=== PATIENT | female | born 1965 | race African-American/Black ===

== ENCOUNTER 2020-04-21 08:10 | Emergency (ER) | payer BC, SELFPAY ==
[2020-04-21 08:15] VITALS: BP 165/71; PULSE 71; RESP 18; TEMP 35.7; O2SAT 100
--- NOTE | 2020-04-21 08:18 | ED.HA ---
HPI - Headache General Chief Complaint: Headache Stated Complaint: russo/boil Time Seen by Provider: 04/21/20 08:18 Source: patient Mode of arrival: ambulatory Limitations: no limitations History of Present Illness HPI Narrative: Patient is a 54-year-old female with a history of hypertension and type 2 diabetes who presents for evaluation of boil on her face. Patient has a history of boils, takes prophylactic doxycycline daily, noticed a sore lesion again on the side of her right face near to her ear, reports some white drainage and pain. Patient has tried warm compresses without any improvement in the lesion. Patient states it is causing her to have a mild headache. Patient reports headache pain is mild, gradual onset in nature, no thunderclap sensation no red flag symptoms such as nausea, vomiting, numbness or weakness. No vision changes. Patient has taken Tylenol and ibuprofen with some minor improvement in the headache pain. Patient states she is hoping to have this boil drained. Otherwise, no fever or chills. Related Data Home Medications Medication Instructions Recorded Confirmed insulin glargine [Lantus Solostar SUBCUT 04/21/20 U-100 Insulin] lisinopril 04/21/20 Allergies Allergy/AdvReac Type Severity Reaction Status Date / Time acetaminophen Allergy Unknown Dizziness Verified 04/21/20 08:17 hydrocodone Allergy Unknown Dizziness Verified 04/21/20 08:17 Penicillins Allergy Unknown Dizziness Verified 04/21/20 08:17 Review of Systems Review of Systems: Narrative: CONSTITUTIONAL: Denies fever, chills, or sweats. EYES: Denies visual changes, redness, or discharge. ENT: Denies rhinorrhea, congestion, sore throat, or otalgia. CARDIOVASCULAR: Denies chest pain, palpitations, or edema. RESPIRATORY: Denies cough or dyspnea. GASTROINTESTINAL: Denies abdominal pain, nausea, vomiting, or diarrhea. GENITOURINARY: Denies dysuria or hematuria. SKIN: Denies rash or itching. Reports boil to right side of face. MUSCULOSKELETAL: Denies back pain, joint pain, or myalgia. NEUROLOGIC: Denies headache, numbness, or weakness. [facility] Past Medical History Medical History Hyperlipidemia Hypertension Migraines Type 2 diabetes mellitus Surgical History Surgical History H/O gastric bypass H/O inguinal hernia repair Family History Family History (Updated 10/03/17 @ 15:45 by DOCTOR UNKNOWN) Grandparent Hypertension Family history of heart disease in male family member before age 55 Diabetes mellitus Father Diabetes mellitus Patient's father is in good health Family history of arthritis Mother Asthma Patient's mother is in good health Family history of Alzheimer's disease Sibling Patient's sister is in good health Patient's brother is in good health Other Cerebrovascular accident Social History Social History Smoking status: Never smoker Alcohol intake: current Gender identity (if verbalized by the patient): Female Exam Narrative: Exam Narrative: GENERAL: Awake, alert, conversant HEAD: Normocephalic, atraumatic. 1 cm x 1 cm fluctuant lesion to right maxillary area, mild erythema, mild warmth, no extensive cellulitis, no facial edema EYES: 2+ PERRLA and EOMI. ENT: Nares clear, no rhinorrhea or epistaxis. Mucous membranes moist. NECK: Supple. CHEST: No respiratory distress, breathing even and non labored HEART: Regular rate, sinus rhythm ABDOMEN:Non distended, non tender EXTREMITIES: Normal range of motion. No edema. SKIN: Warm, dry, no rash. NEURO:No focal deficits. Alert and oriented x3. EOMs intact without nystagmus. No facial droop/asymmetry noted bilaterally. Grimace intact. Intact sensation in face. Hearing intact bilaterally. Shoulder shrug intact. Strength 5/5 bilateral upper extremities. Strength 5/5 bilateral lower extrem
[2020-04-21] MEDS: KETOROLAC (*BKC) 60 MG/2 ML VIAL 30 MG IM (09:05)
[2020-04-21 09:18] VITALS: BP 148/88; PULSE 78; RESP 18; O2SAT 98
== END 2020-04-21 09:19 | disposition home or self-care (01) ==
PROVIDERS: Emergency Provider Emergency Medicine; PCP Physician Assistant
DX: L02.01 Cutaneous abscess of face (principal); G44.209 Tension-type headache, unspecified, not intractable; E78.5 Hyperlipidemia, unspecified; I10 Essential (primary) hypertension; E11.9 Type 2 diabetes mellitus without complications; Z79.4 Long term (current) use of insulin; Z98.84 Bariatric surgery status
CPT/HCPCS: 10060; 96372; 99283; J1885

== ENCOUNTER 2020-10-05 18:01 | Emergency (ER) | payer BC, SELFPAY ==
--- NOTE | ~2020-10-05 | CT_ITS ---
EXAMINATION: CT abdomen pelvis w con DATE: 10/05/2020 19:09 INDICATION: Abdominal pain TECHNIQUE: Computed tomography (CT) of the abdomen and pelvis was performed with 100 cc Omnipaque 350 intravenous contrast. Automated exposure control and iterative reconstruction technique were employe d. Exam dose: 931.28 mGy-cm total exam DLP. COMPARISON: 12/17/2014 CT abdomen pelvis FINDINGS: The lung bases are clear of infiltrate or consolidation. Normal heart size. No pericardial or pleural effusion. Approximately 2.6 cm mixed hypoattenuating and enhancing lesion at the posterior aspect of the right hepatic lobe is likely a hepatic cavernous hemangioma, relatively stable in size compared to the nonc ontrast CT abdomen pelvis examination of 12/27/2014. No other hepatic space-occupying mass lesion is detected. Normal splenic size. No pancreatic mass les ion, calcification or ductal dilatation. The gallbladder is present. No bile duct dilatation. Normal morphology of the renal glands. Two probable small right renal cysts measuring up to approximately 5.5 mm maximal dimension. No urinary tract calculus or hydroureteronephrosis. Normal caliber of the abdominal aorta. No intraperitoneal or retroperitoneal or pelvic mass lesion or adenopathy or ascites. Status post hysterectomy. The urinary bladder is unremarkable. Small sliding hiatal hernia. Status post gastric bypass surgery. Normal appendix. There are some nonspecific fluid levels and fluid containing segments of the small b owel. No bowel obstruction, bowel wall thickening, pneumatosis or intraperitoneal free air. There is some skin thickening along the right inguinal crease Fat-containing parasagittal periumbilical ventral abdominal wall hernias. Included skeletal structures are unremarkable other than moderately prominent degenerative disease at L1-2. No suspicious osteolytic or osteoblastic lesions are noted. IMPRESSION: Nonspecific nondilated gas containing small bowel segments and small bowel air-fluid lev els, without apparent obstruction; consider enteritis, mild adynamic ileus Right hepatic probable cavernous hemangioma Probable 5.5 mm and smaller right renal cysts Status post gastric bypass graft surgery Status post hysterectomy Small sliding hiatal hernia Reviewed, dictated and finalized at [facility] Reviewed, dictated and finalized at [facility] [employer] IMPRESSION: Nonspecific nondilated gas containing small bowel segments and sma ll bowel air-fluid levels, without apparent obstruction; consider enteritis, mi ld adynamic ileus Right hepatic probable cavernous hemangioma Probable 5.5 mm and smaller right renal cysts Status post gastric bypass graft surgery Status post hysterectomy Small sliding hiatal hernia
[2020-10-05 18:02] VITALS: BP 165/88; PULSE 70; RESP 18; TEMP 36.6; O2SAT 100
[2020-10-05 18:23] LABS: Basophils Percent Auto 0.6 % (0.2-1.2); Eosinophils Absolute Auto 0.2 K/mm3 (0-0.3); Eosinophils Percent Auto 3.2 % (0-4.4); Hematocrit 41.9 % (37.0-47.0); Hemoglobin 13.6 g/dL (12.0-15.0); Immature Granulocyte Absolute 0.01 K/mm3 (0.00-0.031); Immature Granulocyte Percent A 0.2 % (0-0.5); Immature Platelet Fraction Pct 6.5 % (0.9-11.2); Lymphocytes Absolute Auto 2.22 K/mm3 (0.9-3.2); Lymphocytes Percent Auto 42.4 % (18.3-44.2); Mean Corpuscular HGB Conc 32.5 g/dl (32-36); Mean Corpuscular Hemoglobin 28.4 pg (26-34); Mean Corpuscular Volume 87.5 fl (80-100); Mean Platelet Volume 11.6 fl (7.4-10.4); Monocytes Absolute Auto 0.3 K/mm3 (0.1-0.6); Monocytes Percent Auto 6.3 % (2.6-8.5); Neutrophils Absolute Auto 2.5 K/mm3 (1.3-6.7); Neutrophils Percent Auto 47.3 % (45.5-73.1); Platelet Count Result 140 k/mm3 (150-375); Red Blood Count 4.79 M/mm3 (4.2-5.4); Red Cell Distribution Width 12.8 % (11.5-14.5); White Blood Count 5.2 K/mm3 (4.5-10.0)
[2020-10-05 18:25] LABS: Add Urine Microscopic? YES; Appearance Urine Clear (Clear); Bacteria Urine Trace /hpf; Bilirubin Urine Negative (Negative); Blood Urine Negative (Negative); Color Urine Yellow (Yellow); Glucose Urine UA 3+ mg/dL (Negative); Ketones Urine Negative (Negative); Leukocyte Esterase Ur Negative LEU/UL (Negative); Mucus Urine Rare /lpf; Nitrate Urine Negative (Negative); Protein Urine Negative (Negative); RBC Urine 0-2 /hpf (0-2); Specific Grav Ur 1.031 (1.001-1.035); Squamous Epithelial Cell Urine Rare /hpf (Few); WBC Urine 0-3 /hpf
[2020-10-05] MEDS: SODIUM CHLORIDE 0.9% IV 1,000 ML 999 ML IV CONT (18:26)
[2020-10-05] MEDS: ONDANSETRON INJ 4 MG/2 ML VIAL IV PUSH (18:26)
--- NOTE | 2020-10-05 18:26 | ED.ABDPAIN ---
HPI - Abdominal Pain General Chief Complaint: Abdominal Pain Stated Complaint: abd pain Time Seen by Provider: 10/05/20 18:03 Source: RN notes reviewed History of Present Illness HPI narrative: Patient presents to emergency department from home for abdominal pain. Patient states pain began at 10 PM last night after she ate a banana pain is located across the bilateral mid abdomen states is associated with nausea she denies any fevers or chills chest pain shortness of breath vomiting diarrhea or any other symptoms. States she did not take any pain medication today for the symptoms Related Data Home Medications Medication Instructions Recorded Confirmed insulin glargine [Lantus Solostar SUBCUT 04/21/20 U-100 Insulin] lisinopril 04/21/20 Allergies Allergy/AdvReac Type Severity Reaction Status Date / Time acetaminophen Allergy Unknown Dizziness Verified 04/21/20 08:17 hydrocodone Allergy Unknown Dizziness Verified 04/21/20 08:17 Penicillins Allergy Unknown Dizziness Verified 04/21/20 08:17 Review of Systems Review of Systems: Narrative: Gen.: Denies fevers or chills ENT: Denies congestion Respiratory: Denies shortness of breath or cough CV: Denies chest pain or palpitations GI: See HPI denies burning, urgency, frequency or hematuria Musculoskeletal: Denies back pain or muscle pain Neuro: Denies numbness, tingling, weakness or focal weakness Skin: Denies rash Except as documented, all other systems reviewed and negative PMFSH Past Medical History Medical History (Updated 10/05/20 @ 20:10 by Kong Dunn DO) Hyperlipidemia Hypertension Migraines Type 2 diabetes mellitus Surgical History Surgical History H/O gastric bypass H/O inguinal hernia repair Family History Family History (Updated 10/03/17 @ 15:45 by DOCTOR UNKNOWN) Grandparent Hypertension Family history of heart disease in male family member before age 55 Diabetes mellitus Father Diabetes mellitus Patient's father is in good health Family history of arthritis Mother Asthma Patient's mother is in good health Family history of Alzheimer's disease Sibling Patient's sister is in good health Patient's brother is in good health Other Cerebrovascular accident Social History Social History Smoking status: Never smoker Alcohol intake: current Gender identity (if verbalized by the patient): Female Exam Narrative: Exam Narrative: APPEARANCE: No acute distress, nontoxic, resting in bed HEENT: Normocephalic, atraumatic, OMM RESPIRATORY: No respiratory distress, clear to auscultation bilaterally with no rhonchi wheezing or rales CARDIOVASCULAR: RRR s murmur ABDOMINAL: Soft nondistended tender palpation right lower quadrant left lower quadrant no tenderness right upper quadrant left upper quadrant no rebound or guarding MUSCULOSKELETAl: Moves all extremities. No clubbing, cyanosis or edema. NEURO: Awake and alert. Following commands, speech normal, no focal deficits SKIN:: Warm, dry. Normal Color PSYCHIATRIC: Normal affect/mood Course Course Emergency Course: Patient states that they are feeling much better at this time. States abdominal pain has resolved. Repeat abdominal exam shows the patient's abdomen to be soft and nontender. Discussed with patient results of workup and diagnosis. Discussed need for follow-up with primary care physician, reasons to return to the emergency department in proper use of medication. Patient understands and agrees to current treatment plan I did discuss with patient her blood sugar she states she does plan to take her insulin when she goes home tonight Vital Signs Vital signs: Vital Signs Temperature 97.8 F 10/05/20 18:02 Pulse Rate 70 10/05/20 18:02 Respiratory Rate 18 10/05/20 18:02 Blood Pressure 165/88 H 10/05/20 18:02 Pulse Oximetry 100 10/05/20 18:02
[2020-10-05 18:34] LABS: Alanine Aminotransferase 74 U/L (4-35); Albumin Level 3.9 g/dL (3.5-5.1); Alkaline Phosphatase 188 U/L (38-126); Anion Gap 6 mmol/L (8-16); Aspartate Amino Transferase 54 U/L (14-36); Bilirubin,Total 0.4 mg/dL (0.2-1.3); Blood Urea Nitrogen 14 mg/dL (7-17); Calcium 8.8 mg/dL (8.4-10.2); Carbon Dioxide 30 mmol/L (22-30); Chloride 100 mmol/L (98-107); Estimated CRCL calculation 117 ml/min; Estimated Glomerular Filt Rate > 60; Glucose 334 mg/dL (65-105); Lipase 120 U/L (23-300); Potassium 4.2 mmol/L (3.4-5.0); Sodium 136 mmol/L (137-145)
[2020-10-05] MEDS: DICYCLOMINE HCL INJ 20 MG/2 ML VIAL IM (19:43)
[2020-10-05 20:29] VITALS: BP 159/81; PULSE 78; RESP 20; O2SAT 95
--- NOTE | 2020-10-15 07:57 | PC.NURSE ---
LATE ENTRY This note is being entered to document information to the patient's record. The following information was omitted on [10/05/20], by [Tonya Ribeiro RN. Normal saline stop time at 1920 on this date. ].
== END 2020-10-05 20:31 | disposition home or self-care (01) ==
PROVIDERS: Emergency Provider Emergency Medicine; Family Provider Family Medicine; PCP Physician Assistant
DX: K56.0 Paralytic ileus (principal); E11.9 Type 2 diabetes mellitus without complications; E78.5 Hyperlipidemia, unspecified; I10 Essential (primary) hypertension; Z79.4 Long term (current) use of insulin; Z98.84 Bariatric surgery status; K44.9 Diaphragmatic hernia without obstruction or gangrene; R93.2 Abnormal findings on diagnostic imaging of liver and biliary tract; R93.421 Abnormal radiologic findings on diagnostic imaging of right kidney
CPT/HCPCS: 36415; 74177; 80053; 81001; 81025; 83690; 85025; 85055; 96361; 96372; 96374; 99284; J0500; J2405; J7030; Q9967

== ENCOUNTER 2020-10-08 15:03 | Emergency (ER) | payer BC, SELFPAY ==
[2020-10-08 15:22] VITALS: BP 156/97; PULSE 69; RESP 16; TEMP 36.2; O2SAT 98
--- NOTE | 2020-10-08 15:29 | ED.SKABFB ---
HPI - Skin/Abscess/Foreign Bdy General Chief complaint: Skin/Abscess/Foreign Body Stated complaint: Boil Time Seen by Provider: 10/08/20 15:30 Source: patient and RN notes reviewed Mode of arrival: ambulatory Limitations: no limitations History of Present Illness HPI narrative: 55-year-old female presents with concern for boil in her right groin. Reports a history of abscesses and boils, it has been a while since she has had one. Reports she takes doxycycline daily to prevent them. Reports she has been taking doxycycline twice daily as instructed by her doctor since this boil started. Reports she has been using warm soaks, prid, with no relief. Reports small amount of purulent drainage. Denies abdominal pain, vaginal discharge, fever, body aches, general malaise. MD complaint: abscess/boil Related Data Home Medications Medication Instructions Recorded Confirmed insulin glargine [Lantus Solostar SUBCUT 04/21/20 U-100 Insulin] lisinopril 04/21/20 amlodipine 10/08/20 atorvastatin 10/08/20 doxycycline hyclate 10/08/20 ergocalciferol (vitamin D2) 10/08/20 [Vitamin D2] estradiol mg 10/08/20 hydrochlorothiazide 10/08/20 lamotrigine 10/08/20 Allergies Allergy/AdvReac Type Severity Reaction Status Date / Time acetaminophen Allergy Unknown Dizziness Verified 04/21/20 08:17 hydrocodone Allergy Unknown Dizziness Verified 04/21/20 08:17 Penicillins Allergy Unknown Dizziness Verified 04/21/20 08:17 Review of Systems Review of Systems: Narrative: CONSTITUTIONAL: Denies malaise, chills, sweats, or fever. CARDIOVASCULAR: Denies chest pain, palpitations, or edema. RESPIRATORY: Denies cough or dyspnea. GASTROINTESTINAL: Denies abdominal pain GENITOURINARY: Denies dysuria or hematuria. SKIN: Reports a boil in her right groin MUSCULOSKELETAL: Denies myalgia. All systems reviewed & are unremarkable except as noted in HPI and below PMFSH Past Medical History Medical History (Updated 10/08/20 @ 16:05 by Nancy Osorio NP) Hyperlipidemia Hypertension Migraines Type 2 diabetes mellitus Surgical History Surgical History H/O gastric bypass H/O inguinal hernia repair Family History Family History (Updated 10/03/17 @ 15:45 by DOCTOR UNKNOWN) Grandparent Hypertension Family history of heart disease in male family member before age 55 Diabetes mellitus Father Diabetes mellitus Patient's father is in good health Family history of arthritis Mother Asthma Patient's mother is in good health Family history of Alzheimer's disease Sibling Patient's sister is in good health Patient's brother is in good health Other Cerebrovascular accident Social History Social History Smoking status: Never smoker Alcohol intake: current Gender identity (if verbalized by the patient): Female Comments At time of signature, agree with nursing past medical, surgical, social and family history. There is no relevant family history pertinent to the presenting complaint Exam Narrative: Exam Narrative: GENERAL: Well-appearing, well-nourished, and in no acute distress. HEAD: Normocephalic EYES: PERRLA, conjunctivae clear ENT: Mucous membranes moist. NECK: Supple. CHEST: No respiratory distress. Speaks in full sentences. HEART: Regular rate and rhythm. SKIN: Warm, dry, no rash. Palpable, fluctuant, tender abscess noted to the right groin with white center. No surrounding erythema, induration NEURO: Alert and oriented x3. PSYCH: Normal mood and affect Course Course Emergency Course: Patient is aware of diagnosis, understands and agrees to treatment plan. Anticipatory guidance given. Patient agrees to follow-up as directed and is aware of reasons to seek care at the emergency department. Portions of this record may have been created with voice recognition software Vital Signs Vital
--- NOTE | 2020-10-08 15:53 | PC.NURSE ---
brewmaster in to do i and d. was moved from room 6 to 1 at [id number]
== END 2020-10-08 16:08 | disposition home or self-care (01) ==
PROVIDERS: Emergency Provider Nurse Practitioner
DX: L02.214 Cutaneous abscess of groin (principal); E78.5 Hyperlipidemia, unspecified; I10 Essential (primary) hypertension; E11.9 Type 2 diabetes mellitus without complications; Z98.84 Bariatric surgery status
CPT/HCPCS: 10060; 99213; G0463

== ENCOUNTER 2020-10-28 18:44 | Emergency (ER) | payer BC, SELFPAY ==
[2020-10-28 18:45] VITALS: BP 167/89; PULSE 77; RESP 18; TEMP 36.6; O2SAT 100
--- NOTE | 2020-10-28 19:29 | ED.GENADULT ---
HPI - General Adult General Chief complaint: Neck Pain/Injury Stated complaint: Muscle Spasms in Neck Time Seen by Provider: 10/28/20 18:50 Source: patient Mode of arrival: ambulatory Limitations: no limitations History of Present Illness HPI narrative: Patient is a 55-year-old female who presents to emergency department for evaluation of left-sided neck pain that she woke with 3 days ago patient denies injury trauma illness patient notes aching pain localized to the left trapezius and paraspinal cervical musculature with spasming has tried [id number] medications with minimal improvement denies other complaints or concerns and otherwise does not appear uncomfortable or distressed upon arrival denies radicular symptoms or paresthesias Related Data Home Medications Medication Instructions Recorded Confirmed insulin glargine [Lantus Solostar SUBCUT 04/21/20 U-100 Insulin] lisinopril 04/21/20 amlodipine 10/08/20 atorvastatin 10/08/20 doxycycline hyclate 10/08/20 ergocalciferol (vitamin D2) 10/08/20 [Vitamin D2] estradiol mg 10/08/20 hydrochlorothiazide 10/08/20 lamotrigine 10/08/20 Allergies Allergy/AdvReac Type Severity Reaction Status Date / Time acetaminophen Allergy Unknown Dizziness Verified 10/28/20 18:48 hydrocodone Allergy Unknown Dizziness Verified 10/28/20 18:48 Penicillins Allergy Unknown Dizziness Verified 10/28/20 18:48 Review of Systems Review of Systems: All systems reviewed & are unremarkable except as noted in HPI and below PMFSH Past Medical History Medical History (Updated 10/28/20 @ 19:32 by Rodrick Lewis PA-C) Hyperlipidemia Hypertension Migraines Type 2 diabetes mellitus Surgical History Surgical History H/O gastric bypass H/O inguinal hernia repair Family History Family History (Updated 10/03/17 @ 15:45 by DOCTOR UNKNOWN) Grandparent Hypertension Family history of heart disease in male family member before age 55 Diabetes mellitus Father Diabetes mellitus Patient's father is in good health Family history of arthritis Mother Asthma Patient's mother is in good health Family history of Alzheimer's disease Sibling Patient's sister is in good health Patient's brother is in good health Other Cerebrovascular accident Social History Social History Smoking status: Never smoker Alcohol intake: current Gender identity (if verbalized by the patient): Female Exam Narrative: Exam Narrative: GENERAL: Well-appearing, well-nourished, and in no acute distress. HEAD: Normocephalic, atraumatic. EYES: PERRLA and EOMI. ENT: Nares clear, no rhinorrhea or epistaxis. Mucous membranes moist. NECK: Supple. No adenopathy or masses. CHEST: Clear to auscultation. No respiratory distress. No wheezes rales or rhonchi HEART: Regular rate and rhythm. No murmur heard. EXTREMITIES: Normal range of motion. No edema. Tenderness of the left trapezius musculature and paraspinal musculature left-sided only reproducible no rash or other abnormalities noted SKIN: Warm, dry, no rash. NEURO: No focal deficits. Alert and oriented x3. Cranial nerves II through XII grossly intact. Neurovascularly intact. Normal speech and gait PSYCH: Normal mood and affect. Course Course Emergency Course: Patient in the room no distress aware of case findings treatment plan diagnosis agreeing to follow-up as directed or to return if symptoms worsen or concerns Vital Signs Vital signs: Vital Signs Temperature 97.8 F 10/28/20 18:45 Pulse Rate 77 10/28/20 18:45 Respiratory Rate 18 10/28/20 18:45 Blood Pressure 167/89 H 10/28/20 18:45 Pulse Oximetry 100 10/28/20 18:45 Temperature 97.8 F 10/28/20 18:45 Pulse Rate 77 10/28/20 18:45 Respiratory Rate 18 10/28/20 18:45 Blood Pressure 167/89 H 10/28/20 18:45 Pulse Oximetry 100
[2020-10-28] MEDS: KETOROLAC 30 MG/ML VIAL (*BKC) 15 MG IM (19:37)
[2020-10-28 19:43] VITALS: PULSE 78; RESP 20; TEMP 36.9; O2SAT 100
== END 2020-10-28 19:44 | disposition home or self-care (01) ==
PROVIDERS: Emergency Provider Family Medicine
DX: M43.6 Torticollis (principal); E78.5 Hyperlipidemia, unspecified; I10 Essential (primary) hypertension; E11.9 Type 2 diabetes mellitus without complications; Z79.4 Long term (current) use of insulin; Z98.84 Bariatric surgery status
CPT/HCPCS: 96372; 99283; J1885

== ENCOUNTER → 2020-11-09 06:59 | Outpatient (CLI) | payer BC, SELFPAY ==
[2020-11-09 22:11] LABS: SARS-CoV-2 RNA PCR Negative
== END ==
PROVIDERS: PCP Physician Assistant; Visit Provider Physician Assistant
DX: R68.89 Other general symptoms and signs (principal); Z20.822 Contact with and (suspected) exposure to COVID-19
CPT/HCPCS: C9803; U0003; U0005

== ENCOUNTER 2021-01-12 10:53 | Emergency (ER) | payer BC, SELFPAY ==
--- NOTE | ~2021-01-12 | CT_ITS ---
EXAMINATION: CT brain wo con INDICATION: Headache COMPARISON: 05/22/2014 TECHNIQUE: Standard unenhanced head CT. The dose-length product (DLP) was 605.33 mGy-cm. The mA was a djusted according to patient size. Iterative reconstruction technique was employed. FINDINGS: There is no intracranial hemorrhage, acute infarction, or abnormal mass lesion. The ventric les are normal. There is no abnormal mass effect or midline shift. The cleary-white matter differentiat ion is normal. The basal cisterns are patent. The orbits are normal. The paranasal sinuses, mastoids and calvarium are normal. IMPRESSION: 1. No acute intracranial abnormality. Reviewed, dictated and finalized at [facility].
--- NOTE | ~2021-01-12 | CT_ITS ---
EXAMINATION: CT abdomen pelvis w con DATE: 01/12/2021 13:18 INDICATION: Mid abdominal pain TECHNIQUE: Computed tomography (CT) of the abdomen and pelvis was performed with 100 mL Omnipaque-350 intravenous contrast. Automated exposure control and iterative reconstruction technique were employe d. The dose-length product was 894.87 mGy-cm. COMPARISON: None FINDINGS: Minimal dependent atelectasis in the bilateral lower lobes. Heart size is normal. No pericardial or p leural effusion. Small sliding-type hiatal hernia. Postoperative change of prior Doris-en-Y gastric by pass procedure. No significant change in a 2.4 cm mixed enhancing and hypodense hemangioma in the rig ht hepatic lobe with characteristic enhancement pattern identified on an earlier MRI dated 01/12/2015. Gallbladder, spleen, pancreas and bilateral adrenal glands are normal. Bilateral subcentimeter low-at tenuation likely renal cysts which are too small to definitively characterize. Large amount of stool scattered throughout the colon. Diverticulum at the proximal sigmoid colon without adjacent inflammat ory change to suggest diverticulitis. No bowel obstruction. Normal appendix. Diffuse mild bladder wal l thickening. The uterus is not identified and has likely been surgically resected. No free intraperi toneal gas or fluid. No pathologically enlarged abdominal or pelvic lymphadenopathy. Midline surgical scar with a couple small fat-containing paraumbilical ventral hernias. Mild disc height loss with sm all amount of sclerotic degenerative endplate changes at L1-L2. IMPRESSION: 1. Large amount of colonic stool. Correlate clinically for constipation. 2. Diffuse mild bladder wall thickening which could be due to incomplete distention or cystitis eithe r acute or chronic. Correlate with urinalysis. 3. Small sliding-type hiatal hernia and changes of prior Doris-en-Y gastric bypass procedure. 4. A couple small fat-containing paraumbilical ventral hernias. Reviewed, dictated and finalized at location A. IMPRESSION: 1. Large amount of colonic stool. Correlate clinically for constipation. 2. Diffuse mild bladder wall thickening which could be due to incomplete disten tion or cystitis either acute or chronic. Correlate with urinalysis. 3. Small sliding-type hiatal hernia and changes of prior Doris-en-Y gastric bypa ss procedure. 4. A couple small fat-containing paraumbilical ventral hernias.
--- NOTE | ~2021-01-12 | CT_ITS ---
EXAMINATION: CT cervical spine [facility] EXAM DATE: 01/12/2021 13:16 INDICATION: Neck pain. TECHNIQUE: Spiral CT of the cervical spine was performed without contrast. Axial images were reviewe d. Coronal and sagittal reformatted images cervical spine were also reviewed. The dose-length produc t (DLP) for this examination was 397.99 mGy-cm. The exposure was tailored according to patient size (auto mA exposure control), and iterative reconstruction (ASIR) was used as additional dose reduction technique. There is no prior study for comparison. FINDINGS: Mild disc disease C4-C7. There is mild reversal of the normal cervical lordosis which may be positional or spasm. There are no acute fractures identified. The odontoid process is intact. Th e lateral masses of C1 line up with C2. Prevertebral soft tissue and pre-dens space are within normal limits. Level by level evaluation: C2-C3: Disc does not extend beyond the endplate margin. Uncovertebral joint arthropathy: Mild bilateral. Facet joint arthropathy: Mild bilateral. Neural foraminal stenosis: No stenosis. Central canal stenosis: No stenosis. C3-C4: There is a minimal diffuse disc bulge. Uncovertebral joint arthropathy: None. Facet joint arthropathy: Mild bilateral. Neural foraminal stenosis: No stenosis. Central canal stenosis: No stenosis. C4-C5: There is a mild diffuse disc bulge. Uncovertebral joint arthropathy: Mild bilateral. Facet joint arthropathy: Mild bilateral. Neural foraminal stenosis: Minimal left. Central canal stenosis: Mild. C5-C6: There is a mild diffuse disc bulge. Uncovertebral joint arthropathy: Mild bilateral. Facet joint arthropathy: Mild bilateral. Neural foraminal stenosis: No stenosis. Central canal stenosis: No stenosis. C6-C7: There is a mild diffuse disc bulge. Uncovertebral joint arthropathy: Mild bilateral. Facet joint arthropathy: Mild bilateral. Neural foraminal stenosis: No stenosis. Central canal stenosis: No stenosis. C7-T1: There is a mild diffuse disc bulge. Uncovertebral joint arthropathy: None. Facet joint arthropathy: Mild bilateral. Neural foraminal stenosis: No stenosis. Central canal stenosis: No stenosis. IMPRESSION: 1. Overall mild cervical spondylosis. 2. Mild reversal normal cervical lordosis, could be positional, degenerative or spasm. 3. No fracture. Reviewed, dictated and finalized at location B. IMPRESSION: 1. Overall mild cervical spondylosis. 2. Mild reversal normal cervical lordosis, could be positional, degenerative o r spasm. 3. No fracture.
[2021-01-12 11:04] VITALS: BP 175/101; PULSE 77; RESP 20; TEMP 36.7; O2SAT 100
[2021-01-12 11:34] LABS: Basophils Percent Auto 0.5 % (0.2-1.2); Eosinophils Absolute Auto 0.1 K/mm3 (0-0.3); Eosinophils Percent Auto 1.5 % (0-4.4); Hematocrit 42.7 % (37.0-47.0); Hemoglobin 13.7 g/dL (12.0-15.0); Immature Granulocyte Absolute 0.01 K/mm3 (0.00-0.031); Immature Granulocyte Percent A 0.2 % (0-0.5); Immature Platelet Fraction Pct 6.6 % (0.9-11.2); Lymphocytes Absolute Auto 1.54 K/mm3 (0.9-3.2); Lymphocytes Percent Auto 38.1 % (18.3-44.2); Mean Corpuscular HGB Conc 32.1 g/dl (32-36); Mean Corpuscular Volume 87.1 fl (80-100); Mean Platelet Volume 11.7 fl (7.4-10.4); Monocytes Absolute Auto 0.3 K/mm3 (0.1-0.6); Monocytes Percent Auto 6.4 % (2.6-8.5); Neutrophils Absolute Auto 2.2 K/mm3 (1.3-6.7); Neutrophils Percent Auto 53.3 % (45.5-73.1); Platelet Count Result 136 k/mm3 (150-375); Red Cell Distribution Width 12.9 % (11.5-14.5)
--- NOTE | 2021-01-12 11:35 | ED.GENADULT ---
HPI - General Adult General Chief complaint: Abdominal Pain Stated complaint: right neck and shoulder pain/abd pain Time Seen by Provider: 01/12/21 11:01 Source: patient and RN notes reviewed Mode of arrival: ambulatory Limitations: no limitations History of Present Illness HPI narrative: This is a 55 year old female with history of gastric bypass who presents for evaluation right neck pain. She woke with muscle spasm to right neck on Monday. she states she has taken Flexeril , Tylenol and used a lidocaine patch with out relief. She states she gets this from time to time. She denies extremity, weakness, numbness or tingling. She denies chest pain, sob, fever, nausea, vomiting or diarrhea. She also states since she is here to get neck pain treated, she also mentions she has mid abdominal pain intermittently. She states for over a month she has sharp pain that occurs when every she eats of drinks. This pain last seconds. Related Data Home Medications Medication Instructions Recorded Confirmed insulin glargine [Lantus Solostar SUBCUT 04/21/20 U-100 Insulin] lisinopril 04/21/20 amlodipine 10/08/20 atorvastatin 10/08/20 doxycycline hyclate 10/08/20 ergocalciferol (vitamin D2) 10/08/20 [Vitamin D2] estradiol mg 10/08/20 hydrochlorothiazide 10/08/20 lamotrigine 10/08/20 Allergies Allergy/AdvReac Type Severity Reaction Status Date / Time acetaminophen Allergy Unknown Dizziness Verified 01/12/21 11:08 hydrocodone Allergy Unknown Dizziness Verified 01/12/21 11:08 Penicillins Allergy Unknown Dizziness Verified 01/12/21 11:08 Review of Systems Review of Systems: All systems reviewed & are unremarkable except as noted in HPI and below [facility] Past Medical History Medical History (Updated 01/12/21 @ 13:56 by Esperanza Lanier MD) Hyperlipidemia Hypertension Migraines Type 2 diabetes mellitus Surgical History Surgical History H/O gastric bypass H/O inguinal hernia repair Family History Family History (Updated 10/03/17 @ 15:45 by DOCTOR UNKNOWN) Grandparent Hypertension Family history of heart disease in male family member before age 55 Diabetes mellitus Father Diabetes mellitus Patient's father is in good health Family history of arthritis Mother Asthma Patient's mother is in good health Family history of Alzheimer's disease Sibling Patient's sister is in good health Patient's brother is in good health Other Cerebrovascular accident Social History Social History Smoking status: Never smoker Alcohol intake: current Gender identity (if verbalized by the patient): Female Exam Const: General: alert Orientation/consciousness: patient oriented x3 Eyes: Pupils: Equal, round and reactive pupils present EOM: EOMs intact bilaterally Chest: Chest palpation & inspection: normal inspection of the chest Resp: Effort & Inspection: normal respiratory effort and no retractions Auscultation: clear to auscultation bilaterally Cardio: Rate: regular rate Rhythm: regular rhythm Heart sounds: no murmurs GI: GI Palp: Yes Soft to palpation, No Tenderness to palpation present (GI) and No Guarding due to palpation present (GI) Auscultation: normal bowel sounds Skin: General skin exam: normal color Rashes: no rashes Neuro: General: patient oriented x3, moves all extremities and CN's II-XI intact bilaterally Course Reevaluation(s) Reevaluation #1: Patient has no abdominal pain or tendnerness currently. She is aware she needs follow up with her primary care physician and her surgeon. Date: 01/12/21 Time: 13:55 Vital Signs Vital signs: Vital Signs Temperature 98.1 F 01/12/21 11:04 Pulse Rate 77 01/12/21 11:04 Respiratory Rate 20 01/12/21 11:04 Blood Pressure 175/101 H 01/12/21 11:04 Pulse Oximetry 100
[2021-01-12] MEDS: diazePAM (*CRX) 5 MG TABLET PO (11:39)
[2021-01-12 11:42] LABS: Alanine Aminotransferase 35 U/L (4-35); Albumin Level 4.1 g/dL (3.5-5.1); Alkaline Phosphatase 127 U/L (38-126); Anion Gap 4 mmol/L (8-16); Aspartate Amino Transferase 26 U/L (14-36); Bilirubin,Total 0.3 mg/dL (0.2-1.3); Blood Urea Nitrogen 6 mg/dL (7-17); Calcium 8.7 mg/dL (8.4-10.2); Carbon Dioxide 30 mmol/L (22-30); Chloride 106 mmol/L (98-107); Estimated CRCL calculation 141 ml/min; Estimated Glomerular Filt Rate > 60; Glucose 128 mg/dL (65-105); Lipase 47 U/L (23-300); Potassium 3.9 mmol/L (3.4-5.0); Sodium 140 mmol/L (137-145)
[2021-01-12 11:44] LABS: Add Urine Microscopic? YES; Appearance Urine Cloudy (Clear); Bacteria Urine Trace /hpf; Bilirubin Urine Negative (Negative); Blood Urine Negative (Negative); Color Urine Yellow (Yellow); Glucose Urine UA 2+ mg/dL (Negative); Ketones Urine Negative (Negative); Leukocyte Esterase Ur Negative LEU/UL (Negative); Mucus Urine Few /lpf; Nitrate Urine Negative (Negative); Protein Urine Negative (Negative); RBC Urine 0-2 /hpf (0-2); Specific Grav Ur 1.025 (1.001-1.035); Squamous Epithelial Cell Urine Many /hpf (Few); Urobilinogen Urine Negative mg/dL (<2.0); WBC Urine 0-3 /hpf
--- NOTE | 2021-01-12 11:46 | PC.NURSE ---
ultrasound called and let them know she drank all of her water and is ready for pelvic US
[2021-01-12 13:44] VITALS: BP 159/83; PULSE 59; RESP 18; O2SAT 100
== END 2021-01-12 14:30 | disposition home or self-care (01) ==
PROVIDERS: Emergency Provider General Practice; PCP Physician Assistant
DX: M62.830 Muscle spasm of back (principal); R10.9 Unspecified abdominal pain; M47.812 Spondylosis without myelopathy or radiculopathy, cervical region; I10 Essential (primary) hypertension; E78.5 Hyperlipidemia, unspecified; E11.9 Type 2 diabetes mellitus without complications; Z79.4 Long term (current) use of insulin
CPT/HCPCS: 36415; 70450; 72125; 74177; 80053; 81001; 83690; 85025; 85055; 96365; 99284; A9270; J0131; Q9967

== ENCOUNTER 2021-04-04 12:58 | Emergency (ER) | payer BC, SELFPAY ==
[2021-04-04 13:20] VITALS: BP 135/88; PULSE 63; RESP 18; TEMP 35.9; O2SAT 100
--- NOTE | 2021-04-04 14:01 | ED.URI ---
HPI - URI/Sore Throat General Chief Complaint: Upper Respiratory Infection Stated Complaint: Cough Time Seen by Provider: 04/04/21 14:01 Source: patient Mode of arrival: ambulatory Limitations: no limitations History of Present Illness HPI Narrative: Radha Miller is a 55 yo female with a PMH of high blood pressure and type 2 diabetes, who comes to [facility] with complaints of a cough from postnasal drip and also muscle pain after eating multiple places and raking her yard. She states she has postnasal drip and usually it is not this bad but she is coughing enough to keep her up last night; she has used Zyrtec on occasion Related Data Home Medications Medication Instructions Recorded Confirmed insulin glargine [Lantus Solostar SUBCUT 04/21/20 U-100 Insulin] lisinopril 04/21/20 amlodipine 10 mg PO DAILY 10/08/20 atorvastatin 10/08/20 doxycycline hyclate 10/08/20 ergocalciferol (vitamin D2) 10/08/20 [Vitamin D2] estradiol mg 10/08/20 hydrochlorothiazide 10/08/20 lamotrigine 10/08/20 Allergies Allergy/AdvReac Type Severity Reaction Status Date / Time acetaminophen Allergy Unknown Dizziness Verified 01/12/21 11:08 hydrocodone Allergy Unknown Dizziness Verified 01/12/21 11:08 Penicillins Allergy Unknown Dizziness Verified 01/12/21 11:08 Review of Systems Review of Systems: Narrative: CONSTITUTIONAL: Denies fever, chills, sweats. EYES: Denies visual changes, redness, discharge. ENT: Denies rhinorrhea, has congestion, sore throat, otalgia. CARDIOVASCULAR: Denies chest pain, palpitations, edema. RESPIRATORY: Denies dyspnea, wheezing, has cough GASTROINTESTINAL: Denies abdominal pain, nausea, vomiting, diarrhea. GENITOURINARY: Denies dysuria, hematuria, abnormal discharge SKIN: Denies rash or itching. NEUROLOGIC: Denies numbness, or focal weakness. PSYCHIATRIC: Denies anxiety or depression. Muscle aches PMFSH Past Medical History Medical History (Updated 04/04/21 @ 14:11 by Susan Robles CNP) Hyperlipidemia Hypertension Migraines Type 2 diabetes mellitus Surgical History Surgical History H/O gastric bypass H/O inguinal hernia repair Family History Family History Grandparent Hypertension Family history of heart disease in male family member before age 55 Diabetes mellitus Father Diabetes mellitus Patient's father is in good health Family history of arthritis Mother Asthma Patient's mother is in good health Family history of Alzheimer's disease Sibling Patient's sister is in good health Patient's brother is in good health Other Cerebrovascular accident Social History Social History Smoking status: Never smoker Alcohol intake: current Gender identity (if verbalized by the patient): Female Comments At time of signature, I agree with nursing past medical, surgical, social and family history. There is no relevant family history pertinent to the presenting complaint. Exam Narrative: Exam Narrative: GENERAL: This is a well-nourished, well-developed patient, in mild distress. HEAD: normocephalic, atraumatic. EYES: Sclera clear/white. Vision is grossly intact. EARS: External ears normal, auditory canals erythema and without drainage, TMs mild bulging without perforation. Hearing grossly intact. NOSE: External nose normal without nasal discharge, nares without redness, no rhinorrhea. THROAT: Mucous membranes moist, posterior pharynx erythema NECK: Neck supple, non-tender CARDIOVASCULAR: Regular rate and rhythm without murmurs, gallops, or rubs. RESPIRATORY: Clear to auscultation. Breath sounds equal bilaterally. No wheezes, rales, or rhonchi. GASTROINTESTINAL: Abdomen soft, non-tender, SKIN: warm, intact with no suspicious lesions or rash, good texture and turgor. NEURO: awake, alert, and oriented to
== END 2021-04-04 14:19 | disposition home or self-care (01) ==
PROVIDERS: Emergency Provider Nurse Practitioner; PCP Physician Assistant
DX: M79.10 Myalgia, unspecified site (principal); R05 Cough; E78.5 Hyperlipidemia, unspecified; I10 Essential (primary) hypertension; E11.9 Type 2 diabetes mellitus without complications; Z98.84 Bariatric surgery status
CPT/HCPCS: 99213; G0463

== ENCOUNTER → 2021-10-02 07:55 | Outpatient (CLI) | payer OTHER, MEDICAID, SELFPAY ==
[2021-10-02 20:23] LABS: SARS-CoV-2 RNA PCR Negative
== END ==
PROVIDERS: PCP Physician Assistant; Visit Provider Physician Assistant
DX: R68.89 Other general symptoms and signs (principal); Z20.822 Contact with and (suspected) exposure to COVID-19
CPT/HCPCS: C9803; U0003; U0005

== ENCOUNTER 2022-12-19 09:29 | Emergency (ER) | payer OTHER, MEDICAID, SELFPAY ==
--- NOTE | ~2022-12-19 | XR_ITS ---
EXAMINATION: XR chest 2V DATE: 12/19/2022 12:12 INDICATION: Hypertension. TECHNIQUE: Frontal and lateral views of the chest were obtained. COMPARISON: Chest 2 views 09/22/2017 FINDINGS: The chest demonstrates clear lungs without pneumonia, pleural effusion, or pneumothorax. Th e heart size is normal. IMPRESSION: 1. No acute cardiopulmonary disease. Reviewed, dictated and finalized at location A.
[2022-12-19 09:32] VITALS: BP 196/88; PULSE 55; RESP 16; TEMP 36.8; O2SAT 100
[2022-12-19 09:39] LABS: Glucose Point of Care 331 mg/dl (65-105)
[2022-12-19 10:26] VITALS: BP 198/107; PULSE 61; RESP 12; O2SAT 99
--- NOTE | 2022-12-19 10:27 | ED.RECABL ---
HPI - Recheck/Abnormal Lab/Rx General Chief Complaint: Recheck/Abnormal Lab/Rx Stated Complaint: Elevated BP/BS Time Seen by Provider: 12/19/22 10:21 History of Present Illness HPI narrative: Patient is a 57-year-old female with a history of hypertension and diabetes sent here by her primary care office due to elevated blood pressure reads and elevated blood sugar reads. Patient has been out of her insulin and antihypertensives for about 2 weeks. She is asymptomatic, denies any chest pain, shortness of breath, fevers or chills, abdominal pain, nausea vomiting or diarrhea. States that her primary care doctor refilled her medicines today but wanted her to come to the ED due to BPs around 190 systolic. Her fingerstick glucose was 380 this morning. States that she had a peach cobbler for breakfast and had lots of dietary indiscretions yesterday for Easter. Related Data Home Medications Medication Instructions Recorded Confirmed insulin glargine 100 unit/mL (3 subcut 04/21/20 mL) subcutaneous pen (Lantus Solostar U-100 Insulin) lisinopril 30 mg tablet 04/21/20 amlodipine 10 mg tablet 10 mg PO DAILY 10/08/20 atorvastatin 40 mg tablet 10/08/20 doxycycline hyclate 100 mg tablet 10/08/20 ergocalciferol (vitamin D2) 1,250 10/08/20 mcg (50,000 unit) capsule (Vitamin D2) estradiol 1 mg tablet mg 10/08/20 hydrochlorothiazide 12.5 mg capsule 10/08/20 lamotrigine 100 mg tablet 10/08/20 Allergies Allergy/AdvReac Type Severity Reaction Status Date / Time acetaminophen AdvReac Unknown Dizziness Verified 12/19/22 11:15 hydrocodone AdvReac Unknown Dizziness Verified 12/19/22 11:15 Penicillins AdvReac Unknown Dizziness Verified 12/19/22 11:15 Review of Systems Review of Systems: Gen.: Denies fevers or chills Eyes: Denies eye pain or visual change ENT: Denies congestion Respiratory: Denies shortness of breath or cough CV: Denies chest pain or palpitations GI: Denies abdominal pain nausea, emesis or diarrhea denies burning, urgency, frequency or hematuria Musculoskeletal: Denies back pain or muscle pain Neuro: Denies numbness, tingling, weakness or focal weakness Skin: Denies rash Except as documented, all other systems reviewed and negative [facility] Past Medical History Medical History (Updated 12/19/22 @ 12:46 by Chika Carreno PA-C) Hyperlipidemia Hypertension Migraines Type 2 diabetes mellitus Surgical History Surgical History H/O gastric bypass H/O inguinal hernia repair Family History Family History Grandparent Hypertension Family history of heart disease in male family member before age 55 Diabetes mellitus Father Diabetes mellitus Patient's father is in good health Family history of arthritis Mother Asthma Patient's mother is in good health Family history of Alzheimer's disease Sibling Patient's sister is in good health Patient's brother is in good health Other Cerebrovascular accident Social History Social History Smoking status: Never smoker Alcohol intake: current Gender identity (if verbalized by the patient): Female Exam Narrative: APPEARANCE: Well appearing, no pain in distress, well-nourished. Head: Normocephalic and atraumatic. EYES: PERRLA/EOMI, conjunctivae clear NOSE: No nasal drainage EARS: External ear normal in appearance THROAT: Oropharynx is clear. Mucous membranes are moist. NECK: Supple. No adenopathy, no masses. RESPIRATORY: Airway patent, respirations nonlabored. Clear to auscultation bilaterally, no rales, rhonchi, wheezing. CARDIOVASCULAR: Regular rate and rhythm without murmurs, rubs, or gallops. ABDOMINAL: Normoactive bowel sounds. Soft, nontender, nondistended. No rebound tenderness or guarding. MUSCULOSKELETAL: Extremities are warm and well-perfused. Mov
[2022-12-19 10:59] LABS: Appearance Urine Clear (Clear); Basophils Percent Auto 0.5 % (0.2-1.2); Bilirubin Urine Negative (Negative); Blood Urine Negative (Negative); Color Urine Yellow (Yellow); Eosinophils Absolute Auto 0.1 K/mm3 (0-0.3); Eosinophils Percent Auto 2.9 % (0-4.4); Glucose Urine UA 3+ mg/dL (Negative); Hematocrit 37.2 % (37.0-47.0); Hemoglobin 11.8 g/dL (12.0-15.0); Ketones Urine Negative (Negative); Leukocyte Esterase Ur Negative LEU/UL (Negative); Lymphocytes Absolute Auto 1.96 K/mm3 (0.9-3.2); Lymphocytes Percent Auto 51.2 % (18.3-44.2); Mean Corpuscular HGB Conc 31.7 g/dl (32-36); Mean Corpuscular Hemoglobin 28.4 pg (26-34); Mean Corpuscular Volume 89.4 fl (80-100); Mean Platelet Volume 11.5 fl (7.4-10.4); Monocytes Absolute Auto 0.3 K/mm3 (0.1-0.6); Monocytes Percent Auto 8.6 % (2.6-8.5); Neutrophils Absolute Auto 1.4 K/mm3 (1.3-6.7); Neutrophils Percent Auto 36.8 % (45.5-73.1); Nitrate Urine Negative (Negative); Platelet Count Result 121 k/mm3 (150-375); Protein Urine Negative (Negative); Red Blood Count 4.16 M/mm3 (4.2-5.4); Red Cell Distribution Width 14.4 % (11.5-14.5); White Blood Count 3.8 K/mm3 (4.5-10.0)
[2022-12-19 11:01] LABS: Specific Grav Ur 1.041 (1.001-1.035)
[2022-12-19 11:03] LABS: Add Urine Microscopic? NO
[2022-12-19 11:08] LABS: Alanine Aminotransferase 29 U/L (6-35); Albumin Level 3.8 g/dL (3.5-5.1); Alkaline Phosphatase 148 U/L (38-126); Anion Gap 4 mmol/L (8-16); Aspartate Amino Transferase 20 U/L (14-36); Bilirubin,Total 0.6 mg/dL (0.2-1.3); Blood Urea Nitrogen 6 mg/dL (7-17); Calcium 8.3 mg/dL (8.4-10.2); Carbon Dioxide 27 mmol/L (22-30); Chloride 106 mmol/L (98-107); Estimated CRCL calculation 139 ml/min; Estimated Glomerular Filt Rate > 60; Glucose 286 mg/dL (65-110); Potassium 3.7 mmol/L (3.4-5.0); Sodium 137 mmol/L (137-145)
[2022-12-19 11:12] LABS: Beta-Hydroxybutyrate/Acetoacetate 0.13 mmol/L (0.02-0.27)
[2022-12-19 11:40] VITALS: BP 193/107; PULSE 54; RESP 16; O2SAT 99
[2022-12-19] MEDS: lisinopriL 20 MG TABLET PO (11:40)
--- NOTE | 2022-12-19 12:01 | ECG_ITS ---
Measurements Intervals [place] Rate: 45 P: 53 NC: 124 QRS: -7 QRSD: 91 T: 29 QT: 474 QTc: 410 Interpretive Statements SINUS BRADYCARDIA BORDERLINE ECG NO PREVIOUS ECG AVAILABLE FOR COMPARISON Electronically Signed On 12-19-2022 17:03:35 CDT by Camron Davila M.D.
[2022-12-19 12:26] VITALS: BP 186/79; PULSE 46; RESP 17; O2SAT 98
[2022-12-19 12:56] VITALS: BP 154/86; PULSE 50; RESP 16; O2SAT 98
== END 2022-12-19 12:57 | disposition home or self-care (01) ==
PROVIDERS: Emergency Provider Physician Assistant; PCP Physician Assistant
DX: I10 Essential (primary) hypertension (principal); E11.9 Type 2 diabetes mellitus without complications; E78.5 Hyperlipidemia, unspecified; Z98.84 Bariatric surgery status; Z79.4 Long term (current) use of insulin
CPT/HCPCS: 36415; 71046; 80053; 81003; 82010; 82948; 85025; 85055; 93005; 99283; A9270

== ENCOUNTER 2023-03-25 07:54 | Emergency (ER) | payer OTHER, MEDICAID, SELFPAY ==
[2023-03-25 07:57] VITALS: BP 156/94; PULSE 93; RESP 19; TEMP 36.3; O2SAT 100
--- NOTE | 2023-03-25 08:06 | ED.GENADULT ---
HPI - General Adult General Chief complaint: Neck Pain/Injury Stated complaint: left neck pain Time Seen by Provider: 03/25/23 07:58 Source: patient Mode of arrival: ambulatory Limitations: no limitations History of Present Illness HPI narrative: Patient is a 57-year-old female who presents ER with left shoulder pain. She reports last week she did a lot of gardening. She then woke up and her left shoulder was sore and achy. Is been like that over the last week. Worse with motions of the left arm. She has no chest pain or chest pressure. She has discomfort with palpation over the trapezius musculature. She denies numbness or tingling. She has been using some topical lidocaine as well as some Anai for pain with only mild relief. No additional concerns. Related Data Home Medications Medication Instructions Recorded Confirmed insulin glargine 100 unit/mL (3 subcut 04/21/20 mL) subcutaneous pen (Lantus Solostar U-100 Insulin) lisinopril 30 mg tablet 04/21/20 amlodipine 10 mg tablet 10 mg PO DAILY 10/08/20 atorvastatin 40 mg tablet 10/08/20 doxycycline hyclate 100 mg tablet 10/08/20 ergocalciferol (vitamin D2) 1,250 10/08/20 mcg (50,000 unit) capsule (Vitamin D2) estradiol 1 mg tablet mg 10/08/20 hydrochlorothiazide 12.5 mg capsule 10/08/20 lamotrigine 100 mg tablet 10/08/20 Allergies Allergy/AdvReac Type Severity Reaction Status Date / Time acetaminophen AdvReac Unknown Dizziness Verified 12/19/22 11:15 hydrocodone AdvReac Unknown Dizziness Verified 12/19/22 11:15 Penicillins AdvReac Unknown Dizziness Verified 12/19/22 11:15 Review of Systems Musculoskeletal: Musculoskeletal: Denies arthralgias, Denies joint swelling and Reports muscle cramps Integumentary/Breasts: Skin/Breast: Denies erythema and Denies rash Neurologic: Denies focal weakness and Denies numbness PMF Past Medical History Medical History (Updated 03/25/23 @ 08:14 by Xavier Cuello MD) Hyperlipidemia Hypertension Migraines Type 2 diabetes mellitus Surgical History Surgical History (Updated 03/25/23 @ 08:13 by Xavier Cuello MD) H/O gastric bypass H/O inguinal hernia repair History of section Family History Family History Grandparent Hypertension Family history of heart disease in male family member before age 55 Diabetes mellitus Father Diabetes mellitus Patient's father is in good health Family history of arthritis Mother Asthma Patient's mother is in good health Family history of Alzheimer's disease Sibling Patient's sister is in good health Patient's brother is in good health Other Cerebrovascular accident Social History Social History Smoking status: Never smoker Alcohol intake: current Gender identity (if verbalized by the patient): Female Exam Narrative: GENERAL: Well-appearing, well-nourished, and in no acute distress. HEAD: Normocephalic, atraumatic. CHEST: Clear to auscultation. No respiratory distress. HEART: Regular rate and rhythm. Normal peripheral pulses. EXTREMITIES: Normal range of motion. No edema. Palpable spasm in the trapezius musculature on the left side. SKIN: Warm, dry, no rash. NEURO: Alert and oriented x3. PSYCH: Normal mood and affect. Course Course Emergency Course: Patient requesting a Toradol shot as well as lidocaine patches for home. She will be given 60 mg of Toradol IM here. We will put her on low-dose anti-inflammatories for short duration as she has history of gastric bypass surgery. She also be provided lidocaine patches and muscle relaxers. Patient educated on diagnosis and treatment plan and verbalized understanding. Vital Signs Vital signs: Vital Signs Temperature 97.4 F L 03/25/23 07:57 Pulse Rate 93 03/25/23 07:57 Respiratory Rate 19 03/25/23 07:57 Blood Pressure 156/94 H
[2023-03-25] MEDS: KETOROLAC (*BKC) 60 MG/2 ML VIAL IM (08:21)
[2023-03-25 08:30] VITALS: BP 140/90; PULSE 70; RESP 16; O2SAT 100
== END 2023-03-25 08:30 | disposition home or self-care (01) ==
LOC: ANHED 08:19
PROVIDERS: Emergency Provider Emergency Medicine; PCP Physician Assistant
DX: R25.2 Cramp and spasm (principal); E78.5 Hyperlipidemia, unspecified; I10 Essential (primary) hypertension; E11.9 Type 2 diabetes mellitus without complications
CPT/HCPCS: 96372; 99283; J1885

== ENCOUNTER 2023-04-19 15:59 | Emergency (ER) | payer OTHER, MEDICAID, SELFPAY ==
[2023-04-19 16:05] VITALS: BP 175/95; PULSE 81; RESP 16; TEMP 36.6; O2SAT 98
[2023-04-19 18:40] VITALS: BP 168/98; BP 200/110; PULSE 60; PULSE 62; RESP 13; RESP 15; TEMP 36.9; O2SAT 99
--- NOTE | 2023-04-19 19:27 | ED.RECABL ---
HPI - Recheck/Abnormal Lab/Rx General Chief Complaint: Recheck/Abnormal Lab/Rx Stated Complaint: sent by PCP for htn Time Seen by Provider: 04/19/23 18:58 History of Present Illness HPI narrative: Patient is a 57-year-old female with a history of hypertension presenting with hypertension. Patient states that she has been having stomach problems lately so she saw a GI doctor earlier today. At the clinic they measured her blood pressure and it was 200 systolic so she was advised to come to the ER. She denies any symptoms related to the blood pressure. States that she felt in her normal state of health and she continues to. Complains of some chronic neck pain but no new headaches, vision changes, numbness or weakness, nausea or vomiting, chest pain, shortness of breath, lightheadedness, palpitations. Related Data Home Medications Medication Instructions Recorded Confirmed insulin glargine 100 unit/mL (3 subcut 04/21/20 04/19/23 mL) subcutaneous pen (Lantus Solostar U-100 Insulin) lisinopril 30 mg tablet 04/21/20 04/19/23 amlodipine 10 mg tablet 10 mg PO DAILY 10/08/20 04/19/23 atorvastatin 40 mg tablet 10/08/20 04/19/23 doxycycline hyclate 100 mg tablet 10/08/20 04/19/23 ergocalciferol (vitamin D2) 1,250 10/08/20 04/19/23 mcg (50,000 unit) capsule (Vitamin D2) estradiol 1 mg tablet mg 10/08/20 04/19/23 hydrochlorothiazide 12.5 mg capsule 10/08/20 04/19/23 lamotrigine 100 mg tablet 10/08/20 04/19/23 Allergies Allergy/AdvReac Type Severity Reaction Status Date / Time hydrocodone AdvReac Unknown Dizziness Verified 04/19/23 18:35 Penicillins AdvReac Unknown Dizziness Verified 04/19/23 18:35 Review of Systems Review of Systems: All systems reviewed & are unremarkable except as noted in HPI and below PMFSH Past Medical History Medical History Abdominal pain Diarrhea Encounter for screening colonoscopy Hyperlipidemia Hypertension Migraines Nausea & vomiting Type 2 diabetes mellitus Surgical History Surgical History H/O gastric bypass H/O inguinal hernia repair History of section Family History Family History Grandparent Hypertension Family history of heart disease in male family member before age 55 Diabetes mellitus Father Diabetes mellitus Patient's father is in good health Family history of arthritis Mother Asthma Patient's mother is in good health Family history of Alzheimer's disease Sibling Patient's sister is in good health Patient's brother is in good health Other Cerebrovascular accident Social History Social History Smoking status: Never smoker Alcohol intake: current Gender identity (if verbalized by the patient): Female Exam Narrative: GENERAL: Well-appearing, well-nourished, and in no acute distress. Pleasant and cooperative HEAD: Normocephalic, atraumatic. EYES: PERRLA and EOMI. ENT: Nares clear, no rhinorrhea or epistaxis. Mucous membranes moist. NECK: Supple. CHEST: No respiratory distress. HEART: Regular rate and rhythm ABDOMEN: Soft, nondistended EXTREMITIES: Normal range of motion. No edema. SKIN: Warm, dry, no rash. NEURO: No focal deficits. Alert and oriented x3. PSYCH: Normal mood and affect. Course Vital Signs Vital signs: Vital Signs Temperature 97.8 F 04/19/23 16:05 Pulse Rate 81 04/19/23 16:05 Respiratory Rate 16 04/19/23 16:05 Blood Pressure 175/95 H 04/19/23 16:05 Pulse Oximetry 98 04/19/23 16:05 Temperature 98.4 F 04/19/23 18:40 Pulse Rate 56 L 04/19/23 19:30 Respiratory Rate 14 04/19/23 19:30 Blood Pressure 171/93 H 04/19/23 19:30 Pulse Oximetry 99 04/19/23 19:30 Oxygen Delivery Room Air 04/19/23 18:40 MDM - Recheck/Abnormal Lab/Rx MDM
[2023-04-19 19:30] VITALS: BP 171/93; PULSE 56; RESP 14; O2SAT 99
[2023-04-19] MEDS: KETOROLAC 30 MG/ML VIAL (*BKC) IM (19:39)
== END 2023-04-19 19:50 | disposition home or self-care (01) ==
PROVIDERS: Emergency Provider Emergency Medicine; PCP Physician Assistant
DX: I10 Essential (primary) hypertension (principal); M54.2 Cervicalgia; E78.5 Hyperlipidemia, unspecified; E11.9 Type 2 diabetes mellitus without complications; Z98.84 Bariatric surgery status; Z79.4 Long term (current) use of insulin
CPT/HCPCS: 96372; 99283; J1100; J1885; J2405; J2704

== ENCOUNTER 2023-05-17 10:58 | Outpatient (CLI) | payer OTHER, MEDICAID, SELFPAY ==
--- NOTE | ~2023-05-17 | XR_ITS ---
EXAM: [id number]_[id number]_CR DATE: 05/17/2023 11:33 HISTORY: CEVICALGIA, RIGHT SIDED NECK PAIN, NO INJURY . COMPARISON: 02/09/2009. FINDINGS: Craniocervical association and atlantoaxial joint are aligned. No prevertebral soft tissue swelling. Vertebral bodies are aligned. Mild reversal of the normal cervical lordosis in the upper c ervical spine. Vertebral body heights are maintained. Normal disc spaces. Mild multilevel disc space narrowing and marginal osteophytosis. Moderate degenerative changes present at C5-6. Mild multilevel facet hypertrophy and sclerosis. IMPRESSION: Multilevel cervical degenerative disc disease, moderate at C5-6. Multilevel mild cervical facet arthropathy. Reviewed, dictated and finalized at location K. IMPRESSION: Multilevel cervical degenerative disc disease, moderate at C5-6. Mu ltilevel mild cervical facet arthropathy.
--- NOTE | ~2023-05-17 | XR_ITS ---
EXAM: XR abdomen/kub 1V DATE: 05/17/2023 11:33 HISTORY: R11.2 - Nausea with vomiting, LOW ABD PAIN . COMPARISON: 02/02/2011; CT abdomen pelvis 01/12/2021. FINDINGS: Clear lung bases. Surgical suture lines at the GE junction. Surgical anastomosis in the le ft mid abdomen. Normal bowel gas pattern. Enlarged liver. Pelvic phleboliths. Mild degenerative bennett e in the lumbar spine bilateral hips and pubic symphysis. IMPRESSION: No radiographic evidence of obstruction or ileus. Hepatomegaly. Reviewed, dictated and finalized at location K.
== END 2023-05-17 10:59 | disposition home or self-care (01) ==
PROVIDERS: PCP Physician Assistant; Visit Provider Nurse Practitioner Family
DX: R10.9 Unspecified abdominal pain (principal); R11.2 Nausea with vomiting, unspecified; R19.7 Diarrhea, unspecified; M50.322 Other cervical disc degeneration at C5-C6 level
CPT/HCPCS: 72040; 74018

== ENCOUNTER 2023-07-14 18:13 | Emergency (ER) | payer OTHER, MEDICAID, SELFPAY ==
[2023-07-14 19:30] VITALS: BP 152/79; PULSE 83; RESP 20; TEMP 37.1; O2SAT 100
[2023-07-14 19:39] LABS: Glucose Point of Care 303 mg/dl (65-105)
[2023-07-14 21:46] VITALS: BP 131/88; PULSE 85; RESP 15; O2SAT 100
--- NOTE | 2023-07-14 22:40 | ED.NECK ---
HPI - Neck Pain/Injury General Chief Complaint: Neck Pain/Injury Stated Complaint: neck pain, diabetic Time Seen by Provider: 07/14/23 22:04 Source: patient Mode of arrival: ambulatory Limitations: no limitations History of Present Illness HPI Narrative: This is a 57 year old female that presents to the ER for right sided neck pain ongoing since this morning. Reports no known injury or trauma. The pain radiates from her neck into her shoulder. Reports it feels like a muscle spasm. She has not taken anything for pain. Denies numbness or weakness. Related Data Home Medications Medication Instructions Recorded Confirmed insulin glargine 100 unit/mL (3 subcut 04/21/20 04/19/23 mL) subcutaneous pen (Lantus Solostar U-100 Insulin) lisinopril 30 mg tablet 04/21/20 04/19/23 amlodipine 10 mg tablet 10 mg PO DAILY 10/08/20 04/19/23 atorvastatin 40 mg tablet 10/08/20 04/19/23 doxycycline hyclate 100 mg tablet 10/08/20 04/19/23 ergocalciferol (vitamin D2) 1,250 10/08/20 04/19/23 mcg (50,000 unit) capsule (Vitamin D2) estradiol 1 mg tablet mg 10/08/20 04/19/23 hydrochlorothiazide 12.5 mg capsule 10/08/20 04/19/23 lamotrigine 100 mg tablet 10/08/20 04/19/23 Allergies Allergy/AdvReac Type Severity Reaction Status Date / Time hydrocodone AdvReac Unknown Dizziness Verified 04/19/23 18:35 Penicillins AdvReac Unknown Dizziness Verified 04/19/23 18:35 Review of Systems Review of Systems: CONSTITUTIONAL: Denies fever SKIN: Denies rash MUSCULOSKELETAL: Reports joint pain, and myalgia. NEUROLOGIC: Denies numbness, or weakness. All systems reviewed & are unremarkable except as noted in HPI and below PMFSH Past Medical History Medical History Abdominal pain Diarrhea Encounter for screening colonoscopy Hyperlipidemia Hypertension Migraines Nausea & vomiting Type 2 diabetes mellitus Surgical History Surgical History H/O gastric bypass H/O inguinal hernia repair History of section Family History Family History Grandparent Hypertension Family history of heart disease in male family member before age 55 Diabetes mellitus Father Diabetes mellitus Patient's father is in good health Family history of arthritis Mother Asthma Patient's mother is in good health Family history of Alzheimer's disease Sibling Patient's sister is in good health Patient's brother is in good health Other Cerebrovascular accident Social History Social History Smoking status: Never smoker Alcohol intake: current Gender identity (if verbalized by the patient): Female Exam Narrative: GENERAL: Well-appearing, well-nourished, and in no acute distress. HEAD: Normocephalic, atraumatic. EYES: EOMI. NECK: Supple. No adenopathy or masses. Tender to palpation of right trapezius musculature CHEST: Clear to auscultation. No respiratory distress. No wheezes rales or rhonchi HEART: Regular rate and rhythm. No murmur heard. Normal peripheral pulses. EXTREMITIES: Normal range of motion. No edema. Strength equal in bilateral upper extremities (5/5) SKIN: Warm, dry, no rash. NEURO: No focal deficits. Alert and oriented x3. PSYCH: Normal mood and affect Course Course Emergency Course: Patient agrees with plan of care Vital Signs Vital signs: Vital Signs Temperature 98.8 F 07/14/23 19:30 Pulse Rate 83 07/14/23 19:30 Respiratory Rate 20 07/14/23 19:30 Blood Pressure 152/79 H 07/14/23 19:30 Pulse Oximetry 100 07/14/23 19:30 Oxygen Delivery Room Air 07/14/23 19:30 Temperature 98.8 F 07/14/23 19:30 Pulse Rate 85 07/14/23 21:46 Respiratory Rate 15 07/14/23 21:46 Blood Pressure 131/88 07/14/23 21:46 Pulse Oximetry 100 07/14/23 21:46 Oxyg
[2023-07-14] MEDS: KETOROLAC 30 MG/ML VIAL (*BKC) IM (22:49)
== END 2023-07-14 23:23 | disposition home or self-care (01) ==
PROVIDERS: Emergency Provider Physician Assistant; PCP Physician Assistant
DX: M54.2 Cervicalgia (principal); E11.65 Type 2 diabetes mellitus with hyperglycemia; E78.5 Hyperlipidemia, unspecified; I10 Essential (primary) hypertension; Z79.4 Long term (current) use of insulin
CPT/HCPCS: 82948; 96372; 99283; J1885

== ENCOUNTER 2023-08-29 02:03 | Day surgery (SDC) | payer OTHER, MEDICAID, SELFPAY ==
[2023-08-14 10:16] VITALS: BMI 35.2
--- NOTE | 2023-08-25 10:11 | SUR.PREOP ---
Patient called regarding upcoming procedure. Message left with pt's voicemail regarding appointment times.
[2023-08-29 06:29] VITALS: BP 193/94; PULSE 60; RESP 18; TEMP 36.8; O2SAT 100
[2023-08-29 06:47] LABS: Glucose Point of Care 221 mg/dl (65-105)
[2023-08-29] MEDS: LACTATED RINGERS 1,000 ML 150 ML IV CONT (06:56)
--- NOTE | 2023-08-29 07:05 | WPDANESEPPF ---
Anes - Initial Pre Proc Eval Procedure: Operation Date: 08/29/23 07:30 Proposed Procedures p Esophagogastroduodenoscopy & Colonoscopy - Ford Osei MD Date/Time: 08/29/23 07:05 Surgeon: Ford Osei MD Pre Op Diagnosis: N/V,Abd pain,diarrhea,neoplasm screening Patient Data Age: 58 Gender: F Height: 1.63 m Weight: 84.2 kg Last Vital Signs Temp 36.8 C 08/29/23 06:29 Pulse 60 08/29/23 06:29 Resp 18 08/29/23 06:29 BP 193/94 H 08/29/23 06:29 Pulse Ox 100 08/29/23 06:29 O2 Del Method Room Air 08/29/23 06:29 Allergies Allergy/AdvReac Type Severity Reaction Status Date / Time hydrocodone AdvReac Unknown Dizziness Verified 08/29/23 06:27 Penicillins AdvReac Unknown Dizziness Verified 08/29/23 06:27 Home Medications Medication Instructions Recorded Confirmed Type lisinopril 30 mg tablet 30 mg PO DAILY 04/21/20 08/14/23 History amlodipine 10 mg tablet 10 mg PO DAILY 10/08/20 08/14/23 History atorvastatin 40 mg tablet 40 mg PO DAILY 10/08/20 08/14/23 History clindamycin phosphate 1 % topical 1 applic topical BID 7 days #60 10/08/20 08/14/23 Rx gel grams doxycycline hyclate 100 mg tablet 100 mg PO DAILY 10/08/20 08/14/23 History hydrochlorothiazide 12.5 mg capsule 12.5 mg PO DAILY 10/08/20 08/14/23 History benzonatate 100 mg capsule 100 mg PO TID PRN cough #30 caps 04/04/21 08/14/23 Rx (Bob Castañeda) ibuprofen 400 mg tablet 400 mg PO TID #20 tabs 03/25/23 08/14/23 Rx omeprazole 20 mg capsule,delayed 20 mg PO DAILY 1 month #30 caps 06/14/23 08/14/23 Rx release cyclobenzaprine 10 mg tablet 10 mg PO TID PRN muscle spasm #20 07/14/23 08/14/23 Rx tabs baclofen 10 mg tablet 10 mg PO BID PRN muscle spasms 12/04/23 12/04/23 History Laboratory Tests 08/29/23 06:44 POC Capillary Glucose 221 H mg/dl (65-105) Patient hx anesthesia problems: none Family hx anesthesia problems: none Results Review: All pre-operative results and documents have been reviewed as part of the pre-operative evaluation. [facility] Past Medical History Medical History Abdominal pain Diarrhea Encounter for screening colonoscopy Hyperlipidemia Hypertension Migraines Nausea & vomiting Type 2 diabetes mellitus Surgical History Surgical History H/O gastric bypass H/O inguinal hernia repair History of section Family History Family History Grandparent Hypertension Family history of heart disease in male family member before age 55 Diabetes mellitus Father Diabetes mellitus Patient's father is in good health Family history of arthritis Mother Asthma Patient's mother is in good health Family history of Alzheimer's disease Sibling Patient's sister is in good health Patient's brother is in good health Other Cerebrovascular accident Social History Social History Smoking status: Never smoker Alcohol intake: current Substance use type: does not use Living arrangements: alone Gender identity (if verbalized by the patient): Female Anes - Eval Final PreProcedure Day of Procedure 08/29/23 07:05 Patient weight: obese Heart: regular rate and rhythm Lungs: clear to auscultation Airway: Mallampati scale class II Neurological: alert and oriented Last oral intake: >/= 8 hours ASA classification: II Emergent: no Anesthetic plan: proceed Anesthesia type and monitoring: general GIVS and standard monitoring Results Review: All pre-operative results and documents have been reviewed as part of the pre-operative evaluation. Informed Consent: The patient's anesthetic plan and its attendant risks and benefits were discussed with the patient/family/POA. Questions were solicited and answers provided to the satisfaction of the patient/family/POA.
--- NOTE | 2023-08-29 07:24 | PM.HPGS ---
History of Present Illness History of Present Illness Consent: Risks, benefits, and alternatives have been discussed and questions answered. Patient agrees to proceed with procedure. Chief complaint: N/V,Abd pain,diarrhea,neoplasm screening Narrative: Radha Miller is a 58 year old female Seen by nurse practitioner in the GI office. Patient referred for both colonoscopy an EGD. Patient complains of intermittent nausea vomiting as well as diarrhea. She uses Kaopectate rather frequently in this helps her diarrhea. After being seen in the office was started on omeprazole with good results. Her upper abdominal pain has been minimal since being seen in the office. Her past medical history is significant for gastric bypass in 2015. Review of Systems Review of Systems: Review of systems noncontributory. [facility] Past Medical History Medical History Abdominal pain Diarrhea Encounter for screening colonoscopy Hyperlipidemia Hypertension Migraines Nausea & vomiting Type 2 diabetes mellitus Surgical History Surgical History H/O gastric bypass H/O inguinal hernia repair History of section Family History Family History Grandparent Hypertension Family history of heart disease in male family member before age 55 Diabetes mellitus Father Diabetes mellitus Patient's father is in good health Family history of arthritis Mother Asthma Patient's mother is in good health Family history of Alzheimer's disease Sibling Patient's sister is in good health Patient's brother is in good health Other Cerebrovascular accident Social History Social History Smoking status: Never smoker Alcohol intake: current Substance use type: does not use Living arrangements: alone Gender identity (if verbalized by the patient): Female Meds Home Medications and Allergies Home Medications Medication Instructions Recorded Confirmed Type lisinopril 30 mg tablet 30 mg PO DAILY 04/21/20 08/14/23 History amlodipine 10 mg tablet 10 mg PO DAILY 10/08/20 08/14/23 History atorvastatin 40 mg tablet 40 mg PO DAILY 10/08/20 08/14/23 History clindamycin phosphate 1 % topical 1 applic topical BID 7 days #60 10/08/20 08/14/23 Rx gel grams doxycycline hyclate 100 mg tablet 100 mg PO DAILY 10/08/20 08/14/23 History hydrochlorothiazide 12.5 mg capsule 12.5 mg PO DAILY 10/08/20 08/14/23 History benzonatate 100 mg capsule 100 mg PO TID PRN cough #30 caps 04/04/21 08/14/23 Rx (Socorrokipshana Castañeda) ibuprofen 400 mg tablet 400 mg PO TID #20 tabs 03/25/23 08/14/23 Rx omeprazole 20 mg capsule,delayed 20 mg PO DAILY 1 month #30 caps 06/14/23 08/14/23 Rx release cyclobenzaprine 10 mg tablet 10 mg PO TID PRN muscle spasm #20 07/14/23 08/14/23 Rx tabs baclofen 10 mg tablet 10 mg PO BID PRN muscle spasms 08/14/23 08/14/23 History Allergies Allergy/AdvReac Type Severity Reaction Status Date / Time hydrocodone AdvReac Unknown Dizziness Verified 08/29/23 06:27 Penicillins AdvReac Unknown Dizziness Verified 08/29/23 06:27 Vital Signs Vital Signs - 24 hr 08/29/23 06:29 Temperature 98.2 F Pulse Rate 60 Respiratory Rate 18 Blood Pressure 193/94 H Pulse Oximetry 100 Oxygen Delivery Room Air Exam Narrative: Physical exam reveals patient to be alert. Vital signs stable. HEENT exam is unremarkable. Patient is anicteric. Lungs are clear to auscultation and percussion. Heart is without murmur or extra sounds. Abdomen bowel sounds are present soft nontender with no organomegaly. Digital external rectal exam is normal. Assessment and Plan Assessment and plan (1) Encounter for screening colonoscopy: Code(s): Z12.11 - Encounter for screening for malignant neoplasm of colon Status: Acut
[2023-08-29] MEDS: BENZOCAINE (*SP) 60 ML SPRAY CAN (HURRICAINE) 1 SPRAY MUCOUS MEM (07:35)
[2023-08-29 07:57] VITALS: BP 157/68; PULSE 65; RESP 21; O2SAT 100
--- NOTE | 2023-08-29 07:57 | SUR.OPER ---
EGD started at 0737 and ended at 0739. Colonoscopy started at 0744 and ended at 0754.
[2023-08-29 08:07] VITALS: BP 153/77; PULSE 67; RESP 16; O2SAT 100
[2023-08-29 08:17] VITALS: BP 171/81; PULSE 65; RESP 18; O2SAT 100
[2023-08-29 08:21] LABS: Glucose Point of Care 226 mg/dl (65-105)
== END 2023-08-29 08:32 | disposition home or self-care (01) ==
PROVIDERS: PCP Physician Assistant; Visit Provider Internal Medicine Gastroenterology
PROC: 0DJ08ZZ Inspection of Upper Intestinal Tract, Via Natural or Artificial Opening Endoscopic (ICD-10-PCS; CPT 43235; principal; 2023-08-29 07:30)
DX: Z12.11 Encounter for screening for malignant neoplasm of colon (principal); R11.2 Nausea with vomiting, unspecified; R19.7 Diarrhea, unspecified; Z98.84 Bariatric surgery status; I10 Essential (primary) hypertension; E78.5 Hyperlipidemia, unspecified; E11.9 Type 2 diabetes mellitus without complications; E66.9 Obesity, unspecified; Z68.31 Body mass index [BMI] 31.0-31.9, adult
CPT/HCPCS: 45380; 43239; 82948; 87081; 88305; J2704; J7120

== ENCOUNTER 2023-08-30 15:13 | Outpatient (CLI) | payer OTHER, MEDICAID, SELFPAY ==
--- NOTE | ~2023-08-30 | MM_ITS ---
EXAMINATION: MM screening darryl BI w dyllan HISTORY: Screening mammogram TECHNIQUE: Craniocaudal and mediolateral oblique 3-D tomosynthesis images were obtained and synthetic 2-D images were generated. CAD analysis was submitted and interpreted. COMPARISON: December 14, 2015 bilateral screening mammogram BREAST PARENCHYMAL COMPOSITION: There are scattered areas of fibroglandular density. FINDINGS: There is architectural distortion/spiculation in the upper outer quadrant of the left breas t at mid depth. Differential diagnosis includes postoperative or post biopsy scarring versus malignan cy. Diagnostic left mammogram and left breast ultrasound examination are recommended. There is biopsy marker anteriorly in the upper outer quadrant of the left breast. Otherwise there is no evidence of suspicious mass, calcification, or architectural distortion to sugg est malignancy in either breast. There has been no other suspicious interval change. IMPRESSION: 1. Architectural distortion/spiculation, upper outer quadrant of left breast 2. Diagnostic left mammogram and ultrasound examination are recommended, BI-RADS Category 0: Incomplete: Needs additional imaging evaluation. Reviewed, dictated and finalized at location A. O CARTOGRAPHER
== END 2023-08-30 15:14 | disposition home or self-care (01) ==
LOC: ANHIMG 15:16
PROVIDERS: PCP Physician Assistant; Visit Provider Physician Assistant
DX: Z12.31 Encounter for screening mammogram for malignant neoplasm of breast (principal); R92.8 Other abnormal and inconclusive findings on diagnostic imaging of breast
CPT/HCPCS: 77063; 77067

== ENCOUNTER 2023-09-25 16:12 | Emergency (ER) | payer OTHER, MEDICAID, SELFPAY ==
[2023-09-25 16:50] VITALS: BP 148/83; PULSE 88; RESP 18; TEMP 36.4; O2SAT 100
--- NOTE | 2023-09-25 19:50 | ED.GENADULT ---
HPI - General Adult General Chief complaint: Extremity Problem,Nontraumatic Stated complaint: BILATERAL LOWER EXT PAIN X2D HX NEUROPATHY Time Seen by Provider: 09/25/23 19:42 History of Present Illness HPI narrative: This is a pleasant 58-year-old female with a history of diabetes and peripheral neuropathy presenting with lower extremity pain. Over last several days she notes that she has been having he is in the needles in her legs. It is worse at night. She has had neuropathy like this in the past but it had improved as her blood sugars improved. Patient has been on gabapentin in the past which has brought her significant relief. Patient denies any lower extremity edema, trauma, skin changes. Related Data Home Medications Medication Instructions Recorded Confirmed lisinopril 30 mg tablet 30 mg PO DAILY 04/21/20 08/14/23 amlodipine 10 mg tablet 10 mg PO DAILY 10/08/20 08/14/23 atorvastatin 40 mg tablet 40 mg PO DAILY 10/08/20 08/14/23 doxycycline hyclate 100 mg tablet 100 mg PO DAILY 10/08/20 08/14/23 hydrochlorothiazide 12.5 mg capsule 12.5 mg PO DAILY 10/08/20 08/14/23 baclofen 10 mg tablet 10 mg PO BID PRN muscle spasms 08/14/23 08/14/23 Allergies Allergy/AdvReac Type Severity Reaction Status Date / Time hydrocodone AdvReac Unknown Dizziness Verified 08/29/23 06:27 Penicillins AdvReac Unknown Dizziness Verified 08/29/23 06:27 PMFSH Past Medical History Medical History Abdominal pain Diarrhea Encounter for screening colonoscopy Hyperlipidemia Hypertension Migraines Nausea & vomiting Type 2 diabetes mellitus Surgical History Surgical History H/O gastric bypass H/O inguinal hernia repair History of section Family History Family History Grandparent Hypertension Family history of heart disease in male family member before age 55 Diabetes mellitus Father Diabetes mellitus Patient's father is in good health Family history of arthritis Mother Asthma Patient's mother is in good health Family history of Alzheimer's disease Sibling Patient's sister is in good health Patient's brother is in good health Other Cerebrovascular accident Social History Social History Smoking status: Never smoker Alcohol intake: current Substance use type: does not use Living arrangements: alone Gender identity (if verbalized by the patient): Female Exam Narrative: APPEARANCE: No apparent distress. Head: atraumatic. EYES: EOMI, NOSE: Atraumatic NECK: Trachea midline RESPIRATORY: No increased rate of breathing CARDIOVASCULAR: RRR, ABDOMINAL: Non-distended MUSCULOSKELETAl: focal exam of the lower extremities revealed no deformities or skin changes. Feet are warm with normal cap refill. Pulses intact. No edema swelling or calf tenderness. NEURO: Alert. Moving 4/4 extremities SKIN:: Warm, dry. Normal color PSYCHIATRIC: Normal affect Course Vital Signs Vital signs: Vital Signs Temperature 97.6 F 09/25/23 16:50 Pulse Rate 88 09/25/23 16:50 Respiratory Rate 18 09/25/23 16:50 Blood Pressure 148/83 H 09/25/23 16:50 Pulse Oximetry 100 09/25/23 16:50 Oxygen Delivery Room Air 09/25/23 16:50 Temperature 97.6 F 09/25/23 16:50 Pulse Rate 88 09/25/23 16:50 Respiratory Rate 18 09/25/23 16:50 Blood Pressure 148/83 H 09/25/23 16:50 Pulse Oximetry 100 09/25/23 16:50 Oxygen Delivery Room Air 09/25/23 16:50 Medical Decision Making MDM Narrative Medical decision making narrative: -Course: 50-year-old female presenting with pins needles in her lower extremities. She relates this to a neuropathy that she has had past. Patient is treated Tylenol gabapentin discharged primary care follow-up -DDX includes but is not limited to: n
[2023-09-25] MEDS: ACETAMINOPHEN 500 MG TABLET 1000 MG PO (19:59)
[2023-09-25] MEDS: GABAPENTIN 300 MG CAPSULE 600 MG PO (19:59)
== END 2023-09-25 20:23 | disposition home or self-care (01) ==
PROVIDERS: Emergency Provider Emergency Medicine; PCP Physician Assistant
DX: E11.42 Type 2 diabetes mellitus with diabetic polyneuropathy (principal); E78.5 Hyperlipidemia, unspecified; I10 Essential (primary) hypertension; Z98.84 Bariatric surgery status
CPT/HCPCS: 99283; A9270

== ENCOUNTER 2023-10-18 11:45 | Outpatient (CLI) | payer OTHER, MEDICAID, SELFPAY ==
--- NOTE | ~2023-10-18 | MMUS_ITS ---
EXAMINATION: MM diagnostic darryl LT w dyllan, US breast LT limited HISTORY: Architectural distortion/spiculation in the upper outer quadrant of the left breast reported on 08/30/2023 screening mammogram examination TECHNIQUE: Additional 3-D tomosynthesis images of the left breast were performed and synthetic 2-D im ages were generated. CAD analysis was submitted and interpreted. High resolution upper outer quadrant left breast ultrasound was performed. COMPARISON: 08/30/2023, 12/14/2015 bilateral screening mammogram examinations FINDINGS: MAMMOGRAPHIC FINDINGS: There is architectural distortion/spiculation at mid depth in the upper outer quadrant of the left br east with suggestion of very subtle overlying anterior superior left breast retraction. There is a biopsy marker in the anterior outer mid left breast; history of prior benign left breast b iopsy. ULTRASOUND: 2:00 5 cm from nipple: There is at least 1.5 x 0.7 x 1.7 cm hypoechoic circumscribed area with inter nal vascularity on color flow imaging and some posterior shadowing. There is a biopsy marker within a portion of this lesion, but not within the portion of the lesion demonstrating internal vascularity and some shadowing. Ultrasound-guided biopsy is recommended. This does not correspond to the architectural distortion/spiculation noted more superiorly and tractor distributor iorly in the upper outer quadrant. There is no corresponding sonographic finding in this area on init ial and subsequent repeat imaging upon requested return the patient for same day additional imaging i n this area. There is is likely postbiopsy scarring. 6 month follow-up diagnostic mammogram is recomm ended. IMPRESSION: 1. Focal hypoechogenicity and internal vascularity at a circumscribed mass at 2:00 5 cm from nipple, near area of prior biopsy marker; ultrasound-guided biopsy of this area is recommended 2. Probable postbiopsy scarring in the upper outer quadrant of the left breast at mid depth; six-zack h follow-up diagnostic mammogram is recommended, with ultrasound if required BI-RADS Category 4: Suspicious abnormality; biopsy should be considered for left breast 2:00 lesion 5 cm from nipple BI-RADS Category 3: Probably benign; 6 month follow-up diagnostic mammogram is recommended with atten tion to probable postbiopsy scarring in the upper outer quadrant Dr. Cornell telephoned the report and ultrasound-guided biopsy and six-month diagnostic mammogram follow -up recommendations on October 19, 2023 at 0845 hours to Nurse Gil. Reviewed, dictated and finalized at location A. LATING MACHINE MECHANIC IMPRESSION: 1. Focal hypoechogenicity and internal vascularity at a circumscribed mass at 2 :00 5 cm from nipple, near area of prior biopsy marker; ultrasound-guided biops y of this area is recommended 2. Probable postbiopsy scarring in the upper outer quadrant of the left breast at mid depth; six-month follow-up diagnostic mammogram is recommended, with ult rasound if required BI-RADS Category 4: Suspicious abnormality; biopsy should be considered for lef t breast 2:00 lesion 5 cm from nipple BI-RADS Category 3: Probably benign; 6 month follow-up diagnostic mammogram is recommended with attention to probable postbiopsy scarring in the upper outer q uadrant Dr. Cornell telephoned the report and ultrasound-guided biopsy and six-month diagn ostic mammogram follow-up recommendations on October 19, 2023 at 0845 hours to Nurse Gil.
== END 2023-10-18 11:46 | disposition home or self-care (01) ==
LOC: ANHIMG 11:47
PROVIDERS: PCP Physician Assistant; Visit Provider Physician Assistant
DX: R92.8 Other abnormal and inconclusive findings on diagnostic imaging of breast (principal)
CPT/HCPCS: 76642; 77061; 77065; G0279

== ENCOUNTER 2023-11-14 15:45 | Outpatient (RCR) | payer OTHER, MEDICAID, SELFPAY ==
--- NOTE | 2023-09-01 11:39 | OPREHPOC ---
Outpatient Therapy Plan of Care This is a Multidisciplinary Plan of Care that may contain components documented by all disciplines (PT, OT, and ST.) PT Problem 1 PT Problem #1 Knowledge Deficit PT Goal 1 Goal 1* indep with HEP 2* correct neck/shoulder posture with exercises PT Problem 2 PT Problem #2 Pain PT Goal 1 Goal decrease cervical pain and headaches, to increase activity level: 1* pain rating at worst of 4/10 2* pt report headache once/week 3* self assessment Neck Disability Index score of 52% limitation in activity level PT Problem 3 PT Problem #3 Impaired Flexibility PT Goal 1 Goal increase cervical flexibility/ROM to improve functional movement of neck and visual field, with driving and home tasks 1* cervical active rotation R 50' 2* cervical side bend to R 20' no pain with active motion 3x 3* cervical rotation R 4* cervical side bend R
--- NOTE | 2023-09-01 11:39 | PTOPEVAL1 ---
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 Neck Disability index self rating of 74% limitation in activity level. have head aches about 2x/wk, lasting 2-3 hours, take OTC meds to ease decrease pain: tylenol arthritis, hot bath increase pain: lifting, pushing, pulling; awaken from sleep 3 times per night have not used heat/ice- instruct on PRN use sleep on her sides Assessment PT Clinical Summary Radha has the diagnosis of cervical pain. She reports chronic issues with neck pain, that have increased and now on both sides of neck, into shoulders and jaws at time, with headaches. 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 With the evaluation, she has tightness throughout cervical-thoracic areas, with decreased cervical ROM and painful motions of rotation and side bend to R. Skilled PT services are indicated for modalities to decrease pain and spasms, therapeutic exercises to increase ROM and flexibility with strengthening to improve function and posture; and education for posture and HEP. Plan of Care Interventions Hot Pack/Cold Pack,Manual Therapy,Mechanical Traction,Patient Education,Therapeutic Activities,T
--- NOTE | 2023-09-14 15:02 | PCPTNOTE ---
Pt cancelled today due to work conflict.
--- NOTE | 2023-09-19 10:37 | PCPTNOTE ---
cancelled due to family, daughter having surgery.
--- NOTE | 2023-09-25 16:00 | OPREHPOC ---
Outpatient Therapy Plan of Care This is a Multidisciplinary Plan of Care that may contain components documented by all disciplines (PT, OT, and ST.) PT Problem 1 PT Problem #1 Knowledge Deficit PT Goal 1 Goal 1* indep with HEP 2* correct neck/shoulder posture with exercises Progress Partially Met Comment 09-25-23 progress met goal 1 continue towards goals to progress education PT Problem 2 PT Problem #2 Pain PT Goal 1 Goal decrease cervical pain and headaches, to increase activity level: 1* pain rating at worst of 4/10 2* pt report headache once/week 3* self assessment Neck Disability Index score of 52% limitation in activity level Progress Partially Met Comment 09-25-23 progress met goals 2,3 ------ NEW Goals: 1* pain rating 3/10 at worst 2* self assessment Neck Disability Index score of 30% limitation PT Problem 3 PT Problem #3 Impaired Flexibility PT Goal 1 Goal increase cervical flexibility/ROM to improve functional movement of neck and visual field, with driving and home tasks 1* cervical active rotation R 50' 2* cervical side bend to R 20' no pain with active motion 3x 3* cervical rotation R 4* cervical side bend R Progress Met Comment 09-25-23 progress met goals --------- New Goals: 1* cervical active rotation to R 70' 2* cervical active rotation to L 70' 3* no pain increase with rotation to L
--- NOTE | 2023-09-25 16:00 | PTOPPROG ---
Assessment and note entered by Lisette Martinez, PT Evaluation Information Assessment Status Progress Diagnosis cervical pain Onset February 2023 Subjective Information am feeling much better, less tightness; only had a few episodes of problems; doing home exercises; only taken the pain meds once; have moved her computer monitor to right in front of her; having more neuropathy pain and problems with sleeping; feel like need more therapy--the exercises and needling helped. Assessment PT Clinical Summary Radha has received 3 PT sessions. She called/ cancel 2 and did not show for one appointment. Compared to the initial evaluation: improved with : pain rating from 6-8/10 to 4-6/10; no longer has any headaches from her neck pain; no awakening from sleep due to pain; increased cervical ROM with rotation to R and L, side bend to R; no longer has painful motion of rotation to R and side bend to R; self assessment Neck Disability Index score from74% to 40% limitation in activity. The goals were partially met. Continue PT treatment. Plan of Care Interventions Electrical Stimulation,Hot Pack/Cold Pack,Manual Therapy,Neuro Re-education,Therapeutic Activities, Therapeutic Exercise,Ultrasound,Other Other Interventions taping PT Services Indicated Yes Treatment Frequency and 1-2x/wk for 3 weeks Duration These treatments will address the objective and functional deficits as defined above. The patient will be advanced safely and appropriately in order for the patient to progress towards his/her prior level of function. Additional exercises will be introduced and as well as a comprehensive home exercise program upon discharge, if needed, ?to ensure carryover of functional gains achieved in the clinic. This treatment plan has been reviewed and agreement upon by the patient.
--- NOTE | 2023-09-25 16:27 | PCPTNOTE ---
today's reeval appt was shorter due to pt request to leave--have something else to do.
--- NOTE | 2023-10-09 16:16 | PCPTNOTE ---
Pt cancelled her appt today stating she could not make it in .
--- NOTE | 2023-10-13 15:33 | PCPTNOTE ---
pt called and canceled today treatment appt; not able to get away from work.
--- NOTE | 2023-10-18 15:44 | PCPTNOTE ---
pt called and canceled today's appt;
--- NOTE | 2023-10-20 15:50 | PCPTNOTE ---
pt did not show for today's reeval appt;
--- NOTE | 2023-11-14 16:13 | PTOPDC ---
Assessment and note entered by Lisette Martinez, PT Discharge Information Assessment Status Discharge Diagnosis cervical pain Onset February 2023 Subjective Information had a flare up about 2 weeks ago, found some tylenol arthritis and since taking that, have not had any pain; only had about 3 flare ups since last here for therapy; have not been doing the exercises, since feeling OK did not think I needed to do them; have been able to carry all my groceries and case of bottled water without any pain; wanted to check in and see if anything more I need to do. Reported Pain Level Pain Score 0: Self Report Additional Pain Score Comments is careful with what she does, to avoid pain in her neck--reading with head down, sleep in wrong position and wake up with neck pain; take warm bath with green alcohol or epsom salts to ease pain, take tylenol arthritis; Assessment PT Clinical Summary Radha has received a total of 5 PT sessions, from Sep 01 to today. She called/canceled 5 and did not show for 1 appointment. Compared to the last progress report: pain has decreased from 4-6/10 to 0/10; self assessment Neck Disability Index score from 40% to 18% limitation in activity level; she does report some issues with waking up with neck pain due to sleeping wrong , but has learned what to do to avoid neck pain; cervical rotation R/L range has increased slightly and no longer causes her any pain. Education completed for HEP and posture. The goals were partially achieved. Discharge PT services, she is to continue with her home exercises and monitor her posture. Plan of Care PT Services Indicated No
== END 2023-11-15 07:42 | disposition home or self-care (01) ==
LOC: ANHPT 15:45
PROVIDERS: PCP Physician Assistant; Visit Provider Physician Assistant
DX: M54.12 Radiculopathy, cervical region (principal)
CPT/HCPCS: 97110; 97140; 97161; 97530; 99199

== ENCOUNTER 2024-02-28 07:16 | Outpatient (CLI) | payer OTHER, MEDICAID, SELFPAY ==
--- NOTE | ~2024-02-28 | MMUS_ITS ---
US breast biopsy LT w image, MM post biopsy diagnostic LT EXAMINATION: US GUIDED NEEDLE BIOPSY WITH VACUUM ASSISTANCE DATE: 02/28/2024 09:00 CDT INDICATION: Left breast mass seen on recent examination. Ultrasound-guided core biopsy is requested to evaluate for malignancy. TECHNIQUE AND FINDINGS: The risks and potential benefits of the procedure were discussed with the patient, and written inform ed consent was obtained. After sterile preparation of the left breast, 1% lidocaine was utilized for local anesthesia. 1% lidocaine with epinephrine was used for deep anesthesia. A 10G vacuum-assisted biopsy gun needle was advanced through to the outer edge of the region of inter est from a lateral approach utilizing sonographic guidance. A total of 4 tissue core samples were ob tained through the lesion. An Inrad tissue marker clip was then placed at the biopsy site. Hemostasi s was achieved. The patient tolerated procedure well and there was no evidence of immediate complication. The patien t was given verbal instructions partly is from the department. Left breast mammograms to document ti ssue marker clip placement. The tissue samples were submitted to surgical pathology for histologic an alysis. IMPRESSION: 1. Successful ultrasound-guided vacuum-assisted biopsy of left breast mass with tissue marker placem ent. Please refer to pathology report for histologic analysis. Reviewed, dictated and finalized at location B. IMPRESSION: 1. Successful ultrasound-guided vacuum-assisted biopsy of left breast mass wit h tissue marker placement. Please refer to pathology report for histologic anal ysis.
== END 2024-02-28 07:17 | disposition home or self-care (01) ==
LOC: ANHIMG 07:18
PROVIDERS: PCP Physician Assistant; Visit Provider Physician Assistant
DX: N63.20 Unspecified lump in the left breast, unspecified quadrant (principal)
CPT/HCPCS: 19083; 77065; 88305

== ENCOUNTER 2024-04-09 09:13 | Outpatient (CLI) | payer OTHER, MEDICAID, SELFPAY ==
--- NOTE | ~2024-04-09 | MMUS_ITS ---
EXAMINATION: MM diagnostic darryl LT w dyllan, US breast LT limited HISTORY: Recent benign left breast biopsy. Palpable left breast lump. TECHNIQUE: Additional 3-D tomosynthesis images of the left breast were performed and synthetic 2-D im ages were generated. CAD analysis was submitted and interpreted. High resolution Limited left breast ultrasound was performed. COMPARISON: Comparison to multiple prior studies sequentially, with oldest reviewed study dated 10/2014. BREAST PARENCHYMAL COMPOSITION: Not dense: There are scattered areas of fibroglandular density. FINDINGS: MAMMOGRAPHIC FINDINGS: There is a mass in the upper outer quadrant of the left breast anterior third with associated tissue marker, consistent with recent benign biopsy. There is architectural distortion in the upper outer qu adrant which may be due to prior benign biopsy. ULTRASOUND: Limited left breast ultrasound: At 1:00, 12 cm from the nipple there is a cyst measuring 7 x 4 x 2 mm . At 3:00, 5 cm from the nipple there is a complex partially cystic mass measuring up to 2.4 cm, pradeep esponding to the area of previous biopsy, likely postoperative hematoma/seroma. IMPRESSION: 1. Probable benign post biopsy hematoma/seroma 3:00, 5 cm from the nipple. 2. Recommend 3 month follow-up Limited left breast ultrasound BI-RADS category 3, probably benign findings. Reviewed, dictated and finalized at location B. IMPRESSION: 1. Probable benign post biopsy hematoma/seroma 3:00, 5 cm from the nipple. 2. Recommend 3 month follow-up Limited left breast ultrasound BI-RADS category 3, probably benign findings.
== END 2024-04-09 09:14 | disposition home or self-care (01) ==
PROVIDERS: PCP Physician Assistant; Visit Provider Physician Assistant
DX: N63.20 Unspecified lump in the left breast, unspecified quadrant (principal); R92.8 Other abnormal and inconclusive findings on diagnostic imaging of breast
CPT/HCPCS: 76642; 77061; 77065; G0279

== ENCOUNTER 2024-05-07 15:18 | Emergency (ER) | payer OTHER, MEDICAID, SELFPAY ==
--- NOTE | ~2024-05-07 | CT_ITS ---
EXAMINATION: CT abdomen pelvis w con DATE: 05/07/2024 20:57 INDICATION: Abdominal pain. TECHNIQUE: Computed tomography (CT) of the abdomen and pelvis was performed with 100 mL Omnipaque 350 intravenous contrast. Automated exposure control and iterative reconstruction technique were employe d. The dose-length product was 561.24 mGy-cm. COMPARISON: CT abdomen and pelvis 01/12/2021 FINDINGS: The visualized portions of the lung bases demonstrate mild atelectasis. No pleural effusion . The heart size is normal. No pericardial effusion. There are surgical changes of gastric bypass pro cedure. There is a chronic 2.2 cm mass in right hepatic lobe, likely benign. The gallbladder, spleen, pancreas, adrenal glands, and kidneys are normal. There are no dilated loops of bowel. The appendix is normal. There are no pathologically enlarged lymph nodes. There is a ventral hernia containing fat . There is no free intraperitoneal fluid. There is severe spondylosis at L1-L2. IMPRESSION: 1. Ventral hernia containing fat. Reviewed, dictated and finalized at location A.
[2024-05-07 15:56] VITALS: BP 153/84; PULSE 65; RESP 16; TEMP 36.7; O2SAT 100
--- NOTE | 2024-05-07 18:05 | ED.ABDPAIN ---
HPI - Abdominal Pain General Chief Complaint: Abdominal Pain <Chika Gutiérrez PA-C - Last Filed: 05/09/24 11:12> Stated Complaint: abd pain <Chika Gutiérrez PA-C - Last Filed: 05/09/24 11:12> Time Seen by Provider: 05/07/24 18:06 <Chika Gutiérrez PA-C - Last Filed: 05/09/24 11:12> Focused HPI: This is a 58 year old female that presents to the ER for mid abdominal pain and diarrhea. Reports she has multiple episodes a day. Ongoing over the last couple of weeks. Denies fever, vomiting. GENERAL: Well-appearing, well-nourished, and in no acute distress. HEAD: Normocephalic, atraumatic. CHEST: Clear to auscultation. ?No respiratory distress. HEART: Regular rate and rhythm.? NEURO: ?Alert and oriented x3. Patient screened in triage and initial orders placed.? ?Additional care and disposition to be based upon?diagnostic testing and treatment. <Chika Gutiérrez PA-C - Last Filed: 05/09/24 11:12> Focused HPI: This is a 58 year old female that presents to the ER for mid abdominal pain and diarrhea. Reports she has multiple episodes a day. Ongoing over the last couple of weeks. Denies fever, vomiting. GENERAL: Well-appearing, well-nourished, and in no acute distress. HEAD: Normocephalic, atraumatic. CHEST: Clear to auscultation. ?No respiratory distress. HEART: Regular rate and rhythm.? NEURO: ?Alert and oriented x3. Patient screened in triage and initial orders placed.? ?Additional care and disposition to be based upon?diagnostic testing and treatment. Agree with triage assessment. Patient states that she was prescribed Protonix to help with her abdominal pain and has been taking Imodium for the diarrhea. She states that she has been having these issues on and off for over a year and has had colonoscopy and upper endoscopy which revealed no acute process. She has an upcoming appointment with a director graphics in 3 weeks. <Julianne Quick MD - Last Filed: 05/07/24 22:19> Related Data Home Medications: Home Medications Medication Instructions Recorded Confirmed lisinopril 30 mg tablet 30 mg PO DAILY 04/21/20 08/14/23 amlodipine 10 mg tablet 10 mg PO DAILY 10/08/20 08/14/23 atorvastatin 40 mg tablet 40 mg PO DAILY 10/08/20 08/14/23 doxycycline hyclate 100 mg tablet 100 mg PO DAILY 10/08/20 08/14/23 hydrochlorothiazide 12.5 mg capsule 12.5 mg PO DAILY 10/08/20 08/14/23 baclofen 10 mg tablet 10 mg PO BID PRN muscle spasms 08/14/23 08/14/23 <Chika Gutiérrez PA-C - Last Filed: 05/09/24 11:12> Allergies/Adverse Reactions: Allergies Allergy/AdvReac Type Severity Reaction Status Date / Time hydrocodone AdvReac Unknown Dizziness Verified 08/29/23 06:27 Penicillins AdvReac Unknown Dizziness Verified 08/29/23 06:27 <Chika Gutiérrez PA-C - Last Filed: 05/09/24 11:12> Review of Systems Review of Systems: All systems are reviewed and are negative unless stated otherwise in the HPI. <Julianne Quick MD - Last Filed: 05/07/24 22:19> PMFSH Past Medical History Medical History: Medical History Abdominal pain Diarrhea Encounter for screening colonoscopy Hyperlipidemia Hypertension Migraines Nausea & vomiting Type 2 diabetes mellitus <Chika Gutiérrez PA-C - Last Filed: 05/09/24 11:12> Surgical History Surgical History: Surgical History H/O gastric bypass H/O inguinal hernia repair History of section <Chika Gutiérrez PA-C - Last Filed: 05/09/24 11:12> Family History Family History: Family History Grandparent Hypertension Family history of heart disease in male family member before age 55 Diabetes mellitus Father Diabetes mellitus Patient's father is in good health Family history of arthritis Mother Asthma Patient's mother is in good health Family history of Alzheimer's d
[2024-05-07 18:38] LABS: Basophils Percent Auto 0.3 % (0.2-1.2); Eosinophils Absolute Auto 0.1 K/mm3 (0-0.3); Eosinophils Percent Auto 1.7 % (0-4.4); Hematocrit 38.3 % (37.0-47.0); Hemoglobin 12.1 g/dL (12.0-15.0); Lymphocytes Absolute Auto 3.41 K/mm3 (0.9-3.2); Lymphocytes Percent Auto 58.3 % (18.3-44.2); Mean Corpuscular HGB Conc 31.6 g/dl (32-36); Mean Corpuscular Hemoglobin 28.4 pg (26-34); Mean Corpuscular Volume 89.9 fl (80-100); Monocytes Absolute Auto 0.4 K/mm3 (0.1-0.6); Monocytes Percent Auto 6.8 % (2.6-8.5); Neutrophils Absolute Auto 1.9 K/mm3 (1.3-6.7); Neutrophils Percent Auto 32.9 % (45.5-73.1); Platelet Count Result 132 k/mm3 (150-375); Red Blood Count 4.26 M/mm3 (4.2-5.4); Red Cell Distribution Width 13.3 % (11.5-14.5); White Blood Count 5.9 K/mm3 (4.5-10.0)
[2024-05-07 18:52] LABS: Alanine Aminotransferase 24 U/L (6-35); Alkaline Phosphatase 109 U/L (38-126); Anion Gap 10 mmol/L (4-12); Aspartate Amino Transferase 25 U/L (14-36); Bilirubin,Total 0.3 mg/dL (0.2-1.3); Blood Urea Nitrogen 12 mg/dL (7-17); Calcium 8.6 mg/dL (8.4-10.2); Carbon Dioxide 25 mmol/L (22-30); Chloride 107 mmol/L (98-107); Estimated CRCL calculation 115 ml/min; Estimated Glomerular Filt Rate > 60; Glucose 115 mg/dL (65-110); Lipase 78 U/L (23-300); Potassium 2.8 mmol/L (3.4-5.0); Sodium 142 mmol/L (137-145)
--- NOTE | 2024-05-07 18:53 | ECG_ITS ---
Test Date: 2024-05-07 19:31:22 Measurements Intervals Hines Rate: 58 P: 57 MT: 124 QRS: -14 QRSD: 98 T: 3 QT: 434 QTc: 427 Interpretive Statements SINUS BRADYCARDIA OTHERWISE NORMAL ELECTROCARDIOGRAM No previous ECG available for comparison Electronically Signed On 05-09-2024 12:52:41 CDT by Dennis Medina M.D.
[2024-05-07 19:24] LABS: Magnesium 1.8 mg/dL (1.6-2.3)
[2024-05-07 19:34] LABS: Add Urine Microscopic? YES; Appearance Urine Clear (Clear); Bacteria Urine 2+ /hpf; Bilirubin Urine Negative (Negative); Blood Urine Negative (Negative); Color Urine Yellow (Yellow); Glucose Urine UA Negative (Negative); Ketones Urine Trace mg/dL (Negative); Leukocyte Esterase Ur Negative LEU/UL (Negative); Nitrate Urine Negative (Negative); Non Pathogenic Casts 0-2; Protein Urine Trace mg/dL (Negative); RBC Urine 0-2 /hpf (0-2); Specific Grav Ur 1.035 (1.001-1.035); Squamous Epithelial Cell Urine Few /hpf (Few); WBC Urine 0-5 /hpf (0-3)
[2024-05-07] MEDS: SODIUM CHLORIDE 0.9% IV 1,000 ML 999 ML IV CONT (19:41)
[2024-05-07] MEDS: ONDANSETRON INJ 4 MG/2 ML VIAL IV PUSH (19:42)
[2024-05-07 20:14] LABS: Potassium 2.9 mmol/L (3.4-5.0)
[2024-05-07] MEDS: POTASSIUM CHLORIDE 20 MEQ PACKET (FOR LIQUID) 40 MEQ PO (20:35)
[2024-05-07 20:49] LABS: Glucose Point of Care 38 mg/dl (65-105)
[2024-05-07 20:54] VITALS: BP 158/66; PULSE 76; RESP 15; O2SAT 100
[2024-05-07] MEDS: DEXTROSE 50% 25 GM/50 ML SYRINGE IV PUSH (20:56)
--- NOTE | 2024-05-07 20:56 | PC.NURSE ---
Patient states she feels like her blood sugar was low because she was shaking. Bedside glucose revealed a blood sugar of 38 mg/dL. EDP made aware and gave VORB for Dextrose 50% 25 G IVP and a snack. Patient given crackers and peanut butter.
[2024-05-07 21:10] LABS: Influenza A QL RT-PCR Negative (Negative); Influenza B QL RT-PCR Negative (Negative); SARS-CoV-2 RNA PCR Negative (Negative)
[2024-05-07 21:31] LABS: Glucose Point of Care 321 mg/dl (65-105)
[2024-05-07] MEDS: POTASSIUM CHLORIDE 20 MEQ PACKET (FOR LIQUID) PO (22:00)
[2024-05-08 11:35] LABS: BEDSIDEPREGUCG Negative
== END 2024-05-07 22:16 | disposition home or self-care (01) ==
PROVIDERS: Physician Assistant; Emergency Provider Emergency Medicine; PCP Physician Assistant
DX: R19.7 Diarrhea, unspecified (principal); R10.9 Unspecified abdominal pain; Z20.822 Contact with and (suspected) exposure to COVID-19; I10 Essential (primary) hypertension; E11.9 Type 2 diabetes mellitus without complications; E78.5 Hyperlipidemia, unspecified; Z98.84 Bariatric surgery status; Z79.899 Other long term (current) drug therapy; K43.9 Ventral hernia without obstruction or gangrene
CPT/HCPCS: 36415; 74177; 80053; 81001; 81025; 82948; 83690; 83735; 84132; 85025; 87045; 87427; 87449; 87636; 93005; 96361; 96374; 96375; 99284; A9270; J2405; J7030; Q9967

== ENCOUNTER 2024-07-19 22:28 | Emergency (ER) | payer OTHER, MEDICAID, SELFPAY ==
[2024-07-19 22:30] VITALS: BP 156/86; PULSE 96; RESP 15; TEMP 36.4; O2SAT 100
[2024-07-19 23:53] VITALS: PULSE 82; RESP 12; O2SAT 100
--- NOTE | 2024-07-20 01:30 | ED_ITS ---
HPI - Neck Pain/Injury General Chief Complaint: Neck Pain/Injury Stated Complaint: right sided neck pain for three days Time Seen by Provider: 07/20/24 00:52 Source: patient Mode of arrival: ambulatory Limitations: no limitations History of Present Illness HPI Narrative: Patient is a 58-year-old female who presents to the ED with report of right- sided neck pain. 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 Reports having worsening pain over the last 3 days. Denies any injury. Has been taking Tylenol and ibuprofen at home without improvement. Would like a refill of lidocaine patches which have helped with her pain in the past. States hers are . Patient denies any numbness or tingling, weakness, chest pain, shortness of breath. Patient also reports having a mild cough for the last couple of days. She would like a refill of Tessalon Perles. She states this has helped her in the past with cough. Denies any shortness of breath. Denies fevers. Related Data Home Medications Medication Instructions Recorded Confirmed lisinopril 30 mg tablet 30 mg PO DAILY 04/21/20 06/26/24 amlodipine 10 mg tablet 10 mg PO DAILY 10/08/20 06/26/24 atorvastatin 40 mg tablet 40 mg PO DAILY 10/08/20 06/26/24 doxycycline hyclate 100 mg tablet 100 mg PO DAILY 10/08/20 06/26/24 hydrochlorothiazide 12.5 mg capsule 12.5 mg PO DAILY 10/08/20 06/26/24 baclofen 10 mg tablet 10 mg PO BID PRN muscle spasms 08/14/23 06/26/24 Allergies Allergy/AdvReac Type Severity Reaction Status Date / Time hydrocodone AdvReac Unknown Dizziness Verified 07/19/24 22:34 Penicillins AdvReac Unknown Dizziness Verified 07/19/24 22:34 Review of Systems Review of Systems: All systems reviewed & are unremarkable except as noted in HPI. All systems reviewed & are unremarkable except as noted in HPI and below PMFSH Past Medical History Medical History Abdominal pain Diarrhea Encounter for screening colonoscopy Exocrine pancreatic insufficiency Hyperlipidemia Hypertension Irritable bowel syndrome with diarrhea Liver mass Migraines Nausea & vomiting Type 2 diabetes mellitus Surgical History Surgical History H/O gastric bypass H/O inguinal hernia repair History of section Family History Family History Grandparent Hypertension Family history of heart disease in male family member before age 55 Diabetes mellitus Father Diabetes mellitus Patient's father is in good health Family history of arthritis Mother Asthma Patient's mother is in good health Family history of Alzheimer's disease Sibling Patient's sister is in good health Patient's brother is in good health Other Cerebrovascular accident Social History Social History Smoking status: Never smoker Alcohol intake: current Substance use type: does not use Living arrangements: alone Gender identity (if verbalized by the patient): Female Exam Narrative: GENERAL: Well appearing, obese with BMI of 34.1, non-toxic, in no acute distress. HEAD: Normocephalic, atraumatic. RESPIRATORY: Airway patent, respirations nonlabored. Clear to auscultation bilaterally, no rales, rhonchi, wheezing. CARDIOVASCULAR: Regular rate and rhythm without murmurs, rubs, or gallops. Radial pulses intact and easily palpable. MUSCULOSKELETAL: Moves all extremities. No gross deformities. Reproducible tenderness to palpation over right cervical paraspinal musculature into right upper trapezius region. No significant midline cervical spinal tenderness. Sensation intact. SKIN: Warm, dry, normal color. NEURO: A&O X3. Speech clear. Cranial nerves II-XII grossly intact. No ataxic movements. PSYCHIATRIC: Appropriate mood and affect. Normal interaction. Course Vital Signs Vital signs: Vital Signs Temperature 97.6 F 07/19/24 22:30 Pulse Rate 96 07/19/24 22:30 Respiratory Rate 15 07/19/24 22:30 Blood Pressure 156/86 H 07/19/24 22:30 Pulse Oximetry 100 07/19/24 22:30 Oxygen Delivery Room Air 07/19/24 22:30 Temperature 97.6 F 07/19/24 22:30 Pulse Rate 82 07/19/24 23:53 Respiratory Rate 12 07/19/24 23:53 Blood Pressure 156/86 H 07/19/24 22:30 Pulse Oximetry 100 07/19/24 23:53 Oxygen Delivery Room Air 07/19/24 22:30 MDM - Neck Pain/Injury MDM Narrative Medical decision making narrative: Patient?s injury is consistent with musculoskeletal etiology, cervical strain. No signs of neurologic or vascular compromise on physical examination. No injury. Patient states this feels similar to her previous arthritis pain. She denies any injury. Declined imaging. Given lidocaine patch, Toradol, Tylenol in the ED. She is feeling significantly better with supportive therapy. Patient is felt to be stable for discharge home and further outpatient management and treatment. Will discharge with short course of muscle relaxers and lidocaine patches for home. Patient also wanted prescription for Tessalon Perles. Will prescribe this. Offered to obtain chest x-ray, however patient declined. Denies any shortness of breath, fevers, low suspicion for pulmonary pathology. Lungs are clear on auscultation. Vitals are stable. Patient given return precautions. Discharged in stable condition Medical Records Attestation: I reviewed the patient's medical records. Discharge Plan Discharge Clinical Impression: Cervical strain Qualifiers: Encounter type: initial encounter Qualified Code(s): S16.1XXA - Strain of muscle, fascia and tendon at neck level, initial encounter Cough Qualifiers: Cough type: acute Qualified Code(s): R05.1 - Acute cough Patient Disposition: Home, Self-Care Condition: Stable Instructions: Antibiotic Form, Cervical Sprain (ED), Acute Cough (ED) Additional Instructions: Continue Tylenol and Ibuprofen as needed for pain. You may use ice/heat, lidocaine patches to area of pain. Take muscle relaxers as needed and prescribed. Recommend taking these at night as they may cause sedation. Do not drive, operate heavy machinery, drink alcohol while on muscle relaxers as this may cause further sedation. Follow-up with your primary care doctor for further evaluation if needed. Return to the ED if you experience worsening or severe pain, injury, new numbness, unable to keep down food or drink, chest pain, shortness of breath, or any other symptoms of concern. Utilize Tessalon Perles as needed for cough. Recommend [id number] cough and cold medicines for symptom relief, Delsym, Mucinex, DayQuil, NyQuil, Sudafed, Robitussin, TheraFlu. Prescriptions: New benzonatate 200 mg capsule 200 mg PO TID PRN (Reason: cough) Qty: 15 0RF lidocaine 5 % adhesive patch,medicated 1 patch topical DAILY Qty: 15 0RF Rx Instructions: leave on most painful area for up to 12 hrs cyclobenzaprine 5 mg tablet 5 mg PO TID PRN (Reason: muscle spasm) Qty: 15 0RF No Action atorvastatin 40 mg tablet 40 mg PO DAILY amlodipine 10 mg tablet 10 mg PO DAILY hydrochlorothiazide 12.5 mg capsule 12.5 mg PO DAILY doxycycline hyclate 100 mg tablet 100 mg PO DAILY clindamycin phosphate 1 % gel 1 applic topical BID 7 Days Qty: 60 0RF benzonatate [Tessalon Perles] 100 mg capsule 100 mg PO TID PRN (Reason: cough) Qty: 30 0RF cholestyramine (with sugar) [Questran] 4 gram powder in packet 4 g PO BID 30 Days Qty: 60 5RF Rx Instructions: administer w/meal; avoid other meds within 1hr before or 4-6hr after dose dicyclomine 10 mg capsule 10 mg PO QID PRN (Reason: abdominal pain) Qty: 120 5RF baclofen 10 mg tablet 10 mg PO BID PRN (Reason: muscle spasms) cyclobenzaprine 10 mg tablet 10 mg PO TID PRN (Reason: muscle spasm) Qty: 20 0RF lisinopril 30 mg tablet 30 mg PO DAILY ibuprofen 400 mg tablet 400 mg PO TID Qty: 20 0RF gabapentin 300 mg capsule 300 mg PO TID Qty: 21 0RF pantoprazole 20 mg tablet,delayed release (DR/EC) 20 mg PO QAM Qty: 90 3RF Creon 36,000-114,000- 180,000 unit capsule,delayed release(DR/EC) 2 cap PO .COMPLEX 30 Days Qty: 300 5RF Rx Instructions: 2 caps orally; Take 2 pills with meals and one pill with snacks. Follow-up/Referrals: Venecia,YEMI Castro [Primary Care Provider] - Time of Disposition: 02:18
[2024-07-20] MEDS: ACETAMINOPHEN 500 MG TABLET 1000 MG PO (01:43)
[2024-07-20] MEDS: LIDOCAINE 5% PATCH 1 PATCH TRANSDERM (01:43)
[2024-07-20] MEDS: KETOROLAC (*BKC) 60 MG/2 ML VIAL IM (01:43)
--- NOTE | 2024-07-20 02:43 | PC.NURSE ---
Rn went to go discharge pt but her discharge papers wouldn't print. I tried 5 different computers and four different printers and no luck with either. tie binder tried. Jesus Schwartz and Dr. Rivera tried. This RN called IT on issue and they said they would give us a call back.
[2024-07-20 03:13] VITALS: BP 119/87; PULSE 66; RESP 18; O2SAT 97
== END 2024-07-20 03:14 | disposition home or self-care (01) ==
PROVIDERS: Emergency Provider Physician Assistant; PCP Physician Assistant
DX: S16.1XXA Strain of muscle, fascia and tendon at neck level, initial encounter (principal); R05.1 Acute cough; M19.09 Primary osteoarthritis, other specified site; E78.5 Hyperlipidemia, unspecified; I10 Essential (primary) hypertension; E11.9 Type 2 diabetes mellitus without complications
CPT/HCPCS: 96372; 99283; A9270; J1885

== ENCOUNTER 2024-12-21 10:05 | Emergency (ER) | payer OTHER, MEDICAID, SELFPAY ==
--- OUTSIDE RECORDS SUMMARY | 2024-12-21 10:07 | XMS_ITS | Continuity of Care Document ---
Author Organization [facility] Address [id number] [place] [address] [place] [address] Phone Care Team Providers Care Final Block Press Operator Name Role Phone Gil Buckley DO Unavailable Unavailable Advance Directives Directive Yes / No Effective Date File Name No Information Encounters Encounter Description Practice Location Reason(s) For Visit Diagnoses Date Provider Providers Copied on Encounter [facility], [address], [place], [place], [id number], [place] tel:[phone] [facility] No Information Ina Oneal. [address] [facility], [place], [address], [place]. tel:[phone] Family History Family Member Type Diagnosis Age At Onset No Information Payers Payer name Insurance type Covered libertarian ID Authoriza tion(s) No Information Social History Type Description Quantity Date Captured Comments Sex Female Smoking Status No Information Chief Complaint And Reason For Visit No Information Reason For Referral Reason For Referral No Information History Of Present Illness Encounter Date Complaint History Of Prese nt Illness No Information Functional Status Date Functional Assessmen t No Information Instructions Date Instruction Additional Infor mation No Information Assessments Type Assessment Date No Information Patient Care Teams Name Effective Dates (start - stop) Status Members No Information
--- OUTSIDE RECORDS SUMMARY | 2024-12-21 10:07 | XMS_ITS | Clinical Summary ---
Author Organization [facility] Address [address] [facility] [place] [address] Care Team Providers Care Visual Merchandise Manager Name Role Phone Rianna Rodrigez PA-C Primary Care Provider [phone] Source Comments [facility],non-owned Affiliates and Associated Physician Practices is amultiple site organization consisting of ambulatory clinics and hospital sitesin [place], [place], [place] and [place]. This disclosure is being madepursuant to the Care Everywhere program and may not contain all information available regarding this patient. Last updated 18.[facility] Allergies Active Allergy Reactions Criticality Noted Date Comments Acetaminophen Urticaria Medium Hydrocodone-Guaifenesin Nausea and/or Vomiting Low 01/16/2015 Penicillins Nausea and/or Vomiting Low 01/16/2015 Medications * Be aware that medications may not be up to date on this document. Alwaysverify current medications with the patient. loratadine (CLARITIN) 10 MG tablet Take 1 (one) tablet by mouth as needed 01/06/20 15 Active lisinopril (PRINIVIL; ZESTRIL) 30 MG tablet Take 30 mg by mouth once daily 08/15/20 16 Active lamoTRIgine (LAMICTAL) 100 MG tablet Take 100 mg by mouth once daily 11/30/19 17 Active hydroCHLOROthia zide (MICROZIDE) 12.5 MG capsule Take 12.5 mg by mouth once daily 01/06/20 15 Active blood glucose test strip Use 1 strip 2 times daily 11/16/19 17 Active gabapentin (NEURONTIN) 300 MG capsule Take 300 mg by mouth at bedtime 05/10/20 17 Active fluticasone propionate (FLONASE) 50 MCG/ACT nasal spray [place] 2 sprays into the nose as needed 01/06/20 15 Active famotidine (PEPCID) 20 MG tablet Take 20 mg by mouth as needed Active estradiol (ESTRACE) 1 MG tablet Take 1 mg by mouth once daily 07/29/20 17 Active empaglifozin-me tFORMIN ER 24hr (SYNJARDY XR) 12.5-1000 MG tablet Take 2 tablets by mouth once daily 10/18/19 18 Active cyclobenzaprine (FLEXERIL) 5 MG tablet Take 5 mg by mouth as needed 01/22/20 17 Active Blood Glucose Monitoring Suppl (Hosted Systems) W/DEVICE KIT Use 1 strip 2 times daily 11/16/19 17 Active atorvastatin (LIPITOR) 40 MG tablet Take 1 (one) tablet by mouth once daily 12/03/19 15 Active dulaglutide (TRULICITY) 1.5 MG/0.5ML injection Inject 0.5 mL subcutaneously every 7 days 12 Pen 2 02/23/20 18 Active Additional Information Patient not taking.Reported on 07/18/2022 citalopram (CELEXA) 20 MG tablet Take 1 (one) tablet by mouth once daily 06/09/20 15 Active ibuprofen (MOTRIN) 800 MG tablet ibuprofen 800 mg tablet Active ferrous sulfate 325 (65 FE) MG tablet TAKE 1 TABLET BY MOUTH TWICE DAILY Active potassium chloride ER (Klor-Con M) 10 MEQ tablet Take 1 (one) tablet by mouth once daily Active omeprazole (PRILOSEC) 20 MG capsule Take 1 (one) capsule by mouth once daily Active Ergocalciferol (VITAMIN D2 PO) Take 50,000 mcg by mouth every 7 days Active RELION PEN NEEDLE 31G/8MM 31G X 8 MM needle USE ONE ONCE DAILY 100 Each 3 06/12/20 18 Active Additional Information Patient not taking.Reported on 07/18/2022 TRESIBA FLEXTOUCH 100 UNIT/ML pen INJECT 70 UNITS SUB-Q ONCE DAILY 10 Pen 4 09/13/19 19 Active Additional Information Patient not taking.Reported on 07/18/2022 erythromycin (Eryderm) 2 % solutionIndicat ions:Hidradenit is suppurativa APPLY SOLUTION TOPICALLY TO AFFECTED AREA ONCE DAILY 60 mL 07/18/20 22 Active cholestyramine (Questran) 4 g packet DISSOLVE 4 GRAMS OF POWDER IN LIQUID AND DRINK TWICE DAILY WITH MEALS (AVOID OTHER MEDS WITHIN 1 HOUR BEFORE OR 4-6 HOURS AFTER DOSE) 06/13/20 Active clobetasol (Temovate) 0.05 % ointmentIndicat ions:Hand dermatitis Apply to rash on hands twice daily. 30 days supply. 30 g 2 07/01/20 24 Active doxycycline hyclate 100 MG tabletIndicatio ns:Hidradenitis suppurativa Take 1 (one) tablet by mouth 2 times daily 60 tablet 07/03/20 24 Active Active Problems Problem Noted Date Diagnosed Date Allergic rhinitis 05/23/2018 Anemia 05/23/2018 Calcaneal spur 05/23/2018 Diabetes mellitus 05/23/2018 Foot pain 05/23/2018 Gastroesophageal reflux disease 05/23/2018 Hip pain 05/23/2018 Hyperuricemia 05/23/2018 Iron deficiency anemia 05/23/2018 Lesion of liver 05/23/2018 Low back pain 05/23/2018 Menorrhagia 05/23/2018 Migraine 05/23/2018 Morbid obesity 05/23/2018 Osteoarthrosis 05/23/2018 Serous otitis media 05/23/2018 Spasm of back muscles 05/23/2018 Urinary urgency 05/23/2018 Plantar fasciitis 06/07/2017 Diabetic neuropathy 05/10/2017 Hypokalemia 08/18/2016 Degenerative joint disease (DJD) of hip 10/11/19 16 [place] (dyspnea on exertion) 10/11/2015 Overview (05/23/2018): Overview: From notes Midline low back pain without sciatica 6 Uterine polyp 10/11/2015 Female hypogonadism 10/01/2015 Hyperglycemia due to type 2 diabetes mellitus Hyperlipidemia 10/01/2015 Hypertension 10/01/2015 IBS (irritable bowel syndrome) 10/01/2015 Overview (05/23/2018): Overview: From notes Surgical menopause 10/01/2015 Hidradenitis suppurativa 01/16/2015 Resolved Problems Problem Noted Date Diagnosed Date Resolved Date Cough 05/23/2018 06/20/2018 Upper respiratory infection 05/23/2018 06/06/2018 Immunizations Immunization Administration Dates Next Due INFLUENZA VACCINE, TRIV. (AF LURIA, FLUZONE TRIVALENT; 6MO+) (IIV3) 07/25/2016 Family History Medical History Relation Name Comments Asthma Neg Hx CVA Neg Hx Cancer - Breast Neg Hx Cancer - Other Neg Hx Cancer - Skin, Melanoma Neg Hx Cancer - Skin, Non Melanoma Neg Hx Eczema Neg Hx Hemophilia Neg Hx Psoriasis Neg Hx Social History Tobacco Use Types Packs/Day Years Used Date Smoking Tobacco: Never Smokeless Tobacco: Never Tobacco Cessation:Counseling Given: Not Answered Alcohol Use Standard Drinks/Week Comments Yes 0 (1 standard drink = 0.6 oz pur e alcohol) ocass. Comments No Sex and Gender Information Value Date Recorded Sex Assigned at Not on file Legal Sex Female 6:14 AM EXCHANGE CLERK Gender Identity Not on file Sexual Orientation Not on file Last Filed Vital Signs Vital Sign Reading Time Taken Comments Blood Pressure 124/80 03/22/2018 9:17 AM CDT Pulse 77 03/22/2018 9:17 AM CDT Temperature 36.4 C (97.6 F) 03/22/2018 9:17 AM CDT Respiratory Rate 18 03/22/2018 9:17 AM CDT Oxygen Saturation 99% 03/22/2018 9:17 AM CDT Inhaled Oxygen Concentration - - Weight 112.5 kg (248 lb) 03/22/2018 9:17 AM CDT Height 162.6 cm (5' 4 ) 03/22/2018 9:17 AM CDT Body Mass Index 42.57 03/22/2018 9:17 AM CDT Plan of Treatment Health Maintenance Due Date Last Done Comments COLOGUARD (AGES 45-75) - COLON CA SCREENING 1965 COLON MONITORING 1965 COLONOSCOPY - COLON CA SCREENING 1965 CT COLONOGRAPHY - COLON CA SCREENING 1965 Colorectal Cancer Screening 1965 FIT - COLON CA SCREENING 1965 FLEX SIG - COLON CA SCREENING 1965 PAP SMEAR 1965 HIV SCREENING 1980 HEPATITIS C SCREENING 07/31/1983 DTAP/TDAP/TD VACCINES (1 - Tdap) 1984 HEPATITIS B VACCINE (1 of 3 - 19+ 3-dose series) 1984 PNEUMOCOCCAL VACCINE 50+ (1 of 2 - PCV) 1984 PNEUMOCOCCAL VACCINE (1 of 2 - PCV) 1984 ZOSTER VACCINE (1 of 2) 2015 DIABETES RETINOPATHY SCREENING 12/11/2017 DIABETES-HGB A1C 08/10/2018 05/11/2018, 08/2018, 11/11/2017, Additional history exists DIABETES-SERUM CREATININE 11/11/20182017, 08/19/2017, 07/07/2016 DIABETES-FOOT EXAM WITH MONOFILAMENT 03/22/2019 03/22/2018, 03/22/2018 MAMMOGRAM 05/25/2020 05/25/2018, 05/12, 03/21/2017, Additional history exists COVID-19 VACCINE ( season) 2024 07/19/2022, 08/13/2021, 12/23/2020, Additional history exists DEPRESSION SCREENING 09/11/2024 DIABETES - URINE PROTEIN SCREENING 09/11/2024 11/11/2017, 08/19/2017, 07/07/2016 INFLUENZA VACCINE (Season Ended) 2025 07/19/2022, 08/13/2021, 06/17/2020, Additional history exists HIB VACCINE Aged Out No longer eligi ble based on patient's age to complete this topic HPV VACCINE Aged Out No longer eligi ble based on patient's age to complete this topic MENINGOCOCCAL (Group B) VACCINE SHARED DECISION-MAKING Aged Out No longer eligible based on patient's age to complete this topic MENINGOCOCCAL GROUPS A/C/Y/W VACCINE Aged Out No longer eligible based on patient's age to complete this topic Procedures Procedure Name Priority Date/Time Associated Diagnosis Comments HEMOGLOBIN A1C - POINT OF CARE (AMB) [facility] Routine 03/22/2018 Type 2 diabetes mellitus without complication, with long-term current use of insulin MICROALB/CREAT RATIO URINE RANDOM PANEL Routine 11/11/2017 10:34 AM EXCHANGE CLERK COMPREHENSIVE METABOLIC PANEL Routine 11/11/2017 10:34 AM EXCHANGE CLERK from Last 3 Months or Most Recently Relevant to Health Maintenance Results * HEMOGLOBIN A1C - POINT OF CARE (AMB) [facility] (03/22/2018) [facility] Hemoglobin A1c POCT 10.7 BLOOD SPECIMEN / Unknown 03/22/2018 Ana Lilia Goldman [facility] - POINT OF CARE O RDERABLES Final Result * MICROALB/CREAT RATIO URINE RANDOM PANEL (11/11/2017 10:34 AM EXCHANGE CLERK) Creatinine Urine 177 20 - 320 mg/dL [facility] ([facility]) Microalbumin Urine 3.4 mg/dL [facility] ([facility]) Comment: Reference Range Not established Urine Albumin/Creatinine Ratio 19 <30 mcg/mg creat [facility] ([facility]) Comment: The ADA defines abnormalities in albumin excretion as follows: Category Result (mcg/mg creatinine) Normal <30 Microalbuminuria 30-299 Clinical albuminuria > OR = 300 The ADA recommends that at least two of three specimens collected within a 3-6 month period be abnormal before considering a patient to be within a diagnostic category. Test Performed at: [facility] [id number] [place] [address] SARA CHANEL DO,MPH Urine specimen (specimen) URINE / Unknown 11/11/2017 10:34 AM EXCHANGE CLERK 11/11/2017 10:35 AM EXCHANGE CLERK Ana Lilia Goldman [facility] - URINE CHEMISTRY ORDERABLES Final Result Performing Organization Address City/State/[facility] Co de Phone Number [facility] ([facility]) [phone] * (ABNORMAL) COMPREHENSIVE METABOLIC PANEL (11/11/2017 10:34 AM EXCHANGE CLERK) Pathologist [facility] Glucose 61(L) 65 - 99 mg/dL [facility] ([facility]) Comment: Fasting reference interval BUN 9 7 - 25 mg/dL [facility] ([facility]) Creatinine 0.58 0.50 - 1.05 mg/dL [facility] ([facility]) Comment: For patients >49 years of age, the reference limit for Creatinine is approximately 13% higher for people identified as -Kittitian. eGFR non- 106 > OR = 60 mL/min/1 .73m2 [facility] ([facility]) eGFR 123 > OR = 60 mL/min/1 .73m2 [facility]) BUN/Creatinine Ratio NOT APPLICABLE 6 - 22 (calc) [facility]) Sodium 144 135 - 146 mmol/L [facility]) Potassium 3.4(L) 3.5 - 5.3 mmol/L [facility]) Chloride 109 98 - 110 mmol/L [facility]) CO2 29 20 - 31 mmol/L [facility]) Calcium 9.0 8.6 - 10.4 mg/dL [facility]) Protein Total 6.8 6.1 - 8.1 g/dL [facility]) Albumin 3.9 3.6 - 5.1 g/dL [facility]) Globulin 2.9 1.9 - 3.7 g/dL (calc) [facility]) Albumin/Globulin Ratio 1.3 1.0 - 2.5 (calc) [facility] ([facility]) Bilirubin Total 0.4 0.2 - 1.2 mg/dL [facility]) Alkaline Phosphatase 110 33 - 130 U/L [facility]) AST 11 10 - 35 U/L [facility]) ALT 11 6 - 29 U/L [facility] ([facility]) Comment: Test Performed at: [facility] [id number] [place] [address] SARA CHANEL DO,MPH Blood specimen (specimen) BLOOD SPECIMEN / Unknown 11/11/2017 10:34 AM EXCHANGE CLERK 11/11/2017 10:35 AM EXCHANGE CLERK Ana Lilia Goldman [facility] - CHEMISTRY ORDER TITUS Final Result [facility] ([facility]) [id number] from Last 3 Months or Most Recently Relevant to Health Maintenance Insurance [facility] MEDICAID - [facility] [place]ICAID - [place] [facility] [place]ICAID - [place] Member Subscriber Plan / Payer (Ef fective for All Dates) Name:Radha Mcguire Heather Member ID:Not on file Relation to Subscriber:Self Name:Radha Mcguire Payer ID:Not on file Group ID:Not on file Type:Medicaid [place] Address: [place] [id number] [place]ID [place] Member Subscriber Plan / Payer (Ef fective for All Dates) Name:Radha Mcguire Member ID:Not on file Relation to Subscriber:Self Name:Radha Mcguire Payer ID:Not on file Group ID:Not on file Type:Medicaid [place] Address: [place] [id number] * Guarantor: RADHA MCGUIRE Account Type Relation to Patient Date of Phone Billing Address Personal/Family [address] [place] [address] [facility] MEDICAID - [place] Member Subscriber Plan / Payer (Ef fective for All Dates) Name:Radha Mcguire Member ID:Not on file Relation to Subscriber:Self Name:Radha Mcguire Payer ID:Not on file Group ID:Not on file Type:Medicaid [place] Address: [place] [phone] * Guarantor: SHAYLARADHA Account Type Relation to Patient Date of Phone Billing Address Personal/Family [address] [facility] [address] [place] [id number] [facility] MEDICAID - [place] Member Subscriber Plan / Payer (Ef fective for All Dates) Name:ShaylaRadha Heather Member ID:Not on file Relation to Subscriber:Self Name:Radha Mcguire Payer ID:Not on file Group ID:Not on file Type:Medicaid [place] Address: [address] * Guarantor: SHAYLARADHA Account Type Relation to Patient Date of Phone Billing Address Personal/Family [address] [place], [place] [phone] [facility] MEDICAID - [place] Care Teams Visual Merchandise Manager Relationship Specialty Start Date End Date Rianna Rodrigez PA-C PCP - General 03/12/18
--- OUTSIDE RECORDS SUMMARY | 2024-12-21 10:08 | XMS_ITS | Data Portability ---
Author Organization [facility] Blanka MILLER Address [address] [facility] [place] [address] Care Team Providers Care Dipping Machine Operator Name Role Phone DM LOJA Wood Grainer AARON ISAAC Psychiatrist GONSALO DUPONT Presser All Around ELSY WILKINS Primary Care Provider Assessment Encounter Date Assessment Date Assessment LastModified by Organization Details LastModified Time 09/06/2023 09/06/2023 discuss SGLT2 at next visit Not available 09/06/2023 12:20:03 05/07/2024 05/07/2024 had eye exam in January. will bring rsults Not available 05/08/2024 10:03:17 Plan of Treatment Reminders Order Date Submit Date Provider Last Modified By Organization Details Last Modified Time Details Appointments ANY 15 2024 01:15P YEMI GOLDEN Not available Not available Not available Lab CMP, serum or plasma 2024 025 [facility], [address] [facility], [address], [place], [address], 11/15/2024 10:19:03 lipid panel, serum 2024 025 [facility], [address] [facility], [address], [place], [address], 11/15/2024 10:19:01 albumin/c reatinine , mass ratio, urine 2024 025 YAEL LOVE, Rizwana Godinez, [address], [place], [address], 11/15/2024 10:19:00 HbA1c (hemoglob in A1c), blood 2024 025 [facility] PAIZRP, Rizwana Godinez, [address], [place], [address], 11/15/2024 10:19:04 HbA1c (hemoglob in A1c), blood 2024 025 In-Office Order, Internal Use Only DO Not Attach Compendium DO Not Attach Compendium, Do Not Delete/merge, [id number] 10/07/2024 16:12:14 glucose, fingersti ck, blood 2023 024 In-Office Order, Internal Use Only DO Not Attach Compendium DO Not Attach Compendium, Do Not Delete/merge, [id number] 06/13/2024 10:23:47 CMP, serum or plasma 2023 024 YAEL PAIZLISA, Rizwana [address]inez, [address], [place], [address], 05/07/2024 23:51:47 lipid panel, serum 2023 024 YAEL PAINTERIMTIAZ, Rizwana Aly Herbert, [address], [place], [address], 05/08/2024 09:15:32 albumin/c reatinine , mass ratio, urine 2023 024 YAEL PAIZLISA, Rizwana Aly [address], [address], [place], [address], 05/08/2024 09:15:32 HbA1c (hemoglob in A1c), blood 2023 024 In-Office Order, Internal Use Only DO Not Attach Compendium DO Not Attach Compendium, Do Not Delete/merge, [id number] 05/07/2024 15:19:02 HbA1c (hemoglob in A1c), blood 2022 023 [place] [id number] In-Office Order, Internal Use Only DO Not Attach Compendium DO Not Attach Compendium, Do Not Delete/merge, [id number] 09/06/2023 12:14:17 CMP, serum or plasma 2022 023 [facility], [address] [facility], [address], [place], [address], 09/07/2023 07:11:56 lipid panel, serum 2022 023 [facility], [address] [facility], [address], [place], [address], 09/07/2023 07:11:55 Referral gastroent erologist referral 2023 024 lashay Osei MD, [address] [facility] [address], [place], [address], 05/17/2024 14:41:43 Procedures None recorded. Surgeries None recorded. Imaging None recorded. Medication Orders OneTouch Verio test strips [address] [facility], [address] [place], [address], 11/14/2024 09:07:05 gabapenti n 300 mg capsule [address] [facility], [address] [place], [address], 11/14/2024 09:07:05 Vitamin D3 125 mcg (5,000 unit) tablet [address] [facility], [address] [place], [address], 10/07/2024 16:20:55 amlodipin e 10 mg tablet [address] [facility], [address] [place] [address], [address], 10/07/2024 16:21:45 lisinopri l 20 mg-hydroc hlorothia zide 12.5 mg tablet 2024 025 [facility], [address] [place] [address], [address], 10/07/2024 16:20:47 atorvasta tin 40 mg tablet 2024 [facility], [address] [place] [address], [address], 10/07/2024 16:20:46 Semglee (insulin glargine- yfgn) Pen 100 unit/mL (3 mL) subcutane ous [address] [facility], [address] [place] [address], [address], 10/07/2024 16:21:45 amlodipin e 10 mg tablet [address] [facility], [address] [place] [address], [address], 05/07/2024 15:18:59 lisinopri l 20 mg-hydroc hlorothia zide 25 mg tablet [address] [facility], [address] [place] [address], [address], 12/16/2024 15:37:31 Ozempic 2 mg/dose (8 mg/3 mL) subcutane ous pen injector 2023 025 [facility], [address] [place] [address], [address], 10/07/2024 16:03:25 Jardiance 25 mg tablet [address] [facility], [address] [place], [address], 05/10/2024 09:12:16 atorvasta tin 40 mg tablet 2023 024 [facility], [facility] [place], [address], 05/07/2024 15:26:32 Ozempic 2 mg/dose (8 mg/3 mL) subcutane ous pen injector [address] [facility], [address] [place], [address], 10/07/2024 16:03:16 glucose 4 gram chewable tablet [address] [facility], [address] [place], [address], 09/06/2023 12:14:16 Patient TargetsNo targets recorded. Patient Instructions Encounter Date Encounter Id Patient Instructions Last Modified By Organization Details Last Modified Time 09/06/2023 [id number] A healthy lifestyle: care instructions [place] [id number] Not available 09/06/2023 12:20:53 05/07/2024 [id number] A healthy lifestyle: [facility] Not available 05/07/2024 15:18:59 Reason for Referral Ladle Builder Referral for Chronic diarrhea Referring Physician: Elsy Wilkins, [facility] Psychiat[facility], Encounter Date: 05/07/2024 Results Created Date Observation Date Name Description Value Unit Range Abnormal Flag Note LastModifiedBy Organization Detail LastModifiedTime 09/06/2009/07/2023 LIPID PANEL cholesterol, total 147 mg/dL 100-19 9 Not Available [facility] ([facility]) [address] [facility], [place], [address], 09/07/2023 07:11:55 09/06/20 23 09/07/2023 LIPID PANEL triglyceride s 84 mg/dL 0-149 Not Available [facility] ([facility]) [address] [facility] [place], [address], 09/07/2023 07:11:55 09/06/20 23 09/07/2023 LIPID PANEL HDL cholesterol 69 mg/dL >39 Not Available [facility] ([facility]) [address] [place] [place], [address], 09/07/2023 07:11:55 09/06/20 23 09/07/2023 LIPID PANEL VLDL cholesterol ingrid 16 mg/dL 5-40 Not Available [facility] ([facility]) [address] [facility] [place], [address], 09/07/2023 07:11:55 09/06/20 23 09/07/2023 LIPID PANEL LDL chol calc ([facility]) 62 mg/dL 0-99 Not Available [facility] ([facility]) [address] [place], [address], 09/07/2023 07:11:55 09/06/20 23 09/07/2023 COMP. METAB OLIC PANEL (14) glucose 462 mg/dL 70-99 above high normal Not Available [facility] ([facility]) [address] [facility], [place], [address], 09/07/2023 07:11:56 09/06/20 23 09/07/2023 COMP. METAB OLIC PANEL (14) BUN 14 mg/dL 6-24 Not Available [facility] ([facility]) [address] [facility] [place], [address], 09/07/2023 07:11:56 09/06/20 23 09/07/2023 COMP. METAB OLIC PANEL (14) creatinine 0.76 mg/dL 0.57-1 .00 Not Available [facility] ([facility]) [address] [place], [address], 09/07/2023 07:11:56 09/06/20 23 09/07/2023 COMP. METAB OLIC PANEL (14) eGFR 91 mL/mi n/1.7 3 >59 Not Available [facility] ([facility]) [address] [facility], [place], [address], 09/07/2023 07:11:56 09/06/20 23 09/07/2023 COMP. METAB OLIC PANEL (14) BUN/creatini ne ratio 18 9-23 Not Available [facility] ([facility]) [address] [facility], [place], [address], 09/07/2023 07:11:56 09/06/20 23 09/07/2023 COMP. METAB OLIC PANEL (14) sodium 136 mmol/ L 134-14 4 Not Available [facility] ([facility]) [address] [facility], [place], [address], 09/07/2023 07:11:56 09/06/20 23 09/07/2023 COMP. METAB OLIC PANEL (14) potassium 4.9 mmol/ L 3.5-5. 2 Not Available [facility] ([facility]) [address] [facility], [place], [address], 09/07/2023 07:11:56 09/06/20 23 09/07/2023 COMP. METAB OLIC PANEL (14) chloride 99 mmol/ L 96-106 Not Available [facility] ([facility]) [address] [facility], [place], [address], 09/07/2023 07:11:56 09/06/20 23 09/07/2023 COMP. METAB OLIC PANEL (14) carbon dioxide, total 22 mmol/ L 20-29 Not Available [facility] ([facility]) [address] [facility], [place], [address], 09/07/2023 07:11:56 09/06/20 23 09/07/2023 COMP. METAB OLIC PANEL (14) calcium 9.0 mg/dL 8.7-10 .2 Not Available [facility] ([facility]) [address] [place], [address], 09/07/2023 07:11:56 09/06/20 23 09/07/2023 COMP. METAB OLIC PANEL (14) protein, total 6.9 g/dL 6.0-8. 5 Not Available [facility] ([facility]) [address] [place], [address], 09/07/2023 07:11:56 09/06/20 23 09/07/2023 COMP. METAB OLIC PANEL (14) albumin 4.2 g/dL 3.8-4. 9 Not Available [facility] ([facility]) [address] [place], [address], 09/07/2023 07:11:56 09/06/20 23 09/07/2023 COMP. METAB OLIC PANEL (14) globulin, total 2.7 g/dL 1.5-4. 5 Not Available [facility] ([facility]) [address] [place], [address], 09/07/2023 07:11:56 09/06/20 23 09/07/2023 COMP. METAB OLIC PANEL (14) A/G ratio 1.6 1.2-2. 2 Not Available [facility] ([facility]) [address] [place], [address], 09/07/2023 07:11:56 09/06/20 23 09/07/2023 COMP. METAB OLIC PANEL (14) bilirubin, total 0.3 mg/dL 0.0-1. 2 Not Available [facility] ([facility]) [address] [place], [address], 09/07/2023 07:11:56 09/06/20 23 09/07/2023 COMP. METAB OLIC PANEL (14) alkaline phosphatase 150 IU/L 44-121 above high normal Not Available [facility] ([facility]) [address] [facility], [place], [address], 09/07/2023 07:11:56 09/06/20 23 09/07/2023 COMP. METAB OLIC PANEL (14) AST (SGOT) 18 IU/L 0-40 Not Available [facility] ([facility]) [address] [facility], [place], [address], 09/07/2023 07:11:56 09/06/20 23 09/07/2023 COMP. METAB OLIC PANEL (14) ALT (SGPT) 25 IU/L 0-32 Not Available [facility] ([facility]) [address] [facility], [place], [address], 09/07/2023 07:11:56 09/06/20 23 09/06/2023 HbA1c (hemo globi n A1c), blood HbA1c 9.3% Not Available In-Office Order Internal Use Only DO Not Attach Compendium DO Not Attach Compendium, Do Not Delete/merge, [id number] 09/06/2023 11:47:33 05/07/20 24 05/08/2024 ALBUM IN/CR EATIN INE RATIO ,URIN E creatinine, urine 179.1 mg/dL notest ab. Not Available [facility] ([facility]) [address] [facility], [place], [address], 05/08/2024 09:15:32 05/07/20 24 05/08/2024 ALBUM IN/CR EATIN INE RATIO ,URIN E albumin, urine 8.9 ug/mL notest ab. Not Available [facility] ([facility]) [address] [place], [address], 05/08/2024 09:15:32 05/07/20 24 05/08/2024 ALBUM IN/CR EATIN INE RATIO ,URIN E alb/creat ratio 5 mg/g_ creat 0-29 Linda l: 0 - 29 Moder ately incre ased: 30 - 300 Sever akash incre ased: >300 Not Available [facility] ([facility]) [address] [place], [address], 05/08/2024 09:15:32 05/07/20 24 05/08/2024 LIPID PANEL cholesterol, total 120 mg/dL 100-19 9 Not Available [facility] ([facility]) [address] [place], [address], 05/08/2024 09:15:32 05/07/20 24 05/08/2024 LIPID PANEL triglyceride s 57 mg/dL 0-149 Not Available [facility] ([facility]) [address] [place], [address], 05/08/2024 09:15:32 05/07/20 24 05/08/2024 LIPID PANEL HDL cholesterol 62 mg/dL >39 Not Available [facility] ([facility]) [address] [place], [address], 05/08/2024 09:15:32 05/07/20 24 05/08/2024 LIPID PANEL VLDL cholesterol ingrid 13 mg/dL 5-40 Not Available [facility] ([facility]) [address] [place], [address], 05/08/2024 09:15:32 05/07/20 24 05/08/2024 LIPID PANEL LDL chol calc ([facility]) 45 mg/dL 0-99 Not Available [facility] ([facility]) [address] [place], [address], 05/08/2024 09:15:32 05/07/20 24 05/08/2024 COMP. METAB OLIC PANEL (14) glucose 166 mg/dL 70-99 above high normal Not Available [facility] ([facility]) [address] [place], [address], 05/08/2024 09:15:33 05/07/20 24 05/08/2024 COMP. METAB OLIC PANEL (14) BUN 12 mg/dL 6-24 Not Available [facility] ([facility]) [address] [facility] [place], [address], 05/08/2024 09:15:33 05/07/20 24 05/08/2024 COMP. METAB OLIC PANEL (14) creatinine 0.61 mg/dL 0.57-1 .00 Not Available [facility] ([facility]) [address] [place], [address], 05/08/2024 09:15:33 05/07/20 24 05/08/2024 COMP. METAB OLIC PANEL (14) eGFR 104 mL/mi n/1.7 3 >59 Not Available [facility] ([facility]) [address] [place], [address], 05/08/2024 09:15:33 05/07/20 24 05/08/2024 COMP. METAB OLIC PANEL (14) BUN/creatini ne ratio 20 9-23 Not Available [facility] ([facility]) [address] [facility] [place], [address], 05/08/2024 09:15:33 05/07/20 24 05/08/2024 COMP. METAB OLIC PANEL (14) sodium 143 mmol/ L 134-14 4 Not Available [facility] ([facility]) [address] [place], [address], 05/08/2024 09:15:33 05/07/20 24 05/08/2024 COMP. METAB OLIC PANEL (14) potassium 3.5 mmol/ L 3.5-5. 2 Not Available [facility] ([facility]) [address] [place], [address], 05/08/2024 09:15:33 05/07/20 24 05/08/2024 COMP. METAB OLIC PANEL (14) chloride 109 mmol/ L 96-106 above high normal Not Available [facility] ([facility]) [address] [facility], [place], [address], 05/08/2024 09:15:33 05/07/20 24 05/08/2024 COMP. METAB OLIC PANEL (14) carbon dioxide, total 21 mmol/ L 20-29 Not Available [facility] ([facility]) [address] [place], [address], 05/08/2024 09:15:33 05/07/20 24 05/08/2024 COMP. METAB OLIC PANEL (14) calcium 8.3 mg/dL 8.7-10 .2 below low normal Not Available [facility] ([facility]) [address] [place], [address], 05/08/2024 09:15:33 05/07/20 24 05/08/2024 COMP. METAB OLIC PANEL (14) protein, total 6.5 g/dL 6.0-8. 5 Not Available [facility] ([facility]) [address] [place], [address], 05/08/2024 09:15:33 05/07/20 24 05/08/2024 COMP. METAB OLIC PANEL (14) albumin 3.7 g/dL 3.8-4. 9 below low normal Not Available [facility] ([facility]) [address] [place], [address], 05/08/2024 09:15:33 05/07/20 24 05/08/2024 COMP. METAB OLIC PANEL (14) globulin, total 2.8 g/dL 1.5-4. 5 Not Available [facility] ([facility]) [address] [place], [address], 05/08/2024 09:15:33 05/07/20 24 05/08/2024 COMP. METAB OLIC PANEL (14) bilirubin, total 0.2 mg/dL 0.0-1. 2 Not Available [facility] ([facility]) [address] [place], [address], 05/08/2024 09:15:33 05/07/20 24 05/08/2024 COMP. METAB OLIC PANEL (14) alkaline phosphatase 127 IU/L 44-121 above high normal Not Available [facility] ([facility]) [address] [facility], [place], [address], 05/08/2024 09:15:33 05/07/20 24 05/08/2024 COMP. METAB OLIC PANEL (14) AST (SGOT) 18 IU/L 0-40 Not Available [facility] ([facility]) [address] [facility], [place], [address], 05/08/2024 09:15:33 05/07/20 24 05/08/2024 COMP. METAB OLIC PANEL (14) ALT (SGPT) 19 IU/L 0-32 Not Available [facility] ([facility]) [address] [facility], [place], [address], 05/08/2024 09:15:33 05/07/20 24 05/07/2024 HbA1c (hemo globi n A1c), blood HbA1c 8.4% Not Available In-Office Order Internal Use Only DO Not Attach Compendium DO Not Attach Compendium, Do Not Delete/merge, [id number] 05/07/2024 15:11:57 05/15/20 24 05/16/2024 PTH INTAC T+INGRID CIUM, IONIZ ED PTH, intact 65 pg/mL 15-65 Not Available [facility] ([facility]) [address] [place], [address], 05/17/2024 07:17:48 05/15/20 24 05/17/2024 PTH INTAC T+INGRID CIUM, IONIZ ED calcium, ionized, serum 4.9 mg/dL 4.5-5. 6 Not Available [facility] ([facility]) [address] [place], [address], 05/17/2024 07:17:48 05/15/20 24 05/16/2024 COMP. METAB OLIC PANEL (14) glucose 154 mg/dL 70-99 above high normal Not Available [facility] ([facility]) [address] [place], [address], 05/17/2024 07:17:48 05/15/20 24 05/16/2024 COMP. METAB OLIC PANEL (14) BUN 12 mg/dL 6-24 Not Available [facility] ([facility]) [address] [place], [address], 05/17/2024 07:17:48 05/15/20 24 05/16/2024 COMP. METAB OLIC PANEL (14) creatinine 0.65 mg/dL 0.57-1 .00 Not Available [facility] ([facility]) [address] [place], [address], 05/17/2024 07:17:48 05/15/20 24 05/16/2024 COMP. METAB OLIC PANEL (14) eGFR 102 mL/mi n/1.7 3 >59 Not Available [facility] ([facility]) [address] [place], [address], 05/17/2024 07:17:48 05/15/20 24 05/16/2024 COMP. METAB OLIC PANEL (14) BUN/creatini ne ratio 18 9-23 Not Available [facility] ([facility]) [address] [place], [address], 05/17/2024 07:17:48 05/15/20 24 05/16/2024 COMP. METAB OLIC PANEL (14) sodium 144 mmol/ L 134-14 4 Not Available [facility] ([facility]) [address] [place], [address], 05/17/2024 07:17:48 05/15/20 24 05/16/2024 COMP. METAB OLIC PANEL (14) potassium 4.0 mmol/ L 3.5-5. 2 Not Available [facility] ([facility]) [address] [place], [address], 05/17/2024 07:17:48 05/15/20 24 05/16/2024 COMP. METAB OLIC PANEL (14) chloride 107 mmol/ L 96-106 above high normal Not Available [facility] ([facility]) [address] [place], [address], 05/17/2024 07:17:48 05/15/20 24 05/16/2024 COMP. METAB OLIC PANEL (14) carbon dioxide, total 22 mmol/ L 20-29 Not Available [facility] ([facility]) [address] [place], [address], 05/17/2024 07:17:48 05/15/20 24 05/16/2024 COMP. METAB OLIC PANEL (14) calcium 8.6 mg/dL 8.7-10 .2 below low normal Not Available [facility] ([facility]) [address] [place], [address], 05/17/2024 07:17:48 05/15/20 24 05/16/2024 COMP. METAB OLIC PANEL (14) protein, total 6.3 g/dL 6.0-8. 5 Not Available [facility] ([facility]) [address] [place], [address], 05/17/2024 07:17:48 05/15/20 24 05/16/2024 COMP. METAB OLIC PANEL (14) albumin 3.9 g/dL 3.8-4. 9 Not Available [facility] ([facility]) [address] [place], [address], 05/17/2024 07:17:48 05/15/20 24 05/16/2024 COMP. METAB OLIC PANEL (14) globulin, total 2.4 g/dL 1.5-4. 5 Not Available [facility] ([facility]) [address] [facility], [place], [address], 05/17/2024 07:17:48 05/15/20 24 05/16/2024 COMP. METAB OLIC PANEL (14) bilirubin, total 0.3 mg/dL 0.0-1. 2 Not Available [facility] ([facility]) [address] [place], [address], 05/17/2024 07:17:48 05/15/20 24 05/16/2024 COMP. METAB OLIC PANEL (14) alkaline phosphatase 137 IU/L 44-121 above high normal Not Available [facility] ([facility]) [address] [place], [address], 05/17/2024 07:17:48 05/15/20 24 05/16/2024 COMP. METAB OLIC PANEL (14) AST (SGOT) 30 IU/L 0-40 Not Available [facility] ([facility]) [address] [place], [address], 05/17/2024 07:17:48 05/15/20 24 05/16/2024 COMP. METAB OLIC PANEL (14) ALT (SGPT) 41 IU/L 0-32 above high normal Not Available [facility] ([facility]) [address] [place], [address], 05/17/2024 07:17:48 05/15/20 24 05/16/2024 MAGNE SIUM magnesium 1.9 mg/dL 1.6-2. 3 Not Available [facility] ([facility]) [address] [place], [address], 05/17/2024 07:17:49 05/15/20 24 05/16/2024 VITAM IN D, 25-HY DROXY vitamin D, 25-hydroxy 9.8 NG/mL 30.0-1 00.0 below low normal Vitam in D defic iency has been defin ed by the Insti tute of Medic ine and an Endoc rine Socie ty pract ice guide line as a level of serum 25-OH vitam in D less than 20 ng/mL (1,2) . The Endoc rine Socie ty went on to furth er defin e vitam in D insuf ficie ncy as a level betwe en 21 and 29 ng/mL (2). 1. IOM (Inst itute of Medic ine). 2010. Dieta ry refer ence maksim es for calci um and D. Rj shultz [place]: The [facility] . 2. Holkarla k MF, Binkl ey [place], Bisch off-F errar i NIELSEN, et al. Evalu ation , treat ment, and preve ntion of vitam in D defic iency : an Endoc rine Socie ty clini ingrid pract ice guide line. JCEM. 2010; 96(7) :1911 -30. Not Available [facility] ([facility]) [address] [facility], [place], [address], 05/17/2024 07:17:49 06/13/20 24 06/13/2024 gluco se, finge rstic k, blood Blood Glucose: mg/dl 306 Not Available In-Off ice Order Internal Use Only DO Not Attach Compendium DO Not Attach Compendium, Do Not Delete/merge, [id number] 06/13/2024 10:23:33 10/07/19 25 10/07/2024 HbA1c (hemo globi n A1c), blood HbA1c 7.2 Not Available In-Office Order Internal Use Only DO Not Attach Compendium DO Not Attach Compendium, Do Not Delete/merge, [id number] 10/07/2024 15:48:02 11/15/19 25 11/15/2024 ALBUM IN/CR EATIN INE RATIO ,URIN E creatinine, urine 149.3 mg/dL notest ab. Not Available [facility] ([facility]) [address] [facility], [place], [address], 11/15/2024 10:19:00 11/15/19 25 11/15/2024 ALBUM IN/CR EATIN INE RATIO ,URIN E albumin, urine 13.4 ug/mL notest ab. Not Available [facility] ([facility]) [address] [place], [address], 11/15/2024 10:19:00 11/15/19 25 11/15/2024 ALBUM IN/CR EATIN INE RATIO ,URIN E alb/creat ratio 9 mg/g_ creat 0-29 Linda l: 0 - 29 Moder ately incre ased: 30 - 300 Sever akash incre ased: >300 Not Available [facility] ([facility]) [address] [place], [address], 11/15/2024 10:19:00 11/15/19 25 11/15/2024 LIPID PANEL cholesterol, total 132 mg/dL 100-19 9 Not Available [facility] ([facility]) [address] [place], [address], 11/15/2024 10:19:01 11/15/19 25 11/15/2024 LIPID PANEL triglyceride s 42 mg/dL 0-149 Not Available [facility] ([facility]) [address] [place], [address], 11/15/2024 10:19:01 11/15/19 25 11/15/2024 LIPID PANEL HDL cholesterol 63 mg/dL >39 Not Available [facility] ([facility]) [address] [place], [address], 11/15/2024 10:19:01 11/15/19 25 11/15/2024 LIPID PANEL VLDL cholesterol ingrid 10 mg/dL 5-40 Not Available [facility] ([facility]) [address] [place], [address], 11/15/2024 10:19:01 11/15/19 25 11/15/2024 LIPID PANEL LDL chol calc ([facility]) 59 mg/dL 0-99 Not Available [facility] ([facility]) [address] [place], [address], 11/15/2024 10:19:01 11/15/19 25 11/15/2024 COMP. METAB OLIC PANEL (14) glucose 186 mg/dL 70-99 above high normal Not Available [facility] ([facility]) [address] [place], [address], 11/15/2024 10:19:02 11/15/19 25 11/15/2024 COMP. METAB OLIC PANEL (14) BUN 9 mg/dL 6-24 Not Available [facility] ([facility]) [address] [place], [address], 11/15/2024 10:19:02 11/15/19 25 11/15/2024 COMP. METAB OLIC PANEL (14) creatinine 0.60 mg/dL 0.57-1 .00 Not Available [facility] ([facility]) [address] [place], [address], 11/15/2024 10:19:02 11/15/19 25 11/15/2024 COMP. METAB OLIC PANEL (14) eGFR 103 mL/mi n/1.7 3 >59 Not Available [facility] ([facility]) [address] [place], [address], 11/15/2024 10:19:02 11/15/19 25 11/15/2024 COMP. METAB OLIC PANEL (14) BUN/creatini ne ratio 15 9-23 Not Available [facility] ([facility]) [address] [place], [address], 11/15/2024 10:19:02 11/15/19 25 11/15/2024 COMP. METAB OLIC PANEL (14) sodium 146 mmol/ L 134-14 4 above high normal Not Available [facility] ([facility]) [address] [place], [address], 11/15/2024 10:19:02 11/15/19 25 11/15/2024 COMP. METAB OLIC PANEL (14) potassium 3.6 mmol/ L 3.5-5. 2 Not Available [facility] ([facility]) [address] [place], [address], 11/15/2024 10:19:02 11/15/19 25 11/15/2024 COMP. METAB OLIC PANEL (14) chloride 107 mmol/ L 96-106 above high normal Not Available [facility] ([facility]) [address] [place], [address], 11/15/2024 10:19:02 11/15/19 25 11/15/2024 COMP. METAB OLIC PANEL (14) carbon dioxide, total 26 mmol/ L 20-29 Not Available [facility] ([facility]) [address] [place], [address], 11/15/2024 10:19:02 11/15/19 25 11/15/2024 COMP. METAB OLIC PANEL (14) calcium 8.5 mg/dL 8.7-10 .2 below low normal Not Available [facility] ([facility]) [address] [place], [address], 11/15/2024 10:19:02 11/15/19 25 11/15/2024 COMP. METAB OLIC PANEL (14) protein, total 6.6 g/dL 6.0-8. 5 Not Available [facility] ([facility]) [address] [place], [address], 11/15/2024 10:19:02 11/15/19 25 11/15/2024 COMP. METAB OLIC PANEL (14) albumin 3.8 g/dL 3.8-4. 9 Not Available [facility] ([facility]) [address] [place], [address], 11/15/2024 10:19:02 11/15/19 25 11/15/2024 COMP. METAB OLIC PANEL (14) globulin, total 2.8 g/dL 1.5-4. 5 Not Available [facility] ([facility]) [address] [place], [address], 11/15/2024 10:19:02 11/15/19 25 11/15/2024 COMP. METAB OLIC PANEL (14) bilirubin, total 0.2 mg/dL 0.0-1. 2 Not Available [facility] ([facility]) [address] [place], [address], 11/15/2024 10:19:02 11/15/19 25 11/15/2024 COMP. METAB OLIC PANEL (14) alkaline phosphatase 169 IU/L 44-121 above high normal Not Available [facility] ([facility]) [address] [place], [address], 11/15/2024 10:19:02 11/15/19 25 11/15/2024 COMP. METAB OLIC PANEL (14) AST (SGOT) 20 IU/L 0-40 Not Available [facility] ([facility]) [address] [place], [address], 11/15/2024 10:19:02 11/15/19 25 11/15/2024 COMP. METAB OLIC PANEL (14) ALT (SGPT) 25 IU/L 0-32 Not Available [facility] ([facility]) [address] [place], [address], 11/15/2024 10:19:02 11/15/19 25 11/15/2024 HEMOG LOBIN A1C hemoglobin A1C 7.7 % 4.8-5. 6 above high normal Predi abete s: 5.7 - 6.4 Diabe margoth: >6.4 Glyce trever contr ol for adult s with diabe margoth: <7.0 Not Available [facility] ([facility]) [address] [place], [address], 11/15/2024 10:19:04 08/30/20 23 08/30/2023 MAMMO , scree mely, bilat eral No observ ation record ed. [address], [place], [address], 08/31/2023 09:44:55 08/30/20 23 08/30/2023 MAMMO , scree mely, bilat eral No observ ation record ed. [address], [place], [address], 08/31/2023 09:44:56 08/30/20 23 08/30/2023 MAMMO , scree mely, bilat eral No observ ation record ed. [address], [place], [address], 08/31/2023 09:44:57 10/19/19 24 10/18/2023 zena BABB unila teral No observ ation record ed. [address] ([employer]) [address] [place], [address], 10/24/2023 11:39:09 10/19/19 24 10/18/2023 lab* No observ ation record ed. [address] [facility], [place], [address], 10/24/2023 12:03:59 10/23/19 24 10/18/2023 MAMMO , scree mely, bilat eral No observ ation record ed. [address], [place], [address], 10/25/2023 15:15:44 02/28/20 24 02/28/2024 zena parra, w/ ultra sound jovon nce (PROC ) No observ ation record ed. [address] [facility] [address], [place], [address], 02/28/2024 10:58:46 02/28/20 24 02/28/2024 biops y, breas t, w/ ultra sound jovon nce (PROC ) No observ ation record ed. [address], [place], [address], 03/05/2024 16:21:02 03/01/20 24 02/28/2024 biops y, breas t, w/ ultra sound jovon nce (PROC ) No observ ation record ed. [address], [place], [address], 03/05/2024 16:21:15 04/09/20 24 04/09/2024 MAMMO , diagn ostic , unila teral No observ ation record ed. [facility] [address], [place], [address], 04/10/2024 15:29:22 04/09/20 24 04/09/2024 lab* No observ ation record ed. [email or web address] [facility], [place], [address], 04/10/2024 15:23:25 04/10/20 24 04/09/2024 lab* No observ ation record ed. [email or web address], [place], [address], 04/10/2024 15:23:31 05/07/20 24 05/07/2024 CT, abdom en + pelvi s, w/ contr ast No observ ation record ed. [email or web address], [place], [address], 05/08/2024 16:18:17 Result Notes None recorded. Problems Name Problem SNOMED Code Status Onset Date Resolution Date Notes Provider Name and Address Organization Details Recorded Time Multiple boils Active Not Available [facility] 17:50:00 Nausea 134981259 Active Not Available [facility] 3 17:50:01 Serous otitis media 34077698 Completed 11/09/2020 YEMI LUJAN Attn: Accounting ,[address] [facility], [place], [address] , [place] [facility] 1 17:05:51 Hyperten sive urgency 625839635 Active 2022 Not Available [facility] 3 17:50:01 Uncontro lled type 2 diabetes mellitus 482600829 Active 2022 Not Available [facility] 3 17:50:01 Intermit tent claudica tion 69162596 Active 2022 Not Available [facility] 17:50:01 Diarrhea 32577582 Active 2022 Not Available [facility] 3 17:50:01 Cervical radiculo bebo 70250616 Active 2022 YEMI LUJAN Attn: Accounting ,[address] [facility], [place], [address] , [place] [facility] 3 09:30:28 Diabetes mellitus 88082009 Active Not Available [facility] 17:50:01 Migraine 38541719 Completed 11/09/2020 YEMI LUJAN Attn: Accounting ,[address] [facility], [place], [address] , [place] [facility] 1 17:06:52 Hyperten sive disorder 44383681 Active Not Available [facility] 3 17:50:00 Osteoart hritis 253363279 Active Not Available [facility] 3 17:50:01 Irritabl e bowel syndrome 48099332 Completed 05/30/2019 YEMI LUJAN Attn: Accounting ,[address] [facility], [place], [address] , [place] [facility] 9 14:41:28 Morbid obesity 753833600 Completed 11/09/2020 YEMI LUJAN Attn: Accounting ,[address] [facility], [place], [address] , [place] [facility] 1 17:07:04 Uterine fibroid polyp 338207123 Completed 11/09/2020 s/p hysterec rose YEMI LUJAN Attn: Accounting ,[address] [facility], [place], [address] , [place] [facility] 1 17:06:09 Anemia 110548949 Active Not Available [facility] 17:50:00 Urgent desire to urinate 85474009 Completed 05/30/2019 YEMI LUJAN Attn: Accounting ,[address] [facility], [place], [address] , [place] [facility] 9 14:41:37 Chronic diarrhea 899493333 Active 2023 YEMI LUJAN Attn: Accounting ,[address] [facility], [place], [address] , [place] [facility] 4 15:10:43 Iron deficien cy anemia 52312773 Active Not Available [facility] 3 17:50:01 Essentia l hyperten katharina 48399771 Active 2024 YEMI LUJAN Attn: Accounting ,[address] [facility], [place], [address] , [place] [facility] 5 09:05:08 Anxiety 24340376 Active 2024 YEMI LUJAN Attn: Accounting ,[address] [facility], [place], [address] , [place] [facility] 5 09:05:11 Hip pain 55190459 Completed 05/30/2019 YEMI LUJAN Attn: Accounting ,[address] [facility], [place], [address] , [place] [facility] 9 14:42:14 Low back pain 962791098 Active Not Available [facility] 3 17:50:00 Lesion of liver 898982357 Active Not Available [facility] 3 17:50:00 Menorrha paige 831153550 Completed 05/30/2019 YEMI LUJAN Attn: Accounting ,[address] [facility], [place], [address] , [place] [facility] 9 14:41:03 Dyspnea on exertion 77615457 Completed 11/09/2020 YEMI LUJAN Attn: Accounting ,[address] [facility], [place], [address] , [place] [facility] 1 17:07:27 Hyperlip idemia 65735593 Active Not Available [facility] 3 17:50:01 Allergic rhinitis 54761468 Active Not Available [facility] 17:50:01 Candidia sis of skin 58354409 Completed 11/09/2020 YEMI LUJAN Attn: Accounting ,[address] [facility], [place], [address] , [place] [facility] 1 17:06:36 Foot pain 31739719 Completed 11/09/2020 YEMI LUJAN Attn: Accounting ,[address] [place], [address] , [place] [facility] 1 17:06:41 Calcanea l spur 00642424 Active Not Available [facility] 17:50:01 Upper respirat ory infectio n 66906950 Completed 05/30/2019 YEMI LUJAN Attn: Accounting ,[address] [place], [address] , [place] [facility] 9 14:49:52 Hyperuri cemia 01601221 Active Not Available [facility] 3 17:50:00 Gastroes ophageal reflux disease 261438761 Active Not Available [facility] 3 17:50:00 Spasm of back muscles 617469033 Active Not Available [facility] 3 17:50:00 Cough 28495319 Completed 05/30/2019 YEMI LUJAN Attn: Accounting ,[address] [place], [address] , [place] [facility] 9 14:42:20 Obesity 546694115 Active 2016 Not Available [facility] 3 17:50:01 Active or passive immuniza tion Completed 201605/30/2019 YEMI LUJAN Attn: Accounting ,[address] [facility], [place], [address] , [facility] - [facility] 9 14:41:18 Pre-surg juanita testing Completed 201605/30/2019 YEMI LUJAN Attn: Accounting ,[address] [facility], [place], [address] , [facility] - [facility] 9 14:41:21 Neuropat hy due to diabetes mellitus 754666115 Active 2016 Not Available [facility] 3 17:50:00 Plantar fasciiti s 650692367 Completed 201605/30/2019 YEMI LUJAN Attn: Accounting ,[address] [facility], [place], [address] , [facility] - [facility] 9 14:41:14 Problem Notes None recorded. Procedures Surgical History Date Name Laterality Status Provider Name and Address Organization Details Recorded Time 09/11/19 21 Date of Last Mammogram completed Carmen Boo [place] [facility] 01/14/2021 16:26:04 05/30/20 19 Gastric Bypass completed Carmen Boo [place] - [facility] 01/14/2021 16:26:39 09/11/19 19 Date of Last Pap Smear completed Carmen Boo MA [place] - [facility] 01/14/2021 16:26:21 03/11/20 15 Total hysterectomy completed YEMI EATON Attn: Accounting, [facility], [place], [address], [facility] - [facility] 06/20/2019 09:55:32 09/11/19 06 Hernia Repair completed Abena Wagner [place] - [facility] 08/12/2014 10:24:52 03/30/19 81 Caesarean Section completed Abena Wagner [place] - [facility] 08/12/2014 10:24:52 Imaging Results Imaging Date Name Status LastModified by [facility] Details LastModified Time 08/30/2023 MAMMO, screening, bilateral completed [address] [address], [place], [address], 08/31/2023 09:44:55 08/30/2023 MAMMO, screening, bilateral completed [address], [address], 08/31/2023 09:44:56 08/30/2023 MAMMO, screening, bilateral completed [address] [address], [place], [address], 08/31/2023 09:44:57 10/18/2023 US, breast, unilateral completed [address] ([employer]) [address] [place], [address], 10/24/2023 11:39:09 10/18/2023 lab* completed [address] [address], [place], [address], 10/24/2023 12:03:59 10/18/2023 MAMMO, screening, bilateral completed [address] [address], [place], [address], 10/25/2023 15:15:44 02/28/2024 biopsy, breast, w/ ultrasound guidance (PROC) completed [address] [facility] [address], [place], [address], 02/28/2024 10:58:46 02/28/2024 biopsy, breast, w/ ultrasound guidance (PROC) completed [address] [facility] [address], [place], [address], 03/05/2024 16:21:02 02/28/2024 biopsy, breast, w/ ultrasound guidance (PROC) completed [address] [facility] [address], [place], [address], 03/05/2024 16:21:15 04/09/2024 MAMMO, diagnostic, unilateral completed [facility] [address], [place], [address], 04/10/2024 15:29:22 04/09/2024 lab* completed [address], [address], 04/10/2024 15:23:25 04/09/2024 lab* completed [address], [address], 04/10/2024 15:23:31 05/07/2024 CT, abdomen + pelvis, w/ contrast completed [address], [address], 05/08/2024 16:18:17 Procedure Notes None recorded. Medical Equipment None Reported. Allergies Allergen ID Allergen Name Allergen Category Reaction Reaction Severity Criticality Documentation Date Start Date Code Code System Note Provider Name and Address Organization Details Recorded Time 4081 hydrocodo ne Not available Not available Not available Not available 08/11/2014 5489 RxNorm Not Available Not Available Not Available 4082 acetamino phen medicatio n Not available Not available Not available 08/11/2014 161 RxNorm Not Available Not Available Not Available [address]178 acetamino phen / hydrocodo ne medicatio n Not available Not available Not available 05/19/2016 88463 2 RxNorm Not Available Not Available Not Available Medications Name Sig Start Date Stop Date Status Note LastModified by Organization Details LastModified Time Prescript ion - Prior Authoriza tion Request active Not Available Not Available Not Available tetracycl ine 500 mg capsule 08/01 completed Not Available Not Available Not Available cyclobenz aprine 10 mg tablet TAKE 1 TABLET BY MOUTH THREE TIMES DAILY NEEDED FOR MUSCLE SPASM 10/07 completed Not Available Not Available Not Available amoxicill in 500 mg capsule 01/10 completed Not Available Not Available Not Available atorvasta tin 40 mg tablet TAKE 1 TABLET BY MOUTH ONCE DAILY IN THE EVENING active Not Available Not Available No t Available BD Alcohol Swabs Apply 2 pads every day by topical route. active Not Available Not Available No t Available venlafaxi ne ER 37.5 mg capsule,e xtended release 24 hr TAKE 1 CAPSULE BY MOUTH ONCE DAILY FOR 30 DAYS 12/19 completed Not Available Not Available Not Available naproxen 375 mg tablet TAKE 1 TABLET BY MOUTH TWICE DAILY NEEDED FOR PAIN/INF LAMMATIO N 10/07 completed Not Available Not Available Not Available Iron (ferrous sulfate) 325 mg (65 mg iron) tablet TAKE 1 TABLET BY MOUTH TWICE DAILY 08/23 completed Not Available Not Available Not Available lisinopri l 20 mg-hydroc hlorothia zide 12.5 mg tablet TAKE 1 TABLET BY MOUTH ONCE DAILY active Not Available Not Available No t Available ibuprofen 800 mg tablet 06/03 completed Rx from podiatry Not Available Not Available Not Available fluconazo le 150 mg tablet Take 1 tablet by oral route. 06/20 completed Not Available Not Available Not Available benzonata te 200 mg capsule TAKE 1 CAPSULE BY MOUTH THREE TIMES DAILY NEEDED FOR COUGH 10/07 completed Not Available Not Available Not Available hydrocodo ne 5 mg-acetam inophen 325 mg tablet 06/09 completed Not Available Not Available Not Available fluconazo le 200 mg tablet Take 1 tablet every day by oral route. 05/19 completed Not Available Not Available Not Available promethaz ine 12.5 mg tablet TAKE ONE TABLET BY MOUTH 4 TIMES DAILY NEEDED 05/19 completed Not Available Not Available Not Available prednison e 20 mg tablet 06/09 completed Not Available Not Available Not Available Lantus U-100 Insulin 100 unit/mL subcutane ous solution INJECT 85 UNITS SUBCUTAN EOUSLY TWICE DAILY 03/01 completed Not Available Not Available Not Available metronida zole 500 mg tablet Take 1 tablet every 12 hours by oral route for 7 days. 08/23 completed Not Available Not Available Not Available sulfameth oxazole 800 mg-trimet hoprim 160 mg tablet TAKE ONE TABLET BY MOUTH EVERY 12 HOURS FOR 3 DAYS 06/09 completed Not Available Not Available Not Available omeprazol e 40 mg capsule,d elayed release TAKE 1 CAPSULE BY MOUTH TWICE DAILY 10/07 completed Not Available Not Available Not Available tramadol 50 mg tablet 06/09 completed Not Available Not Available Not Available triamcino lone acetonide 0.1 % topical cream APPLY A THIN LAYER TO THE AFFECTED AREA(S) BY TOPICAL ROUTE 2 TIMES PER DAY 11/09 completed Not Available Not Available Not Available pantopraz ole 20 mg tablet,de layed release TAKE 1 TABLET BY MOUTH IN THE MORNING 10/07 completed prn Not Available Not Available Not Available oxycodone -acetamin ophen 5 mg-325 mg tablet 08/01 completed Not Available Not Available Not Available citalopra m 20 mg tablet 2014 active Not Available Not Available Not Avai lable famotidin e 20 mg tablet Take 1 tablet(s ) every day by oral route. 03/01 completed Not Available Not Available Not Available estradiol 1 mg tablet 11/09 completed Not Available Not Available Not Available clindamyc in 1 % topical gel APPLY A THIN LAYER TOPICALL Y TWICE DAILY FOR 7 DAYS 10/07 completed Not Available Not Available Not Available dicyclomi ne 20 mg tablet 12/19 completed Not Available Not Available Not Available Humalog U-100 Insulin 100 unit/mL subcutane ous solution Sliding scale: BS 150-200: 4 units, 200-250: 8 units; 250-300: 12 units; 350-400: 16 units 08/01 completed Not Available Not Available Not Available baclofen 10 mg tablet TAKE 1 TABLET BY MOUTH TWICE DAILY NEEDED FOR 10 DAYS 10/07 completed Not Available Not Available Not Available amlodipin e 10 mg tablet TAKE 1 TABLET BY MOUTH ONCE DAILY active Not Available Not Available No t Available benzonata te 100 mg capsule TAKE ONE CAPSULE BY MOUTH THREE TIMES DAILY NEEDED FOR 5 DAYS 04/04 completed Not Available Not Available Not Available doxycycli ne monohydra te 100 mg capsule TAKE 1 CAPSULE BY MOUTH TWICE DAILY 01/14 completed Not Available Not Available Not Available cephalexi n 500 mg capsule 06/09 completed Not Available Not Available Not Available metformin 1,000 mg tablet Take 1 tablet twice a day by oral route. 08/01 completed Not Available Not Available Not Available triamcino lone acetonide 0.1 % topical ointment APPLY A THIN LAYER OF OINTMENT TOPICALL Y TWICE DAILY TO THE AFECECTE D AREA(S) active Not Available Not Available No t Available nystatin 100,000 unit/gram topical cream 08/15 completed Not Available Not Available Not Available ranitidin e 150 mg tablet Take 1 tablet(s ) twice a day by oral route for 90 days. 12/19 completed Not Available Not Available Not Available lisinopri l 10 mg tablet TAKE ONE TABLET BY MOUTH ONCE DAILY IN THE MORNING 11/12 completed Not Available Not Available Not Available glimepiri de 4 mg tablet Take 1 tablet twice a day by oral route. 11/12 completed Not Available Not Available Not Available lidocaine 5 % topical patch APPLY ONE PATCH TOPICALL Y TO CLEAN, DRY SKIN. LEAVE ON FOR 12 HOURS THEN REMOVE. MUST WAIT AT LEAST 12 HOURS BEFORE APPLYING PATCH(ES ) AGAIN. 10/07 completed Not Available Not Available Not Available promethaz ine 25 mg tablet 05/19 completed Not Available Not Available Not Available ursodiol 300 mg capsule active Not Available Not Available Not Available glucose 4 gram chewable tablet Take 1 tablet by oral route as needed. 2022 active Not Available Not Available Not Avai lable ibuprofen 400 mg tablet TAKE 1 TABLET BY MOUTH THREE TIMES DAILY 10/07 completed Not Available Not Available Not Available hydrochlo rothiazid e 12.5 mg capsule Take 1 capsule by mouth once daily active Not Available Not Available No t Available lisinopri l 30 mg tablet TAKE 1 TABLET BY MOUTH ONCE DAILY 12/16 completed Not Available Not Available Not Available gabapenti n 300 mg capsule TAKE 1 CAPSULE BY MOUTH EVERY 8 HOURS active Not Available Not Available No t Available omeprazol e 20 mg capsule,d elayed release TAKE 1 CAPSULE BY MOUTH ONCE DAILY active Not Available Not Available No t Available lisinopri l 20 mg-hydroc hlorothia zide 25 mg tablet TAKE 1 TABLET BY MOUTH ONCE DAILY 12/16 completed Not Available Not Available Not Available ergocalci ferol (vitamin D2) 1,250 mcg (50,000 unit) capsule Take 1 capsule by mouth once a week 10/07 completed Not Available Not Available Not Available clobetaso l 0.05 % topical ointment APPLY 0.5 GRAMS OF OINTMENT TOPICALL Y TO RASH ON HANDS TWICE DAILY active Not Available Not Available No t Available ibuprofen 600 mg tablet Take 1 tablet 3 times a day by oral route as needed. 08/24 completed Not Available Not Available Not Available polyethyl deja glycol 3350 17 gram/dose oral powder active Not Available Not Available Not Available levofloxa dale 500 mg tablet 01/10 completed Not Available Not Available Not Available ondansetr on 4 mg disintegr ating tablet 12/19 completed Not Available Not Available Not Available fluticaso ne propionat e 50 mcg/actua tion nasal spray,damian pension Inhale 1 spray every day by intranas al route. 08/15 completed Not Available Not Available Not Available doxycycli ne hyclate 100 mg tablet TAKE 1 TABLET BY MOUTH TWICE DAILY 10/07 completed Not Available Not Available Not Available dicyclomi ne 10 mg capsule TAKE 1 CAPSULE BY MOUTH 4 TIMES DAILY NEEDED FOR ABDOMINA L PAIN active Not Available Not Available No t Available lamotrigi ne 100 mg tablet 05/30 completed Not Available Not Available Not Available loratadin e 10 mg tablet Take 1 tablet by mouth once daily active Not Available Not Available No t Available cyclobenz aprine 5 mg tablet TAKE 1 TABLET BY MOUTH THREE TIMES DAILY NEEDED FOR MUSCLE SPASM active prn Not Available Not Available No t Available cholestyr amine (with sugar) 4 gram oral powder active Not Available Not Available Not Available cholestyr amine (with sugar) 4 gram powder for susp in a packet DISSOLVE 4 GRAMS OF POWDER IN LIQUID AND DRINK TWICE DAILY WITH MEALS (AVOID OTHER MEDS WITHIN 1 HOUR BEFORE OR 4-6 HOURS AFTER DOSE) active Not Available Not Available No t Available Klor-Con M10 mEq tablet,ex tended release 05/30 completed Rx by endo Not Available Not Available Not Available erythromy dale with ethanol 2 % topical solution 11/09 completed Not Available Not Available Not Available nitrofura ntoin monohydra te/macroc rystals 100 mg capsule 05/19 completed Not Available Not Available Not Available Lyrica 50 mg capsule Take 1 capsule 3 times a day by oral route. 08/01 completed Not Available Not Available Not Available Levemir U-100 Insulin 100 unit/mL subcutane ous solution 60 units BID 08/01 completed Not Available Not Available Not Available BD Insulin Syringe Ultra-Fin e 1 mL 30 gauge x 1/2 active Not Available Not Available Not Available Apidra U-100 Insulin 100 unit/mL subcutane ous solution Inject 1 unit as needed by subcutan eous route as directed . 08/01 completed Not Available Not Available Not Available Lantus Solostar U-100 Insulin 100 unit/mL (3 mL) subcutane ous pen INJECT 30 UNITS SUBCUTAN EOUSLY TWICE DAILY 05/07 completed Not Available Not Available Not Available Vitamin D3 125 mcg (5,000 unit) tablet Take 1 tablet every day by oral route for 90 days. 2024 active Not Available Not Available Not Avai lable Xifaxan 550 mg tablet TAKE 1 TABLET BY MOUTH THREE TIMES DAILY FOR 2 WEEKS active Not Available Not Available No t Available sodium,po tassium,m ag sulfates 17.5 gram-3.13 gram-1.6 gram oral soln 10/07 completed Not Available Not Available Not Available OneTouch Verio test strips Use to check blood sugar twice daily 2024 active Not Available Not Available Not Avai lable Creon 36,000 unit-114, 000 unit-180, 000 unit capsule,d elayed release TAKE 2 CAPSULES WITH MEALS AND ONE CAPSULE WITH SNACKS active Not Available Not Available No t Available dapaglifl ozin propanedi ol 10 mg tablet TAKE 1 TABLET BY MOUTH ONCE DAILY active Not Available Not Available No t Available Delsym Cough-Maritza st Congestio n DM 5 mg-100 mg/5 mL oral liquid Take 20 mL every 4-6 hours by oral route as needed. 08/23 completed Not Available Not Available Not Available Levemir FlexTouch U-100 Insulin 100 unit/mL (3 mL) subcutane ous pen INJECT 60 UNITS SUBCUTAN EOUSLY ONCE DAILY IN THE EVENING FOR 30 DAYS 06/20 completed Not Available Not Available Not Available Jardiance 25 mg tablet TAKE 1 TABLET BY MOUTH ONCE DAILY active Not Available Not Available No t Available Invokamet 150 mg-1,000 mg tablet 05/30 completed Not Available Not Available Not Available Trulicity 1.5 mg/0.5 mL subcutane ous pen injector 05/30 completed Not Available Not Available Not Available Trulicity 0.75 mg/0.5 mL subcutane ous pen injector 08/01 completed Not Available Not Available Not Available IBgard twice a day as needed 10/07 completed Not Available Not Available Not Available Jose Rafael SoloStar U-300 Insulin 300 unit/mL (1.5 mL) subcutane ous pen 05/30 completed Not Available Not Available Not Available Tresiba FlexTouch U-100 insulin 100 unit/mL (3 mL) subcutane ous pen INJECT 60 UNITS SUBCUTAN EOUSLY ONCE DAILY FOR 30 DAYS 08/23 completed Not Available Not Available Not Available OneTouch Verio Flex Meter USE DIRECTED active Not Available Not Available No t Available Invokamet XR 50 mg-1,000 mg tablet, extended release 08/01 completed Not Available Not Available Not Available TRUEplus Pen Needle 31 gauge x 5/16 USE 1 THREE TIMES DAILY active Not Available Not Available No t Available Synjardy XR 12.5 mg-1,000 mg tablet, extended release 05/30 completed Not Available Not Available Not Available Ozempic 0.25 mg or 0.5 mg (2 mg/1.5 mL) subcutane ous pen injector Inject 0.25 mg every week by subcutan eous route for 56 days. 09/06 completed Not Available Not Available Not Available FreeStyle Laura 14 Day Sensor kit active Not Available Not Available Not Available OneTouch Delica Plus Lancet 33 gauge active Not Available Not Available Not Available OneTouch Delica Plus Lancet 30 gauge USE 1 EACH TO CHECK GLUCOSE TWICE DAILY active Not Available Not Available No t Available FreeStyle Laura 2 [place] active Not Available Not Available Not Available Ozempic 1 mg/dose (4 mg/3 mL) subcutane ous pen injector Inject 1 mg every week by subcutan eous route. 09/06 completed Not Available Not Available Not Available Semglee (insulin glargine- yfgn) Pen 100 unit/mL (3 mL) subcutane ous INJECT 20 UNITS SUBCUTAN EOUSLY nightly 2024 active Not Available Not Available Not Avai lable Ozempic 2 mg/dose (8 mg/3 mL) subcutane ous pen injector Inject 2 mg every week by subcutan eous route. 10/07 completed Not Available Not Available Not Available Mounjaro 5 mg/0.5 mL subcutane ous pen injector INJECT 1 SYRINGE SUBCUTAN EOUSLY ONCE A WEEK 06/06 completed Not Available Not Available Not Available Mounjaro 2.5 mg/0.5 mL subcutane ous pen injector INJECT 1 SYRINGE SUBCUTAN EOUSLY ONCE A WEEK active Not Available Not Available No t Available Ozempic 0.25 mg or 0.5 mg (2 mg/3 mL) subcutane ous pen injector INJECT 1/4 (ONE-FOU RTH) MG SUBCUTAN EOUSLY ONCE A WEEK 09/06 completed Not Available Not Available Not Available Vitals Date Recorded Body height Body mass index (BMI) Body weight Heart rate Oxygen saturation Oxygen saturation in Arterial blood by Pulse oximetry Systolic blood pressure Diastolic blood pressure Provider Name and Address Organization Details Last Updated DateTime 3 162.56 cm 30.2 kg/m2 14105.2 6 g 86 /min 99 % 99 % 131 mm[Hg] 76 mm[Hg] Carmen Boo MA [place] - [facility] 3 11:46:07 Date Recorded Body height Body mass index (BMI) Body weight Heart rate Oxygen saturation Oxygen saturation in Arterial blood by Pulse oximetry Systolic blood pressure Diastolic blood pressure Provider Name and Address Organization Details Last Updated DateTime 4 162.56 cm 33.2 kg/m2 35974.7 3 g 75 /min 98 % 98 % 165 mm[Hg] 85 mm[Hg] Carmen Boo [place] - [facility] 4 14:50:02 Date Recorded Body height Body mass index (BMI) Body weight Heart rate Oxygen saturation Oxygen saturation in Arterial blood by Pulse oximetry Provider Name and Address Organization Details Last Updated DateTime 4 162.56 cm 31.3 kg/m2 80757.2 1 g 94 /min 98 % 98 % Carmen Boo [place] [facility] 4 16:55:43 Date Recorded Systolic blood pressure Diastolic blood pressure Provider Name and Address Organization Details Last Updated DateTime 06/12/2024 136 mm[Hg] 82 mm[Hg] YEMI LUJAN Attn: Accounting[address] [place], [address], [facility] 06/13/2024 10:23:12 Date Recorded Body height Body mass index (BMI) Body weight Heart rate Oxygen saturation Oxygen saturation in Arterial blood by Pulse oximetry Systolic blood pressure Diastolic blood pressure Provider Name and Address Organization Details Last Updated DateTime 5 162.56 cm 31.6 kg/m2 74682.1 g 80 /min 98 % 98 % 165 mm[Hg] 84 mm[Hg] Carmen Boo MA [facility] 15:42:57 Date Recorded Body height Body mass index (BMI) Body weight Heart rate Oxygen saturation Oxygen saturation in Arterial blood by Pulse oximetry Provider Name and Address Organization Details Last Updated DateTime 162.56 cm 31.1 kg/m2 38036.2 2 g 88 /min 98 % 98 % Carmen Boo MA [facility] 08:46:09 Date Recorded Systolic blood pressure Diastolic blood pressure Provider Name and Address Organization Details Last Updated DateTime 11/14/2024 130 mm[Hg] 85 mm[Hg] YEMI LUJAN Attn: [employer] [place], [address], [facility] 11/14/2024 09:04:52 Social History Question Answer Notes LastModified by Organizat ion Details LastModified Time Tobacco Smoking Status Never Smoker Zayrajeanette Bernard [facility], [facility] 08/12/2014 10:25:54 Do You Have An Advance Directive? No Information not available 06/20/2019 What Is Your Level Of Alcohol Consumption? Occasional Information not available 08/12/2014 Is Blood Transfusion Acceptable In An Emergency? Yes [facility] Information not available 06/20/2019 What Is Your Level Of Caffeine Consumption? Occasional Information not available 08/12/2014 How Much Tobacco Do You Chew? None [facility] Information not available 06/20/2019 Are You Currently Employed? No Information not available 03/09/2015 What Type Of Diet Are You Following? DIABETIC Information not available 03/09/2015 Which Illicit Or Recreational Drugs Have You Used? No Information not available 03/09/2015 Do You Or Have You Ever Used E-cigarettes Or Vape? Never Used Electronic Cigarettes Information not available 06/20/2019 Education Post Graduate Information not available 03/09/2015 What Is Your Occupation? None Information not available 06/20/2019 Swimming/diving No Informati on not available 06/20/2019 Are There Any Guns Present In Your Home? No Information not available 03/09/2015 Hard Of Hearing Or Deaf In One Or Both Ears? No Information not available 03/09/2015 Legally Blind In One Or Both Eyes? No Information no t available 03/09/2015 Live Alone Or With Others? With Others Information not available 08/12/2014 What Was The Date Of Your Most Recent Tobacco Screening? 11/14/2024 Information not available 11/14/2024 How Many Children Do You Have? 1 Information not available 08/12/2014 Performs Monthly Self-breast Exam? Yes Information no t available 06/20/2019 Do You Use Protection During Sex? Always Information not available 03/09/2015 What Is Your Relationship Status? Single Information not available 06/20/2019 Seat Belts Used Routinely Yes Information not available 03/09/2015 Are You Sexually Active? Yes Information not available 03/09/2015 Smoke Alarm In Home Yes Information not available 03/09/2015 Are You Passively Exposed To Smoke? No Information no t available 03/09/2015 Do You Or Have You Ever Used Smokeless Tobacco? Never Used Smokeless Tobacco Information not available 06/20/2019 How Much Tobacco Do You Smoke? No Information not available 06/20/2019 General Stress Level Low Information not available 03/09/2015 Do You Use Sunscreen Routinely? No Information not available 06/20/2019 Has Tobacco Cessation Counseling Been Provided? Yes Information not available 09/06/2023 On What Date Was Tobacco Cessation Counseling Provided? 11/14/2024 Information not available 11/14/2024 How Many Years Have You Smoked Tobacco? 0 Information not available 06/20/2019 Sex: Unknown Functional Status Question Answer Note LastModified by Organization D etails LastModified Time Are you able to care for yourself? Yes Information n ot available 08/12/2014 What is your exercise level? None Information not available 03/09/2015 Mental Status None recorded. Family History Relationship Description Onset Age of this Age Resolved Age Notes LastModified by Organization Details LastModified Time Maternal Grandmother Diabetes mellitus eewig Not available 2015 18:13:17 Maternal Grandmother Hypertensive disorder eewig Not available 2015 18:13:17 Maternal Grandmother Glaucoma eewig Not available 05/19 18:13:17 Father Diabetes mellitus eewig Not available 2015 18:13:17 Father Glaucoma eewig Not available 0 05/19/2016 18:13:17 Paternal Grandmother Heart disease eewig Not available 2015 18:13:17 Medical History Condition Response Coronary Artery Disease N Atrial Fibrillation N High Blood Pressure Y Thyroid Problems N Kidney or Bladder Problems N Depression Y COPD N Blood Clots N GI Problems N Skin Problems Y Anemia Y Heart Attack (HI) N Diabetes Y Anxiety Disorder Y Muscle, Joint, or Bone Problems N Seizures/Epilepsy N Acid Reflux (GERD) N Cancer N Stroke N Allergies Y Asthma N High Cholesterol N Hepatitis N Liver Disease N Headaches Y Osteoporosis N Heart Failure N Gynecological History Statement/Question Response Date of Last Mammogram 09/11/2020 Date of LMP 03/16/2016 Frequency of Cycle (Q days) 21 Menses Monthly N Date of Last Pap Smear 09/11/2018 Age at Menarche 13 Current Control Method Hysterectom y Age at First Child 14 LMP Unknown Obstetrics History GPAL:G 3 P 1 0 2 1 Type Value Multiple Births 0 Full Term 1 Induced 2 Spontaneous 0 Premature 0 Living 1 Ectopics 0 Total 3 Immunizations Vaccine Type Date Status Note Provider Nam e and Address Organization Details Recorded Time COVID-19, mRNA, LNP-S, PF, 30 mcg/0.3 mL dose 1 completed Not Available [facility] 04/10/2023 17:50:01 COVID-19, mRNA, LNP-S, PF, 30 mcg/0.3 mL dose 1 completed Not Available [facility] 04/10/2023 17:50:01 COVID-19, mRNA, LNP-S, PF, 30 mcg/0.3 mL dose 1 completed Carmen Boo [place] null, [place] [facility] 05/06/2024 17:29:32 Influenza, split virus, quadrivalent, preservative 6 completed Not Available [facility] 09/28/2019 02:32:36 Influenza, split virus, quadrivalent, preservative 5 completed Carmne Boo [place], [place] [facility] 05/06/2024 17:29:31 Influenza, recombinant, quadrivalent, PF 1 completed Carmen Boo [place] [facility] 05/06/2024 17:29:31 Pneumococcal conjugate PCV20, polysaccharide [id number] conjugate, adjuvant, PF 2 completed Carmen Boo [place], [place] [facility] 05/06/2024 17:29:32 COVID-19, mRNA, LNP-S, bivalent, PF, 30 mcg/0.3 mL dose 2 completed Carmen Boo [place] [facility] 05/06/2024 17:29:32 pneumococcal polysaccharide PPV23 0 completed Carmen Boo [place] [facility] 05/06/2024 17:29:32 Influenza, split virus, quadrivalent, PF 0 completed Carmen Boo [place] [facility] 05/06/2024 17:29:32 Influenza, split virus, quadrivalent, PF 2 completed Carmen Boo [place] [facility] 05/06/2024 17:29:32 Tdap 7 completed Not Available [facility] 09/28/2019 02:33:29 pneumococcal polysaccharide PPV23 7 completed Not Available [facility] 09/28/2019 02:33:29 Influenza, split virus, quadrivalent, PF 7 completed Not Available [facility] 09/28/2019 02:43:11 Influenza, split virus, quadrivalent, preservative 9 completed Not Available [facility] 09/28/2019 02:43:43 Pneumococcal conjugate PCV20, polysaccharide [id number] conjugate, adjuvant, PF 3 completed Tiffany Cohen CMA [facility], [place] - [facility] 09/06/2023 12:59:04 Past Encounters Encounter ID Performer Location Encounter Start Date Encounter Closed Date Diagnosis/Indication Diagnosis SNOMED-CT Code Diagnosis ICD10 Code Diagnosis Note [id number] [place] [facility] [address] [place] [address] 08/12/2014 10:03:33 08/12/2014 14:13:10 Diabetes mellitus 01670475 Uterine fibroid polyp 445263388 Urgent laura val to urinate 88302189 Iron defic iency anemia [id number] [id number] Rianna Rodrigez PA-C [facility] [address] [place] [address] 10/27/2014 12:15:54 10/27/2014 13:00:51 Diabetes mellitus 28793331 Hypertensive disorder 30025482 Multiple boils 211832098 Nausea 519641910 Likely viral gastroente ritis Serous otitis media 51055970 Iron defic iency anemia 50762201 [id number] [facility] [address] [place] [address] 01/05/2015 09:52:14 01/05/2015 15:59:39 Diabetes mellitus 52139237 Would like her to up her Lantus from 60 to 65 BID. Talked about less potatoes, white bread. Will f/u next week to check on BS. Hypertensive disorder 35446587 Multiple boils 562210452 Is referred to derm. States that every time that she finishes her Bactrim that the boils return. Will start on doxy for one month and told her keep her derm appt. Nausea 524663296 Likely viral gastroente ritis Serous otitis media 05015729 Iron defic iency anemia 95665740 Had an infusion one month ago. States that her iron was 14 last time checked. Being followed by oncology. Hip pain [id number] Has already had an xray and CT of hip. Will order MRI of right hip Low back pain 433139299 Was seen in the ED for flank and hip pain one month ago. Already has had an xray and ct. Will order an MRI of her rt hip because that is where she is complainin g of the most amount of pain. Lesion of liver 861124483 Received ED note after patient left. The note states that there is a 2.5cm hypoattenu ated lesion on her liver and advised further evaluation . Will order a MRI. 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 [id number] ANTIONE Driver (Adult Med) [address] [place] [address] 03/09/2015 11:47:04 03/09/2015 13:40:34 Dyspnea on exertion 32879417 Diabetes mellitus 89431188 [id number] ANTIONE Driver (Adult Med) [address] [place] [address] 04/15/2015 10:35:04 04/15/2015 14:11:48 Hypertensive disorder 24808415 Diabetes mellitus 50230917 Increase Lantus to 85mg BID - goal is to have BS in the AM around 150 Hyperlipidemia 87390378 Nausea 454158885 Likely viral gastroente ritis Allergic rhinitis 54909357 Irritable bowel syndrome 63615831 Multiple boils 227798557 Contacted U and they will take care of the abx for the boil Candidiasis of skin 33868833 [id number] Tere (Adult Med) [address] [place] [address] 06/09/2015 10:25:14 06/09/2015 12:05:38 Diabetes mellitus 99219371 Will d/c glipizide and switch to sliding scale BS 150-200: 4 units 200-250: 8 250-300: 12 >300: 16 RTC 1 week with blood sugar log She is going to try weight watchers through [employer] Hyperlipidemia 03196947 Hypertensive disorder 27135629 Allergic rhinitis 65164540 Irritable bowel syndrome 25473940 Needs infl uenza immunization 443298033 [id number] Tere (Adult Med) [address] [place] [address] 06/25/2015 09:14:24 06/25/2015 09:51:52 Diabetes mellitus 80790539 E11.8 Will d/c glipizide and switch to sliding scale BS 150-200: 4 units 200-250: 8 250-300: 12 >300: 16 Sugars improving RTC 2 weeks Encouraged no fried food or juice sales project manager referral placed Brought in paperwork for Weight Watcher [id number] ANTIONE Driver (Adult Med) [address] [place] [phone] 07/09/2015 09:36:19 07/09/2015 10:15:59 Diabetes mellitus 87316585 E11.8 Will d/c glipizide and switch to sliding scale BS 150-200: 4 units 200-250: 8 250-300: 12 >300: 16 Patient advised to increase short acting insulin to 20 units before meals patient encouraged to eat 3 meals/day patient encouraged to not drink juice or eat fried foods she is frustrated that she has gained 20lbs over the last month - we discussed that it is d/t DM and that the insulin makes her hungry; she asked if she could d/c the insulin because of the weight gain and we discussed how uncontroll ed her DM is she was given the numbers for DM educator and endocrinol ogist to call to set up appts SHe will try to eat 3 meals/day given two books concerning diabetic eating and lifestyle she has an appt with weight watchers next week RTC in one month Sugars improving RTC 2 weeks Encouraged no fried food or juice sales project manager referral placed Brought in paperwork for Weight Watcher [id number] ANTIONE Driver (Adult Med) [address] [place] [phone] 08/13/2015 09:38:53 08/13/2015 10:22:58 Diabetes mellitus 33169378 E11.9 Appointmen t with endocrinol ogist 10/05 BS 150-200: 6 units 200-250: 10 250-300: 14 >300: 18 Patient advised to increase short acting insulin to 20 units before meals patient encouraged to eat 3 meals/day patient encouraged to not drink juice or eat fried foods Down 2lbs she was given the numbers for DM educator and endocrinol ogist to call to set up appts SHe will try to eat 3 meals/day RTC in one month Hypertensive disorder 38 563404 I10 Hyperlipidemia 32478042 E78.5 [id number] ANTIONE Driver (Adult Med) [address] [place] [phone] 09/21/2015 13:58:37 09/21/2015 14:38:27 Diabetes mellitus 47106495 E11.9 Appointmen t with endocrinol ogist 10/05 BS 150-200: 6 units 200-250: 10 250-300: 14 >300: 18 Patient advised to increase short acting insulin to 20 units before meals patient encouraged to eat 3 meals/day patient encouraged to not drink juice or eat fried foods Working out 3 days/week - joined [employer] she was given the numbers for DM educator and endocrinol ogist to call to set up appts SHe will try to eat 3 meals/day Appt for diabetes education tomorrow and Monday Screening for malignant neoplasm of colon 586563679 Z12.11 [id number] ANTIONE Driver (Adult Med) [address] [place] [address] 11/13/2015 09:32:46 11/13/2015 12:04:53 Diabetes mellitus 73800475 E11.9 Lantus 80 units BID Apidra sliding scale: BS 150-200: 26 units >200: 20 units metformin 1000mg BID - prescribed by endocrinol ogy Patient encouraged to eat 3 meals/day Patient encouraged to not drink juice or eat fried foods Working out 2 days/week - joined [employer] Lost 7lbs - encouraged her to keep up the good work. She is very proud of herself Will check a1c today - likely improved Screening for malignant neoplasm of colon 446970788 Z12.11 Colonoscop y schedule for 12/07 Foot pain 62124960 M79.6 71 Will send for foot xray - likely bone spur Will determine next steps once I have xray results Hyperlipidemia 53142973 E78.5 Hypertensive disorder 38 148999 I10 Will increase lisinopril from 10mg to 20mg and put it into one pill Allergic rhinitis 474494 04 J30.9 [id number] ANTIONE Driver (Adult Med) [address] [place] [address] 12/15/2015 10:03:37 12/15/2015 10:44:58 Diabetes mellitus 53083714 E11.9 Lantus 80 units BID Apidra sliding scale: BS 150-200: 26 units >200: 30 units metformin 1000mg BID - prescribed by endocrinol ogy Patient encouraged to eat 3 meals/day Patient encouraged to not drink juice or eat fried foods Working out 2 days/week - joined [employer] Lost 7lbs - encouraged her to keep up the good work. She is very proud of herself Patient ate two donuts and juice for breakfast this morning and did not take her insulin this morning We had a long discussion that her eating all of this sugar and her a1c increasing is going to shorten her life if she does not get her BS under control She has another yeast infection today and knows that it's d/t her sugars Discussed with her that she needs to f/u with her endocrinol ogist Neal olson with treatment 5977772 Z91.19 Patient ate two donuts and juice for breakfast this morning and did not take her insulin this morning We had a long discussion that her eating all of this sugar and her a1c increasing is going to shorten her life if she does not get her BS under control She has another yeast infection today and knows that it's d/t her sugars She states that she has issues giving up sugars and mac'n'heather se and pasta and potatoes She knows she needs to but she's around this all of the time and cannot say no a1c: 12.5 at last check Discussed her choices are going to shorten her life [id number] ANTIONE Driver (Adult Med) [address] [place] [address] 02/17/2016 12:14:16 02/17/2016 12:48:25 Diabetes mellitus 14815759 E11.9 Lantus 80 units BID Apidra sliding scale: BS 150-200: 26 units >200: 30 units - discussed with patient that she cannot be taking 80 units of Apidra before every meal - that is what is causing her sugars to drop so low and making her feel shaky metformin 1000mg BID - prescribed by endocrinol ogy Encouraged to make an eye doctor appointmen t Patient encouraged to eat 3 meals/day Patient encouraged to not drink juice or eat fried foods Working out 2 days/week - joined [employer] Patient ate taco curry right before coming in We had a long discussion that her eating all of this sugar and her a1c increasing is going to shorten her life if she does not get her BS under control She has another yeast infection today and knows that it's d/t her sugars Discussed with her that she needs to f/u with her endocrinol ogist and needs to make that appointmen t today Hyperlipidemia 36672826 E78.5 Noncomplia nce with treatment 8279346 Z91.19 Ate taco curry just before coming in because she felt like her sugars were running very low - she has been taking 80 units of Apidra prior to meals that she adjusted on her won We had a long discussion that her eating all of this sugar and her a1c increasing is going to shorten her life if she does not get her BS under control She has another yeast infection today and knows that it's d/t her sugars She states that she has issues giving up sugars and mac'n'heather se and pasta and potatoes She knows she needs to but she's around this all of the time and cannot say no a1c: 12.5 at last check Discussed her choices are going to shorten her life [id number] ANTIONE Driver (Adult Med) [address] [place] [address] 05/19/2016 16:10:41 05/19/2016 17:29:14 Diabetes mellitus 90251535 E11.9 Lantus 80 units BID Apidra sliding scale: BS 150-200: 26 units >200: 30 units - discussed with patient that she cannot be taking 80 units of Apidra before every meal - that is what is causing her sugars to drop so low and making her feel shaky metformin 1000mg BID - prescribed by endocrinol adriel She has not been back to endo since October - advised patient that she must see them - she works until 2:30 daily, so she will make an appointmen t PAT[place] Encouraged to make an eye doctor appointmen t at [place] for her annual visit Patient encouraged to eat 3 meals/day Patient encouraged to not drink juice or eat fried foods Working out 2 days/week - joined [employer] We had another long discussion that her eating all of this sugar and her a1c increasing is going to shorten her life if she does not get her BS under control 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 Morbid obesity 239676776 E66.01 Patient not interested in making the suggested lifestyle changes of exercising and eating better, she wants to go the gastric sleeve route Discussed with patient that there is no quick fix for obesity and appetite suppressor s for her at this time are of no help - she is going to need to make the lifestyle changes WIll refer to GI for gastric sleeve consult - however, talked with patient extensivel y that most surgeons need you to prove to them that you can lose weight on your own before they will perform surgery Also discussed that her diabetes will need to be under control Upper resp iratory infection 20394481 J06.9 Hyperuricemia 85028620 E 79.0 Hyperlipidemia 86594820 E78.5 WIll recheck today Hypertensive disorder 38 675197 I10 Patient has been out of BP medication s for a few weeks Iron defic iency anemia 89995960 D50.9 Had an infusion one month ago. States that her iron was 14 last time checked. Being followed by oncology. Gastroesop hageal reflux disease 671276542 K21.9 Spasm of back muscles 20 7505082 M62.830 Noncomplia nce with treatment 7610332 Z91.19 We had a long discussion that her eating all of this sugar and her a1c increasing is going to shorten her life if she does not get her BS under control She states that she has issues giving up sugars and mac'n'heather se and pasta and potatoes She knows she needs to but she's around this all of the time and cannot say no a1c: 10.5 at last check Discussed her choices are going to shorten her life Advised it is imperative to f/u with endocrinol adriel and her eye doctor [id number] ANTIONE Driver (Adult Med) [address] [place] [address] 07/04/2016 16:12:06 07/05/2016 11:31:51 Active or passive immunization 318612445 Z23 [id number] ANTIONE Driver (Adult Med) [address] [place] [address] 0 08/15/2016 16:06:06 08/15/2016 17:09:28 Hyperlipidemia 94361060 E78.5 c/w current medication Hypertensive disorder 38 652252 I10 144/88 at second check - will increase lisinopril to 30mg and HCTZ 5o 12.5Will RTC 1-2 weeks for BP check for nurse only appointmen t Allergic rhinitis 448325 04 J30.9 Gastroesop hageal reflux disease 521567199 K21.9 Iron defic iency anemia 13916480 D50.9 Being followed by oncology. [id number] ANTIONE Driver (Adult Med) [address] [place] [address] 01/10/2017 16:22:33 01/11/2017 09:54:57 Obesity 245669661 E66.9 Advised 30 minutes of exercise 5 days/week Advised to not drink her calories Advised 3 balanced meals/day with plenty of fruits and vegtablesA gain discussed that the majority of this goes back to her diet Diabetes mellitus 224062 09 E11.9 Will check lab work for surgical clearanceP atient to RTC once labs are completedA dvised that she needs to contact her surgeon's office to see what her a1c needs to be prior to surgery Pre-surgery testing 1104 83535 Z01.89 Will check lab work for surgical clearance Patient to RTC once labs are completed Advised that she needs to contact her surgeon's office to see what her a1c needs to be prior to surgery Active or passive immunization 750932738 Z23 Hyperlipidemia 35232263 E78.5 will recheck FLPcurrent ly taking atorvastat in 40mg Gastroesop hageal reflux disease 907721525 K21.9 c/w famotidine Iron defic iency anemia 38306517 D50.9 Will recheck Hypertensive disorder 38 235896 I10 160/100 - did not take BP mediciaton todayNADWI ll readdress at next visitAdvis ed that needs to always take her BP medication Osteoarthritis 277476046 M19.90 Advised that she needs to f/u with ortho concerning this [id number] ANTIONE Driver (Adult Med) [address] [place] [address] 03/01/2017 16:02:23 03/02/2017 11:38:10 Diabetes mellitus 94283453 E11.9 last a1c: 10.8Patien t advised to continue to follow with endo - staes that she has an appointmen t coming up in the next few weeks Neuropathy due to diabetes mellitus 419009878 E11.40 WIll initiate gabapentin qPM and then can increase to BID - advised that it may make her feel a bit off, so to begin by taking it at nightPatie nt to RTC next month to begin the weight look surgery process again and will check on medication at this timeAdvise d, like she knows, that keep her blood sugars under control are what is going to help with the neuropathy . Obesity 631109201 E66.9 Patient is down 13lbs in the last 5 weeks with portion control Advised 30 minutes of exercise 5 days/week Advised to not drink her calories Advised 3 balanced meals/day with plenty of fruits and vegetables Again discussed that the majority of this goes back to her diet and if she continues to make healthy eating choices and is able to lose weight on her own, the gastric bypass surgery will be unnecessar y. Long discussion that her diet is what has caused the DM and she can change this with her eating habits. Like we have been discussing for years, all of her issues with diabetes and blood sugar go back to diet and portion control [id number] ANTIONE Driver (Adult Med) [address] [place] [address] 04/05/2017 16:01:24 04/05/2017 18:02:03 Pre-surgery testing 383762982 Z01.89 first month completed - advised that she really needs to evaluate why she is doing this surgery and focus on changing her eating habits at this time as well - also needs to control her DM Diabetes mellitus 822195 09 E11.9 last a1c: 10.8Patien t advised to continue to follow with endoWill recheck a1c today Screening for disorder 560944576 Z13.9 Neuropathy due to diabetes mellitus 173330712 E11.40 c/w gabapentin 300mg BIDAdvised , like she knows, that keep her blood sugars under control are what is going to help with the neuropathy . Muscle spa sm of cervical muscle of neck 5513938553 04 M62.838 Morbid obesity 763862139 E66.01 Patient not interested in making the suggested lifestyle changes of exercising and eating better, she wants to go the gastric sleeve route Discussed with patient that there is no quick fix for obesity and appetite suppressor s for her at this time are of no help - she is going to need to make the lifestyle changes WIll refer to GI for gastric sleeve consult - however, talked with patient extensivel y that most surgeons need you to prove to them that you can lose weight on your own before they will perform surgery Also discussed that her diabetes will need to be under control [id number] ANTIONE Driver (Adult Med) [address] [place] [address] 05/10/2017 16:07:04 05/10/2017 17:57:19 Neuropathy due to diabetes mellitus 497473161 E11.40 Per patient, gabapentin not working as well anymore - discuss this is likely 2/2 her uncontroll ed DMWIll try samples of Lyrica - advised patient she will need to get this prescripti on from endo since they are following DM Pre-surgery testing 1104 03778 Z01.89 second month completed - advised that she really needs to evaluate why she is doing this surgery and focus on changing her eating habits at this time as well - also needs to control her DM Diabetes mellitus 631385 09 E11.9 last a1c: 12.2 (03/2017)P atient advised to continue to follow with endoWill recheck a1c today Morbid obesity 735107211 E66.01 Patient not interested in making the suggested lifestyle changes of exercising and eating better, she wants to go the gastric sleeve route Discussed with patient that there is no quick fix for obesity and appetite suppressor s for her at this time are of no help - she is going to need to make the lifestyle changes WIll refer to GI for gastric sleeve consult - however, talked with patient pia y that most surgeons need you to prove to them that you can lose weight on your own before they will perform surgery Also discussed that her diabetes will need to be under control Hypertensive disorder 38 764571 I10 140/82 - basically WNL, NAD Advised that needs to always take her BP medication Advised DASH diet [id number] ANTIONE Driver (Adult Med) [address] [place] [address] 06/07/2017 16:07:34 06/08/2017 14:25:33 Neuropathy due to diabetes mellitus 026500454 E11.40 Pre-surgery testing 1104 29835 Z01.89 third month completed - advised that she really needs to evaluate why she is doing this surgery and focus on changing her eating habits at this time as well - also needs to control her DM Diabetes mellitus 026678 09 E11.9 last a1c: 12.2 (03/2017) - per patient, endo told her her a1c was 7.6 and that the results should be sent herePatien t advised to continue to follow with endo Morbid obesity 788230161 E66.01 Patient not interested in making the suggested lifestyle changes of exercising and eating better, she wants to go the gastric sleeve route Discussed with patient that there is no quick fix for obesity and appetite suppressor s for her at this time are of no help - she is going to need to make the lifestyle changes WIll refer to GI for gastric sleeve consult - however, talked with patient pia y that most surgeons need you to prove to them that you can lose weight on your own before they will perform surgery Also discussed that her diabetes will need to be under control Hypertensive disorder 38 224407 I10 148/86 - not WNL, NADAdvised that needs to always take her BP medication Advised DASH dietWill readdress at next visit Active or passive immunization 175102821 Z23 Plantar fasciitis 894138 003 M72.2 Followed by podatiry [id number] ANTIONE Driver (Adult Med) [address] [place] [address] 07/05/2017 16:04:56 07/06/2017 09:54:19 Neuropathy due to diabetes mellitus 439362338 E11.40 Pre-surgery testing 1104 59693 Z01.89 fourth month completed - again advised that she really needs to evaluate why she is doing this surgery and focus on changing her eating habits at this time as well - also needs to control her DM Diabetes mellitus 736221 09 E11.9 last a1c: 7.6 at endoPatien t advised to continue to follow with endo Morbid obesity 750690155 E66.01 Gained 3lbsPatien t not interested in making the suggested lifestyle changes of exercising and eating better, she wants to go the gastric sleeve route Discussed with patient that there is no quick fix for obesity and appetite suppressor s for her at this time are of no help - she is going to need to make the lifestyle changes Currently going through process to get gastic bypass Hypertensive disorder 38 619981 I10 130/84 WNL, NADDiscuss ed DASH diet Advised 30 minutes of exercise minimum dailyAdvis ed tobacco, alcohol, caffeine all increase BPAdvised goal for BP is <140/90 Plantar fasciitis 810842 003 M72.2 Followed by podatiry [id number] ANTIONE Driver (Adult Med) [address] [place] [address] 08/01/2017 16:05:18 08/01/2017 17:53:17 Disorder of vitamin D 169342473 E56.9 Morbid obesity 060509416 E66.01 Gained 7lbsPatien t not interested in making the suggested lifestyle changes of exercising and eating better, she wants to go the gastric sleeve route Discussed with patient that there is no quick fix for obesity and appetite suppressor s for her at this time are of no help - she is going to need to make the lifestyle changes Currently going through process to get gastic bypass Pre-surgery testing 1104 53494 Z01.89 fifth month completed - again advised that she really needs to evaluate why she is doing this surgery and focus on changing her eating habits at this time as well - also needs to control her DM - last a1c was good at 7.6 - advised patient to be careful over the holidays Form for 5th month completed at office visit Hypertensive disorder 38 479319 I10 136/84 at second check - WNL, NADDiscuss ed DASH diet Advised 30 minutes of exercise minimum dailyAdvis ed tobacco, alcohol, caffeine all increase BPAdvised goal for BP is <140/90 Diabetes mellitus 401086 09 E13.42 last a1c: 7.6 at endoPatien t advised to continue to follow with endo [id number] ANTIONE Driver (Adult Med) [address] [place] [address] 08/30/2017 16:03:22 08/30/2017 17:27:26 Pre-surgery testing 890144203 Z01.89 sixth month completed - again advised that she really needs to evaluate why she is doing this surgery and focus on changing her eating habits at this time as well - also needs to control her DM - last a1c was 8.1 - discussed with at patient that her a1c needed to be below 8.0 for me to say that she would be cleared for surgery and she's at 8.1 - states: 'I'm not going to give up my holiday food for this.' - Discussed with patient that this was the point of the surgery to help with thi 6th form completed and faxed in Discussed with patient that I cannot clear her for an elective surgery with an a1c>8.0 d/t complicati ons from healing - advised she can discuss this with the surgeon; however, she is at higher risks of complicati ons of the sugery d/t her a1c>8, which we have disucssed at length in the past her a1c has greatly improved from 14.5 at its highest 2 years ago, to 12.2 in 03/27, to 7.6 in 05/28 but now up again to 8.1 in 08/2017 - patient attributes this increase to the holidays and not giving up the food she loves over the holidays - which I discussed with her was the point of the surgery and in her eyes it is to: let her eat what she wants in smaller portion sizesAdvis ed that I do not dictate if the surgery occurs, that is up to the surgeon, I just cannot clear her because her a1c was >8 Morbid obesity 432602481 E66.01 Gained 2lbsPatien t blames the holidays for her weight gamin Hypertensive disorder 38 591361 I10 146/82 - not WNL, patient anxious at [facility] t d/t discussing her a1c and the pre-surgic al clearance paperwork Discussed DASH diet Advised 30 minutes of exercise minimum dailyAdvis ed tobacco, alcohol, caffeine all increase BPAdvised goal for BP is <140/90 [id number] YEMI LUJAN [facility] [address] [place] [address] 05/30/2019 13:48:14 05/31/2019 08:21:07 Spasm of back muscles 777428448 M62.830 refill Diabetes mellitus 416507 09 E11.9 refill. Checking A1C as last one on file is from 2017. She says she does not remember what it was but that she is well controlled . Disorder of vitamin D 38 7228473 E56.9 Lipoma of thigh 71516190 4 D17.20 noticed two lumps on leg 2 weeks ago. on exam lumps are soft moile and non tender. measure about 3x3 inches. - check US Hypertensive disorder 38 629701 I10 142/76 , she did not take BP meds today Discussed DASH diet Advised 30 minutes of exercise minimum daily Advised tobacco, alcohol, caffeine all increase BP Advised goal for BP is <140/90 Neuropathy due to diabetes mellitus 360166821 E11.40 c/w gabapentin 300mg BID Advised, like she knows, that keep her blood sugars under control are what is going to help with the neuropathy . Hyperlipidemia 22058221 E78.5 continue medication . rechecking labs today. Gastroesop hageal reflux disease 508418914 K21.9 patient has been having worsening gerd and vomiting frequently after meals. [id number] YEMI EATON (GENERAL ADMINISTRATOR) [address] [place] [address] 06/20/2019 09:07:43 06/24/2019 12:46:25 Gynecologic examination 08671977 Z01.419 Venereal d isease screening 134124503 Z11.3 Screening mammography 24 029806 Z12.31 Administra tion of influenza vaccine 83857379 Z23 Bacterial vaginosis 4197 19747 N76.0 Upper resp iratory infection 52561168 J06.9 Body mass index 30+ - obesity 163373144 Z68.31 Pt requesting medication for appetite suppressio n. She reports being hungry all the time and has gained 10 pounds back. Discussed healthy eating habits with patient and healthy snack options for when she is hungry. Advised pt to increase water intake. Exercise at least 30 minutes daily. Do not believe pt needs appetite suppressor s at this time. Given pt's comorbidit ies and h/o gastric surgery, advised pt to speak with her GI provider or PCP about her options. [id number] CARLY DUMONT MD [facility] [address] [place] [address] 07/10/2019 11:54:21 07/10/2019 16:10:11 Lipoma of skin 927015438 D17.30 53F with two lipomas of the left lateral thigh: 4cm proximal to the knee and 1cm at the lateral thigh. I explained the pathogenes is and options for lipoma management . She has decided to forego surgical interventi on until she has been employed for 90 days. She will call when she is ready for surgery. [id number] YEMI LUJAN [facility] [address] [place] [address] 08/23/2019 14:57:35 08/26/2019 09:55:39 Spasm of back muscles 575234639 M62.830 refill Diabetes mellitus 339272 09 E11.9 Patient says she is compliant. states sugar are in low hundreds but A1C today is 11.1. She has not seen her endocrinol ogist as she states it is expensive. - F/U with endo - basaglar covered by insurance. inject 30 units in morning and 30 in evening- discussed cutting back on bread. tortillas, chips, soda- needs eye exam Dry skin dermatitis 2600 62375 L85.3 [id number] YEMI LUJAN [facility] [address] [place] [address] 01/31/2020 09:31:38 02/04/2020 12:03:57 Exposure to SARS-CoV-2 829756702 Z20.828 Patient daughter is positive for COVID. Patient only has slightly runny nose but feels good otherwise. Her work requires test to be sure she does not have the virus. - stay away from daughter- control htn and DM- ER if develops sob, chest pain, intractabl e fever [id number] YEMI LUJAN [facility] [address] [place] [address] 11/09/2020 09:00:12 11/11/2020 09:40:58 Diabetes mellitus 13145094 E11.9 Patient says she is compliant. states sugar are in low hundreds but A1C at last check was 11.1. She has not seen her endocrinol ogist in on year.- F/U with endo -inject 40 units in morning and 40 in evening- discussed cutting back on bread. tortillas, chips, soda- needs eye exam Hypertensive disorder 38 045574 I10 Patient not checking BP at home. last checked here was 120/80. states she taked medication s as prescribed . Denies side effects. denies cp, sob, swelling in legs. Discussed DASH diet Advised 30 minutes of exercise minimum daily Advised tobacco, alcohol, caffeine all increase BP Advised goal for BP is <140/90 Hyperlipidemia 27161979 E78.5 continue medication .. need labs Menopausal flushing 1983 43744 N95.1 Patient was taking hormone therapy for hot flashes but has ran out. We disucssed and will try venlafaxin e for hot flashes. She is also hvaing some anxiety as her mom is in hospital and not doing well. [id number] YEMI LUJAN [facility] [address] [place] [address] 01/14/2021 16:05:23 01/18/2021 18:23:41 Muscle spasm of cervical muscle of neck 7969296334 04 M62.838 Patient presents for ER f/u following neck pain with muscle spasms. Xray in ER show mild arthritis. Se is doing better today. - avoid looking down at phone all day as this puts strain on neck muscles - Avoid heavy lifting and over-exert ion. do some gentle stretching and continue with normal activities . - Use ice to relieve pain, 15 minutes every 2 4 hours. - Use heat to relax muscles, 15 minutes every 2 4 hours. - Sleep on a firm surface and avoid lying on the sofa. [id number] YEMI LUJAN [facility] [address] [place] [address] 09/02/2021 13:23:25 09/06/2021 10:15:47 Hypocalcemia 6808953 E83.51 8.6 04/2021 Muscle spa sm of cervical muscle of neck 2252576761 04 M62.838 - avoid looking down at phone all day as this puts strain on neck muscles - Avoid heavy lifting and over-exert ion. do some gentle stretching and continue with normal activities . - Use ice to relieve pain, 15 minutes every 2 4 hours. - Use heat to relax muscles, 15 minutes every 2 4 hours. - Sleep on a firm surface and avoid lying on the sofa. Diabetes mellitus 161752 09 E11.9 last A1C 04/28/21 8.7.not checking glucose dailytakin g aspirin-in ject 40 units in morning and 40 in evening- discussed cutting back on bread. tortillas, chips, soda- needs eye exam Thrombocyt openic disorder 339198088 D69.6 platelets 124 04/2021 [id number] Carmen Boo MA [facility] [address] [place] [address] 11/16/2022 09:23:38 11/16/2022 10:33:55 [id number] YEMI LUJAN [facility] [address] [place] [address] 12/19/2022 09:42:34 12/19/2022 10:48:02 Hypertensive urgency 962957405 I16.0 off amlodipine 10 and lisinopril 30-hcz12.5 for months denies cp, sob, vision changes - ER due to BG chronicall y >400 and elevated BP Uncontroll ed type 2 diabetes mellitus 615486751 E11.65 A1C 11/2022 (12.2%), 12.1% (08/2021) 8.7% (04/2021) 11.1 (08/2019)p vianey did not take her insulin again. BG >400 todayHas not been since since 1ER Contact dermatitis 37620 004 L25.9 Hypertensive disorder 38 328789 I10 Patient not checking BP at home. last checked here was 120/80. states she taked medication s as prescribed . Denies side effects. denies cp, sob, swelling in legs. Discussed DASH diet Advised 30 minutes of exercise minimum daily Advised tobacco, alcohol, caffeine all increase BP Advised goal for BP is <140/90 [id number] YEMI LUJAN [facility] [address] [place] [address] 12/27/2022 15:54:56 12/27/2022 16:28:58 Hypertensive disorder 39097436 I10 improved form last visit but not at goal. will follow with close f/ucheck BP at home and call if elevated Diabetes mellitus 102571 09 E11.9 Non-compla int with f/u visits, diet, glucose monitoring or medication s. has waned off insulin on her own to 25 units bid from 40 units bid. advised increasing to 30 units bid and will add on GLP. Patient denies fam hx of thyroid cancer, personal hx pancreatit is. Medication side effects were reviewed with patient and include FABRICIO, pancreatit is, nausea, vomiting, stomach upset. Patient was shown pen and was shown how to clean area, inject pen, and how often to administer .plan to add on SGLT 2 As well at next visit last A1C 12.2 (11/2022) 8.7. (04/28/21) Foot exam: next visitEye Exam: orderedAlb /Cr: normal 11/2022Stat in: non-compla intACEi: lisinopril 30pneumoni a vaccine: ppv23 2017, needs prevnar 20 Hyperlipidemia 89231134 E78.5 advised taking daily [id number] YEMI LUJAN [facility] [address] [place] [address] 03/30/2023 11:58:31 03/30/2023 13:39:28 Diabetes mellitus 24012092 E11.9 Non-compla int with f/u visits, diet, glucose monitoring or medication s. has weaned off insulin on her own to 25 units bid from 40 units bid. advised increasing to 30 units bid and will add on GLP. Patient denies fam hx of thyroid cancer, personal hx pancreatit is. Medication side effects were reviewed with patient and include FABRICIO, pancreatit is, nausea, vomiting, stomach upset. Patient was shown pen and was shown how to clean area, inject pen, and how often to administer .plan to add on SGLT 2 As well at next visit last A1C 10.5 (03/2023) 12.2 (11/2022) 8.7. (04/28/21) Foot exam: decreased PT pulse, normal pedal pulse, normal monofilame nt (03/30/23)E ye Exam: orderedAlb /Cr: normal 11/2022Stat in: non-compla intACEi: lisinopril 30pneumoni a vaccine: ppv23 2016, needs prevnar 20 Diarrhea 70481257 R19.7 one month of non-solid stools that have now been black since starting pepto daily. Also takes immodium daily. helps some and allows her to get through work day. states diarrhea not a/w GLP1 Neck pain 06477303 M54.2 ER visit for acute on chronic neck pain. was given muscle relaxers and needs refillobta in xray Intermitte nt claudication 06113085 I73.9 aching pain in calf with walking. improved with rest.decre ased Posterior tibial pulses Screening mammography 24 647005 Z12.31 agrees to screen Administra tion of pneumococcal vaccine 30598198 Z23 next visit. out of prevnar today 03/30/23 Essential hypertension 87406117 I10 did not take medication this morning [id number] YEMI LUJAN [facility] [address] [place] [address] 06/06/2023 15:50:20 06/06/2023 17:00:43 Hypertensive disorder 78943830 I10 improved form last visit but not at goal. will follow with close f/ucheck BP at home and call if elevated Type 2 scooby betes mellitus 90388597 E11.9 uncontroll ed diabetic. non-compla int with f/u visits, medication , glucose monitoring . She is aware of kidney damage, strokes, heart attack and . Cervical radiculopathy 75347036 M54.12 She has moderate arthritis cervical spine with tingling and numbness b/l hands. She has had a few hospital visits for neck pain. Has not scheduled PT but plans to do so. denies saddle anesthesia or loss of bladder/jl wel control. [id number] YEMI LUJAN [facility] [address] [place] [address] 09/06/2023 11:37:06 09/06/2023 13:02:26 Hypertensive disorder [id number] I10 controlled today Uncontroll ed type 2 diabetes mellitus [id number] E11.65 Radha states she was missing multiple ozempic shots and only take 40 units of insulin once daily instead of BID. Has hypoglycem ia with 40units bid. will change to 45-50 units qd since increasing ozempic. last A1C 9.3% (08/2023) 10.1% (05/2023) 10.5 (03/2023) 12.2 (11/2022) 8.7. (04/28/21) 11.1 (08/2019) Foot exam: decreased PT pulse, normal pedal pulse, normal monofilame nt (03/30/23)E ye Exam: orderedAlb /Cr: normal 11/2022Stat in: non-compla intACEi: lisinopril 30pneumoni a vaccine: prevnar 20 (08/2023) Administra tion of pneumococcal vaccine [id number] Z23 Obesity 556155373 E66.9 10 lb weight losscontin ue ozempic [id number] YEMI LUJAN [facility] [address] [address] 05/07/2024 14:35:45 05/07/2024 16:00:03 Obesity 504487160 E66.8 continue ozempic Hypertensive disorder 38 494182 I10 not controlled todayincre asing medication hcz to help with edema LEadding on jardiance for glucose but may also improve BP mildly Uncontroll ed type 2 diabetes mellitus 417198787 E11.65 advised taking same dose daily as prescribed of her long acting despite her BG. She educated on LA insulin. advised to stop drinking 4 welches juices daily. last A1C8.4 (04/2024) 9.3% (08/2023) 10.1% (05/2023) 10.5 (03/2023) 12.2 (11/2022) 8.7. 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 [id number] 81185 G56.01 only at nightno weakness- phalens Hyperlipidemia 83226035 E78.5 advised taking daily [id number] YEMI LUJAN [facility] [address] [place] [address] 06/12/2024 16:45:04 06/14/2024 15:12:05 Hyperglycemia 16548329 R73.9 patient had high BG readings due to skipping doseswhen she takes medication her BG are in good rangeadvis ed not skipping dosesB today, not fasting (did not take her DM medication s [id number] YEMI LUJAN [facility] [address] [place] [address] 10/07/2024 15:32:19 10/11/2024 07:48:17 Diabetes mellitus 62095365 E11.9 Radha has had better compliance with medication s and follow up. Again advised injecting same dose of insulin as this is a long acting insulin. She is again advised stop her sweet tea and continue to cut down on welchs. medication s: semglee 20 units qhs, farxiga 10mg, statin 40mg last A1C 7.2% (09/2024) 8.4 (04/2024) 9.3% (08/2023) 10.1% (05/2023) 10.5 (03/2023) 12.2 (11/2022) 8.7. (04/28/21) Foot exam: decreased PT pulse, normal pedal pulse, normal monofilame nt (04/2024)Ey e Exam: orderedAlb /Cr: normal 04/2024Stat in: better compliance ACEi: re-startGF R/cr: 102/ .65 normal neu monia vaccine: prevnar 20 08/2023 Essential hypertension 14771475 I10 retsart lisinopril advised ER if cp, sob, palpitatio ns, wrost NIELSEN Vitamin D deficiency 347 16084 E55.9 refill [id number] YEMI LUJAN [facility] [address] [place] [address] 11/14/2024 08:39:38 11/14/2024 09:11:17 Diabetes mellitus 25421144 E11.9 Radha has had better compliance with medication s and follow up. Again advised injecting same dose of insulin as this is a long acting insulin. She is again advised stop her sweet tea and continue to cut down on welchs. medication s: semglee 20 units qhs, farxiga 10mg, statin 40mg last A1C 7.2% (09/2024) 8.4 (04/2024) 9.3% (08/2023) 10.1% (05/2023) 10.5 (03/2023) 12.2 (11/2022) 8.7. (04/28/21) Foot exam: decreased PT pulse, normal pedal pulse, normal monofilame nt (04/2024)Ey e Exam: she will scheduleAl b/Cr: normal 04/2024Stat in: better compliance ACEi: re-startGF R/cr: 102/ .65 normal neu monia vaccine: prevnar 20 08/2023 Essential hypertension 68576104 I10 better controlled . continue lisinopril and amlodipine .advised ER if cp, sob, palpitatio ns, wrost NIELSEN Neuropathy due to diabetes mellitus 049699396 E11.40 c/w gabapentin 300mg BID Advised, like she knows, that keep her blood sugars under control are what is going to help with the neuropathy . Anxiety 21699796 F41.9 trouble sleeping causing anxiety and flare of her IBShaving anxiety requesting mental health daysdenies si/hishe will f/u in 2 weeks for f/u Health Concerns Section Related Observation LastModified by Organization Detai ls LastModified Time None Recorded Concern Status LastModified by Organization Details LastModified Time None Recorded Advance Directives Directive N: Payers Encounter Date Sequence Insurance Name Policy Number Policy Reyna Covered Member ID Reyna Member ID Guarantor Name 09/06/2023 3 [employer] (POS) [id number] Radha Hernandezy [id number] Radha Hernandezy 09/06/2023 1 [facility] (POS) [id number] Radha Romero Paul [id number] Radha Clancy Paul 05/07/2024 2 [place] Radha Clancy Paul [id number] Radha Clancy Paul 05/07/2024 1 [facility] (POS) [id number] Radha Romero Paul [id number] Radha Clancy Paul 06/12/2024 2 [place] Radha Clancy Paul [id number] Radha Clancy Paul 06/12/2024 1 [facility] (POS) [id number] Radha Romero Paul [id number] Radha Clancy Paul 10/07/2024 2 [place] Radha Clancy Paul [id number] Radha Clancy Paul 10/07/2024 1 [facility] (POS) [id number] Radha Romero Paul [id number] Radha Clancy Paul 11/14/2024 2 [place] Radha Clancy Paul [id number] Radha Clancy Paul 11/14/2024 1 [facility] (POS) [id number] Radha J Paul [id number] Radha Clancy Paul Notes Date Note Type Note Provider Name and Address Organization Details Recorded Time 09/06/2023 text/html Radha presents f or F/U on DM BG>200 at home. missing most of the night time semglee 40 units. does take the 40 units am. When she takes bid her glucose has dropped to 50's and she feels shaky. She needs more lancets and will call in with name. She also admits to having missed many ozempic shots a month ago due to working 80 hours per week. She is better complaint now. neck pain: has had one treatment of her neck pain with PT and states slept well for two nights. Second PT is today at 2 pm. she completed MRI but [facility] has not send in. Will request. YEMI LUJAN Attn: Accounting, [address] , [place], [address], [facility] 09/06/2023 12:25:53 05/07/2024 text/html Radha presents f or F/U on DM BG <200 at home. Injecting 20-30 units long acting depending on my blood sugar. She also admits to having missed many ozempic shots but is happy on it. She is drinking 4 welches juices dialy and occasional sweet tea. bp: She did take BP at home. no checking at home often but when she does it i running 140's systolic. denies cp, sob, palpitations. patient c/o of tingling in her right arm only when she wakes up the morning. She does suck her arm under her. this does not happen in the daytime. She denies weakness. no longer having any neck pain. states she uses tylenol arthritis with good pain control. I have no pain. I have diarrhea everyday for the last 2 months. Im drinking an entire bottle of pepto and taking immodium. She had normal colonoscopy Matt. Agrees to see GI. She does tae daily doxycycline from dermatology. advised stopping. YEMI LUJAN Attn: Accounting,[address] [facility], [place], [address], [facility] 05/08/2024 10:08:41 06/12/2024 text/html Radha is here fo r my sugars ahve been all over She states they have been high due to not taking her medications. Once I take it they are great. She denies cp, sob, palpitations. YEMI LUJAN Attn: Accounting, [address] [facility], [place], [address], [facility] 06/13/2024 10:24:44 10/07/2024 text/html Radha is here fo r for diabetes follow-up that he has been doing very well with all of her DM medication and has had good compliance. That he has been placing 20-30 units of insulin depending on her blood sugars at home. This was discussed at last visit and she was advised not to change her insulin dose depending on blood sugars as this is a long-acting insulin. states she will continue to do 1 dose of insulin every day and let me know if blood sugars are elevated. She does continue to drinks extra sweet tea daily and welches juice in am and pm. Radha states she has not been taking her lisinopril but is taking her amlodipine every single day. She does notice that her blood pressures have been elevated but has not contacted the office. But he denies chest pain shortness of breath lower extremity swelling today. YEMI LUJAN Attn: Accounting[address] [facility], [place], [address], [facility] 10/09/2024 10:37:39 11/14/2024 text/html Radha is here fo r for diabetes labs and requests notes She states her neuropathy has been keeping her up. She feels more anxious and would like a week for mental health days. lack of sleep and anxiety flare her IBS and she has had to miss some day for it. denies si/hi. s that he has been doing very well with all of her DM medication and has had good compliance. here for labs. needs refills of gabapentin for neuropathy. she was out for a few days. she needs new glucometer. Radha is not taking lisinopril and amlodipine for her BP. YEMI LUJAN Attn: Accounting,[address] [facility], [place], [address], [facility] 11/14/2024 09:09:09 OBGyn Episode Ob Episode Information Episode Created Date Number of Fetuses Patient Bloodtype Patient rh Status Prepregnancy Weight lbs Domestic Partner Domestic Partner Phone Father Name Nurse Chemical Dependency Status 06/20/20 19 1 CLOSED Fetus Data First Name Last Name Admitted to NICU Weight (g) Sex Living Outcome Pediatric Complications Fetus ID Race Codes Race Delivery Type 4082.32 8 F Full Term [id number] Only Regan Calculation Initial Regan Date Initial Exam Date Initial Exam Provider Initial Ultrasound Date Last Menstrual Period Date Ultra Sound Weeks Gestation 0 Eighteen To Twenty Week Regan Update Ultra Sound Date Fundal Height At Umbil Quickening Date Ultra Sound Latest Weeks Gestation Final Regan Confirmed By Final Regan Confirmed Date Final Regan Date Ultra Sound Latest Days Gestation 0 0 Menstrual History Last Menstrual Date Menses Monthly On Bcp Conception Prior Menses Frequency Hcg Plus Date Menarche Onset Age Delivery Information Delivery Date Delivery Type Labor Anesthesia Weeks Gestation Incision Type Labor Labor Length Hrs Delivered By Post Complications Tubal Sterilization Discharge Date Comments 1 Discharge Information Feeding Method Contraceptive Method Maternal HG B and HCT Levels
--- OUTSIDE RECORDS SUMMARY | 2024-12-21 10:08 | XMS_ITS | Referral Summary ---
Author Organization [facility] Address [address] [place] [address] Care Team Providers Care Lab Assistant Name Role Phone Elsy Cuadra Primary Care Provider + Allergies Active Allergy Reactions Criticality Noted Date Comments Acetaminophen Urticaria Medium Hydrocodone-Acetaminophen Itching Low 09/02/2014 welts Hydrocodone-Guaifenesin Nausea And Vomiting Low 04/2015 Medications bismuth subsalicylate (bismuth subsalicylate) 262 mg tablet,chewable 2 times daily. 7 Active blood-glucose meter (ONETOUCH VERIO SYSTEM) misc 1 strip. 7 Active blood glucose diagnostic (glucose blood) strip 1 strip. 7 Active cyclobenzaprine (FLEXERIL) 5 mg tablet Take 5 mg by mouth. 7 Active docusate sodium (DULCOLAX STOOL SOFTENER, DSS,) 100 mg capsule Activ e VITAMIN D2 50,000 unit capsule 3 8 Active estradiol (ESTRACE) 1 mg tablet Take 1 mg by mouth. 7 Active fluticasone (FLONASE) 50 mcg/actuation nasal spray Administer 2 sprays into each nostril. 5 Active gabapentin (NEURONTIN) 300 mg capsule Take 300 mg by mouth. 7 Active ibuprofen (ADVIL,MOTRIN) 800 mg tablet ibuprofen 800 mg tablet Active pen needle, diabetic 31 gauge x 5/16 needle 7 Active ferrous sulfate 325 mg (65 mg of elemental iron) tablet Iron (ferrous sulfate) 325 mg (65 mg iron) tablet TAKE 1 TABLET BY MOUTH TWICE DAILY Active potassium chloride ER (KLOR-CON M10) 10 mEq CR tablet Klor-Con M10 mEq tablet,extended release Active lamoTRIgine (LaMICtal) 100 mg tablet Take 100 mg by mouth. 7 Active lisinopril (PRINIVIL,ZESTRIL ) 30 mg tablet Take 30 mg by mouth daily. 6 Active loratadine (CLARITIN) 10 mg tablet Take 10 mg by mouth. 5 Active omeprazole (PriLOSEC) 20 mg capsule 2 times daily. 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 Active atorvastatin (LIPITOR) 40 mg tablet Take 40 mg by mouth daily. Active insulin degludec (TRESIBA FLEXTOUCH U-100) 100 unit/mL (3 mL) insulin penIndications:40 units am 40 units pm Inject under the skin 2 (two) times a day. Active ursodiol (ACTIGALL) 300 mg capsuleIndication s:Cholelithiasis Prevention Take 1 capsule (300 mg total) by mouth 2 (two) times a day. 60 capsule 5 8 Active oxyCODONE-acetami nophen (PERCOCET) 5-325 mg per tabletIndications :Pain Take 1 tablet by mouth every 4 (four) hours as needed for pain. 40 tablet 8 Active Additional Information Patient not taking.Reported on 07/13/2018 citalopram (CeleXA) 20 mg tablet Take 20 mg by mouth. 5 Active doxycycline (doxycycline) 100 mg capsule Take 100 mg by mouth. 8 Active erythromycin with ethanol (THERAMYCIN) 2 % external solution APPLY TO AFFECTED AREA(S) ONCE DAILY 8 Active famotidine (PEPCID) 20 mg tablet Take 1 tablet (20 mg total) by mouth 2 (two) times a day for 15 days 30 tablet 4 Active Active Problems Problem Noted Date Diagnosed Date Allergic rhinitis 06/08/2018 Anemia 05/23/2018 Obesity 05/01/2018 Overview (06/08/2018): Added automatically from request for surgery [id number] Diabetic neuropathy 05/10/2017 Abnormal mammogram 03/07/2017 Bipolar affective disorder 10/31/2016 Morbid obesity 09/29/2016 Diabetes mellitus 09/29/2016 Benign essential hypertension 09/29/2016 Gastroesophageal reflux disease 09/29/2016 Hypokalemia 08/18/2016 Hyperlipidemia 10/01/2015 Hypertension 10/01/2015 Immunizations Immunization Administration Dates Next Due Influenza, Quadrivalent, Spl it, Preservative Free, Intramuscular 05/31/2018 Social History Tobacco Use Types Packs/Day Years Used Date Smoking Tobacco: Never Smokeless Tobacco: Never Alcohol Use Standard Drinks/Week Comments Yes 0 (1 standard drink = 0.6 oz pur e alcohol) rare Personal Safety Answer Date Recorded Have you ever been in or are you currently in a harmful physical or emotional relationship or is someone making you feel afraid or unsafe? 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 Gender Identity Not on file Sexual Orientation Not on file Last Filed Vital Signs Vital Sign Reading Time Taken Comments Blood Pressure 163/79 05/10/2024 6:55 PM CDT Pulse 64 05/10/2024 6:55 PM CDT Temperature 36.8 C (98.2 F) 05/10/2024 3:01 PM CDT Respiratory Rate 18 05/10/2024 6:55 PM CDT Oxygen Saturation 97% 05/10/2024 6:55 PM CDT Inhaled Oxygen Concentration - - Weight 88.3 kg (194 lb 10.7 oz) 05/10/2024 3:01 PM CDT Height 162.6 cm (5' 4 ) 05/10/2024 3:01 PM CDT Body Mass Index 33.41 05/10/2024 3:01 PM CDT Plan of Treatment Not on file Procedures Procedure Name Priority Date/Time Associated Diagnosis Comments EGFR STAT 05/10/2024 3:06 PM CDT SCREENING MAMMOGRAM BILATERAL W LANE Schedule Routine, Read Routine (OP Routine) 05/25/2018 9:31 AM CDT Encounter for screening mammogram for malignant neoplasm of breast HEMOGLOBIN A1C STAT 05/11/2018 2:42 PM CDT Encounter for preadmission testing from Last 3 Months or Most Recently Relevant to Health Maintenance Results * eGFR (05/10/2024 3:06 PM CDT) eGFR >90 >=60 mL/min/1. 73 m2 Comment: Interpretive Data Reference Interval Normal >/= 90 mL/min/1.73m2 Mildly decreased* 60 - 89 mL/min/1.73m2 Mildly to moderately decreased 45 - 59 mL/min/1.73m2 Moderately to severely decreased 30 - 44 mL/min/1.73m2 Severely decreased 15 - 29 mL/min/1.73m2 Kidney Failure < 15 mL/min/1.73m2 *Relative to young adult level Estimated glomerular filtration rate is determined by the 2020 CKD-EPI equation recommended by the National Kidney Foundation (A Unifying Approach to GFR Estimation: Recommendations of the NKF-ASK Task Force on Reassessing the Inclusion of Race in Diagnosing Kidney Disease, JASN 2020). The CKD-EPI equation should not be used for patients with unstable renal function and has not been validated in children and those over 70. Current interpretive data was last reviewed 2021. Testing performed by: [facility], [address] [place] [address]., [address] Blood 05/10/2024 3:06 PM CDT 05/10/2024 3:16 PM CDT Xavier Lemon DO LAB BLOOD ORDERABLES Final Result [facility] XB [address] [facility] Department [place] [address] * Screening Mammogram Bilateral [address] (05/25/2018 9:31 AM CDT) Anatomical Region Laterality Modality Breast Bilateral Mammography Narrative 05/28/2018 9:57 AM CDT Mammogram Technique: Bilateral Digital Breast Tomosynthesis, Bilateral C-view 2D Screening mammogram. Views obtained: bilateral craniocaudal and bilateral mediolateral oblique. Computer Aided Detection was performed. Mammogram Findings: The present examination has been compared to prior imaging studies performed on 01/26/2017, and at [facility] on 03/13/2017. There are scattered areas of fibroglandular density. Stable prominent lymph nodes bilaterally. Post surgical change left. Impression: Findings in both breasts are benign. Annual screening mammography is recommended. OVERALL FINAL ASSESSMENT: BI-RADS CATEGORY 2: Benign. Procedure Note Roberto Espino MD - 05/28/2018 Mammogram Technique: Bilateral Digital Breast Tomosynthesis, Bilateral C-view 2D Screening mammogram. Views obtained: bilateral craniocaudal and bilateral mediolateral oblique. Computer Aided Detection was performed. Mammogram Findings: The present examination has been compared to prior imaging studies performed on 01/26/2017, and at [facility] on 03/13/2017. There are scattered areas of fibroglandular density. Stable prominent lymph nodes bilaterally. Post surgical change left. Impression: Findings in both breasts are benign. Annual screening mammography is recommended. OVERALL FINAL ASSESSMENT: BI-RADS CATEGORY 2: Benign. us Physician No IMG MAMMO PROCEDURES Final Resul t * (ABNORMAL) Hemoglobin A1c (05/11/2018 2:42 PM CDT) Hgb A1C 9.7(H) 4.0 - 5.6 % TI QUINONES Comment:Testing performed by : [facility], [address] [place] [address], [place]., [address] Estimated Average Glucose 232 mg/dL TI QUINONES Comment: The ADA recommends reporting an estimated Average Glucose (eAG) with all Hemoglobin A1c results using the equation derived from a study of 507 normal and diabetic adults. Minority populations were underrepresented and children were not included. (Diabetes Care 31:9731-9348, 2008). The eAG is not equivalent to a fasting glucose. Testing performed by: [facility], [address] [place] [address], [place]., [address] Blood specimen (specimen) 05/11/2018 2:42 PM CDT 05/11/2018 5:53 PM CDT Narrative [facility] - 05/11/2018 6:09 PM CDT Rakel Martinez NP LAB BLOOD ORDERABL ES Final Result [facility] [id number] [facility]. Department [place] [address] from Last 3 Months or Most Recently Relevant to Health Maintenance Insurance CHOICE PLUS Advance Directives For more information, please contact: [phone] * Full Code (Latest Code Status on File) Date Activated Date Inactivated Comments 05/30/2018 7:00 PM 06/01/2018 5:28 PM Care Teams Lab Assistant Relationship Specialty Start Date End Date Elsy Cuadra PA PCP - General Physician Educational Coordinator 05/10/24
--- OUTSIDE RECORDS SUMMARY | 2024-12-21 10:08 | XMS_ITS | Clinical Summary ---
Author Organization [facility] Address [address] [place] [address] Care Team Providers Care Installment Account Checker Name Role Phone Unavailable Primary Care Provider Unavailabl e Social History Tobacco Use Types Packs/Day Years Used Date Smoking Tobacco: Never Assessed Comments Unknown Sex and Gender Information Value Date Recorded Sex Assigned at Not on file Legal Sex Female 7:52 PM CDT Gender Identity Not on file Sexual Orientation Not on file Plan of Treatment Health Maintenance Due Date Last Done Comments Cervical Cancer Screening Pa p Smear (Age 30 to 64) Every 3 Years 1965 Colorectal Cancer Screening Colonoscopy (10 Years) 1965 Annual Physical 1968 Hepatitis C 1983 DTaP, Tdap and Td Vaccines ( 1 - Tdap) 1984 Cervical Cancer Screening Pa p with HPV Testing (Age 30 to 64) Every 5 Years 1995 Cervical Cancer Screening with HPV 1995 Mammogram Screening 2005 Zoster Vaccines (1 of 2) 2015 COVID-19 Vaccine (2023-2 5 season) 2024 Meningococcal B Vaccine Aged Out No l onger eligible based on patient's age to complete this topic Meningococcal Vaccine Aged Out No daylin brandi eligible based on patient's age to complete this topic Pneumococcal Vaccine: Pediat rics (0 to 5 Years) and At-Risk Patients (6 to 64 Years) Aged Out No longer eligible b ased on patient's age to complete this topic RSV Immunizations Under 20 Months Aged Out No longer eligible based on patient's age to complete this topic
--- OUTSIDE RECORDS SUMMARY | 2024-12-21 10:08 | XMS_ITS | Clinical Summary ---
Author Organization 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 Active atorvastatin (LIPITOR) 40 mg [...] (06/08/2018): Added automatically from request for surgery [id number] Diabetic neuropathy 05/10/2017 Abnormal mammogram 03/07/2017 Bipolar affective disorder 10/31/2016 Morbid obesity 09/29/2016 Diabetes mellitus 09/29/2016 Benign essential hypertension 09/29/2016 Gastroesophageal reflux disease 09/29/2016 Hypokalemia 08/18/2016 Hyperlipidemia 10/01/2015 Hypertension 10/01/2015 Immunizations Immunization Administration Dates Next Due Influenza, Quadrivalent, Spl it, Preservative Free, Intramuscular 05/31/2018 Surgical History Surgery Date Site/Laterality Comments BREAST BIOPSY 04/11/2017 - 05/11/2017 Left Benign HYSTERECTOMY 03/11/2016 - 04/10/2016 SECTION 03/11/1981 - 04/10/1981 UMBILICAL HERNIA REPAIR 09/11/1991 - 09/10/1992 COLONOSCOPY 09/11/2004 - 09/10/2005 UPPER GASTROINTESTINAL ENDOSCOPY Medical History Medical History Date Comments Hypertension 2001 Diabetes mellitus (HCC) Dxd 2001 GERD (gastroesophageal reflux disease) Bipolar disorder (HCC) Hiatal hernia Obesity History of heart murmur in childhood Type 2 diabetes mellitus (HCC) Family History Medical History Relation Name Comments Diabetes Father Family history of diabetes mellitus - (Added by TW Conv) Hypertension Father Family history of hypertension - (Added by TW Conv) Relation Name Status Comments Father Alive Mother Alive Social History Tobacco Use Types Packs/Day Years [...] on file 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 Gender Identity Not on file Sexual Orientation Not on file Obstetrics History Last Filed Vital Signs Vital Sign Reading Time Taken Comments Blood Pressure 163/79 05/10/2024 6:55 PM CDT Pulse 64 05/10/2024 6:55 PM CDT Temperature 36.8 C (98.2 F) 05/10/2024 3:01 PM CDT Respiratory Rate 18 05/10/2024 6:55 PM CDT Oxygen Saturation 97% 05/10/2024 6: 55 PM CDT Inhaled Oxygen Concentration - - Weight 88.3 kg (194 lb 10.7 oz) 05/10/2024 3:01 PM CDT Height 162.6 cm (5' 4 ) 05/10/2024 3:01 PM CDT Body Mass Index 33.41 05/10/2024 3:01 PM CDT Plan of Treatment Health Maintenance Due Date Last Done Comments Albumin Creatinine Ratio, Urine 1965 Colon Cancer Screening-Colonoscopy 1965 Depression Screening 1965 Hepatitis C Screening 1965 Dilated Eye Exam 1965 Foot Exam 1965 Lipid Panel 1965 Regular Well Visit/Exam 18-64 1983 Hemoglobin A1C 11/08/2018 05/11/2018, 11/11/2017 Zoster Vaccine (2 of 2) 04/30/2024 03/05/2024 Covid-19 Vaccine (2023-10 5 season) 2024 06/11/2023, 07/19/2022, 08/13/2021, Additional history exists Influenza Vaccine (#1) 2024 , 07/19/2022, 08/13/2021, Additional history exists Breast Cancer Screening-Mammogram 10/23/2024 10/23/2023, 08/30/2023, 05/25/2018, Additional history exists eGFR 05/10/2025 05/10/2024, 05/13, 05/11/2018 DTaP/Tdap/Td Vaccine (3 - Td or Tdap) 06/11/2033 06/11/2023, 01/10/2017 Pneumococcal vaccine <65 Completed 023, 07/19/2022, 06/17/2020, Additional history exists Hepatitis B Screening Completed 03/05/2024 Procedures Procedure Name Priority Date/Time Associated Diagnosis [...] was last reviewed 2021. Testing performed by: [facility], [address] [place] [address]., [address] Blood 05/10/2024 3:06 PM CDT 05/10/2024 3:16 PM CDT Xavier Lemon DO LAB BLOOD ORDERABLES Final Result CERNER [facility] [address] [facility] Department [place] [address] * Screening Mammogram Bilateral W [...] imaging studies performed on 01/26/2017, and at [facility] on 03/13/2017. There are scattered areas of [...] imaging studies performed on 01/26/2017, and at [facility] on 03/13/2017. There are scattered areas of [...] % TI QUINONES Comment:Testing performed by : [facility], [address] [place] [address], [place]., [address] Estimated Average Glucose 232 mg/dL TI QUINONES Comment: The ADA recommends reporting an estimated Average Glucose (eAG) with all Hemoglobin A1c results using the equation derived from a study of 507 normal and diabetic adults. Minority populations were underrepresented and children were not included. (Diabetes Care 31:0703-7303, 2008). The eAG is not equivalent to a fasting glucose. Testing performed by: [facility], [address] [place] [address], [place]., [address] Blood specimen (specimen) 05/11/2018 2:42 PM CDT 05/11/2018 5:53 PM CDT Narrative TI HALLCH - 05/11/2018 6:09 PM CDT us Rakel Martinez NP LAB BLOOD ORDERABL ES Final Result TI BJWCH [address] [facility]. Department [place] [address] from Last 3 Months or Most Recently Relevant to Health Maintenance Insurance ANTH PREFERRED CHOICE PLUS [facility] HMO/PPO Address: [address] [address] [place] [address] Advance Directives For more information, please contact: [phone] * Full Code (Latest Code Status on File) Date Activated Date Inactivated Comments 05/30/2018 7:00 PM 06/01/2018 5:28 PM Care Teams Washcloth Folder Relationship Specialty Start Date End Date Elsy Cuadra PA PCP - General Physician Sales Office Coordinator 05/10/24
[2024-12-21 10:14] VITALS: BP 127/78; PULSE 83; RESP 18; TEMP 36.9; O2SAT 99
--- OUTSIDE RECORDS SUMMARY | 2024-12-21 10:34 | XMS_ITS | Clinical Summary ---
Author Organization [facility] [employer] Address [address] [facility] [place] [address] Care Team Providers Care Ear Nose Throat Surgeon Name Role Phone Rianna Rodrigez PA-C Primary Care Provider [phone] Source Comments [facility],non-owned Affiliates and Associated Physician Practices is amultiple site organization consisting of ambulatory clinics and hospital sitesin [place], [place], [place] and [place]. This disclosure is being madepursuant to the Care Everywhere program and may not contain all information available regarding this patient. 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 Gender Identity Not on file Sexual Orientation [...] URINE RANDOM PANEL Routine 11/11/2017 10:34 AM ARCH CUSHION SKIVING MACHINE OPERATOR COMPREHENSIVE METABOLIC PANEL Routine 11/11/2017 10:34 AM ARCH CUSHION SKIVING MACHINE OPERATOR from Last 3 Months or Most Recently Relevant to Health Maintenance Results * HEMOGLOBIN A1C - POINT OF CARE (AMB) [facility] (03/22/2018) [facility] Hemoglobin A1c POCT 10.7 BLOOD SPECIMEN / Unknown 03/22/2018 [facility] CARE O RDERABLES Final Result * MICROALB/CREAT RATIO URINE RANDOM PANEL (11/11/2017 10:34 AM ARCH CUSHION SKIVING MACHINE OPERATOR) Creatinine Urine 177 20 - 320 mg/dL [...] within a diagnostic category. Test Performed at: [facility] [address] [place] [address] SARA CHANEL DO,MPH Urine specimen (specimen) URINE / Unknown 11/11/2017 10:34 AM ARCH CUSHION SKIVING MACHINE OPERATOR 11/11/2017 10:35 AM ARCH CUSHION SKIVING MACHINE OPERATOR Ana Lilia Goldman [facility] - URINE CHEMISTRY ORDERABLES Final Result Performing Organization Address City/State/[facility] Co de Phone Number [facility] (U) [address] * (ABNORMAL) COMPREHENSIVE METABOLIC PANEL (11/11/2017 10:34 AM ARCH CUSHION SKIVING MACHINE OPERATOR) Pathologist [facility] Glucose 61(L) 65 - 99 mg/dL [facility] ([facility]) Comment: Fasting reference interval BUN 9 7 - 25 mg/dL [facility] ([facility]) Creatinine 0.58 0.50 - 1.05 mg/dL [facility] ([facility]) Comment: For patients >49 years of age, the reference limit for Creatinine is approximately 13% higher for people identified as -[place] Citizen. eGFR non- 106 > OR = 60 [...] U/L [facility] ([facility]) Comment: Test Performed at: [employer] [address] [place] [address] SARA CHANEL DO,MPH Blood specimen (specimen) BLOOD SPECIMEN / Unknown 11/11/2017 10:34 AM ARCH CUSHION SKIVING MACHINE OPERATOR 11/11/2017 10:35 AM ARCH CUSHION SKIVING MACHINE OPERATOR Ana Lilia Goldman [facility] LAB - CHEMISTRY ORDER TITUS Final Result [facility] ([facility]) [id number] from Last 3 Months or Most Recently Relevant to Health Maintenance Insurance [facility] MEDICAID - [facility] [place]ICAID - [place] [facility] [place] Member Subscriber Plan / Payer (Ef fective for All Dates) Name:Radha Mcguire Heather Member ID:Not on file Relation to Subscriber:Self Name:Radha Mcguire Payer ID:Not on file Group ID:Not on file Type:Medicaid [place] Address: [place] [id number] [place]ID [place] Member Subscriber Plan / Payer (Ef fective for All Dates) Name:Radha Mcguire Member ID:Not on file Relation to Subscriber:Self Name:Radha Mcguire Payer ID:Not on file Group ID:Not on file Type:Medicaid [place] Address: [place] [id number] * Guarantor: RADHA MCGUIRE Account Type Relation to Patient Date of Phone Billing Address Personal/Family [address] [place] [address] [facility] MEDICAID - [place] Member Subscriber Plan / Payer (Ef fective for All Dates) Name:Radha Mcguire Member ID:Not on file Relation to Subscriber:Self Name:Radha Mcguire Payer ID:Not on file Group ID:Not on file Type:Medicaid [place] Address: [place] [phone] * Guarantor: SHAYLARADHA Account Type Relation to Patient Date of Phone Billing Address Personal/Family [address] [facility] [address] [place] [id number] [facility] MED[facility] - [place] Member Subscriber Plan / Payer (Ef fective for All Dates) Name:ShaylaRadha Heather Member ID:Not on file Relation to Subscriber:Self Name:Radha Mcguire Payer ID:Not on file Group ID:Not on file Type:Medicaid [place] Address: [address] * Guarantor: SHAYLARADHA Account Type Relation to Patient Date of Phone Billing Address Personal/Family [address] [place], [place] [id number] [facility] MEDICAID - [place] Care Teams Ear Nose Throat Surgeon Relationship Specialty Start Date End Date Rianna Rodrigez PA-C PCP - General 03/12/18
--- OUTSIDE RECORDS SUMMARY | 2024-12-21 10:34 | XMS_ITS | Continuity of Care Document ---
Author Organization [facility] Address [address] [place] [address] [place] [address] Phone Care Team Providers Care Rn Infusion Name Role Phone Gil Buckley DO Unavailable Unavailable Advance Directives Directive Yes / No Effective Date File Name No Information Encounters Encounter Description Practice Location Reason(s) For Visit Diagnoses Date Provider Providers Copied on Encounter [facility], [address], [place], [place], [id number], [place] tel:[phone] [facility] No Information Ina Oneal. [address] [facility], [place], [address], [place]. tel:[phone] Family History Family Member Type Diagnosis Age [...]
--- OUTSIDE RECORDS SUMMARY | 2024-12-21 10:34 | XMS_ITS | Clinical Summary ---
Author Organization [facility] Address [address] [place] [address] Care Team Providers Care Tie Mill Operator Name Role Phone Elsy Cuadra Primary Care [...] mg tablet Take 10 mg by mouth parts puller before breakfast. 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 Testing performed by: [facility], [address] [place] [address]., [address] Blood 05/10/2024 3:06 PM CDT 05/10/2024 3:16 PM CDT Xavier Lemon DO LAB BLOOD ORDERABLES Final Result [facility] [address] [facility] Department [place] [address] * Screening Mammogram Bilateral W [...] imaging studies performed on 01/26/2017, and at [facility] on 03/13/2017. There are scattered areas [...] imaging studies performed on 01/26/2017, and at [facility] on 03/13/2017. There are scattered areas [...] % TI QUINONES Comment:Testing performed by : [facility], [address] [place] [address], [place]., [address] Estimated Average Glucose 232 mg/dL TI QUINONES Comment: The ADA recommends reporting an estimated Average Glucose (eAG) with all Hemoglobin A1c results using the equation derived from a study of 507 normal and diabetic adults. Minority populations were underrepresented and children were not included. (Diabetes Care 31:5409-3811, 2008). The eAG is not equivalent to a fasting glucose. Testing performed by: [facility], [address] [place] [address], [place]., [address] Blood specimen (specimen) 05/11/2018 2:42 PM CDT 05/11/2018 5:53 PM CDT Narrative TI HALLCH - 05/11/2018 6:09 PM CDT us Rakel Martinez NP LAB BLOOD ORDERABL ES Final Result TI [facility] [address] [facility]. Department [place] [address] from Last 3 Months or Most Recently Relevant to Health Maintenance Insurance ANTH PREFERRED CHOICE PLUS [facility] HMO/PPO Address: [address] [address] [place] [address] Advance Directives For more information, please contact: [phone] * Full Code (Latest Code Status on File) Date Activated Date Inactivated Comments 05/30/2018 7:00 PM 06/01/2018 5:28 PM Care Teams Tie Mill Operator Relationship Specialty Start Date End Date Elsy Cuadra PA PCP - General Physician Zigzagger 05/10/24
--- OUTSIDE RECORDS SUMMARY | 2024-12-21 10:34 | XMS_ITS | Referral Summary ---
Author Organization [facility] Address [address] [place] [address] Care Team Providers Care Daub Color Mixer Name Role Phone Elsy Cuadra Primary Care [...] mg tablet Take [address] light repairer before breakfast. 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 Testing performed by: [facility], [address] [place] [address]., [address] Blood 05/10/2024 3:06 PM CDT 05/10/2024 3:16 PM CDT Xavier Lemon DO LAB BLOOD ORDERABLES Final Result [facility] [address] [facility] Department [place] [address] * Screening Mammogram Bilateral W [...] imaging studies performed on 01/26/2017, and at [facility] on 03/13/2017. There are scattered areas of [...] imaging studies performed on 01/26/2017, and at [facility] on 03/13/2017. There are scattered areas of [...] % TI QUINONES Comment:Testing performed by : [facility], [address] [place] [address], [place]., [address] Estimated Average Glucose 232 mg/dL TI QUINONES Comment: The ADA recommends reporting an estimated Average Glucose (eAG) with all Hemoglobin A1c results using the equation derived from a study of 507 normal and diabetic adults. Minority populations were underrepresented and children were not included. (Diabetes Care 31:1329-4544, 2008). The eAG is not equivalent to a fasting glucose. Testing performed by: [facility], [address] [place] [address], [place]., [address] Blood specimen (specimen) 05/11/2018 2:42 PM CDT 05/11/2018 5:53 PM CDT Narrative TI BJWCH - 05/11/2018 6:09 PM CDT Rakel Martinez NP LAB BLOOD ORDERABL ES Final Result TI BJW[facility] [address] [facility]. Department [place] [address] from Last 3 Months or Most Recently Relevant to Health Maintenance Insurance CHOICE PLUS Advance Directives For more information, please contact: [phone] * Full Code (Latest Code Status on File) Date Activated Date Inactivated Comments 05/30/2018 7:00 PM 06/01/2018 5:28 PM Care Teams Daub Color Mixer Relationship Specialty Start Date End Date Elsy Cuadra PA PCP - General Physician Tablet Making Machine Operator Helper 05/10/24
--- OUTSIDE RECORDS SUMMARY | 2024-12-21 10:35 | XMS_ITS | Clinical Summary ---
Author Organization [facility] Address [address] [place] [address] Care Team Providers Care Broadcast Operations Technician Name Role Phone Unavailable Primary Care Provider [...]
[2024-12-21] MEDS: LIDOCAINE 5% PATCH 1 PATCH TRANSDERM (10:36)
[2024-12-21] MEDS: methocarbamoL 750 MG TABLET 1500 MG PO (10:36)
--- NOTE | 2024-12-21 10:54 | ED_ITS ---
HPI - General Adult General Chief complaint: Skin/Abscess/Foreign Body Stated complaint: L BREAST BOIL & (NECK SPASMS OUT OF PATCHES0 Time Seen by Provider: 12/21/24 10:24 History of Present Illness HPI narrative: Two complaints. First complaint is a left breast abscess. She had a small boil that has been growing in size. She believes it needs to be lanced. She does not have any systemic signs of illness such as fevers chills nausea vomiting or diarrhea. She does have history of diabetes. Second complaint is neck pain. Patient has a history neck spasms. This is well documented in the EMR. It is her typical pain no new findings. No trauma. She is requesting a refill on her lidocaine patches. Related Data Home Medications ?Medication ?Instructions ?Recorded ?Confirmed ?Last Taken ?Type lisinopril 30 mg tablet 30 mg PO DAILY 04/21/20 12/21/24 Unknown History amlodipine 10 mg tablet 10 mg PO DAILY 10/08/20 12/21/24 Unknown History atorvastatin 40 mg tablet 40 mg PO DAILY 10/08/20 12/21/24 Unknown History doxycycline hyclate 100 mg tablet 100 mg PO DAILY 10/08/20 12/21/24 Unknown History hydrochlorothiazide 12.5 mg capsule 12.5 mg PO DAILY 10/08/20 12/21/24 Unknown History baclofen 10 mg tablet 10 mg PO BID PRN muscle spasms 08/14/23 12/21/24 Unknown History insulin glargine-yfgn 100 unit/mL 20 unit subcut QPM 12/21/24 12/21/24 Unknown History (3 mL) subcutaneous pen (Semglee (insulin glargine-yfgn) Pen) semaglutide 2 mg/dose (8 mg/3 mL) 2 mg subcut WEEKLY 12/21/24 12/21/24 Unknown History subcutaneous pen injector (Ozempic) Allergies Allergy/AdvReac Type Severity Reaction Status Date / Time hydrocodone AdvReac Unknown Dizziness Verified 12/21/24 10:17 Penicillins AdvReac Unknown Dizziness Verified 12/21/24 10:17 [facility] Past Medical History Medical History Abdominal pain Diarrhea Encounter for screening colonoscopy Exocrine pancreatic insufficiency Hyperlipidemia Hypertension Irritable bowel syndrome with diarrhea Liver mass Migraines Nausea & vomiting Type 2 diabetes mellitus Surgical History Surgical History H/O gastric bypass H/O inguinal hernia repair History of section Family History Family History Grandparent Hypertension Family history of heart disease in male family member before age 55 Diabetes mellitus Father Diabetes mellitus Patient's father is in good health Family history of arthritis Mother Asthma Patient's mother is in good health Family history of Alzheimer's disease Sibling Patient's sister is in good health Patient's brother is in good health Other Cerebrovascular accident Social History Social History Smoking status: Never smoker Alcohol intake: current Substance use type: does not use Living arrangements: alone Gender identity (if verbalized by the patient): Female Exam Narrative: APPEARANCE: No apparent distress. Head: atraumatic. EYES: EOMI, NOSE: Atraumatic NECK: Trachea midline tenderness palpation over right paracervical and trapezius muscle RESPIRATORY: No increased rate of breathing CARDIOVASCULAR: RRR, ABDOMINAL: Non-distended MUSCULOSKELETAl: No obvious deformities NEURO: Alert. Moving 4/4 extremities SKIN:: 2 x 2 erythematous fluctuant mass over her left breast. Consistent with abscess PSYCHIATRIC: Normal affect Course Vital Signs Vital signs: Vital Signs Temperature 98.5 F 12/21/24 10:14 Pulse Rate 83 12/21/24 10:14 Respiratory Rate 18 12/21/24 10:14 Blood Pressure 127/78 12/21/24 10:14 Pulse Oximetry 99 12/21/24 10:14 Oxygen Delivery Room Air 12/21/24 10:14 Temperature 98.5 F 12/21/24 10:14 Pulse Rate 83 12/21/24 10:14 Respiratory Rate 18 12/21/24 10:14 Blood Pressure 127/78 12/21/24 10:14 Pulse Oximetry 99 12/21/24 10:14 Oxygen Delivery Room Air 12/21/24 10:14 Procedures Abscess I/D chest: Date of Incision: 12/21/24 Side (if applicable): left Local Anesthetic: bupivacaine 0.25% Amount of anesthesia used (mL): 6 Technique: incised with #11 blade Amount of fluid expressed (mL): 5 Irrigation: Yes Packing used?: none I&D Results: Pus and Blood Medical Decision Making MDM Narrative Medical decision making narrative: -Course: 59-year-old female presenting with a left breast abscess. Abscess was drained without complication She will be placed on Bactrim. Patient's was given refill on her muscle relaxers and lidocaine patches. Discharged with return precautions and primary care follow-up -DDX includes but is not limited to: Abscess, boil, furuncle, breast cancer, muscle spasm, muscle strain Vital Signs Vital Signs: Vital Signs Temperature 98.5 F 12/21/24 10:14 Pulse Rate 83 12/21/24 10:14 Respiratory Rate 18 12/21/24 10:14 Blood Pressure 127/78 12/21/24 10:14 Pulse Oximetry 99 12/21/24 10:14 Oxygen Delivery Room Air 12/21/24 10:14 Temperature 98.5 F 12/21/24 10:14 Pulse Rate 83 12/21/24 10:14 Respiratory Rate 18 12/21/24 10:14 Blood Pressure 127/78 12/21/24 10:14 Pulse Oximetry 99 12/21/24 10:14 Oxygen Delivery Room Air 12/21/24 10:14 Discharge Plan Discharge Clinical Impression: Abscess, Acute neck pain Patient Disposition: Home Condition: Stable Instructions: Antibiotic Form, Abscess (ED) Additional Instructions: You were seen in the emergency department for an abscess. Please follow-up with your primary care physician in 1 week. Please take the Bactrim as instructed. If the abscess reaccumulates refill the redness is spreading please return ED for re-evaluation. Please take back finding lidocaine patches for neck spasms. Please follow-up with your primary care physician Patient Language: Kinyarwanda Prescriptions: New sulfamethoxazole-trimethoprim 800-160 mg tablet 1 tablet PO Q12H Qty: 10 0RF baclofen 10 mg tablet 10 mg PO TID Qty: 30 0RF lidocaine 5 % adhesive patch,medicated 1 patch topical DAILY Qty: 15 0RF Rx Instructions: leave on most painful area for up to 12 hrs No Action atorvastatin 40 mg tablet 40 mg PO DAILY amlodipine 10 mg tablet 10 mg PO DAILY hydrochlorothiazide 12.5 mg capsule 12.5 mg PO DAILY doxycycline hyclate 100 mg tablet 100 mg PO DAILY dicyclomine 10 mg capsule 10 mg PO QID PRN (Reason: abdominal pain) Qty: 120 5RF baclofen 10 mg tablet 10 mg PO BID PRN (Reason: muscle spasms) cyclobenzaprine 10 mg tablet 10 mg PO TID PRN (Reason: muscle spasm) Qty: 20 0RF lisinopril 30 mg tablet 30 mg PO DAILY gabapentin 300 mg capsule 300 mg PO TID Qty: 21 0RF lidocaine 5 % adhesive patch,medicated 1 patch topical DAILY Qty: 15 0RF Rx Instructions: leave on most painful area for up to 12 hrs cyclobenzaprine 5 mg tablet 5 mg PO TID PRN (Reason: muscle spasm) Qty: 15 0RF Ozempic 2 mg/dose (8 mg/3 mL) pen injector 2 mg SUBCUT WEEKLY insulin glargine-yfgn [Semglee(insulin glarg-yfgn)Pen] 100 unit/mL (3 mL) insulin pen 20 unit SUBCUT QPM pantoprazole 20 mg tablet,delayed release (DR/EC) 20 mg PO QAM Qty: 90 3RF Xifaxan 550 mg tablet 550 mg PO TID 14 Days Qty: 42 2RF Creon 36,000-114,000- 180,000 unit capsule,delayed release(DR/EC) 2 cap PO .COMPLEX 30 Days Qty: 300 11RF Rx Instructions: 2 caps orally; Take 2 pills with meals and one pill with snacks. cholestyramine (with sugar) [Questran] 4 gram powder in packet 4 g PO BID 30 Days Qty: 60 5RF Rx Instructions: administer w/meal; avoid other meds within 1hr before or 4-6hr after dose Follow-up/Referrals: Venecia,YEMI Castro [Primary Care Provider] -
== END 2024-12-21 11:12 | disposition home or self-care (01) ==
PROVIDERS: Emergency Provider Emergency Medicine; PCP Physician Assistant
DX: N61.1 Abscess of the breast and nipple (principal); M54.2 Cervicalgia; I10 Essential (primary) hypertension; E11.9 Type 2 diabetes mellitus without complications; E78.5 Hyperlipidemia, unspecified; K86.81 Exocrine pancreatic insufficiency; K58.0 Irritable bowel syndrome with diarrhea; Z98.84 Bariatric surgery status; Z79.4 Long term (current) use of insulin; Z79.899 Other long term (current) drug therapy
CPT/HCPCS: 10060; 99283; A9270

== ENCOUNTER 2025-03-27 09:34 | Outpatient (CLI) | payer OTHER, MEDICAID, SELFPAY ==
--- NOTE | 2025-03-27 | ECG_ITS ---
Test Date: 2025-03-27 10:03:59 Measurements Intervals [place] Rate: 65 P: 56 WA: 140 QRS: -13 QRSD: 94 T: 17 QT: 424 QTc: 442 Interpretive Statements SINUS RHYTHM WITH MARKED SINUS ARRHYTHMIA Compared to ECG 05/07/2024 19:31:22 Sinus bradycardia no longer present Electronically Signed On 03-27-2025 14:45:17 CDT by Ricardo Mathews M.D.
--- OUTSIDE RECORDS SUMMARY | 2025-03-27 09:39 | XMS_ITS | Referral Summary ---
Author Organization [facility] Address [address] [place] [address] Care Team Providers Care Cash Application Representative Name Role Phone Elsy Cuadra Primary Care [...] Active pen needle, diabetic 31 gauge x /16 needle 7 Active ferrous sulfate 325 mg [...] mg tablet Take 10 mg by mouth server service assistant before breakfast. 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 Testing performed by: [facility], [address] [place] [address]., [address] Blood 05/10/2024 3:06 PM CDT 05/10/2024 3:16 PM CDT Xavier Lemon DO LAB BLOOD ORDERABLES Final Result [facility] [id number] [facility] Department [place] [address] * Screening Mammogram Bilateral W [...] imaging studies performed on 01/26/2017, and at [facility] on 03/13/2017. There are scattered areas [...] imaging studies performed on 01/26/2017, and at [facility] on 03/13/2017. There are scattered areas [...] % TI QUINONES Comment:Testing performed by : [facility], [address] [place] [address], [place]., [address] Estimated Average Glucose 232 mg/dL TI QUINONES Comment: The ADA recommends reporting an estimated Average Glucose (eAG) with all Hemoglobin A1c results using the equation derived from a study of 507 normal and diabetic adults. Minority populations were underrepresented and children were not included. (Diabetes Care 31:3213-5076, 2008). The eAG is not equivalent to a fasting glucose. Testing performed by: [facility], [address] [place] [address], [place]., [address] Blood specimen (specimen) 05/11/2018 2:42 PM CDT 05/11/2018 5:53 PM CDT Narrative [facility] - 05/11/2018 6:09 PM CDT Rakel Martinez NP LAB BLOOD ORDERABL ES Final Result [facility] [id number] [facility]. Department [place] [address] from Last 3 Months or Most Recently Relevant to Health Maintenance Insurance [address] [address] CHOICE PLUS Advance Directives For more information, please contact: [phone] * Full Code (Latest Code Status on File) Date Activated Date Inactivated Comments 05/30/2018 7:00 PM 06/01/2018 5:28 PM Care Teams Cash Application Representative Relationship Specialty Start Date End Date Elsy Cuadra PA PCP - General Physician Trolley Wire Installer 05/10/24
--- OUTSIDE RECORDS SUMMARY | 2025-03-27 09:39 | XMS_ITS | Continuity of Care Document ---
Author Organization [facility] Address [address] [place] [address] Care Team Providers Care Real Estate Recruiter Name Role Phone DM LOJA Hvac Commercial Salesperson AARON ISAAC Psychiatrist GONSALO DUPONT Director Of Veterans Affairs JALYN WILKINS Primary Care Provider Assessment No assessment recorded. Plan of Treatment Reminders Order Date Submit Date Provider Last Modified By Organization Details Last Modified Time Details Appointments None recorded. Lab HbA1c (hemoglobin A1c), blood 2024 025 In-Office Order, Internal Use Only DO Not Attach Compendium DO Not Attach Compendium, Do Not Delete/merge, [id number] 15:01:53 Referral cardiologis t referral 2024 025 [email or web address] Not available 15:32:27 Procedures None recorded. Surgeries None recorded. Imaging None recorded. Medication Orders amlodipine 10 mg tablet 2024 025 [facility] [facility], [place], [address], 5 15:07:54 lisinopril 20 mg-hydrochl orothiazide 25 mg tablet 2024 025 [facility], [address] [facility], [place], [address], 5 15:32:58 OneTouch Verio test strips 2024 025 [facility], [address] [place], [address], 5 15:02:04 atorvastati n 40 mg tablet 2024 025 [facility], [address] [place], [address], 5 15:07:57 Semglee (insulin glargine-yf gn) Pen 100 unit/mL (3 mL) subcutaneou s 2024 025 [facility], [address] [place], [address], 5 15:07:52 gabapentin 300 mg capsule 2024 025 [facility], [address] [place], [address], 5 15:02:05 Patient TargetsNo targets recorded. Patient Instructions Encounter Date Encounter Id Patient Instructions Last Modified By Organization Details Last Modified Time 03/26/2025 [id number] rhythm strip, EKG* ATHENAFAX Not available 03/26/2025 15:31:04 Reason for Referral Studio Artist Referral for Ir regular heart beat Referring Physician: Jalyn Wilkins, Tow Mate, Encounter Date: 03/26/2025 Results Created Date Observation Date Name Description Value Unit Range Abnormal Flag Note LastModifiedBy Organization Detail LastModifiedTime 03/26/20 25 03/26/2025 HbA1c (hemo globi n A1c), blood HbA1C 7.2 % Not Available In-Office Order Internal Use Only DO Not Attach Compendium DO Not Attach Compendium, Do Not Delete/merge, [id number] 03/26/2025 14:55:52 Result Notes None recorded. Problems Name Problem SNOMED Code Status Onset Date Resolution Date Notes Provider Name and Address Organization Details Recorded Time Multiple boils Active Not Available [facility] 3 17:50:00 Nausea 203712283 Active Not Available [facility] 3 17:50:01 Serous otitis media 52592967 Completed 11/09/2020 YEMI LUJAN Attn: Accounting ,[address] [facility], [place], [place], [address] [place] [address] , [place] [facility] 17:05:51 Diabetes mellitus 00725750 Active Not Available [facility] 3 17:50:01 Migraine 62674619 Completed 11/09/2020 YEMI LUJAN Attn: Accounting ,[address] [facility], [place], [place], [address] [place] [address] , [place] [facility] 17:06:52 Hyperten sive disorder 44948544 Active Not Available [facility] 3 17:50:00 Osteoart hritis 523658541 Active Not Available [facility] 3 17:50:01 Irritabl e bowel syndrome 22607475 Completed 05/30/2019 YEMI LUJAN Attn: Accounting ,[address] [facility], [place], [place], [address] [place] [address] , [place] [facility] 9 14:41:28 Morbid obesity 563303131 Completed 11/09/2020 YEMI LUJAN Attn: Accounting ,[address] [facility], [place], [place], [address] [place] [address] , [place] [facility] 17:07:04 Uterine fibroid polyp 640628980 Completed 11/09/2020 s/p hysterec rose YEMI LUJAN Attn: Accounting ,[address] [facility], [place], [place], [address] [place] [address] , [place] [facility] 17:06:09 Anemia 216141668 Active Not Available [facility] 17:50:00 Urgent desire to urinate 63966675 Completed 05/30/2019 YEMI LUJAN Attn: Accounting ,[address] [place], [place], [address] [place] [address] , [place] [facility] 9 14:41:37 Iron deficien cy anemia 96596243 Active Not Available [facility] 3 17:50:01 Pain of hip region 67950569 Completed 05/30/2019 YEMI LUJAN Attn: Accounting ,[address] [facility], [place], [address] , [place] [facility] 9 14:42:14 Low back pain 440618100 Active Not Available [facility] 3 17:50:00 Lesion of liver 553227209 Active Not Available [facility] 3 17:50:00 Menorrha paige 028441660 Completed 05/30/2019 YEMI LUJAN Attn: Accounting ,[address] [facility], [place], [address] , [place] [facility] 9 14:41:03 Dyspnea on exertion 60304164 Completed 11/09/2020 YEMI LUJAN Attn: Accounting ,[address] [facility], [place], [address] , [place] [facility] 1 17:07:27 Hyperlip idemia 99696077 Active Not Available [facility] 3 17:50:01 Allergic rhinitis 77097566 Active Not Available [facility] 3 17:50:01 Candidia sis of skin 32424819 Completed 11/09/2020 YEMI LUJAN Attn: Accounting ,[address] [facility], [place], [address] , [place] [facility] 1 17:06:36 Foot pain 24855279 Completed 11/09/2020 YEMI LUJAN Attn: Accounting ,[address] [facility], [place], [address] , [place] [facility] 1 17:06:41 Calcanea l spur 73678350 Active Not Available [facility] 3 17:50:01 Upper respirat ory infectio n 35160312 Completed 05/30/2019 YEMI LUJAN Attn: Accounting ,[address] [facility], [place], [address] , [place] [facility] 9 14:49:52 Hyperuri cemia 61532966 Active Not Available [facility] 3 17:50:00 Gastroes ophageal reflux disease 494243815 Active Not Available [facility] 3 17:50:00 Spasm of back muscles 012076703 Active Not Available [facility] 3 17:50:00 Cough 68954799 Completed 05/30/2019 YEMI LUJAN Attn: Accounting ,[address] [facility], [place], [address] , [place] [facility] 9 14:42:20 Obesity 293227336 Active 2016 Not Available [facility] 3 17:50:01 Active or passive immuniza tion Completed 201605/30/2019 YEMI LUJAN Attn: Accounting ,[address] [place], [address] , [place] [facility] 9 14:41:18 Pre-surg juanita testing Completed 201605/30/2019 YEMI LUJAN Attn: Accounting ,[address] [facility], [place], [address] , [place] [facility] 9 14:41:21 Neuropat hy due to diabetes mellitus 077824362 Active 2016 Not Available [facility] 3 17:50:00 Plantar fasciiti s 289804521 Completed 201605/30/2019 YEMI LUJAN Attn: Accounting ,[address] [place], [address] , [place] [facility] 9 14:41:14 Hyperten sive urgency 435546495 Active 2022 Not Available [facility] 3 17:50:01 Uncontro lled type 2 diabetes mellitus 786486555 Active 2022 Not Available [facility] 3 17:50:01 Intermit tent claudica tion 36555710 Active 2022 Not Available [facility] 3 17:50:01 Diarrhea 56260346 Active 07/21/ 2023 Not Available [facility] 3 17:50:01 Cervical radiculo bebo 39060035 Active 2022 YEMI LUJAN Attn: Accounting ,[address] [place], [address] , [facility] 3 09:30:28 Chronic diarrhea 904866016 Active 2023 YEMI LUJAN Attn: Accounting ,[address] [place], [address] , [facility] 4 15:10:43 [facility] l hyperten katharina 04041849 Active 2024 YEMI LUJAN Attn: Accounting ,[address] [place], [address] , [facility] 5 09:05:08 Anxiety 10772777 Active 2024 YEMI LUJAN Attn: Accounting ,[address] [place], [address] , [facility] 5 09:05:11 Problem Notes None recorded. Procedures Surgical History Date Name Laterality Status Provider Name and Address Organization Details Recorded Time 09/11/19 21 Date of Last Mammogram completed Carmen Boo [facility] 01/14/2021 16:26:04 05/30/20 19 Gastric Bypass completed Carmen Boo [facility] 01/14/2021 16:26:39 09/11/19 19 Date of Last Pap Smear completed Carmen Boo [facility] 01/14/2021 16:26:21 03/11/20 15 Total hysterectomy completed YEMI EATON Attn: Accounting, [place], [address], [facility] 06/20/2019 09:55:32 09/11/19 06 Hernia Repair completed Abena Wagner [facility] 08/12/2014 10:24:52 03/30/19 81 Caesarean Section completed Abena Wagner [facility] 08/12/2014 10:24:52 Imaging Results None recorded. Procedure Notes None recorded. Medical Equipment None Reported. Allergies Allergen ID Allergen Name Allergen Category Reaction Reaction Severity Criticality Documentation Date Start Date Code Code System Note Provider Name and Address Organization Details Recorded Time 4081 hydrocodo ne Not available Not available Not available Not available 08/11/2014 5489 RxNorm Anamaria Dawn LPN null, [place] - [facility] 4 15:46:26 4082 acetamino phen medicatio n Not available Not available Not available 08/11/2014 161 RxNorm Anamaria Dawn LPN null, [place] - [facility] 4 15:46:26 31528 acetamino phen / hydrocodo ne medicatio n Not available Not available Not available 05/19/2016 90389 2 RxNorm Lizz Mcgovern MA null, [facility] 6 17:01:48 Medications Name Sig Start Date Stop Date Status Note LastModified by Organization Details LastModified Time Prescript ion - Renewal active Not Available Not Available Not Available Prescript ion - Prior Authoriza tion Request [...] BY MOUTH ONCE DAILY IN THE EVENING 2024 active Not Available Not Available Not Avai lable BD Alcohol Swabs Apply 2 pads every [...] TAKE 1 TABLET BY MOUTH ONCE DAILY 03/26 completed Not Available Not Available Not Available ibuprofen 800 mg tablet 06/03 completed [...] 800 mg-trimet hoprim 160 mg tablet TAKE 1 TABLET BY MOUTH EVERY 12 HOURS 03/26 completed Not Available Not Available Not Available [...] 1 TABLET BY MOUTH THREE TIMES DAILY active Not Available Not Available No t Available amlodipin e 10 mg tablet Take 1 tablet by mouth once daily 2024 active Not Available Not Available Not Avai lable benzonata te 100 mg capsule TAKE ONE [...] TWICE DAILY TO THE AFECECTE D AREA(S) 03/26 completed Not Available Not Available Not Available nystatin 100,000 unit/gram topical cream 08/15 [...] Not Available lidocaine 5 % topical patch USE 1 PATCH EXTERNAL LY ONCE DAILY TO MOST PAINFUL AREA. LEAVE ON FOR 12 HOURS/RE MOVE FOR 12 HOURS active Not Available Not Available No t Available promethaz ine 25 mg tablet 05/19 [...] Not Available Not Available No t Available gabapenti n 300 mg capsule Take 1 capsule every 8 hours by oral route for 90 days. 2024 active Not Available Not Available Not Avai lable omeprazol e 20 mg capsule,d elayed release TAKE 1 CAPSULE BY MOUTH ONCE DAILY active Not Available Not Available No t Available lisinopri l 20 mg-hydroc hlorothia zide 25 mg tablet Take 1 tablet every day by oral route for 90 days. 2024 active Not Available Not Available Not Avai lable ergocalci ferol (vitamin D2) 1,250 mcg (50,000 [...] THREE TIMES DAILY NEEDED FOR MUSCLE SPASM 03/26 completed prn Not Available Not Available Not Available cholestyr amine (with sugar) 4 gram oral powder active Not Available Not Available Not Available cholestyr amine (with sugar) 4 gram powder for susp in a packet DISSOLVE & TAKE 1 PACKET BY MOUTH TWICE DAILY AVOID OTHER MEDS WITHIN 1 HOUR BEFORE OR 4-6 HOURS AFTER DOSE active Not Available Not Available No t [...] Available Not Available OneTouch Verio test strips USE 2 STRIPS TO CHECK GLUCOSE ONCE DAILY 2024 active Not Available Not Available Not [...] completed Not Available Not Available Not Available Toujeo SoloStar U-300 Insulin 300 unit/mL (1.5 mL) [...] Available TRUEplus Pen Needle 31 gauge x 01/24 USE 1 THREE TIMES DAILY active Not Available Not Available No t Available Synjardy XR 12.5 mg-1,000 mg tablet, extended release 05/30 completed Not Available Not Available Not Available Ozempic 0.25 mg or 0.5 mg (2 mg/1.5 mL) subcutane ous pen injector Inject 0.25 mg every week by subcutan eous route for 56 days. 09/06 completed Not Available Not Available Not Available Lidocaine Pain Relief 4 % topical patch active Not Available Not Available Not Available FreeStyle Laura 14 Day Sensor kit active Not Available Not Available Not Available OneTouch Delica Plus Lancet 33 gauge active Not Available Not Available Not Available OneTouch Delica Plus Lancet 30 gauge USE 1 EACH TO CHECK GLUCOSE TWICE DAILY active Not Available Not Available No t Available FreeStyle Laura 2 Parks active Not Available Not Available Not Available Ozempic 1 mg/dose (4 mg/3 mL) subcutane ous pen injector Inject 1 mg every week by subcutan eous route. 09/06 completed Not Available Not Available Not Available Semglee (insulin glargine- yfgn) Pen 100 unit/mL (3 mL) subcutane ous INJECT 20 UNITS SUBCUTAN EOUSLY nightly 2024 active Not Available Not Available Not Avai lable Semglee (insulin glargine- yfgn) 100 unit/mL subcutane ous solution active Not Available Not Available Not Available Ozempic 2 mg/dose (8 mg/3 mL) subcutane [...] in Arterial blood by Pulse oximetry Systolic And Diastolic Provider Name and Address Organization Details Last Updated DateTime 5 162.56 cm 32.3 kg/m2 46574.3 7 g 82 /min 98 % 98 % 171/82 mm[Hg] Carmen Boo [facility] 5 14:53:00 Social History Question Answer Notes LastModified by Organizat ion Details LastModified Time Tobacco Smoking Status Never Smoker [facility] 08[facility]12[facility]2014 10:25:54 Do You Have An Advance Directive? No Information not available 06/20/2019 Is Blood Transfusion Acceptable In An Emergency? Yes Information not available 06/20/2019 What Is Your Level Of Caffeine Consumption? Occasional Information not available 08/12/2014 How Much Tobacco Do You Chew? None Information not available 06/20/2019 What Type Of Diet Are You Following? DIABETIC Information not available 03/09/2015 Which Illicit Or Recreational Drugs Have You Used? No Information not available 03/09/2015 Education Post Graduate Information not available 03/09/2015 Swimming/diving No Informati on not available 06/20/2019 [...] Smoke? No Information no t available 03/09/2015 How Much Tobacco Do You Smoke? No [...] Functional Status Question Answer Note LastModified by Organizat ion Details LastModified Time What is your level of alcohol consumption? Occasional Information not available 08/12/2014 Do you or have you ever used smokeless tobacco? Never used smokeless tobacco Information not available 06/20/2019 Are you currently employed? No Information not available 03/09/2015 Are you able to care for yourself? Yes Information not available 08/12/2014 What is your occupation? none Information not available 06/20/2019 Do you or have you ever used e-cigarettes or vape? Never used electronic cigarettes Information not available 06/20/2019 What is your exercise level? None Information [...] History Condition Response Coronary Artery Disease N High Blood Pressure Y Atrial Fibrillation N Kidney or Bladder Problems N Thyroid Problems N GI Problems N Depression Y COPD N Blood Clots N Skin Problems Y Anemia Y Heart Attack (ME) N Anxiety Disorder Y Diabetes Y Muscle, Joint, or Bone Problems N Seizures/Epilepsy N Acid Reflux (GERD) N Cancer N Stroke N Asthma N Allergies Y High Cholesterol N Hepatitis N Liver Disease N Headaches Y Heart Failure N Osteoporosis N Gynecological History Statement/Question Response Date of [...] mcg/0.3 mL dose 1 completed Not Available [facility] 04/10/2023 17:50:01 COVID-19, mRNA, LNP-S, PF, 30 mcg/0.3 mL dose 1 completed Not Available [facility] 04/10/2023 17:50:01 COVID-19, mRNA, LNP-S, PF, 30 mcg/0.3 mL dose 1 completed TARA [place], [place] - [facility] 05/06/2024 17:29:32 Influenza, split virus, quadrivalent, preservative 6 completed Not Available [facility] 09/28/2019 02:32:36 Influenza, split virus, quadrivalent, preservative 5 completed TARA [place], [place] [facility] 05/06/2024 17:29:31 Influenza, recombinant, quadrivalent, PF 1 completed Carmen Boo [place], [place] [facility] 05/06/2024 17:29:31 Pneumococcal conjugate PCV20, polysaccharide [id number] conjugate, adjuvant, PF 2 completed Carmen Boo [...] 05/06/2024 17:29:32 Tdap 7 completed Not Available [facility] 09/28/2019 02:33:29 pneumococcal polysaccharide PPV23 7 completed Not Available [facility] 09/28/2019 02:33:29 Influenza, split virus, quadrivalent, PF 3 completed Not Available [facility] 03/26/2025 14:48:34 Tdap 3 completed Not Available [facility] 03/26/2025 14:48:34 COVID-19, mRNA, LNP-S, PF, 50 mcg/0.5 mL 3 completed Not Available [facility] 03/26/2025 14:48:34 zoster recombinant 4 completed Not Available [facility] 03/26/2025 14:48:34 HepB-CpG 4 completed Not Available [facility] 03/26/2025 14:48:34 zoster recombinant 4 completed Not Available [facility] 03/26/2025 14:48:34 Influenza, split virus, trivalent, PF 4 completed Not Available [facility] 03/26/2025 14:48:34 COVID-19, mRNA, LNP-S, PF, maegan-sucrose, 30 mcg/0.3 mL 4 completed Not Available [facility] 03/26/2025 14:48:34 MMR 5 completed Not Available [facility] 03/26/2025 14:48:34 HepB-CpG 5 completed Not Available [facility] 03/26/2025 14:48:34 Influenza, split virus, quadrivalent, PF 7 completed Not Available [facility] 09/28/2019 02:43:11 Influenza, split virus, quadrivalent, preservative 9 completed Not Available [facility] 09/28/2019 02:43:43 Pneumococcal conjugate PCV20, polysaccharide [id number] conjugate, adjuvant, PF 3 completed Tiffany Cohen, [facility], [place] [facility] 09/06/2023 12:59:04 Past Encounters Encounter ID Performer Location Encounter Start Date Encounter Closed Date Diagnosis/Indication Diagnosis SNOMED-CT Code Diagnosis ICD10 Code Diagnosis Note [id number] Richard Keller MD [facility] [address] [place] [address] 03/26/2025 14:47:36 03/26/2025 15:32:27 Diabetes mellitus 67708057 E11.9 Radha has had better compliance with [...] monia vaccine: prevnar 20 08/2023 Essential hypertension 48467491 I10 Not taking medication as prescribed . Blood pressure is elevated today. 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 She states she does have a very nice cuff and will let us know if her blood pressure continues to be elevated.a dvised ER if cp, sob, palpitatio ns, wrost NIELSEN Neuropathy due to diabetes mellitus 712321424 E11.40 c/w gabapentin 300mg BID She had multiple skipped beats. Irregular heart beat 361 350621 I49.9 Obtain EKG and sent to Cardiology . Irregular heartbeat auscultate d during exam. Health Concerns Section Related Observation LastModified by Organization Detai ls LastModified Time None Recorded Concern Status LastModified by Organization Details LastModified Time None Recorded Payers Encounter Date Sequence Insurance Name Policy Number Policy Reyna Covered Member ID Reyna Member ID Guarantor Name 03/26/2025 2 [place] [employer] [place] A[employer] Radha Miller [id number] Radha Miller 03/26/2025 1 [facility] [id number] Radha Miller [id number] Radha Miller Notes Date Note Type Note Provider Name and Address Organization Details Recorded Time 03/26/2025 text/html Radha is here fo r for diabetes labs and requests notes that he has been doing very well with all of her DM medication and has had good compliance. here for labs. needs refills of gabapentin for neuropathy. Radha is not taking lisinopril-hcz for bp. Not checking blood pressure at home. Denies chest pain or shortness of breath. She also denies palpitations. She had a flare-up of IBS on March 20 and was unable to go to work. She needs a work note today. YEMI LUJAN Attn: Accounting,[address] [facility], [place], [address], [facility] 03/26/2025 15:34:59 OBGyn Episode No OBEpisode recorded.
--- OUTSIDE RECORDS SUMMARY | 2025-03-27 09:39 | XMS_ITS | Clinical Summary ---
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 Gender Identity Not on file Sexual [...] CDT Height 162.6 cm (5' 4) 05/10/2024 3:01 PM CDT Body Mass Index [...] 2024 06/11/2023, 07/19/2022, 08/13/2021, Additional history exists Breast Cancer Screening-Mammogram 10/23/2024 10/23/2023, 08/30/2023, 05/25/2018, Additional history exists eGFR 05/10/2025 05/10/2024, 05/13, 05/11/2018 Influenza Vaccine (Season Ended) 2025 05/28/2023, 07/19/2022, 08/13/2021, Additional history exists DTaP/Tdap/Td Vaccine (3 - Td or Tdap) 06/11/2033 06/11/2023, 01/10/2017 Pneumococcal vaccine <65 Completed 023, 07/19/2022, 06/17/2020, Additional history exists Hepatitis B Screening Completed 03/05/2024 Procedures Procedure Name Priority Date/Time Associated Diagnosis Comments EGFR STAT 05/10/2024 3:06 PM CDT SCREENING MAMMOGRAM BILATERAL W ALNE Schedule Routine, Read Routine (OP Routine) 05/25/2018 [...] was last reviewed 2021. Testing performed by: [facility], [address] [place] [address]., [id number] Blood 05/10/2024 3:06 PM CDT 05/10/2024 3:16 PM CDT Xaveir Lemon DO LAB BLOOD ORDERABLES Final Result [facility] [address] [facility] Department [place] [address] * Screening Mammogram Bilateral W [...] performed on 01/26/2017, and at [facility] on 03/13/2017. There are scattered areas of [...] performed on 01/26/2017, and at [facility] on 03/13/2017. There are scattered areas of [...] % TI QUINONES Comment:Testing performed by : [facility], [address] [place] [address], [place]., [address] Estimated Average Glucose 232 mg/dL TI QUINONES Comment: The ADA recommends reporting an estimated Average Glucose (eAG) with all Hemoglobin A1c results using the equation derived from a study of 507 normal and diabetic adults. Minority populations were underrepresented and children were not included. (Diabetes Care 31:3705-1325, 2008). The eAG is not equivalent to a fasting glucose. Testing performed by: [facility], [address] [place] [address], [place]., [address] Blood specimen (specimen) 05/11/2018 2:42 PM CDT 05/11/2018 5:53 PM CDT Narrative TI HALLCH - 05/11/2018 6:09 PM CDT us Rakel Martinez NP LAB BLOOD ORDERABL ES Final Result [facility] [address] [facility]. Department [place] [address] from Last 3 Months or Most Recently Relevant to Health Maintenance Insurance ANTH PREFERRED CHOICE PLUS Advance Directives For more information, please contact: [phone] * Full Code (Latest Code Status on File) Date Activated Date Inactivated Comments 05/30/2018 7:00 PM 06/01/2018 5:28 PM Care Teams Environmental Services Floor Tech Relationship Specialty Start Date End Date Elsy Cuadra PA PCP - General Physician Cleaner Greaser 05/10/24
--- OUTSIDE RECORDS SUMMARY | 2025-03-27 09:39 | XMS_ITS | Clinical Summary ---
Author Organization [facility] Address [address] [place] [address] Care Team Providers Care Crankshaft Balancer Name Role Phone Rianna Rodrigez PA-C Primary Care Provider [phone] Source Comments [facility],non-owned Affiliates and Associated Physician Practices is amultiple site organization consisting of ambulatory clinics and hospital sitesin [place], [place], [place] and [place]. This disclosure is being madepursuant to the Care Everywhere program and may not contain all information available regarding this patient. 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 Gender Identity Not on file Sexual [...] 9:17 AM CDT Height 162.6 cm (5' 4) 03/22/2018 9:17 AM CDT Body Mass Index 42.57 03/22/2018 9:17 AM CDT Plan of Treatment Health Maintenance Due Date Last Done Comments COLOGUARD (AGES 45-75) - COLON CA SCREENING 1965 COLON MONITORING 1965 COLONOSCOPY - COLON CA SCREENING 1965 CT COLONOGRAPHY - COLON CA SCREENING 1965 Colorectal Cancer Screening 1965 FIT - COLON CA SCREENING 1965 FLEX SIG - COLON CA SCREENING 1965 HIV SCREENING 1980 HEPATITIS C SCREENING 07/31/1983 DTAP/TDAP/TD VACCINES (1 - Tdap) 1984 HEPATITIS B VACCINE (1 of 3 - 19+ 3-dose series) 1984 PNEUMOCOCCAL VACCINE 50+ (1 of 2 - PCV) 1984 PAP SMEAR 1986 ZOSTER VACCINE (1 of 2) 2015 DIABETES [...] SCREENING 09/11/2024 11/11/2017, 08/19/2017, 07/07/2016 INFLUENZA VACCINE (#1) 2025 , 08/13/2021, 06/17/2020, Additional history exists HIB VACCINE [...] URINE RANDOM PANEL Routine 11/11/2017 10:34 AM EUCLID OPERATOR COMPREHENSIVE METABOLIC PANEL Routine 11/11/2017 10:34 AM EUCLID OPERATOR from Last 3 Months or Most Recently Relevant to Health Maintenance Results * HEMOGLOBIN A1C - POINT OF CARE (AMB) [facility] (03/22/2018) Hemoglobin A1c POCT 10.7 BLOOD SPECIMEN / Unknown 03/22/2018 [facility] - POINT OF CARE O RDERABLES Final Result * MICROALB/CREAT RATIO URINE RANDOM PANEL (11/11/2017 10:34 AM EUCLID OPERATOR) Creatinine Urine 177 20 - 320 [...] within a diagnostic category. Test Performed at: [facility] [address] [place] [address] SARA CHANEL DO,MPH Urine specimen (specimen) URINE / Unknown 11/11/2017 10:34 AM EUCLID OPERATOR 11/11/2017 10:35 AM EUCLID OPERATOR Ana Lilia [facility] - URINE CHEMISTRY ORDERABLES Final Result [facility] ([facility]) [address] * (ABNORMAL) COMPREHENSIVE METABOLIC PANEL (11/11/2017 10:34 AM EUCLID OPERATOR) Glucose 61(L) 65 - 99 mg/dL [facility] ([facility]) Comment: Fasting reference interval BUN 9 7 - 25 mg/dL [facility] ([facility]) Creatinine 0.58 0.50 - 1.05 mg/dL [facility] ([facility]) Comment: For patients >49 years of age, the reference limit for Creatinine is approximately 13% higher for people identified as -Citizen Of [place]. eGFR non- 106 > OR = 60 [...] U/L [facility] ([facility]) Comment: Test Performed at: [facility] [address] [address] SARA CHANEL DO,MPH Blood specimen (specimen) BLOOD SPECIMEN / Unknown 11/11/2017 10:34 AM EUCLID OPERATOR 11/11/2017 10:35 AM EUCLID OPERATOR Ana Lilia Goldman [facility] - CHEMISTRY ORDER TITUS Final Result [facility] ([facility]) [id number] from Last 3 Months or Most Recently Relevant to Health Maintenance Insurance [facility] MEDICAID - [facility] [place] - [place] [facility] [place] [place] Member Subscriber Plan / Payer (Ef fective for All Dates) Name:Radha Mcguire Member ID:Not on file Relation to Subscriber:Self Name:Radha Mcguire Payer ID:Not on file Group ID:Not on file Type:Medicaid [place] Address: [place] [address] [facility] MEDICAID - [place] Member Subscriber Plan / Payer (Ef fective for All Dates) Name:Radha Mcguire Member ID:Not on file Relation to Subscriber:Self Name:Radha Mcguire Payer ID:Not on file Group ID:Not on file Type:Medicaid [place] Address: [place] [phone] * Guarantor: RADHA MCGUIRE Account Type Relation to Patient Date of Phone Billing Address Personal/Family [email or web address] [place] [address] [facility] MEDICAID - [place] Member Subscriber Plan / Payer (Ef fective for All Dates) Name:Radha Mcguire Member ID:Not on file Relation to Subscriber:Self Name:Radha Mcguire Payer ID:Not on file Group ID:Not on file Type:Medicaid [place] Address: [place] [phone] * Guarantor: SHAYLARADHA Account Type Relation to Patient Date of Phone Billing Address Personal/Family [address] [facility] [address] [place] [id number] [facility] MED[facility]ID - [place] Member Subscriber Plan / Payer (Ef fective for All Dates) Name:Radha Mcguire Member ID:Not on file Relation to Subscriber:Self Name:Radha Mcguire Heather Payer ID:Not on file Group ID:Not on file Type:Medicaid [place] Address: [place] [phone] * Guarantor: RADHA MCGUIRE Account Type Relation to Patient Date of Phone Billing Address Personal/Family [address] [facility] [facility] [address] [place] [id number] [facility] MEDICAID - [place] Member Subscriber Plan / Payer (Ef fective for All Dates) Name:Radha Mcguire Member ID:Not on file Relation to Subscriber:Self Name:ShaylaRadha Heather Payer ID:Not on file Group ID:Not on file Type:Medicaid [place] Address: [place] [phone] Care Teams Crankshaft Balancer Relationship Specialty Start Date End Date Rianna Rodrigez PA-C PCP - General 03/12/18
--- OUTSIDE RECORDS SUMMARY | 2025-03-27 09:39 | XMS_ITS | Continuity of Care Document ---
Author Organization [facility] Address [address] [place] [address] [place] [address] Phone Care Team Providers Care Palm Gatherer Name Role Phone Gil Buckley DO Unavailable Unavailable Advance Directives Directive Yes / No Effective Date File Name No Information Encounters Encounter Description Practice Location Reason(s) For Visit Diagnoses Date Provider Providers Copied on Encounter [facility], [address], [place], [place], [id number], [place] tel:[phone] [email or web address] No Information Ina Oneal. [address] [facility], [place], [address], [place]. tel:[phone] Family History Family Member Type Diagnosis Age At Onset No Information Payers Payer name Insurance type Covered constitution party ID Authoriza tion(s) No Information Social History [...]
--- OUTSIDE RECORDS SUMMARY | 2025-03-27 09:40 | XMS_ITS | Data Portability ---
Author Organization VANE Blanka MILLER Address [address] [facility] [place] [address] Care Team Providers Care Stemmer Machine Name Role Phone DM LOJA Tool Straightener AARON ISAAC Psychiatrist GONSALO DUPONT Electroplater Helper ELSY WILKINS Primary Care Provider Assessment Encounter Date Assessment Date Assessment LastModified by Organization Details LastModified Time 05/07/2024 05/07/2024 had eye exam in January. will bring rsults Not available 05/08/2024 10:03:17 Plan of Treatment Reminders Order Date Submit Date Provider Last Modified By Organization Details Last Modified Time Details Appointments None recorded. Lab HbA1c (hemoglobin A1c), blood 2024 025 In-Office Order, Internal Use Only DO Not Attach Compendium DO Not Attach Compendium, Do Not Delete/merge, [id number] 5 15:01:53 CMP, serum or plasma 2024 025 [facility], [address] [facility], [address], [place], [address], 5 10:19:03 lipid panel, serum 2024 025 [facility], [address] [facility] [address], [address], [place], [address], 5 10:19:01 albumin/cre atinine, mass ratio, urine 2024 025 [facility], Rizwana [address], [address], [place], [address], 5 10:19:00 HbA1c (hemoglobin A1c), blood 2024 025 YAEL [facility], Rizwana [address], [address], [place], [address], 5 10:19:04 HbA1c (hemoglobin A1c), blood 2024 025 In-Office Order, Internal Use Only DO Not Attach Compendium DO Not Attach Compendium, Do Not Delete/merge, [id number] 5 16:12:14 glucose, fingerstick , blood 2023 024 In-Office Order, Internal Use Only DO Not Attach Compendium DO Not Attach Compendium, Do Not Delete/merge, [id number] 4 10:23:47 CMP, serum or plasma 2023 024 YAEL LOVE, Rizw[address], [address], [place], [address], 4 23:51:47 lipid panel, serum 2023 024 YAEL [facility], Rizwana [address], [address], [place], [address], 4 09:15:32 albumin/cre atinine, mass ratio, urine 2023 024 YAEL LOVE, Rizw[address], [address], [place], [address], 4 09:15:32 HbA1c (hemoglobin A1c), blood 2023 024 In-Office Order, Internal Use Only DO Not Attach Compendium DO Not Attach Compendium, Do Not Delete/merge, [id number] 4 15:19:02 Referral cardiologis t referral 2024 025 [email or web address] Not available 5 15:32:27 gastroenter ologist referral 2023 024 lashay Osei MD, [address] [facility] [address], [place], [address], 4 14:41:43 Procedures None recorded. Surgeries None recorded. Imaging None recorded. Medication Orders amlodipine 10 mg tablet 2024 025 [facility], [address] [place] [address], [address], 5 15:07:54 lisinopril 20 mg-hydrochl orothiazide 25 mg tablet 2024 025 [facility], [address] [place] [address], [address], 5 15:32:58 OneTouch Verio test strips 2024 025 [facility], [facility], [place], [address], 5 15:02:04 atorvastati n 40 mg tablet 2024 025 [facility], [facility] [place], [address], 5 15:07:57 Semglee (insulin glargine-yf gn) Pen 100 unit/mL (3 mL) subcutaneou s 2024 025 [facility], [address] [place] [address], [address], 5 15:07:52 gabapentin 300 mg capsule 2024 025 [facility], [address] [place], [address], 5 15:02:05 OneTouch Verio test strips [address], [address] [place], [address], 5 09:07:05 gabapentin 300 mg capsule [address], [address] [place] [address], [address], 5 09:07:05 Vitamin D3 125 mcg (5,000 unit) tablet [address], [address] [place] [address], [address], 16:20:55 amlodipine 10 mg tablet [address], [address] [place] [address], [address], 16:21:45 lisinopril 20 mg-hydrochl orothiazide 12.5 mg tablet [address], [address] [place] [address], [address], 15:03:02 atorvastati n [address] [facility] [address], [address] [place] [address], [address], 5 16:20:46 Semglee (insulin glargine-yf gn) Pen 100 unit/mL (3 mL) subcutaneou s [address], [address] [place] [address], [address], 5 16:21:45 amlodipine 10 mg tablet [address] [facility] [address] [facility] [address], [address] [place] [address], [address], 4 15:18:59 lisinopril 20 mg-hydrochl orothiazide 25 mg tablet 2023 025 lashay [facility], [address] [place] [address], [address], 5 15:37:31 Ozempic 2 mg/dose (8 mg/3 mL) subcutaneou s pen injector 2023 025 [facility], [address] [place] [address], [address], 5 16:03:25 Jardiance 25 mg tablet [address] [facility] [address], [address] [place] [address], [address], 4 09:12:16 atorvastati n 40 mg tablet 2023 024 [facility], [address] [place] [address], [address], 4 15:26:32 Patient TargetsNo targets recorded. Patient Instructions Encounter Date Encounter Id Patient Instructions Last Modified By Organization Details Last Modified Time 05/07/2024 [id number] A healthy lifestyle: care instructions Not available 05/07/2024 15:18:59 03/26/2025 [id number] rhythm strip, EKG* ATHENAFAX Not available 03/26/2025 15:31:04 Reason for Referral Bulk Receiver Referral for Chronic diarrhea Referring Physician: Elsy Wilkins Rand Butter, Encounter Date: 05/07/2024 Reproductive Surgeon Referral for Ir regular heart beat Referring Physician: Elsy Wilkins Rand Butter, Encounter Date: 03/26/2025 Results Created Date Observation Date Name Description Value Unit Range Abnormal Flag Note LastModifiedBy Organization Detail LastModifiedTime 05/07/20 24 05/08/2024 ALBUM IN/CR EATIN INE RATIO ,URIN E creatinine, urine 179.1 mg/dL notest ab. Not Available [facility] ([facility]) [address] [place], [address], 05/08/2024 09:15:32 05/07/20 24 05/08/2024 ALBUM IN/CR EATIN INE RATIO ,URIN E albumin, urine 8.9 ug/mL notest ab. Not Available [facility] ([facility]) [address] [place], [address], 05/08/2024 09:15:32 05/07/20 24 05/08/2024 ALBUM IN/CR EATIN INE RATIO ,URIN E alb/creat ratio 5 mg/g_ creat 0-29 Linda l: 0 - 29 Moder ately incre ased: 30 - 300 Sever akash incre ased: >300 Not Available [facility] ([facility]) [address] [place], [address], 05/08/2024 09:15:32 05/07/20 24 05/08/2024 LIPID PANEL cholesterol, total 120 mg/dL 100-19 9 Not Available [facility] ([facility]) [address] [place], [address], 05/08/2024 09:15:32 05/07/20 24 05/08/2024 LIPID PANEL triglyceride s 57 mg/dL 0-149 Not Available [facility] ([facility]) [address] [place], [address], 05/08/2024 09:15:32 05/07/20 24 05/08/2024 LIPID PANEL HDL cholesterol 62 mg/dL >39 Not Available [facility]) [address] [place], [address], 05/08/2024 09:15:32 05/07/20 24 05/08/2024 LIPID PANEL VLDL cholesterol ingrid 13 mg/dL 5-40 Not Available [facility] ([facility]) [address] [place], [address], 05/08/2024 09:15:32 05/07/20 24 05/08/2024 LIPID PANEL LDL chol calc ([facility]) 45 mg/dL 0-99 Not Available [facility]) [address] [place], [address], 05/08/2024 09:15:32 05/07/20 24 05/08/2024 COMP. METAB OLIC PANEL (14) glucose 166 mg/dL 70-99 above high normal Not Available [facility] ([facility]) [address] [place], [address], 05/08/2024 09:15:33 05/07/20 24 05/08/2024 COMP. METAB OLIC PANEL (14) BUN 12 mg/dL 6-24 Not Available [facility] ([facility]) [address] [place], [address], 05/08/2024 09:15:33 05/07/20 24 05/08/2024 COMP. METAB OLIC PANEL (14) creatinine 0.61 mg/dL 0.57-1 .00 Not Available [facility] ([facility]) [address] [place], [address], 05/08/2024 09:15:33 05/07/20 24 05/08/2024 COMP. METAB OLIC PANEL (14) eGFR 104 mL/mi n/1.7 3 >59 Not Available [facility] ([facility]) [address] [place], [address], 05/08/2024 09:15:33 05/07/20 24 05/08/2024 COMP. METAB OLIC PANEL (14) BUN/creatini ne ratio 20 9-23 Not Available [facility] ([facility]) [address] [facility] [place] [place], [address], 05/08/2024 09:15:33 05/07/20 24 05/08/2024 COMP. METAB OLIC PANEL (14) sodium 143 mmol/ L 134-14 4 Not Available [facility] ([facility]) [address] [facility] [place] [place], [address], 05/08/2024 09:15:33 05/07/20 24 05/08/2024 COMP. METAB OLIC PANEL (14) potassium 3.5 mmol/ L 3.5-5. 2 Not Available [facility] ([facility]) [address] [facility] [place] [place], [address], 05/08/2024 09:15:33 05/07/20 24 05/08/2024 COMP. METAB OLIC PANEL (14) chloride 109 mmol/ L 96-106 above high normal Not Available [facility] ([facility]) [address] [facility] [place] [place], [address], 05/08/2024 09:15:33 05/07/20 24 05/08/2024 COMP. METAB OLIC PANEL (14) carbon dioxide, total 21 mmol/ L 20-29 Not Available [facility] ([facility]) [address] [facility] [place] [place], [address], 05/08/2024 09:15:33 05/07/20 24 05/08/2024 COMP. METAB OLIC PANEL (14) calcium 8.3 mg/dL 8.7-10 .2 below low normal Not Available [facility] ([facility]) [address] [facility] [place] [place], [address], 05/08/2024 09:15:33 05/07/20 24 05/08/2024 COMP. METAB OLIC PANEL (14) protein, total 6.5 g/dL 6.0-8. 5 Not Available [facility] ([facility]) [address] [facility] [place] [place], [address], 05/08/2024 09:15:33 05/07/20 24 05/08/2024 COMP. METAB OLIC PANEL (14) albumin 3.7 g/dL 3.8-4. 9 below low normal Not Available [facility] ([facility]) [address] [facility] [place] [place], [address], 05/08/2024 09:15:33 05/07/20 24 05/08/2024 COMP. METAB OLIC PANEL (14) globulin, total 2.8 g/dL 1.5-4. 5 Not Available [facility] ([facility]) [address] [facility] [place] [place], [address], 05/08/2024 09:15:33 05/07/20 24 05/08/2024 COMP. METAB OLIC PANEL (14) bilirubin, total 0.2 mg/dL 0.0-1. 2 Not Available [facility] ([facility]) [address] [facility] [place] [place], [address], 05/08/2024 09:15:33 05/07/20 24 05/08/2024 COMP. METAB OLIC PANEL (14) alkaline phosphatase 127 IU/L 44-121 above high normal Not Available [facility] ([facility]) [address] [facility] [place] [place], [address], 05/08/2024 09:15:33 05/07/20 24 05/08/2024 COMP. METAB OLIC PANEL (14) AST (SGOT) 18 IU/L 0-40 Not Available [facility] ([facility]) [address] [facility] [place] [place], [address], 05/08/2024 09:15:33 05/07/20 24 05/08/2024 COMP. METAB OLIC PANEL (14) ALT (SGPT) 19 IU/L 0-32 Not Available [facility] ([facility]) [address] [facility] [place] [place], [address], 05/08/2024 09:15:33 05/07/20 24 05/07/2024 HbA1c (hemo globi n A1c), blood HbA1c 8.4% Not Available In-Office Order Internal Use Only DO Not Attach Compendium DO Not Attach Compendium, Do Not Delete/merge, [id number] 05/07/2024 15:11:57 05/15/2005/16/2024 PTH INTAC T+INRGID CIUM, IONIZ ED PTH, intact 65 pg/mL 15-65 Not Available [facility] ([facility]) [address] [place], [address], 05/17/2024 07:17:48 05/15/2005/17/2024 PTH INTAC T+INGRID CIUM, IONIZ ED calcium, ionized, serum 4.9 mg/dL 4.5-5. 6 Not Available [facility] ([facility]) [address] [place], [address], 05/17/2024 07:17:48 05/15/20 24 05/16/2024 COMP. METAB OLIC PANEL (14) glucose 154 mg/dL 70-99 above high normal Not Available [facility] ([facility]) [address] [place], [address], 05/17/2024 07:17:48 05/15/20 24 05/16/2024 COMP. METAB OLIC PANEL (14) BUN 12 mg/dL 6-24 Not Available [facility] ([facility]) [address] [place], [address], 05/17/2024 07:17:48 05/15/20 24 05/16/2024 COMP. METAB OLIC PANEL (14) creatinine 0.65 mg/dL 0.57-1 .00 Not Available [facility] ([facility]) [address] [place], [address], 05/17/2024 07:17:48 05/15/20 24 05/16/2024 COMP. METAB OLIC PANEL (14) eGFR 102 mL/mi n/1.7 3 >59 Not Available [facility] ([facility]) [address] [facility] [place] [place], [address], 05/17/2024 07:17:48 05/15/20 24 05/16/2024 COMP. METAB OLIC PANEL (14) BUN/creatini ne ratio 18 9-23 Not Available [facility] ([facility]) [address] [facility] [place] [place], [address], 05/17/2024 07:17:48 05/15/20 24 05/16/2024 COMP. METAB OLIC PANEL (14) sodium 144 mmol/ L 134-14 4 Not Available [facility] ([facility]) [address] [facility], [place], [address], 05/17/2024 07:17:48 05/15/20 24 05/16/2024 COMP. METAB OLIC PANEL (14) potassium 4.0 mmol/ L 3.5-5. 2 Not Available [facility] ([facility]) [address] [facility] [place] [place], [address], 05/17/2024 07:17:48 05/15/20 24 05/16/2024 COMP. METAB OLIC PANEL (14) chloride 107 mmol/ L 96-106 above high normal Not Available [facility] ([facility]) [address] [facility] [place] [place], [address], 05/17/2024 07:17:48 05/15/20 24 05/16/2024 COMP. METAB OLIC PANEL (14) carbon dioxide, total 22 mmol/ L 20-29 Not Available [facility] ([facility]) [address] [facility] [place] [place], [address], 05/17/2024 07:17:48 05/15/20 24 05/16/2024 COMP. METAB OLIC PANEL (14) calcium 8.6 mg/dL 8.7-10 .2 below low normal Not Available [facility] ([facility]) [address] [place], [address], 05/17/2024 07:17:48 05/15/20 24 05/16/2024 COMP. METAB OLIC PANEL (14) protein, total 6.3 g/dL 6.0-8. 5 Not Available [facility] ([facility]) [address] [place], [address], 05/17/2024 07:17:48 05/15/20 24 05/16/2024 COMP. METAB OLIC PANEL (14) albumin 3.9 g/dL 3.8-4. 9 Not Available [facility] ([facility]) [address] [place], [address], 05/17/2024 07:17:48 05/15/20 24 05/16/2024 COMP. METAB OLIC PANEL (14) globulin, total 2.4 g/dL 1.5-4. 5 Not Available [facility] ([facility]) [address] [facility] [place] [place], [address], 05/17/2024 07:17:48 05/15/20 24 05/16/2024 COMP. METAB OLIC PANEL (14) bilirubin, total 0.3 mg/dL 0.0-1. 2 Not Available [facility] ([facility]) [address] [facility] [place] [place], [address], 05/17/2024 07:17:48 05/15/20 24 05/16/2024 COMP. METAB OLIC PANEL (14) alkaline phosphatase 137 IU/L 44-121 above high normal Not Available [facility] ([facility]) [address] [facility] [place] [place], [address], 05/17/2024 07:17:48 05/15/20 24 05/16/2024 COMP. METAB OLIC PANEL (14) AST (SGOT) 30 IU/L 0-40 Not Available [facility] ([facility]) [address] [facility], [place], [address], 05/17/2024 07:17:48 05/15/20 24 05/16/2024 COMP. METAB OLIC PANEL (14) ALT (SGPT) 41 IU/L 0-32 above high normal Not Available [facility] ([facility]) [address] [facility], [place], [address], 05/17/2024 07:17:48 05/15/20 24 05/16/2024 MAGNE SIUM magnesium 1.9 mg/dL 1.6-2. 3 Not Available [facility] ([facility]) [address] [facility], [place], [address], 05/17/2024 07:17:49 05/15/20 24 05/16/2024 VITAM IN [...] Medic ine). 2010. Dieta ry refer ence intsandeep es for calci um and D. Rj shultz [place]: The [facility] Press . 2. Brett goldstein MF, Fannie palomares [place], Deirdre off-F errar i NIELSEN, et al. Evalu ation , treat ment, and preve ntion of vitam in D defic iency : an Endoc rine Socie ty clini ingrid pract ice guide line. JCEM. 2010; 96(7) :1911 -30. Not Available [facility] ([facility]) [address] [facility], [place], [address], 05/17/2024 07:17:49 06/13/20 24 06/13/2024 gluco se, finge rstic k, blood Blood Glucose: mg/dl 306 Not Available In-Off ice Order Internal Use Only DO Not Attach Compendium DO Not Attach Compendium, Do Not Delete/merge, [id number] 06/13/2024 10:23:33 10/07/19 25 10/07/2024 HbA1c (hemo globi n A1c), blood HbA1c 7.2 Not Available In-Office Order Internal Use Only DO Not Attach Compendium DO Not Attach Compendium, Do Not Delete/merge, [id number] 10/07/2024 15:48:02 11/15/19 25 11/15/2024 ALBUM IN/CR EATIN INE RATIO ,URIN E creatinine, urine 149.3 mg/dL notest ab. Not Available [facility] ([facility]) [address] [place], [address], 11/15/2024 10:19:00 11/15/19 25 11/15/2024 ALBUM IN/CR EATIN INE RATIO ,URIN E albumin, urine 13.4 ug/mL notest ab. Not Available [facility] ([facility]) [address] [place], [address], 11/15/2024 10:19:00 11/15/19 25 11/15/2024 ALBUM IN/CR EATIN INE RATIO ,URIN E alb/creat ratio 9 mg/g_ creat 0-29 Linda l: 0 - 29 Moder ately incre ased: 30 - 300 Sever akash incre ased: >300 Not Available [facility] ([facility]) [address] [place], [address], 11/15/2024 10:19:00 11/15/19 25 11/15/2024 LIPID PANEL cholesterol, total 132 mg/dL 100-19 9 Not Available [facility] ([facility]) [address] [place], [address], 11/15/2024 10:19:01 11/15/19 25 11/15/2024 LIPID PANEL triglyceride s 42 mg/dL 0-149 Not Available [facility] ([facility]) [address] [place], [address], 11/15/2024 10:19:01 11/15/19 25 11/15/2024 LIPID PANEL HDL cholesterol 63 mg/dL >39 Not Available [facility] ([facility]) [address] [place], [address], 11/15/2024 10:19:01 11/15/19 25 11/15/2024 LIPID PANEL VLDL cholesterol ingrid 10 mg/dL 5-40 Not Available [facility] ([facility]) [address] [place], [address], 11/15/2024 10:19:01 11/15/19 25 11/15/2024 LIPID PANEL LDL chol calc ([facility]) 59 mg/dL 0-99 Not Available [facility] ([facility]) [address] [place], [address], 11/15/2024 10:19:01 11/15/19 25 11/15/2024 COMP. METAB OLIC PANEL (14) glucose 186 mg/dL 70-99 above high normal Not Available [facility] ([facility]) [address] [place], [address], 11/15/2024 10:19:02 11/15/19 25 11/15/2024 COMP. METAB OLIC PANEL (14) BUN 9 mg/dL 6-24 Not Available [facility] ([facility]) [address] [place], [address], 11/15/2024 10:19:02 11/15/19 25 11/15/2024 COMP. METAB OLIC PANEL (14) creatinine 0.60 mg/dL 0.57-1 .00 Not Available [facility] ([facility]) [address] [place], [address], 11/15/2024 10:19:02 11/15/19 25 11/15/2024 COMP. METAB OLIC PANEL (14) eGFR 103 mL/mi n/1.7 3 >59 Not Available [facility] ([facility]) [address] [facility], [place], [address], 11/15/2024 10:19:02 11/15/19 25 11/15/2024 COMP. METAB OLIC PANEL (14) BUN/creatini ne ratio 15 9-23 Not Available [facility] ([facility]) [address] [facility], [place], [address], 11/15/2024 10:19:02 11/15/19 25 11/15/2024 COMP. METAB OLIC PANEL (14) sodium 146 mmol/ L 134-14 4 above high normal Not Available [facility] ([facility]) [address] [facility], [place], [address], 11/15/2024 10:19:02 11/15/19 25 11/15/2024 COMP. METAB OLIC PANEL (14) potassium 3.6 mmol/ L 3.5-5. 2 Not Available [facility] ([facility]) [address] [facility], [place], [address], 11/15/2024 10:19:02 11/15/19 25 11/15/2024 COMP. METAB OLIC PANEL (14) chloride 107 mmol/ L 96-106 above high normal Not Available [facility] ([facility]) [address] [facility], [place], [address], 11/15/2024 10:19:02 11/15/19 25 11/15/2024 COMP. METAB OLIC PANEL (14) carbon dioxide, total 26 mmol/ L 20-29 Not Available [facility] ([facility]) [address] [facility], [place], [address], 11/15/2024 10:19:02 11/15/19 25 11/15/2024 COMP. METAB OLIC PANEL (14) calcium 8.5 mg/dL 8.7-10 .2 below low normal Not Available [facility] ([facility]) [address] [facility], [place], [address], 11/15/2024 10:19:02 11/15/19 25 11/15/2024 COMP. METAB OLIC PANEL (14) protein, total 6.6 g/dL 6.0-8. 5 Not Available [facility] ([facility]) [address] [facility], [place], [address], 11/15/2024 10:19:02 11/15/19 25 11/15/2024 COMP. METAB OLIC PANEL (14) albumin 3.8 g/dL 3.8-4. 9 Not Available [facility] ([facility]) [address] [facility], [place], [address], 11/15/2024 10:19:02 11/15/19 25 11/15/2024 COMP. METAB OLIC PANEL (14) globulin, total 2.8 g/dL 1.5-4. 5 Not Available [facility] ([facility]) [address] [facility], [place], [address], 11/15/2024 10:19:02 11/15/19 25 11/15/2024 COMP. METAB OLIC PANEL (14) bilirubin, total 0.2 mg/dL 0.0-1. 2 Not Available [facility] ([facility]) [address] [facility], [place], [address], 11/15/2024 10:19:02 11/15/19 25 11/15/2024 COMP. METAB OLIC PANEL (14) alkaline phosphatase 169 IU/L 44-121 above high normal Not Available [facility] ([facility]) [address] [facility], [place], [address], 11/15/2024 10:19:02 11/15/19 25 11/15/2024 COMP. METAB OLIC PANEL (14) AST (SGOT) 20 IU/L 0-40 Not Available [facility] ([facility]) [address] [facility], [place], [address], 11/15/2024 10:19:02 11/15/19 25 11/15/2024 COMP. METAB OLIC PANEL (14) ALT (SGPT) 25 IU/L 0-32 Not Available [facility] ([facility]) [address] [facility], [place], [address], 11/15/2024 10:19:02 11/15/19 25 11/15/2024 HEMOG LOBIN A1C hemoglobin A1C 7.7 % 4.8-5. 6 above high normal Predi abete s: 5.7 - 6.4 Diabe margoth: >6.4 Glyce trever contr ol for adult s with diabe margoth: <7.0 Not Available [facility] ([facility]) [address] [facility], [place], [address], 11/15/2024 10:19:04 03/26/20 25 03/26/2025 HbA1c (hemo globi n A1c), blood HbA1C 7.2 % Not Available In-Office Order Internal Use Only DO Not Attach Compendium DO Not Attach Compendium, Do Not Delete/merge, [id number] 03/26/2025 14:55:52 04/09/20 24 04/09/2024 MAMMO , diagn ostic , unila teral No observ ation record ed. [facility] [address] [facility], [place], [address], 04/10/2024 15:29:22 04/09/20 24 04/09/2024 lab* No observ ation record ed. [address], [address], 04/10/2024 15:23:25 04/10/20 24 04/09/2024 lab* No observ ation record ed. [address] [place], [address], 04/10/2024 15:23:31 05/07/20 24 05/07/2024 CT, abdom en + pelvi s, w/ contr ast No observ ation record ed. [facility] [address] [facility] [address], [place], [address], 05/08/2024 16:18:17 Result Notes None recorded. Problems Name Problem SNOMED Code Status Onset Date Resolution Date Notes Provider Name and Address Organization Details Recorded Time Multiple boils Active Not Available [facility] 3 17:50:00 Nausea 487838739 Active Not Available [facility] 17:50:01 Serous otitis media 01873422 Completed 11/09/2020 YEMI LUJAN Attn: Accounting ,[address] [facility], [place], [address] , [place] [facility] 17:05:51 Diabetes mellitus 26167541 Active Not Available [facility] 17:50:01 Migraine [id number] Completed 11/09/2020 YEMI LUJAN Attn: Accounting ,[address] [facility], [place], [address] , [place] 17:06:52 Hyperten sive disorder 90021666 Active Not Available [facility] 17:50:00 Osteoart hritis 221003717 Active Not Available [facility] 17:50:01 Irritabl e bowel syndrome 06595931 Completed 05/30/2019 YEMI LUJAN Attn: Accounting ,[address] [facility], [place], [address] , [place] - [facility] 9 14:41:28 Morbid obesity 731037681 Completed 11/09/2020 YEMI LUJAN Attn: Accounting ,[address] [facility], [place], [address] , [place] [facility] 17:07:04 Uterine fibroid polyp 956194482 Completed 11/09/2020 s/p hysterec rose YMEI LUJAN Attn: Accounting ,[address] [facility], [place], [address] , [place] [facility] 1 17:06:09 Anemia 911638120 Active Not Available [facility] 3 17:50:00 Urgent desire to urinate 48051007 Completed 05/30/2019 YEMI LUJAN Attn: Accounting ,[address] [facility], [place], [address] , [place] [facility] 9 14:41:37 Iron deficien cy anemia 37945169 Active Not Available [facility] 3 17:50:01 Pain of hip region 36312250 Completed 05/30/2019 YEMI LUJAN Attn: Accounting ,[address] [facility], [place], [place], [address] [place] [address] , [place] [facility] 9 14:42:14 Low back pain 031340389 Active Not Available [facility] 3 17:50:00 Lesion of liver 874659610 Active Not Available [facility] 3 17:50:00 Menorrha paige 211032727 Completed 05/30/2019 YEMI LUJAN Attn: Accounting ,[address] [facility], [place], [address] , [place] [facility] 9 14:41:03 Dyspnea on exertion 06859230 Completed 11/09/2020 YEMI LUJAN Attn: Accounting ,[address] [facility], [place], [address] , [place] [facility] 1 17:07:27 Hyperlip idemia 68567957 Active Not Available [facility] 3 17:50:01 Allergic rhinitis 53155262 Active Not Available [facility] 3 17:50:01 Candidia sis of skin 89006304 Completed 11/09/2020 YEMI LUJAN Attn: Accounting ,[address] [facility], [place], [address] , [place] [facility] 1 17:06:36 Foot pain 80773262 Completed 11/09/2020 YEMI LUJAN Attn: Accounting ,[address] [facility], [place], [address] , [place] [facility] 1 17:06:41 Calcanea l spur 76415375 Active Not Available [facility] 3 17:50:01 Upper respirat ory infectio n 08451278 Completed 05/30/2019 YEMI LUJAN Attn: Accounting ,[address] [facility], [place], [address] , [place] [facility] 9 14:49:52 Hyperuri cemia 71131704 Active Not Available [facility] 3 17:50:00 Gastroes ophageal reflux disease 041350707 Active Not Available [facility] 3 17:50:00 Spasm of back muscles 874613437 Active Not Available [facility] 3 17:50:00 Cough 70726684 Completed 05/30/2019 YEMI LUJAN Attn: Accounting ,[address] [place], [address] , [place] [facility] 9 14:42:20 Obesity 288521439 Active 2016 Not Available [facility] 3 17:50:01 Active or passive immuniza tion Completed 201605/30/2019 YEMI LUJAN Attn: Accounting ,[address] [place], [address] , [place] [facility] 9 14:41:18 Pre-surg juanita testing Completed 201605/30/2019 YEMI LUJAN Attn: Accounting ,[address] [facility], [place], [address] , [place] [facility] 9 14:41:21 Neuropat hy due to diabetes mellitus 691952213 Active 2016 Not Available [facility] 3 17:50:00 Plantar fasciiti s 842482460 Completed 201605/30/2019 YEMI LUJAN Attn: Accounting ,[address] [facility], [place], [address] , [place] [facility] 9 14:41:14 Hyperten sive urgency 168633377 Active 2022 Not Available [facility] 3 17:50:01 Uncontro lled type 2 diabetes mellitus 367666594 Active 2022 Not Available [facility] 3 17:50:01 Intermit tent claudica tion 99706692 Active 2022 Not Available [facility] 17:50:01 Diarrhea 04879475 Active 2022 Not Available [facility] 17:50:01 Cervical radiculo bebo 74922570 Active 2022 YEMI LUJAN Attn: Accounting ,[address] [facility], [place], [address] , [place] [facility] 3 09:30:28 Chronic diarrhea 139332992 Active 2023 YEMI LUJAN Attn: Accounting ,[address] [facility], [place], [address] , [place] [facility] 4 15:10:43 [facility]ia l hyperten katharina 82360916 Active 2024 YEMI LUJAN Attn: Accounting ,[address] [facility], [place], [address] , [place] [facility] 5 09:05:08 Anxiety 98908399 Active 2024 YEMI LUJAN Attn: Accounting ,[address] [facility], [place], [address] , [place] [facility] 5 09:05:11 Problem Notes None recorded. Procedures Surgical History Date Name Laterality Status Provider Name and Address Organization Details Recorded Time 09/11/19 Date of Last Mammogram completed TARA [place] - [facility] 01/14/2021 16:26:04 05/30/20 Gastric Bypass completed Carmen Boo MA [facility] - [facility] 01/14/2021 16:26:39 09/11/19 19 Date of Last Pap Smear completed Carmen Boo [place] [facility] 01/14/2021 16:26:21 03/11/20 15 Total hysterectomy completed YEMI EATON Attn: Accounting,[address] [facility], [place], [address], [facility] - [facility] 06/20/2019 09:55:32 09/11/19 06 [facility] 08/12/2014 10:24:52 03/30/19 81 Caesarean Section completed [facility] - [facility] 08/12/2014 10:24:52 Imaging Results None recorded. Procedure Notes None recorded. Medical Equipment None Reported. Allergies Allergen ID Allergen Name Allergen Category Reaction Reaction Severity Criticality Documentation Date Start Date Code Code System Note Provider Name and Address Organization Details Recorded Time 4081 hydrocodo ne Not available Not available Not available Not available 08/11/2014 5489 RxNorm Anamaria Dawn LPN null, [facility] 4 15:46:26 4082 acetamino phen medicatio n Not available Not available Not available 08/11/2014 161 RxNorm Anamaria Dawn LPN null, [facility] 4 15:46:26 91254 acetamino phen / hydrocodo ne medicatio n Not available Not available Not available 05/19/2016 60624 2 RxNorm Lizz Mcgovern MA null, [facility] 6 17:01:48 Medications Name Sig [...] BY MOUTH ONCE DAILY IN THE EVENING 07/16/ 2025 active Not Available Not Available Not Avai [...] Available Not Available Not Available Jose Rafael JonesoStar U-300 Insulin 300 unit/mL (1.5 mL) subcutane [...] Available No t Available FreeStyle Laura [address] [place] active Not Available Not Available Not Available Ozempic 1 mg/dose (4 mg/3 mL) subcutane ous pen injector Inject 1 mg every week by subcutan eous route. 09/06 completed Not Available Not Available Not Available Semglee (insulin glargine- yfgn) Pen 100 unit/mL (3 mL) subcutane ous INJECT 20 UNITS SUBCUTAN EOUSLY nightly 07/16/ 2025 active Not Available Not Available Not Avai labjaime Acuna (insulin glargine- yfgn) 100 unit/mL subcutane ous [...] Organization Details Last Updated DateTime 162.56 cm 31.6 kg/m2 65998.1 g 80 /min 98 % 98 % 165/84 mm[Hg] Carmen Boo MA [facility] 15:42:57 Date Recorded Systolic And Diastolic Provider Name and Address Organization Details Last Updated DateTime 11/14/2024 130/85 mm[Hg] Kiko LUJAN Attn: Accounting,[address] [place], [address], [place] 11/14/2024 09:04:52 Date Recorded Body height Body mass index (BMI) Body weight Heart rate Oxygen saturation Oxygen saturation in Arterial blood by Pulse oximetry Provider Name and Address Organization Details Last Updated DateTime 162.56 cm 31.1 kg/m2 37869.2 2 g 88 /min 98 % 98 % Carmen Boo MA [facility] 5 08:46:09 Date Recorded Body height Body mass index (BMI) Body weight Heart rate Oxygen saturation Oxygen saturation in Arterial blood by Pulse oximetry Systolic And Diastolic Provider Name and Address Organization Details Last Updated DateTime 5 162.56 cm 32.3 kg/m2 25094.3 7 g 82 /min 98 % 98 % 171/82 mm[Hg] Carmen Boo MA [facility] 5 14:53:00 Date Recorded Body height Body mass index (BMI) Body weight Heart rate Oxygen saturation Oxygen saturation in Arterial blood by Pulse oximetry Systolic And Diastolic Provider Name and Address Organization Details Last Updated DateTime 4 162.56 cm 33.2 kg/m2 85759.7 3 g 75 /min 98 % 98 % 165/85 mm[Hg] Carmen Boo MA [facility] 4 14:50:02 Date Recorded Systolic And Diastolic Provider Name and Address Organization Details Last Updated DateTime 06/12/2024 136/82 mm[Hg] Kiko LUJAN Attn: Accounting,[address] [place], [address], [facility] 06/13/2024 10:23:12 Date Recorded Body height Body mass index (BMI) Body weight Heart rate Oxygen saturation Oxygen saturation in Arterial blood by Pulse oximetry Provider Name and Address Organization Details Last Updated DateTime 4 162.56 cm 31.3 kg/m2 42239.2 1 g 94 /min 98 % 98 % Carmen Boo MA [facility] 4 16:55:43 Social History Question Answer Notes LastModified by Organizat ion Details LastModified Time Tobacco Smoking Status Never Smoker Abena mcdonald, [facility] 08/12/2014 10:25:54 Do You Have An Advance [...] you able to care for yourself? Yes [email or web address] Information not available 08/12/2014 What is your [...] Skin Problems Y Anemia Y Heart Attack ([place]) N Anxiety Disorder Y Diabetes Y Muscle, [...] mcg/0.3 mL dose 1 completed Not Available [facility] 04/10/2023 17:50:01 COVID-19, mRNA, LNP-S, PF, 30 mcg/0.3 mL dose 1 completed Not Available [facility] 04/10/2023 17:50:01 COVID-19, mRNA, LNP-S, PF, 30 mcg/0.3 mL dose 1 completed Carmen [place], [place] [facility] 05/06/2024 17:29:32 Influenza, split virus, quadrivalent, preservative 6 completed Not Available [facility] 09/28/2019 02:32:36 Influenza, split virus, quadrivalent, preservative 5 completed Carmen [place] [facility] 05/06/2024 17:29:31 Influenza, recombinant, quadrivalent, PF 1 completed Carmen [place] [facility] 05/06/2024 17:29:31 Pneumococcal conjugate PCV20, polysaccharide [id number] conjugate, adjuvant, PF 2 completed Carmen Boo [...] 05/06/2024 17:29:32 Tdap 7 completed Not Available [facility] 09/28/2019 02:33:29 pneumococcal polysaccharide PPV23 7 completed Not Available [facility] 09/28/2019 02:33:29 Influenza, split virus, quadrivalent, PF 3 completed Not Available [facility] 03/26/2025 14:48:34 Tdap 3 completed Not Available [facility] 03/26/2025 14:48:34 COVID-19, mRNA, LNP-S, PF, 50 mcg/0.5 mL 3 completed Not Available [facility] 03/26/2025 14:48:34 zoster recombinant 4 completed Not Available [facility] 03/26/2025 14:48:34 HepB-CpG 4 completed Not Available [facility] 03/26/2025 14:48:34 zoster recombinant 4 completed Not Available [facility] 03/26/2025 14:48:34 Influenza, split virus, trivalent, PF 4 completed Not Available [facility] 03/26/2025 14:48:34 COVID-19, mRNA, LNP-S, PF, maegan-sucrose, 30 mcg/0.3 mL 4 completed Not Available [facility] 03/26/2025 14:48:34 MMR 5 completed Not Available [facility] 03/26/2025 14:48:34 HepB-CpG 5 completed Not Available [facility] 03/26/2025 14:48:34 Influenza, split virus, quadrivalent, PF 7 completed Not Available [facility] 09/28/2019 02:43:11 Influenza, split virus, quadrivalent, preservative 9 completed Not Available [facility] 09/28/2019 02:43:43 Pneumococcal conjugate PCV20, polysaccharide [id number] conjugate, adjuvant, PF 3 completed Tiffany Cohen C[place], [place] [facility] 09/06/2023 12:59:04 Past Encounters Encounter ID Performer Location Encounter Start Date Encounter Closed Date Diagnosis/Indication Diagnosis SNOMED-CT Code Diagnosis ICD10 Code Diagnosis Note [id number] Marina Krishnamurthy, NUCLEAR TECHNICIAN-C Soraya burroughs [address] [facility] [place] [address] 08/12/2014 10:03:33 08/12/2014 14:13:10 Diabetes mellitus 23503497 Uterine fibroid polyp 092597098 Urgent laura val to urinate 66760907 Iron defic iency anemia 26977780 [id number] HO [place] [facility] [address] [place] [address] 10/27/2014 12:15:54 10/27/2014 13:00:51 Diabetes mellitus 85710364 Hypertensive disorder 91964466 Multiple boils 824182108 Nausea 135773821 Likely viral gastroente ritis Serous otitis media 89368594 Iron defic iency anemia 61298115 [id number] Jim Ruano MD [place] [facility] [address] [place] [address] 01/05/2015 09:52:14 01/05/2015 15:59:39 Diabetes mellitus 27296414 Would like her to up her Lantus from 60 to 65 BID. Talked about less potatoes, white bread. Will f/u next week to check on BS. Hypertensive disorder 29473756 Multiple boils 318806056 Is referred to derm. States that every time that she finishes her Bactrim that the boils return. Will start on doxy for one month and told her keep her derm appt. Nausea 996639185 Likely viral gastroente ritis Serous otitis media 52288344 Iron defic iency anemia 74197239 Had an infusion one month ago. States that her iron was 14 last time checked. Being followed by oncology. Pain of hip region 22329559 Has already had an xray and CT of hip. Will order MRI of right hip Low back pain 923345710 Was seen in the ED for flank and hip pain one month ago. Already has had an xray and ct. Will order an MRI of her rt hip because that is where she is complainin g of the most amount of pain. Lesion of liver 928703529 Received ED note after patient left. The note states that there is a 2.5cm hypoattenu ated lesion on her liver and advised further evaluation . Will order a MRI. [id number] MD Tere Sylvester (Adult Med) [address] [place] [address] 02/13/2015 14:58:43 02/13/2015 15:43:40 Diabetes mellitus 19985748 Up to 65 units Lantus BID - will check A1c today - blurry vision has resolved Pain of hip region 05345868 Resolved Menorrhagia 444075468 St ates that she had her IUD removed and had the Depo how and is still having issues with menorrhagi a - she has an appointmen t with [facility] next week [id number] MD Tere Sylvester (Adult Med) [address] [place] [address] 03/09/2015 11:47:04 03/09/2015 13:40:34 Dyspnea on exertion 86637668 Diabetes mellitus 30743110 [id number] MD Tere Sylvester (Adult Med) [address] [place] [address] 04/15/2015 10:35:04 04/15/2015 14:11:48 Hypertensive disorder 60855445 Diabetes mellitus 97919530 Increase Lantus to 85mg BID - goal is to have BS in the AM around 150 Hyperlipidemia 11934688 Nausea 815977607 Likely viral gastroente ritis Allergic rhinitis 42225196 Irritable bowel syndrome 86187444 Multiple boils 863064937 Contacted [facility] and they will take care of the abx for the boil Candidiasis of skin 49150893 [id number] MD Tere Sylvester (Adult Med) [address] [place] [address] 06/09/2015 10:25:14 06/09/2015 12:05:38 Diabetes mellitus 01607500 Will d/c glipizide and switch to sliding scale BS 150-200: 4 units 200-250: 8 250-300: 12 >300: 16 RTC 1 week with blood sugar log She is going to try weight watchers through [facility] Hyperlipidemia 46638093 Hypertensive disorder 16656255 Allergic rhinitis 51684096 Irritable bowel syndrome 18466861 Needs infl uenza immunization 978181820 [id number] MD Tere Sylvester (Adult Med) [address] [place] [address] 06/25/2015 09:14:24 06/25/2015 09:51:52 Diabetes mellitus 61849230 E11.8 Will d/c glipizide and switch to sliding scale BS 150-200: 4 units 200-250: 8 250-300: 12 >300: 16 Sugars improving RTC 2 weeks Encouraged no fried food or juice perinatal educator referral placed Brought in paperwork for Weight Watcher [id number] Jim Ruano MD [facility] (Adult Med) [address] [place] [address] 07/09/2015 09:36:19 07/09/2015 10:15:59 Diabetes mellitus 07864705 E11.8 Will d/c glipizide and switch to [...] weeks Encouraged no fried food or juice perinatal educator referral placed Brought in paperwork for Weight Watcher [id number] Jim Ruano MD [facility] (Adult Med) [address] [place] [address] 08/13/2015 09:38:53 08/13/2015 10:22:58 Diabetes mellitus 54937274 E11.9 Appointmen t with endocrinol ogist 10/05 [...] RTC in one month Hypertensive disorder 38 243536 I10 Hyperlipidemia 01953713 E78.5 [id number] MD Tere Sylvester (Adult Med) [address] [place] [address] 09/21/2015 13:58:37 09/21/2015 14:38:27 Diabetes mellitus 25834586 E11.9 Appointmen t with endocrinol ogist 10/05 [...] eat 3 meals/day Appt for diabetes education tomorr and Monday Screening for malignant neoplasm of colon 746506450 Z12.11 [id number] MD Tere Sidhu (Adult Med) [address] [place] [address] 11/13/2015 09:32:46 11/13/2015 12:04:53 Diabetes mellitus 19780210 E11.9 Lantus 80 units BID Apidra sliding [...] improved Screening for malignant neoplasm of colon 150831494 Z12.11 Colonoscop y schedule for 12/07 Foot pain 31320297 M79.6 71 Will send for foot xray - likely bone spur Will determine next steps once I have xray results Hyperlipidemia 07997976 E78.5 Hypertensive disorder 38 321998 I10 Will increase lisinopril from 10mg to 20mg and put it into one pill Allergic rhinitis 219275 04 J30.9 [id number] MD Tere Sidhu (Adult Med) [address] [place] [address] 12/15/2015 10:03:37 12/15/2015 10:44:58 Diabetes mellitus 19132541 E11.9 Lantus 80 units BID Apidra sliding scale: BS 150-200: 26 units >200: 30 units metformin 1000mg BID - prescribed by endocrinol adriel Patient encouraged to eat 3 meals/day Patient [...] to f/u with her endocrinol ogist Neal loson with treatment 2742823 Z91.19 Patient ate two donuts and juice [...] choices are going to shorten her life [id number] Martine Sullivan MD [facility] (Adult Med) [address] [place] [address] 02/17/2016 12:14:16 02/17/2016 12:48:25 Diabetes mellitus 74895411 E11.9 Lantus 80 units BID Apidra sliding scale: BS 150-200: 26 units >200: 30 units - discussed with patient that she cannot be taking 80 units of Apidra before every meal - that is what is causing her sugars to drop so low and making her feel shaky metformin 1000mg BID - prescribed by endocrinol adriel Encouraged to make an eye doctor appointmen t Patient encouraged to eat 3 meals/day Patient encouraged to not drink juice or eat fried foods Working out 2 days/week - joined [employer] Patient ate taco curry right before [...] to make that appointmen t today Hyperlipidemia 55619534 E78.5 Noncomplia nce with treatment 2263023 Z91.19 Ate taco curry just before coming [...] choices are going to shorten her life [id number] Martine Sullivan MD [facility] (Adult Med) [address] [place] [address] 05/19/2016 16:10:41 05/19/2016 17:29:14 Diabetes mellitus 72593806 E11.9 Lantus 80 units BID Apidra sliding [...] make an eye doctor appointmen t at [place] for her annual visit Patient encouraged to eat 3 meals/day Patient encouraged to not drink juice or eat fried foods Working out 2 days/week - joined [employer] We had another long discussion that her eating all of this sugar and her a1c increasing is going to shorten her life if she does not get her BS under control 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 States that her iron was 14 last time checked. Being followed by oncology. Gastroesop hageal reflux disease 775970757 K21.9 Spasm of back muscles 20 0851327 M62.830 Noncomplia nce with treatment 7085709 Z91.19 We had a long discussion that [...] with endocrinol adriel and her eye doctor [id number] MD Tere Sidhu (Adult Med) [address] [place] [address] 07/04/2016 16:12:06 07/05/2016 11:31:51 Active or passive immunization 564042421 Z23 [id number] MD Tere Sidhu (Adult Med) [address] [place] [address] 08/15/2016 16:06:06 08/15/2016 17:09:28 Hyperlipidemia 00161181 E78.5 c/w current medication Hypertensive disorder 38 698830 I10 144/88 at second check - will increase lisinopril to 30mg and HCTZ 5o 12.5Will RTC 1-2 weeks for BP check for nurse only appointmen t Allergic rhinitis 263377 04 J30.9 Gastroesop hageal reflux disease 413379975 K21.9 Iron defic iency anemia 82339029 D50.9 Being followed by oncology. [id number] MD Tere Sidhu (Adult Med) [address] [place] [address] 01/10/2017 16:22:33 01/11/2017 09:54:57 Obesity 924561670 E66.9 Advised 30 minutes of exercise 5 days/week Advised to not drink her calories Advised 3 balanced meals/day with plenty of fruits and vegtablesA gain discussed that the majority of this goes back to her diet Diabetes mellitus 792212 09 E11.9 Will check lab work for surgical clearanceP atient to RTC once labs are completedA dvised that she needs to contact her surgeon's office to see what her a1c needs to be prior to surgery Pre-surgery testing 1104 93889 Z01.89 Will check lab work for surgical clearance Patient to RTC once labs are completed Advised that she needs to contact her surgeon's office to see what her a1c needs to be prior to surgery Active or passive immunization 879641334 Z23 Hyperlipidemia 59822493 E78.5 will recheck FLPcurrent ly taking atorvastat in 40mg Gastroesop hageal reflux disease 332147313 K21.9 c/w famotidine Iron defic iency anemia 61212906 D50.9 Will recheck Hypertensive disorder 38 212140 I10 160/100 - did not take BP mediciaton todayNADWI ll readdress at next visitAdvis ed that needs to always take her BP medication Osteoarthritis 304961132 M19.90 Advised that she needs to f/u with ortho concerning this [id number] MD Tere Sidhu (Adult Med) [address] [place] [address] 03/01/2017 16:02:23 03/02/2017 11:38:10 Diabetes mellitus 46102044 E11.9 last a1c: 10.8Patien t advised to continue to follow with endo - staes that she has an appointmen t coming up in the next few weeks Neuropathy due to diabetes mellitus 445537902 E11.40 WIll initiate gabapentin qPM and then [...] to help with the neuropathy . Obesity 194247156 E66.9 Patient is down 13lbs in the [...] go back to diet and portion control [id number] Martine Sullivan MD [facility] (Adult Med) [address] [place] [address] 04/05/2017 16:01:24 04/05/2017 18:02:03 Pre-surgery testing 731110619 Z01.89 first month completed - advised that she really needs to evaluate why she is doing this surgery and focus on changing her eating habits at this time as well - also needs to control her DM Diabetes mellitus 892393 09 E11.9 last a1c: 10.8Patien t advised to continue to follow with [facility] recheck a1c today Screening for disorder 517532731 Z13.9 Neuropathy due to diabetes mellitus 975842586 E11.40 c/w gabapentin 300mg BIDAdvised , like she knows, that keep her blood sugars under control are what is going to help with the neuropathy . Muscle spa sm of cervical muscle of neck 0647652148 04 M62.838 Morbid obesity 298479163 E66.01 Patient not interested in making the [...] sleeve consult - however, talked with patient jannl y that most surgeons need you to prove to them that you can lose weight on your own before they will perform surgery Also discussed that her diabetes will need to be under control [id number] [facility] [address] [place] [phone] 05/10/2017 16:07:04 05/10/2017 17:57:19 Neuropathy due to diabetes mellitus 075049458 E11.40 Per patient, gabapentin not working as well anymore - discuss this is likely 2/2 her uncontroll ed DMWIll try samples of Lyrica - advised patient she will need to get this prescripti on from endo since they are following DM Pre-surgery testing 1104 98931 Z01.89 second month completed - advised that she really needs to evaluate why she is doing this surgery and focus on changing her eating habits at this time as well - also needs to control her DM Diabetes mellitus 749628 09 E11.9 last a1c: 12.2 (03/2017)P atient advised to continue to follow with endoWill recheck a1c today Morbid obesity 581115065 E66.01 Patient not interested in making the [...] to be under control Hypertensive disorder 38 472805 I10 140/82 - basically WNL, NAD Advised that needs to always take her BP medication Advised DASH diet [id number] MD Tere Sidhu (Adult Med) [address] [place] [address] 06/07/2017 16:07:34 06/08/2017 14:25:33 Neuropathy due to diabetes mellitus 185905062 E11.40 Pre-surgery testing 1104 70032 Z01.89 third month completed - advised that she really needs to evaluate why she is doing this surgery and focus on changing her eating habits at this time as well - also needs to control her DM Diabetes mellitus 905558 09 E11.9 last a1c: 12.2 (03/2017) - per patient, endo told her her a1c was 7.6 and that the results should be sent herePatien t advised to continue to follow with endo Morbid obesity 624419932 E66.01 Patient not interested in making the [...] to be under control Hypertensive disorder 38 052183 I10 148/86 - not WNL, NADAdvised that needs to always take her BP medication Advised WANDA Carreon readdress at next visit Active or passive immunization 575830637 Z23 Plantar fasciitis 525117 003 M72.2 Followed by podatiry [id number] Annalee hurst MD [facility] (Adult Med) [address] [place] [address] 07/05/2017 16:04:56 07/06/2017 09:54:19 Neuropathy due to diabetes mellitus 393690435 E11.40 Pre-surgery testing 1104 14462 Z01.89 fourth month completed - again advised that she really needs to evaluate why she is doing this surgery and focus on changing her eating habits at this time as well - also needs to control her DM Diabetes mellitus 604151 09 E11.9 last a1c: 7.6 at endoPatien t advised to continue to follow with endo Morbid obesity 542997715 E66.01 Gained 3lbsPatien t not interested in [...] to get gastic bypass Hypertensive disorder 38 117839 I10 130/84 WNL, NADDiscuss ed DASH diet Advised 30 minutes of exercise minimum dailyAdvis ed tobacco, alcohol, caffeine all increase BPAdvised goal for BP is <140/90 Plantar fasciitis 105805 003 M72.2 Followed by podatiry [id number] MD Tere Johnson (Adult Med) [address] [place] [address] 08/01/2017 16:05:18 08/01/2017 17:53:17 Disorder of vitamin D 080144431 E56.9 Morbid obesity 536964680 E66.01 Gained 7lbsPatien t not interested in [...] to get gastic bypass Pre-surgery testing 1104 11486 Z01.89 fifth month completed - again advised [...] completed at office visit Hypertensive disorder 38 149876 I10 136/84 at second check - WNL, NADDiscuss ed DASH diet Advised 30 minutes of exercise minimum dailyAdvis ed tobacco, alcohol, caffeine all increase BPAdvised goal for BP is <140/90 Diabetes mellitus 922544 09 E13.42 last a1c: 7.6 at endoPatien t advised to continue to follow with endo [id number] MD Tere Johnson (Adult Med) [address] [place] [address] 08/30/2017 16:03:22 08/30/2017 17:27:26 Pre-surgery testing 131189313 Z01.89 sixth month completed - again advised [...] because her a1c was >8 Morbid obesity 199137317 E66.01 Gained 2lbsPatien t blames the holidays for her weight gamin Hypertensive disorder 38 659028 I10 146/82 - not WNL, patient anxious at appointmen t d/t discussing her a1c and the pre-surgic al clearance paperwork Discussed DASH diet Advised 30 minutes of exercise minimum dailyAdvis ed tobacco, alcohol, caffeine all increase BPAdvised goal for BP is <140/90 [id number] YEMI LUJAN [facility] [address] [place] [address] 05/30/2019 13:48:14 05/31/2019 08:21:07 Spasm of back muscles 893198864 M62.830 refill Diabetes mellitus 910622 09 E11.9 refill. Checking A1C as last one on file is from 2017. She says she does not remember what it was but that she is well controlled . Disorder of vitamin D 38 9284621 E56.9 Lipoma of thigh 17740585 4 D17.20 noticed two lumps on leg 2 weeks ago. on exam lumps are soft moile and non tender. measure about 3x3 inches. - check US Hypertensive disorder 38 903788 I10 142/76 , she did not take BP meds today Discussed DASH diet Advised 30 minutes of exercise minimum daily Advised tobacco, alcohol, caffeine all increase BP Advised goal for BP is <140/90 Neuropathy due to diabetes mellitus 761366595 E11.40 c/w gabapentin 300mg BID Advised, like she knows, that keep her blood sugars under control are what is going to help with the neuropathy . Hyperlipidemia 51109449 E78.5 continue medication . rechecking labs today. Gastroesop hageal reflux disease 521210640 K21.9 patient has been having worsening gerd and vomiting frequently after meals. [id number] YEMI EATON (DIESEL DINKEY ENGINEER) [facility] [place] [address] 06/20/2019 09:07:43 06/24/2019 12:46:25 Gynecologic examination 32992895 Z01.419 Venereal d isease screening 046098603 Z11.3 Screening mammography 24 273856 Z12.31 Administra tion of influenza vaccine 57202764 Z23 Bacterial vaginosis 4197 72426 N76.0 Upper resp iratory infection 61809806 J06.9 Body mass index 30+ - obesity 105937269 Z68.31 Pt requesting medication for appetite suppressio [...] GI provider or PCP about her options. [id number] CARLY DUMONT MD [facility] [address] [place] [address] 07/10/2019 11:54:21 07/10/2019 16:10:11 Lipoma of skin 959547077 D17.30 53F with two lipomas of the left lateral thigh: 4cm proximal to the knee and 1cm at the lateral thigh. I explained the pathogenes is and options for lipoma management . She has decided to forego surgical interventi on until she has been employed for 90 days. She will call when she is ready for surgery. [id number] YEMI LUJAN [facility] [address] [place] [address] 08/23/2019 14:57:35 08/26/2019 09:55:39 Spasm of back muscles 436193841 M62.830 refill Diabetes mellitus 028288 09 E11.9 Patient says she is compliant. [...] needs eye exam Dry skin dermatitis 2600 18268 L85.3 [id number] YEMI LUJAN [facility] [address] [place] [address] 01/31/2020 09:31:38 02/04/2020 12:03:57 Exposure to SARS-CoV-2 663044356 Z20.828 Patient daughter is positive for COVID. Patient only has slightly runny nose but feels good otherwise. Her work requires test to be sure she does not have the virus. - stay away from daughter- control htn and DM- ER if develops sob, chest pain, intractabl e fever [id number] YEMI LUJAN [facility] [address] [place] [address] 11/09/2020 09:00:12 11/11/2020 09:40:58 Diabetes mellitus 60797704 E11.9 Patient says she is compliant. states sugar are in low hundreds but A1C at last check was 11.1. She has not seen her endocrinol ogist in on year.- F/U with endo -inject 40 units in morning and 40 in evening- discussed cutting back on bread. tortillas, chips, soda- needs eye exam Hypertensive disorder 38 949402 I10 Patient not checking BP at home. last checked here was 120/80. states she taked medication s as prescribed . Denies side effects. denies cp, sob, swelling in legs. Discussed DASH diet Advised 30 minutes of exercise minimum daily Advised tobacco, alcohol, caffeine all increase BP Advised goal for BP is <140/90 Hyperlipidemia 55587660 E78.5 continue medication .. need labs Menopausal flushing 1983 96278 N95.1 Patient was taking hormone therapy for hot flashes but has ran out. We disucssed and will try venlafaxin e for hot flashes. She is also hvaing some anxiety as her mom is in hospital and not doing well. [id number] YEMI LUJAN [facility] [address] [place] [address] 01/14/2021 16:05:23 01/18/2021 18:23:41 Muscle spasm of cervical muscle of neck 5945244218 04 M62.838 Patient presents for ER f/u [...] surface and avoid lying on the sofa. [id number] YEMI LUJAN [facility] [address] [place] [address] 09/02/2021 13:23:25 09/06/2021 10:15:47 Hypocalcemia 4407953 E83.51 8.6 04/2021 Muscle spa sm of cervical muscle of neck 2679945873 04 M62.838 - avoid looking down at [...] avoid lying on the sofa. Diabetes mellitus 672735 09 E11.9 last A1C 04/28/21 8.7.not checking glucose dailytakin g aspirin-in ject 40 units in morning and 40 in evening- discussed cutting back on bread. tortillas, chips, soda- needs eye exam Thrombocyt openic disorder 840895639 D69.6 platelets 124 04/2021 [id number] YEMI LUJAN [facility] [address] [place] [address] 11/16/2022 09:23:38 11/16/2022 10:33:55 [id number] YEMI LUJAN [facility] [address] [place] [address] 12/19/2022 09:42:34 12/19/2022 10:48:02 Hypertensive urgency 577324385 I16.0 off amlodipine 10 and lisinopril 30-hcz12.5 for months denies cp, sob, vision changes - ER due to BG chronicall y >400 and elevated BP Uncontroll ed type 2 diabetes mellitus 372734195 E11.65 A1C 11/2022 (12.2%), 12.1% (08/2021) 8.7% (04/2021) 11.1 (08/2019)kiko winters did not take her insulin again. BG >400 todayHas not been since since R Contact dermatitis 97845 004 L25.9 Hypertensive disorder 38 519699 I10 Patient not checking BP at home. last checked here was 120/80. states she taked medication s as prescribed . Denies side effects. denies cp, sob, swelling in legs. Discussed DASH diet Advised 30 minutes of exercise minimum daily Advised tobacco, alcohol, caffeine all increase BP Advised goal for BP is <140/90 [id number] YEMI LUJAN [facility] [address] [place] [address] 12/27/2022 15:54:56 12/27/2022 16:28:58 Hypertensive disorder 52210084 I10 improved form last visit but not at goal. will follow with close f/ucheck BP at home and call if elevated Diabetes mellitus 558543 09 E11.9 Non-compla int with f/u visits, [...] in: non-compla intACEi: lisinopril 30pneumoni a vaccine: ppv2016, needs prevnar 20 Hyperlipidemia 42274128 E78.5 advised taking daily [id number] YEMI LUJAN [facility] [address] [place] [address] 03/30/2023 11:58:31 03/30/2023 13:39:28 Diabetes mellitus 54603933 E11.9 Non-compla int with f/u visits, diet, [...] vaccine: ppv23 2016, needs prevnar 20 Diarrhea 07895163 R19.7 one month of non-solid stools that have now been black since starting pepto daily. Also takes immodium daily. helps some and allows her to get through work day. states diarrhea not a/w GLP1 Neck pain 31364031 M54.2 ER visit for acute on chronic neck pain. was given muscle relaxers and needs refillobta in xray Intermitte nt claudication 36869346 I73.9 aching pain in calf with walking. improved with rest.decre ased Posterior tibial pulses Screening mammography 24 600808 Z12.31 agrees to screen Administra tion of pneumococcal vaccine 23868940 Z23 next visit. out of prevnar today 03/30/23 Essential hypertension 50064090 I10 did not take medication this morning [id number] YEMI LUJAN [facility] [address] [place] [address] 06/06/2023 15:50:20 06/06/2023 17:00:43 Hypertensive disorder 51636170 I10 improved form last visit but not at goal. will follow with close f/ucheck BP at home and call if elevated Type 2 scooby betes mellitus 85971596 E11.9 uncontroll ed diabetic. non-compla int with f/u visits, medication , glucose monitoring . She is aware of kidney damage, strokes, heart attack and . Cervical radiculopathy 57168545 M54.12 She has moderate arthritis cervical spine with tingling and numbness b/l hands. She has had a few hospital visits for neck pain. Has not scheduled PT but plans to do so. denies saddle anesthesia or loss of bladder/jl wel control. [id number] YEMI LUJAN [facility] [address] [place] [address] 09/06/2023 11:37:06 09/06/2023 13:02:26 Hypertensive disorder 96709769 I10 controlled today Uncontroll ed type 2 diabetes mellitus 490927029 E11.65 Radha states she was missing multiple [...] 20 (08/2023) Administra tion of pneumococcal vaccine 11009525 Z23 Obesity 039721462 E66.9 10 lb weight losscontin ue ozempic [id number] Richard Keller MD [facility] [address] [place] [address] 05/07/2024 14:35:45 05/07/2024 16:00:03 Obesity 086114236 E66.8 continue ozempic Hypertensive disorder 38 558305 I10 not controlled todayincre asing medication hcz to help with edema LEadding on jardiance for glucose but may also improve BP mildly Uncontroll ed type 2 diabetes mellitus 959649790 E11.65 advised taking same dose daily as [...] a vaccine: prevnar 20 (08/2023) Chronic diarrhea 7148384 09 K52.9 2 months of chronic diarrhea w/o help from any of the below home txwhole bottle pepto bismolpant oprazoleim modium environmental adviser chronic doxy from derm advised stopping due to risk of c diffGI referral 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 8904463481 22593 G56.01 only at nightno weakness- phalens Hyperlipidemia 78879434 E78.5 advised taking daily [id number] Richard Keller MD [facility] [address] [place] [address] 06/12/2024 16:45:04 06/14/2024 15:12:05 Hyperglycemia 17433054 R73.9 patient had high BG readings due to skipping doseswhen she takes medication her BG are in good rangeadvis ed not skipping dosesB today, not fasting (did not take her DM medication s [id number] Richard Keller MD [facility] [address] [place] [address] 10/07/2024 15:32:19 10/11/2024 07:48:17 Diabetes mellitus 28116446 E11.9 Radha has had better compliance with [...] monia vaccine: prevnar 20 08/2023 Essential hypertension 06491227 I10 retsart lisinopril advised ER if cp, sob, palpitatio ns, wrost NIELSEN Vitamin D deficiency 347 44667 E55.9 refill [id number] Richard Keller MD [facility] [address] [place] [address] 11/14/2024 08:39:38 11/14/2024 09:11:17 Diabetes mellitus 32826642 E11.9 Radha has had better compliance with [...] monia vaccine: prevnar 20 08/2023 Essential hypertension 97685777 I10 better controlled . continue lisinopril and amlodipine .advised ER if cp, sob, palpitatio ns, wrost NIELSEN Neuropathy due to diabetes mellitus 523811260 E11.40 c/w gabapentin 300mg BID Advised, like she knows, that keep her blood sugars under control are what is going to help with the neuropathy . Anxiety 85610307 F41.9 trouble sleeping causing anxiety and flare of her IBShaving anxiety requesting mental health daysdenies si/hishe will f/u in 2 weeks for f/u [id number] Richard Keller MD [facility] [address] [place] [address] 03/26/2025 14:47:36 03/26/2025 15:32:27 Diabetes mellitus 66050345 E11.9 Radha has had better compliance with [...] monia vaccine: prevnar 20 08/2023 Essential hypertension 62829366 I10 Not taking medication as prescribed . Blood pressure is elevated today. Advised to go moss picker all medication and monitor blood pressure at home. She states she does have a very nice cuff and will let us know if her blood pressure continues to be elevated.a dvised ER if cp, sob, palpitatio ns, wrost NIELSEN Neuropathy due to diabetes mellitus 143247863 E11.40 c/w gabapentin 300mg BID She had multiple skipped beats. Irregular heart beat 361 174360 I49.9 Obtain EKG and sent to Cardiology . Irregular heartbeat auscultate d during exam. Health Concerns Section Related Observation LastModified by Organization Detai ls LastModified Time None Recorded Concern Status LastModified by Organization Details LastModified Time None Recorded Advance Directives Directive N: Payers Insurance Date Sequence Insurance Name Policy Number Policy Reyna Covered Member ID Reyna Member ID Guarantor Name 06/12/2024 1 [facility] (MEDICAID REPLACEMENT - HMO) [id number] Radha Miller [id number] Radha Miller 06/12/2024 1 [place] Radha Miller [id number] Radha Miller 03/25/2025 1 [facility] (POS) [id number] Radha Miller [id number] Radha Miller 06/12/2024 1 [facility] PRIOR TO 03/11/2021 (MEDICAID REPLACEMENT - HMO) Radha Miller [id number] Radha Miller 06/12/2024 1 [facility] PRIOR TO 03/11/2021 (MEDICAID REPLACEMENT - HMO) Radha Miller [id number] Radha Miller 06/12/2024 1 [place] [facility] PUBLIC AID Radha Miller [id number] Radha Miller 06/12/2024 1 [id number] Radha Miller [id number] Radha Miller 06/12/2024 1 [facility] PRIOR TO 2021 (MEDICAID REPLACEMENT - HMO) Radha Miller [id number] Radha Miller 06/12/2024 1 [employer] (PP[place]) [id number] Radha Miller [id number] Radha Miller 03/25/2025 2 [place] Radha Miller [id number] Radha Miller 06/12/2024 1 [facility] [id number] Radha Miller [id number] Radha Miller 06/12/2024 1 [facility] (MEDICARE REPLACEMENT/A DVANTAGE - HMO) Radha Miller [id number] Radha Miller 06/12/2024 1 [employer] [id number] Radha Miller [id number] Radha Miller 06/12/2024 3 [employer] (POS) [id number] Radha Miller [id number] Radha Miller Notes Date Note Type Note Provider Name and Address Organization Details Recorded Time 05/07/2024 text/html Radha presents f or F/U [...] stopping. YEMI LUJAN Attn: Accounting[address] , [place], [address], [facility] 05/08/2024 10:08:41 06/12/2024 text/html Radha is here fo r my sugars ahve been all over She states they have been high due to not taking her medications. Once I take it they are great. She denies cp, sob, palpitations. YEMI LUJAN Attn: Accounting[address] , [place], [address], [facility] 06/13/2024 10:24:44 10/07/2024 text/html Radha is here [...] today. YEMI LUJAN Attn: Accounting[address] [facility], [place], [address], [facility] 10/09/2024 10:37:39 11/14/2024 text/html Radha is here [...] BP. YEMI LUJAN Attn: Accounting,[address], [place], [address], [place] 11/14/2024 09:09:09 03/26/2025 text/html Radha is here fo r [...] a work note today. YEMI LUJAN Attn: Accounting,[address], [place], [address], [place] 03/26/2025 15:34:59 OBGyn Episode Ob Episode Information Episode Created Date Number of Fetuses Patient Bloodtype Patient rh Status Prepregnancy Weight lbs Domestic Partner Domestic Partner Phone Father Name Beam Racker Status 06/20/20 19 1 CLOSED Fetus Data First Name Last Name Admitted to NICU Weight (g) Sex Living Outcome Pediatric Complications Fetus ID Race Codes Race Delivery Type 4082.32 8 F Full Term [id number] Only Regan Calculation Initial Regan Date Initial [...]
--- OUTSIDE RECORDS SUMMARY | 2025-03-27 09:40 | XMS_ITS | Clinical Summary ---
Author Organization [facility] Address [address] [place] [address] Care Team Providers Care Crossbar Switch Adjuster Name Role Phone Unavailable Primary Care Provider [...] Screening with HPV 1995 Mammogram Screening 2005 Pneumococcal Vaccine: 50+ Ye ars (1 of 1 - PCV) 2015 Zoster Vaccines (1 of 2) 2015 COVID-19 [...]
== END 2025-03-27 09:35 | disposition home or self-care (01) ==
PROVIDERS: PCP Physician Assistant; Visit Provider Physician Assistant
DX: I49.8 Other specified cardiac arrhythmias (principal)
CPT/HCPCS: 93005

== ENCOUNTER 2025-03-29 08:59 | Emergency (ER) | payer OTHER, MEDICAID, SELFPAY ==
--- NOTE | ~2025-03-29 | XR_ITS ---
XR ankle RT min 3V 03/29/2025 09:42 Indication: Trauma to the right ankle. Procedure: 4 views right ankle Comparison: No prior studies for comparison. Findings: There is an avulsion fracture posterior superior margin of the calcaneus. Mild soft tissue swelling. No other fracture identified. Ankle mortise intact. No foreign bodies. Impression: 1: Avulsion fracture posterior superior margin of the calcaneus. Reviewed, dictated and finalized at location A. Impression: 1: Avulsion fracture posterior superior margin of the calcaneus.
--- OUTSIDE RECORDS SUMMARY | 2025-03-29 09:02 | XMS_ITS | Continuity of Care Document ---
Author Organization [facility] Address [address] [place] [address] [place] [address] Phone Care Team Providers Care Retention Specialist Name Role Phone Gil Buckley DO Unavailable Unavailable Advance Directives Directive Yes / No Effective Date File Name No Information Encounters Encounter Description Practice Location Reason(s) For Visit Diagnoses Date Provider Providers Copied on Encounter [facility], [address], [place], [place], [id number], [place] tel:[phone] [email or web address] No Information Ina Oneal. [address] [facility], [place], [address], [place]. tel:[phone] Family History Family Member Type Diagnosis Age At Onset No Information Payers Payer name Insurance type Covered green party ID Authoriza tion(s) No Information Social [...]
--- OUTSIDE RECORDS SUMMARY | 2025-03-29 09:02 | XMS_ITS | Referral Summary ---
Author Organization [facility] Address [address] [place] [address] Care Team Providers Care Detention Sergeant Name Role Phone Elsy Cuadra Primary Care [...] mg tablet Take 10 mg by mouth clay press operator before breakfast. 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 Testing performed by: [facility], [address] [place] [address]., [address] Blood 05/10/2024 3:06 PM CDT 05/10/2024 3:16 PM CDT Xavier Lemon DO LAB BLOOD ORDERABLES Final Result TROYYIT MR [address] [facility] Department [place] [address] * Screening Mammogram Bilateral W [...] % TI QUINONES Comment:Testing performed by : [facility], [address] [place] [address], [place]., [address] Estimated Average Glucose 232 mg/dL TI QUINONES Comment: The ADA recommends reporting an estimated Average Glucose (eAG) with all Hemoglobin A1c results using the equation derived from a study of 507 normal and diabetic adults. Minority populations were underrepresented and children were not included. (Diabetes Care 31:5968-0317, 2008). The eAG is not equivalent to a fasting glucose. Testing performed by: [facility], [address] [place] [address], [place]., [address] Blood specimen (specimen) 05/11/2018 2:42 PM CDT 05/11/2018 5:53 PM CDT Narrative TI [facility] - 05/11/2018 6:09 PM CDT Rakel Martinez NP LAB BLOOD ORDERABL ES Final Result TI [facility] [address] [facility]. Department [place] [address] from Last 3 Months or Most Recently Relevant to Health Maintenance Insurance [place] [place] [address] CHOICE PLUS [facility] HMO/PPO Address: [address] [address] [place] [address] Advance Directives For more information, please contact: [phone] * Full Code (Latest Code Status on File) Date Activated Date Inactivated Comments 05/30/2018 7:00 PM 06/01/2018 5:28 PM Care Teams Detention Sergeant Relationship Specialty Start Date End Date Elsy Cuadra PA PCP - General Physician Laundry Agent 05/10/24
--- OUTSIDE RECORDS SUMMARY | 2025-03-29 09:02 | XMS_ITS | Clinical Summary ---
Author Organization [facility] Address [address] [place] [address] Care Team Providers Care Damaged Freight Inspector Name Role Phone Elsy Cuadra Primary Care [...] mg tablet Take 10 mg by mouth product sales engineer before breakfast. 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 There are scattered areas of [...] imaging studies performed on 01/26/2017, and at [facility] on 03/13/2017. There are scattered areas of [...] % TI QUINONES Comment:Testing performed by : [facility], [address] [place] [address], [place]., [id number] Estimated Average Glucose 232 mg/dL TI QUINONES Comment: The ADA recommends reporting an estimated Average Glucose (eAG) with all Hemoglobin A1c results using the equation derived from a study of 507 normal and diabetic adults. Minority populations were underrepresented and children were not included. (Diabetes Care 31:8686-6512, 2008). The eAG is not equivalent to a fasting glucose. Testing performed by: [facility], [address] [place] [address], [place] [address] Blood specimen (specimen) 05/11/2018 2:42 PM CDT 05/11/2018 5:53 PM CDT Narrative TI HALLCH - 05/11/2018 6:09 PM CDT us Rakel Martinez NP LAB BLOOD ORDERABL ES Final Result [facility] [id number] [facility]. [place] [address] from Last 3 Months or Most Recently Relevant to Health Maintenance Insurance ANTH PREFERRED CHOICE PLUS Advance Directives For more information, please contact: [phone] * Full Code (Latest Code Status on File) Date Activated Date Inactivated Comments 05/30/2018 7:00 PM 06/01/2018 5:28 PM Care Teams Damaged Freight Inspector Relationship Specialty Start Date End Date Elsy Cuadra PA PCP - General Physician Vocal Artist 05/10/24
--- OUTSIDE RECORDS SUMMARY | 2025-03-29 09:02 | XMS_ITS | Clinical Summary ---
Author Organization [facility] Address [address] [facility] [address] Care Team Providers Care Mobile Engineer Name Role Phone Rianna Rodrigez PA-C Primary Care Provider [phone] Source Comments [facility],non-owned Affiliates and Associated Physician Practices is amultiple site organization consisting of ambulatory clinics and hospital sitesin [place], [place], [place] and [place]. This disclosure is being madepursuant to the Care Everywhere program and may not contain all information available regarding this patient. 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 Gender Identity Not on file Sexual Orientation [...] URINE RANDOM PANEL Routine 11/11/2017 10:34 AM MEASUREMENT SPECIALIST COMPREHENSIVE METABOLIC PANEL Routine 11/11/2017 10:34 AM MEASUREMENT SPECIALIST from Last 3 Months or Most Recently Relevant to Health Maintenance Results * HEMOGLOBIN A1C - POINT OF CARE (AMB) [facility] (03/22/2018) Hemoglobin A1c POCT 10.7 BLOOD SPECIMEN / Unknown 03/22/2018 Ana Lilia Goldman [facility] - POINT OF CARE O RDERABLES Final Result * MICROALB/CREAT RATIO URINE RANDOM PANEL (11/11/2017 10:34 AM MEASUREMENT SPECIALIST) Creatinine Urine 177 20 - 320 mg/dL [...] within a diagnostic category. Test Performed at: [facility] [address] [place] [address] SARA CHANEL DO,MPH Urine specimen (specimen) URINE / Unknown 11/11/2017 10:34 AM MEASUREMENT SPECIALIST 11/11/2017 10:35 AM MEASUREMENT SPECIALIST Ana Lilia Goldman [facility] - URINE CHEMISTRY ORDERABLES Final Result [facility] ([facility]) [id number] * (ABNORMAL) COMPREHENSIVE METABOLIC PANEL (11/11/2017 10:34 AM MEASUREMENT SPECIALIST) Glucose 61(L) 65 - 99 mg/dL [facility] ([facility]) Comment: Fasting reference interval BUN 9 7 - 25 mg/dL [facility] ([facility]) Creatinine 0.58 0.50 - 1.05 mg/dL [facility] ([facility]) Comment: For patients >49 years of age, the reference limit for Creatinine is approximately 13% higher for people identified as -Micronesian. eGFR non- 106 > OR = 60 [...] U/L [facility] ([facility]) Comment: Test Performed at: [facility] [address] [address] SARA CHANEL DO,MPH Blood specimen (specimen) BLOOD SPECIMEN / Unknown 11/11/2017 10:34 AM MEASUREMENT SPECIALIST 11/11/2017 10:35 AM MEASUREMENT SPECIALIST Ana Lilia Goldman CHURN TENDER-JUSTICE PROFESSOR LAB - CHEMISTRY ORDER TITUS Final Result [facility] ([facility]) [id number] from Last 3 Months or Most Recently Relevant to Health Maintenance Insurance [facility] MEDICA[facility] - [facility] [place] [facility] [place] [place] Member Subscriber Plan / Payer (Ef fective for All Dates) Name:Radha Mcguire Member ID:Not on file Relation to Subscriber:Self Name:Radha Mcguire Payer ID:Not on file Group ID:Not on file Type:Medicaid [place] Address: [place] [id number] [facility] MEDICAID - [place] Member Subscriber Plan / Payer (Ef fective for All Dates) Name:Radha Mcguire Member ID:Not on file Relation to Subscriber:Self Name:Radha Mcguire Payer ID:Not on file Group ID:Not on file Type:Medicaid [place] Address: [place] [phone] * Guarantor: RADHA MCGUIRE Account Type Relation to Patient Date of Phone Billing Address Personal/Family [address] [place] [address] [facility] CARE MEDICAID - [place] Member Subscriber Plan / Payer (Ef fective for All Dates) Name:Radha Mcguire Member ID:Not on file Relation to Subscriber:Self Name:Radha Mcguire Payer ID:Not on file Group ID:Not on file Type:Medicaid [place] Address: [place] [phone] * Guarantor: SHAYLARADHA Account Type Relation to Patient Date of Phone Billing Address Personal/Family [address] [place] [id number] [facility] MED[facility] - [place] Member Subscriber Plan / Payer (Ef fective for All Dates) Name:Radha Mcguire Member ID:Not on file Relation to Subscriber:Self Name:Radha Mcguire Heather Payer ID:Not on file Group ID:Not on file Type:Medicaid [place] Address: [place] [phone] * Guarantor: RADHA MCGUIRE Account Type Relation to Patient Date of Phone Billing Address Personal/Family [address] [place] [id number] [facility] MEDICA[facility] - [place] Member Subscriber Plan / Payer (Ef fective for All Dates) Name:Radha Mcguire Member ID:Not on file Relation to Subscriber:Self Name:ShaylaRadha Heather Payer ID:Not on file Group ID:Not on file Type:Medicaid [place] Address: [place] [phone] Care Teams Mobile Engineer Relationship Specialty Start Date End Date Rianna Rodrigez PA-C PCP - General 03/12/18
--- OUTSIDE RECORDS SUMMARY | 2025-03-29 09:03 | XMS_ITS | Data Portability ---
Author Organization VANE Blanka MILLER Address [address] [facility] [place] [address] Care Team Providers Care Glue Plant Operator Name Role Phone DM LOJA Braid Cutter AARON ISAAC Psychiatrist GONSALO DUPONT Dedenter ELSY WILKINS Primary Care Provider Assessment Encounter [...] DO Not Attach Compendium, Do Not Delete/merge, [id number] 5 15:01:53 CMP, serum or plasma 2024 025 [facility], [address] [facility], [address], [place], [address], 5 10:19:03 lipid panel, serum 2024 025 [facility], [address] [facility], [address], [place], [address], 5 10:19:01 albumin/cre atinine, mass ratio, urine 2024 025 YAEL [facility], Rizwana [address], [address], [place], [address], 5 10:19:00 HbA1c (hemoglobin A1c), blood 2024 025 YAEL LOVE, Rizwana [address]inez, [address], [place], [address], 5 10:19:04 HbA1c (hemoglobin A1c), blood 2024 025 In-Office Order, Internal Use Only DO Not Attach Compendium DO Not Attach Compendium, Do Not Delete/merge, [id number] 5 16:12:14 glucose, fingerstick , blood 2023 024 In-Office Order, Internal Use Only DO Not Attach Compendium DO Not Attach Compendium, Do Not Delete/merge, [id number] 4 10:23:47 CMP, serum or plasma 2023 024 YAEL LOVE, Rizwana [address], [address], [place], [address], 4 23:51:47 lipid panel, serum 2023 024 YAEL PA[facility], Rizwana [address], [address], [place], [address], 4 09:15:32 albumin/cre atinine, mass ratio, urine 2023 024 YAEL LOVE, Rizwana Godinez, [address], [place], [address], 4 09:15:32 HbA1c (hemoglobin A1c), blood 2023 024 In-Office Order, Internal Use Only DO Not Attach Compendium DO Not Attach Compendium, Do Not Delete/merge, [id number] 4 15:19:02 Referral cardiologis t referral 2024 025 YAEL Long MD, [address], [address], [place], [address], 5 11:36:43 gastroenter ologist referral 2023 024 lashay Osei MD, [address] [facility] [address], [address], [place], [address], 4 14:41:43 Procedures None recorded. Surgeries None recorded. Imaging None recorded. Medication Orders amlodipine 10 mg tablet [address] [facility], [address] [place], [address], 5 15:07:54 lisinopril 20 mg-hydrochl orothiazide [address] [facility], [address] [place], [address], 5 15:32:58 OneTouch Verio test strips [address] [facility], [address] [place], [address], 5 15:02:04 atorvastati n 40 mg tablet [address] [facility], [facility] [place], [address], 5 15:07:57 Semglee (insulin glargine-yf gn) Pen 100 unit/mL (3 mL) subcutaneou s [address] [facility], [facility] [place], [address], 5 15:07:52 gabapentin 300 mg capsule 2024 025 [facility], [address] [place] [address], [address], 5 15:02:05 OneTouch Verio test strips [address], [address] [place] [address], [address], 5 09:07:05 gabapentin 300 mg capsule [address], [address] [place] [address], [address], 5 09:07:05 Vitamin D3 125 mcg (5,000 unit) tablet [address], [address] [place] [address], [address], 5 16:20:55 amlodipine 10 mg tablet [address], [address] [place] [address], [address], 5 16:21:45 lisinopril 20 mg-hydrochl orothiazide 12.5 mg tablet [address], [address] [place] [address], [address], 5 15:03:02 atorvastati n 40 mg tablet 2024 025 [facility] [address], [address] [place] [address], [address], 5 16:20:46 Semglee (insulin glargine-yf gn) Pen 100 unit/mL (3 mL) subcutaneou s [address] [facility], [address] [place], [address], 5 16:21:45 amlodipine 10 mg tablet [address] [facility], [address] [place], [address], 4 15:18:59 lisinopril 20 mg-hydrochl orothiazide 25 mg tablet 2023 025 lashay [facility], [address] [place] [address], [address], 5 15:37:31 Ozempic 2 mg/dose (8 mg/3 mL) subcutaneou s pen injector 2023 [facility] [address] [place] [address], [address], 5 16:03:25 Jardiance 25 mg tablet [address] [facility] [address], [address] [place] [address], [address], 4 09:12:16 atorvastati n 40 mg tablet 2023 024 [facility], [address] [place] [address], [address], 4 15:26:32 Patient TargetsNo targets recorded. Patient Instructions Encounter Date Encounter Id Patient Instructions Last Modified By Organization Details Last Modified Time 05/07/2024 [id number] A healthy lifestyle: care instructions [place] [id number] Not available 05/07/2024 15:18:59 03/26/2025 [id number] rhythm strip, EKG* YAEL Not available 03/28/2025 18:32:45 Reason for Referral Cultural Historian Referral for Chronic diarrhea Referring Physician: Elsy Wilkins, Director Enterprise Sales, Encounter Date: 05/07/2024 Ice Cream Server Referral for Ir regular heart beat Referring Physician: Elsy Wilkins, Director Enterprise Sales, Encounter Date: 03/26/2025 Results Created Date Observation Date Name Description Value Unit Range Abnormal Flag Note LastModifiedBy Organization Detail LastModifiedTime 05/07/20 24 05/08/2024 ALBUM IN/CR EATIN INE RATIO ,URIN E creatinine, urine 179.1 mg/dL notest ab. Not Available [facility] ([facility]) [address] [place], [address], 05/08/2024 09:15:32 05/07/20 24 05/08/2024 ALBUM IN/CR EATIN INE RATIO ,URIN E albumin, urine 8.9 ug/mL notest ab. Not Available [facility] ([facility]) [address] [place], [address], 05/08/2024 09:15:32 05/07/20 24 05/08/2024 ALBUM IN/CR EATIN INE RATIO ,URIN E alb/creat ratio 5 mg/g_ creat 0-29 Linda l: 0 - 29 Moder ately incre ased: 30 - 300 Sever akash incre ased: >300 Not Available [facility] ([facility]) [address] [place], [address], 05/08/2024 09:15:32 05/07/20 24 05/08/2024 LIPID PANEL cholesterol, total 120 mg/dL 100-19 9 Not Available [facility] ([facility]) [address] [place], [address], 05/08/2024 09:15:32 05/07/20 24 05/08/2024 LIPID PANEL triglyceride s 57 mg/dL 0-149 Not Available [facility]) [address] [place], [address], 05/08/2024 09:15:32 05/07/20 24 05/08/2024 LIPID PANEL HDL cholesterol 62 mg/dL >39 Not Available [facility]) [address] [facility], [place], [address], 05/08/2024 09:15:32 05/07/20 24 05/08/2024 LIPID PANEL VLDL cholesterol ingrid 13 mg/dL 5-40 Not Available [facility] ([facility]) [address] [facility] [place], [address], 05/08/2024 09:15:32 05/07/20 24 05/08/2024 LIPID PANEL LDL chol calc ([facility]) 45 mg/dL 0-99 Not Available [facility]) [address] [facility] [place], [address], 05/08/2024 09:15:32 05/07/20 24 05/08/2024 COMP. METAB OLIC PANEL (14) glucose 166 mg/dL 70-99 above high normal Not Available [facility] ([facility]) [address] [facility] [place], [address], 05/08/2024 09:15:33 05/07/20 24 05/08/2024 COMP. METAB OLIC PANEL (14) BUN 12 mg/dL 6-24 Not Available [facility] ([facility]) [address] [facility] [place], [address], 05/08/2024 09:15:33 05/07/20 24 05/08/2024 COMP. METAB OLIC PANEL (14) creatinine 0.61 mg/dL 0.57-1 .00 Not Available [facility] ([facility]) [address] [facility] [place], [address], 05/08/2024 09:15:33 05/07/20 24 05/08/2024 COMP. METAB OLIC PANEL (14) eGFR 104 mL/mi n/1.7 3 >59 Not Available [facility] ([facility]) [address] [facility] [place], [address], 05/08/2024 09:15:33 05/07/20 24 05/08/2024 COMP. METAB OLIC PANEL (14) BUN/creatini ne ratio 20 9-23 Not Available [facility] ([facility]) [address] [facility] [place], [address], 05/08/2024 09:15:33 05/07/20 24 05/08/2024 COMP. METAB OLIC PANEL (14) sodium 143 mmol/ L 134-14 4 Not Available [facility] ([facility]) [address] [facility], [place], [address], 05/08/2024 09:15:33 05/07/20 24 05/08/2024 COMP. METAB OLIC PANEL (14) potassium 3.5 mmol/ L 3.5-5. 2 Not Available [facility] ([facility]) [address] [facility], [place], [address], 05/08/2024 09:15:33 05/07/20 24 05/08/2024 COMP. METAB OLIC PANEL (14) chloride 109 mmol/ L 96-106 above high normal Not Available [facility] ([facility]) [address] [facility] [place], [address], 05/08/2024 09:15:33 05/07/20 24 05/08/2024 COMP. METAB OLIC PANEL (14) carbon dioxide, total 21 mmol/ L 20-29 Not Available [facility] ([facility]) [address] [facility] [place], [address], 05/08/2024 09:15:33 05/07/20 24 05/08/2024 COMP. METAB OLIC PANEL (14) calcium 8.3 mg/dL 8.7-10 .2 below low normal Not Available [facility] ([facility]) [address] [facility] [place], [address], 05/08/2024 09:15:33 05/07/20 24 05/08/2024 COMP. METAB OLIC PANEL (14) protein, total 6.5 g/dL 6.0-8. 5 Not Available [facility] ([facility]) [address] [facility] [place], [address], 05/08/2024 09:15:33 05/07/20 24 05/08/2024 COMP. METAB OLIC PANEL (14) albumin 3.7 g/dL 3.8-4. 9 below low normal Not Available [facility] ([facility]) [address] [facility] [place], [address], 05/08/2024 09:15:33 05/07/20 24 05/08/2024 COMP. METAB OLIC PANEL (14) globulin, total 2.8 g/dL 1.5-4. 5 Not Available [facility] ([facility]) [address] [facility] [place], [address], 05/08/2024 09:15:33 05/07/20 24 05/08/2024 COMP. METAB OLIC PANEL (14) bilirubin, total 0.2 mg/dL 0.0-1. 2 Not Available [facility] ([facility]) [address] [facility] [place], [address], 05/08/2024 09:15:33 05/07/20 24 05/08/2024 COMP. METAB OLIC PANEL (14) alkaline phosphatase 127 IU/L 44-121 above high normal Not Available [facility] ([facility]) [address] [facility] [place], [address], 05/08/2024 09:15:33 05/07/20 24 05/08/2024 COMP. METAB OLIC PANEL (14) AST (SGOT) 18 IU/L 0-40 Not Available [facility] ([facility]) [address] [facility] [place], [address], 05/08/2024 09:15:33 05/07/20 24 05/08/2024 COMP. METAB OLIC PANEL (14) ALT (SGPT) 19 IU/L 0-32 Not Available [facility] ([facility]) [address] [facility], [place], [address], 05/08/2024 09:15:33 05/07/20 24 05/07/2024 HbA1c (hemo globi n A1c), blood HbA1c 8.4% Not Available In-Office Order Internal Use Only DO Not Attach Compendium DO Not Attach Compendium, Do Not Delete/merge, [id number] 05/07/2024 15:11:57 05/15/20 24 05/16/2024 PTH INTAC T+INGRID CIUM, IONIZ ED PTH, intact 65 pg/mL 15-65 Not Available [facility] ([facility]) [address] [facility], [place], [address], 05/17/2024 07:17:48 05/15/20 24 05/17/2024 PTH INTAC T+INGRID CIUM, IONIZ ED calcium, ionized, serum 4.9 mg/dL 4.5-5. 6 Not Available [facility] ([facility]) [address] [facility], [place], [address], 05/17/2024 07:17:48 05/15/20 24 05/16/2024 COMP. METAB OLIC PANEL (14) glucose 154 mg/dL 70-99 above high normal Not Available [facility] ([facility]) [address] [place], [address], 05/17/2024 07:17:48 05/15/20 24 05/16/2024 COMP. METAB OLIC PANEL (14) BUN 12 mg/dL 6-24 Not Available [facility] ([facility]) [address] [place], [address], 05/17/2024 07:17:48 05/15/20 24 05/16/2024 COMP. METAB OLIC PANEL (14) creatinine 0.65 mg/dL 0.57-1 .00 Not Available [facility] ([facility]) [address] [place], [address], 05/17/2024 07:17:48 05/15/20 24 05/16/2024 COMP. METAB OLIC PANEL (14) eGFR 102 mL/mi n/1.7 3 >59 Not Available [facility] ([facility]) [address] [facility], [place], [address], 05/17/2024 07:17:48 05/15/20 24 05/16/2024 COMP. METAB OLIC PANEL (14) BUN/creatini ne ratio 18 9-23 Not Available [facility] ([facility]) [address] [facility], [place], [address], 05/17/2024 07:17:48 05/15/20 24 05/16/2024 COMP. METAB OLIC PANEL (14) sodium 144 mmol/ L 134-14 4 Not Available [facility] ([facility]) [address] [facility], [place], [address], 05/17/2024 07:17:48 05/15/20 24 05/16/2024 COMP. METAB OLIC PANEL (14) potassium 4.0 mmol/ L 3.5-5. 2 Not Available [facility] ([facility]) [address] [facility], [place], [address], 05/17/2024 07:17:48 05/15/20 24 05/16/2024 COMP. METAB OLIC PANEL (14) chloride 107 mmol/ L 96-106 above high normal Not Available [facility] ([facility]) [address] [facility], [place], [address], 05/17/2024 07:17:48 05/15/20 24 05/16/2024 COMP. METAB OLIC PANEL (14) carbon dioxide, total 22 mmol/ L 20-29 Not Available [facility] ([facility]) [address] [facility], [place], [address], 05/17/2024 07:17:48 05/15/20 24 05/16/2024 COMP. METAB OLIC PANEL (14) calcium 8.6 mg/dL 8.7-10 .2 below low normal Not Available [facility] ([facility]) [address], [place], [address], 05/17/2024 07:17:48 05/15/20 24 05/16/2024 COMP. METAB OLIC PANEL (14) protein, total 6.3 g/dL 6.0-8. 5 Not Available [facility] ([facility]) [address], [place], [address], 05/17/2024 07:17:48 05/15/2005/16/2024 COMP. METAB OLIC PANEL (14) albumin 3.9 g/dL 3.8-4. 9 Not Available [facility] ([facility]) [address], [place], [address], 05/17/2024 07:17:48 05/15/20 24 05/16/2024 COMP. METAB OLIC PANEL (14) globulin, total 2.4 g/dL 1.5-4. 5 Not Available [facility] ([facility]) [address] [facility], [place], [address], 05/17/2024 07:17:48 05/15/20 24 05/16/2024 COMP. METAB OLIC PANEL (14) bilirubin, total 0.3 mg/dL 0.0-1. 2 Not Available [facility] ([facility]) [address] [facility], [place], [address], 05/17/2024 07:17:48 05/15/20 24 05/16/2024 COMP. METAB OLIC PANEL (14) alkaline phosphatase 137 IU/L 44-121 above high normal Not Available [facility] ([facility]) [address] [facility], [place], [address], 05/17/2024 07:17:48 05/15/20 24 05/16/2024 COMP. METAB OLIC PANEL (14) AST (SGOT) 30 IU/L 0-40 Not Available [facility] ([facility]) [address] [place], [address], 05/17/2024 07:17:48 05/15/20 24 05/16/2024 COMP. METAB OLIC PANEL (14) ALT (SGPT) 41 IU/L 0-32 above high normal Not Available [facility] ([facility]) [address] [facility], [place], [address], 05/17/2024 07:17:48 05/15/20 24 05/16/2024 MAGNE SIUM magnesium 1.9 mg/dL 1.6-2. 3 Not Available [facility] ([facility]) [address] [place], [address], 05/17/2024 07:17:49 05/15/2005/16/2024 VITAM IN D, 25-HY DROXY vitamin D, [...] Endoc rine Socie ty [facility] defin e vitam in D insuf ficie ncy as a level betwe en 21 and 29 ng/mL (2). 1. IOM (Inst itute of Medic ine). 2010. Dieta ry refer ence intak es for calci um and D. Rj shultz [place]: The [facility] Press . 2. Brett goldstein MF, Fannie palomares [place], Deirdre off-F vivian i NIELSEN, et al. Evalu ation , treat ment, and preve ntion of vitam in D defic iency : an Endoc rine Socie ty clini ingrid pract ice guide line. JCEM. 2010; 96(7) :1911 -30. Not Available [facility] ([facility]) [address] [facility], [place], [address], 05/17/2024 07:17:49 06/13/20 24 06/13/2024 gluco sejeffry rsbasilia k, blood Blood Glucose: mg/dl 306 Not Available In-Off ice Order Internal Use Only DO Not Attach Compendium DO Not Attach Compendium, Do Not Delete/merge, [id number] 06/13/2024 10:23:33 10/07/19 25 10/07/2024 HbA1c (hemo globi n A1c), blood HbA1c 7.2 Not Available In-Office Order Internal Use Only DO Not Attach Compendium DO Not Attach Compendium, Do Not Delete/merge, [id number] 10/07/2024 15:48:02 11/15/19 25 11/15/2024 ALBUM IN/CR EATIN INE RATIO ,URIN E creatinine, urine 149.3 mg/dL notest ab. Not Available [facility] ([facility]) [address] [facility], [place], [address], 11/15/2024 10:19:00 11/15/19 25 11/15/2024 ALBUM IN/CR EATIN INE RATIO ,URIN E albumin, urine 13.4 ug/mL notest ab. Not Available [facility] ([facility]) [address] [facility], [place], [address], 11/15/2024 10:19:00 11/15/19 25 11/15/2024 ALBUM IN/CR EATIN INE RATIO ,URIN E alb/creat ratio 9 mg/g_ creat 0-29 Linda l: 0 - 29 Moder ately incre ased: 30 - 300 Sever akash incre ased: >300 Not Available [facility] ([facility]) [address] [facility], [place], [address], 11/15/2024 10:19:00 11/15/19 25 11/15/2024 LIPID PANEL cholesterol, total 132 mg/dL 100-19 9 Not Available [facility] ([facility]) [address] [place], [address], 11/15/2024 10:19:01 11/15/19 25 11/15/2024 LIPID PANEL triglyceride s 42 mg/dL 0-149 Not Available [facility] ([facility]) [address] [place], [address], 11/15/2024 10:19:01 11/15/19 25 11/15/2024 LIPID PANEL HDL cholesterol 63 mg/dL >39 Not Available [facility]) [address] [place], [address], 11/15/2024 10:19:01 11/15/19 25 11/15/2024 LIPID PANEL VLDL cholesterol ingrid 10 mg/dL 5-40 Not Available [facility] ([facility]) [address] [place], [address], 11/15/2024 10:19:01 11/15/19 25 11/15/2024 LIPID PANEL LDL chol calc ([facility]) 59 mg/dL 0-99 Not Available [facility]) [address] [place], [address], 11/15/2024 10:19:01 11/15/19 25 11/15/2024 COMP. METAB OLIC PANEL (14) glucose 186 mg/dL 70-99 above high normal Not Available [facility] ([facility]) [address] [place], [address], 11/15/2024 10:19:02 11/15/19 25 11/15/2024 COMP. METAB OLIC PANEL (14) BUN 9 mg/dL 6-24 Not Available [facility] ([facility]) [address] [place], [address], 11/15/2024 10:19:02 11/15/19 25 11/15/2024 COMP. METAB OLIC PANEL (14) creatinine 0.60 mg/dL 0.57-1 .00 Not Available [facility] ([facility]) [address] [facility] [place], [address], 11/15/2024 10:19:02 11/15/19 25 11/15/2024 COMP. METAB OLIC PANEL (14) eGFR 103 mL/mi n/1.7 3 >59 Not Available [facility] ([facility]) [address] [facility] [place], [address], 11/15/2024 10:19:02 11/15/19 25 11/15/2024 COMP. METAB OLIC PANEL (14) BUN/creatini ne ratio 15 9-23 Not Available [facility] ([facility]) [address] [facility] [place], [address], 11/15/2024 10:19:02 11/15/19 25 11/15/2024 COMP. METAB OLIC PANEL (14) sodium 146 mmol/ L 134-14 4 above high normal Not Available [facility] ([facility]) [address] [facility] [place], [address], 11/15/2024 10:19:02 11/15/19 25 11/15/2024 COMP. METAB OLIC PANEL (14) potassium 3.6 mmol/ L 3.5-5. 2 Not Available [facility] ([facility]) [address] [facility] [place], [address], 11/15/2024 10:19:02 11/15/19 25 11/15/2024 COMP. METAB OLIC PANEL (14) chloride 107 mmol/ L 96-106 above high normal Not Available [facility] ([facility]) [address] [facility] [place], [address], 11/15/2024 10:19:02 11/15/19 25 11/15/2024 COMP. METAB OLIC PANEL (14) carbon dioxide, total 26 mmol/ L 20-29 Not Available [facility] ([facility]) [address] [place], [address], 11/15/2024 10:19:02 11/15/19 25 11/15/2024 COMP. METAB OLIC PANEL (14) calcium 8.5 mg/dL 8.7-10 .2 below low normal Not Available [facility] ([facility]) [address] [place], [address], 11/15/2024 10:19:02 11/15/19 25 11/15/2024 COMP. METAB OLIC PANEL (14) protein, total 6.6 g/dL 6.0-8. 5 Not Available [facility] ([facility]) [address] [place], [address], 11/15/2024 10:19:02 11/15/19 25 11/15/2024 COMP. METAB OLIC PANEL (14) albumin 3.8 g/dL 3.8-4. 9 Not Available [facility] ([facility]) [address] [place], [address], 11/15/2024 10:19:02 11/15/19 25 11/15/2024 COMP. METAB OLIC PANEL (14) globulin, total 2.8 g/dL 1.5-4. 5 Not Available [facility] ([facility]) [address] [place], [address], 11/15/2024 10:19:02 11/15/19 25 11/15/2024 COMP. METAB OLIC PANEL (14) bilirubin, total 0.2 mg/dL 0.0-1. 2 Not Available [facility] ([facility]) [address] [place], [address], 11/15/2024 10:19:02 11/15/19 25 11/15/2024 COMP. METAB OLIC PANEL (14) alkaline phosphatase 169 IU/L 44-121 above high normal Not Available [facility] ([facility]) [address] [place], [address], 11/15/2024 10:19:02 11/15/19 25 11/15/2024 COMP. METAB OLIC PANEL (14) AST (SGOT) 20 IU/L 0-40 Not Available [facility] ([facility]) [address] [facility], [place], [address], 11/15/2024 10:19:02 11/15/19 25 11/15/2024 COMP. METAB OLIC PANEL (14) ALT (SGPT) 25 IU/L 0-32 Not Available [facility] ([facility]) [address] [facility], [place], [address], 11/15/2024 10:19:02 11/15/19 25 11/15/2024 HEMOG LOBIN A1C hemoglobin A1C 7.7 % 4.8-5. 6 above high normal Predi abete s: 5.7 - 6.4 Diabe margoth: >6.4 Glyce trever contr ol for adult s with diabe margoth: <7.0 Not Available [facility] ([facility]) [address] [facility], [place], [address], 11/15/2024 10:19:04 03/26/20 25 03/26/2025 HbA1c (hemo globi n A1c), blood HbA1C 7.2 % Not Available In-Office Order Internal Use Only DO Not Attach Compendium DO Not Attach Compendium, Do Not Delete/merge, [id number] 03/26/2025 14:55:52 04/09/20 24 04/09/2024 MAMMO , diagn ostic , unila teral No observ ation record ed. [facility] [address], [place], [address], 04/10/2024 15:29:22 04/09/20 24 04/09/2024 lab* No observ ation record ed. [address], [place], [address], 04/10/2024 15:23:25 04/10/20 24 04/09/2024 lab* No observ ation record ed. [email or web address] [address] [facility] [address], [place], [address], 04/10/2024 15:23:31 05/07/20 24 05/07/2024 CT, abdom en + pelvi s, w/ contr ast No observ ation record ed. [facility] [address] [facility] [address], [place], [address], 05/08/2024 16:18:17 03/28/20 25 03/27/2025 rhyth m strip , EKG* No observ ation record ed. [facility] [facility] [address], [place], [address], 03/28/2025 18:32:45 Result Notes None recorded. Problems Name Problem SNOMED Code Status Onset Date Resolution Date Notes Provider Name and Address Organization Details Recorded Time Multiple boils Active Not Available [facility] 3 17:50:00 Nausea [id number] Active Not Available [facility] 17:50:01 Serous otitis media 34379400 Completed 11/09/2020 YEMI LUJAN Attn: Accounting ,[address], [place], [address] , [facility] 1 17:05:51 Diabetes mellitus 51846057 Active Not Available [facility] 17:50:01 Migraine 24287758 Completed 11/09/2020 YEMI LUJAN Attn: Accounting ,[address], [place], [address] , [place] 17:06:52 Hyperten sive disorder 00034059 Active Not Available [facility] 3 17:50:00 Osteoart hritis 809865090 Active Not Available [facility] 3 17:50:01 Irritabl e bowel syndrome 72026616 Completed 05/30/2019 YEMI LUJAN Attn: Accounting ,[address], [place], [address] , [place] [facility] 9 14:41:28 Morbid obesity 122603666 Completed 11/09/2020 YEMI LUJAN Attn: Accounting ,[address], [place], [address] , [place] [facility] 1 17:07:04 Uterine fibroid polyp 747710210 Completed 11/09/2020 s/p hysterec rose YEMI LUJAN Attn: Accounting ,[address], [place], [address] , [place] [facility] 1 17:06:09 Anemia 296644136 Active Not Available [facility] 3 17:50:00 Urgent desire to urinate 16457773 Completed 05/30/2019 YEMI LUJAN Attn: Accounting ,[address], [place], [address] , [place] [facility] 9 14:41:37 Iron deficien cy anemia 95986337 Active Not Available [facility] 3 17:50:01 Pain of hip region 04506647 Completed 05/30/2019 YEMI LUJAN Attn: Accounting ,[address], [place], [address] , [place] [facility] 9 14:42:14 Low back pain 111465530 Active Not Available [facility] 3 17:50:00 Lesion of liver 382082782 Active Not Available [facility] 3 17:50:00 Menorrha paige 509767577 Completed 05/30/2019 YEMI LUJAN Attn: Accounting ,[address], [place], [address] , [place] [facility] 9 14:41:03 Dyspnea on exertion 67176460 Completed 11/09/2020 YEMI LUJAN Attn: Accounting ,[address], [place], [address] , [place] [facility] 1 17:07:27 Hyperlip idemia 68018109 Active Not Available [facility] 3 17:50:01 Allergic rhinitis 82413313 Active Not Available [facility] 3 17:50:01 Candidia sis of skin 58481350 Completed 11/09/2020 YEMI LUJAN Attn: Accounting ,[address] [place], [address] , [place] [facility] 1 17:06:36 Foot pain 25256519 Completed 11/09/2020 YEMI LUJAN Attn: Accounting ,[address], [place], [address] , [place] [facility] 1 17:06:41 Calcanea l spur 15603479 Active Not Available [facility] 3 17:50:01 Upper respirat ory infectio n 80277660 Completed 05/30/2019 YEMI LUJAN Attn: Accounting ,[address] [place], [address] , [place] [facility] 9 14:49:52 Hyperuri cemia 81565321 Active Not Available [facility] 3 17:50:00 Gastroes ophageal reflux disease 321617892 Active Not Available [facility] 3 17:50:00 Spasm of back muscles 410319921 Active Not Available [facility] 3 17:50:00 Cough 08922024 Completed 05/30/2019 YEMI LUJAN Attn: Accounting ,[address] [place], [address] , [place] [facility] 9 14:42:20 Obesity 772040598 Active 2016 Not Available [facility] 3 17:50:01 Active or passive immuniza tion Completed 201605/30/2019 YEMI LUJAN Attn: Accounting ,[address] [place], [address] , [place] [facility] 9 14:41:18 Pre-surg juanita testing Completed 201605/30/2019 YEMI LUJAN Attn: Accounting ,[address], [place], [address] , [place] [facility] 9 14:41:21 Neuropat hy due to diabetes mellitus 586015090 Active 2016 Not Available [facility] 3 17:50:00 Plantar fasciiti s 709525218 Completed 201605/30/2019 YEMI LUJAN Attn: Accounting ,[address], [place], [address] , [place] [facility] 9 14:41:14 Hyperten sive urgency 619604369 Active 2022 Not Available [facility] 3 17:50:01 Uncontro lled type 2 diabetes mellitus 732647907 Active 2022 Not Available [facility] 3 17:50:01 Intermit tent claudica tion 32983757 Active 2022 Not Available [facility] 3 17:50:01 Diarrhea 04568353 Active 2022 Not Available [facility] 3 17:50:01 Cervical radiculo bebo 27711602 Active 2022 YEMI LUJAN Attn: Accounting ,[address], [place], [address] , [place] [facility] 3 09:30:28 Chronic diarrhea 844825720 Active 2023 YEMI LUJAN Attn: Accounting ,[address], [place], [address] , [place] [facility] 4 15:10:43 [facility] hyperten katharina 86666202 Active 2024 YEMI LUJAN Attn: Accounting ,[address], [place], [address] , [place] [facility] 5 09:05:08 Anxiety 11662890 Active 2024 YEMI LUJAN Attn: Accounting ,[address], [place], [address] , [facility] 5 09:05:11 Problem Notes None recorded. Procedures Surgical History Date Name Laterality Status Provider Name and Address Organization Details Recorded Time 09/11/19 21 Date of Last Mammogram completed Carmen Boo MA [facility] 01/14/2021 16:26:04 05/30/20 19 Gastric Bypass completed Carmen Boo MA [facility] 01/14/2021 16:26:39 09/11/19 19 Date of Last Pap Smear completed Carmen Boo MA [facility] 01/14/2021 16:26:21 03/11/20 15 Total hysterectomy completed YEMI EATON Attn: Accounting,[address] [place], [address], [facility] 06/20/2019 09:55:32 09/11/19 06 [facility] 10:24:52 03/30/19 81 Caesarean Section completed [facility] 08/12/2014 10:24:52 Imaging Results None recorded. Procedure Notes None recorded. Medical Equipment None Reported. Allergies Allergen ID Allergen Name Allergen Category Reaction Reaction Severity Criticality Documentation Date Start Date Code Code System Note Provider Name and Address Organization Details Recorded Time 4081 hydrocodo ne Not available Not available Not available Not available 08/11/2014 5489 RxNorm Anamaria POOL Dawn [facility], [facility] 4 15:46:26 4082 acetamino phen medicatio n Not available Not available Not available 08/11/2014 161 RxNorm Anamaria Dawn LPN [facility], [facility] 4 15:46:26 09051 acetamino phen / hydrocodo ne medicatio n Not available Not available Not available 05/19/2016 44057 2 RxNorm Lizz Mcgovern MA null, [facility] 6 17:01:48 Medications Name Sig Start Date [...] Available No t Available [employer] active Not Available Not Available Not Available [...] Last Updated DateTime 162.56 cm 31.6 kg/m2 22309.1 g 80 /min 98 % 98 % 165/84 mm[Hg] Carmen Boo MA [facility] 5 15:42:57 Date Recorded Systolic And Diastolic Provider Name and Address Organization Details Last Updated DateTime 11/14/2024 130/85 mm[Hg] Kiko LUJAN Attn: Accounting,[address] [place], [address], [facility] 11/14/2024 09:04:52 Date Recorded Body height Body mass index (BMI) Body weight Heart rate Oxygen saturation Oxygen saturation in Arterial blood by Pulse oximetry Provider Name and Address Organization Details Last Updated DateTime 5 162.56 cm 31.1 kg/m2 51683.2 2 g 88 /min 98 % 98 % Carmen Boo MA [facility] 5 08:46:09 Date Recorded Body height Body mass index (BMI) Body weight Heart rate Oxygen saturation Oxygen saturation in Arterial blood by Pulse oximetry Systolic And Diastolic Provider Name and Address Organization Details Last Updated DateTime 5 162.56 cm 32.3 kg/m2 76843.3 7 g 82 /min 98 % 98 % 171/82 mm[Hg] Carmen Boo MA [facility] 5 14:53:00 Date Recorded Body height Body mass index (BMI) Body weight Heart rate Oxygen saturation Oxygen saturation in Arterial blood by Pulse oximetry Systolic And Diastolic Provider Name and Address Organization Details Last Updated DateTime 4 162.56 cm 33.2 kg/m2 13222.7 3 g 75 /min 98 % 98 % 165/85 mm[Hg] Carmen Boo MA [facility] 4 14:50:02 Date Recorded Systolic And Diastolic Provider Name and Address Organization Details Last Updated DateTime 06/12/2024 136/82 mm[Hg] Kiko LUJAN Attn: Accounting,[address] [place], [address], [facility] 06/13/2024 10:23:12 Date Recorded Body height Body mass index (BMI) Body weight Heart rate Oxygen saturation Oxygen saturation in Arterial blood by Pulse oximetry Provider Name and Address Organization Details Last Updated DateTime 4 162.56 cm 31.3 kg/m2 47793.2 1 g 94 /min 98 % 98 % Carmen Boo MA [facility] 16:55:43 Social History Question Answer Notes LastModified by Organizat ion Details LastModified Time Tobacco Smoking Status Never Smoker Abena mcdonald [facility] 08/12/2014 10:25:54 Do You Have [...] Skin Problems Y Anemia Y Heart Attack ([place]) N Anxiety Disorder Y Diabetes Y Muscle, [...] dose 1 completed Not Available [facility] 04/10/2023 17:50:01 COVID-19, mRNA, LNP-S, PF, 30 mcg/0.3 mL dose 1 completed Not Available [facility] 04/10/2023 17:50:01 COVID-19, mRNA, LNP-S, PF, 30 mcg/0.3 mL dose 1 completed [place] [facility] 05/06/2024 17:29:32 Influenza, split virus, quadrivalent, preservative 6 completed Not Available [facility] 09/28/2019 02:32:36 Influenza, split virus, quadrivalent, preservative 5 completed [place] [facility] 05/06/2024 17:29:31 Influenza, recombinant, quadrivalent, PF 1 completed [place] [facility] 05/06/2024 17:29:31 Pneumococcal conjugate PCV20, polysaccharide [id number] conjugate, adjuvant, PF 2 completed Carmen [place]oo [place] [facility] 05/06/2024 17:29:32 COVID-19, mRNA, LNP-S, bivalent, PF, 30 mcg/0.3 mL dose 2 completed [place] [facility] 05/06/2024 17:29:32 pneumococcal polysaccharide PPV23 0 [place] [facility] 05/06/2024 17:29:32 Influenza, split virus, quadrivalent, PF 0 completed [place] [facility] 05/06/2024 17:29:32 Influenza, split virus, quadrivalent, PF 2 completed Carmen [place]oo [place] [facility] 05/06/2024 17:29:32 Tdap 7 completed Not Available [facility] 09/28/2019 02:33:29 pneumococcal polysaccharide PPV23 7 completed Not Available [facility] 09/28/2019 02:33:29 Influenza, split virus, quadrivalent, PF 3 completed Not Available [facility] 03/26/2025 14:48:34 Tdap 3 completed Not Available [facility] 03/26/2025 14:48:34 COVID-19, mRNA, LNP-S, PF, 50 mcg/0.5 mL 3 completed Not Available [facility] 03/26/2025 14:48:34 zoster recombinant 4 completed Not Available [facility] 03/26/2025 14:48:34 HepB-CpG 4 completed Not Available [facility] 03/26/2025 14:48:34 zoster recombinant 4 completed Not Available [facility] 03/26/2025 14:48:34 Influenza, split virus, trivalent, PF 4 completed Not Available [facility] 03/26/2025 14:48:34 COVID-19, mRNA, LNP-S, PF, maegan-sucrose, 30 mcg/0.3 mL 4 completed Not Available [facility] 03/26/2025 14:48:34 MMR 5 completed Not Available [facility] 03/26/2025 14:48:34 HepB-CpG 5 completed Not Available [facility] 03/26/2025 14:48:34 Influenza, split virus, quadrivalent, PF 7 completed Not Available [facility] 09/28/2019 02:43:11 Influenza, split virus, quadrivalent, preservative 9 completed Not Available [facility] 09/28/2019 02:43:43 Pneumococcal conjugate PCV20, polysaccharide [id number] conjugate, adjuvant, PF 3 completed Tiffany Cohen, [facility] [place], [place] [facility] 09/06/2023 12:59:04 Past Encounters Encounter ID Performer Location Encounter Start Date Encounter Closed Date Diagnosis/Indication Diagnosis SNOMED-CT Code Diagnosis ICD10 Code Diagnosis Note [id number] HO Buchanan [facility] [address] [place] [address] 08/12/2014 10:03:33 08/12/2014 14:13:10 Diabetes mellitus 78834226 Uterine fibroid polyp 421904852 Urgent laura val to urinate 17782214 Iron defic iency anemia 44924389 [id number] HO Buchanan [address] [place] [address] 10/27/2014 12:15:54 10/27/2014 13:00:51 Diabetes mellitus 53678113 Hypertensive disorder 61286633 Multiple boils 863368562 Nausea 117727851 Likely viral gastroente ritis Serous otitis media 46633220 Iron defic iency anemia 60471296 [id number] Jim Ruano MD [address] [place] [address] 01/05/2015 09:52:14 01/05/2015 15:59:39 Diabetes mellitus 97193599 Would like her to up her Lantus from 60 to 65 BID. Talked about less potatoes, white bread. Will f/u next week to check on BS. Hypertensive disorder 14262868 Multiple boils 986528199 Is referred to derm. States that every time that she finishes her Bactrim that the boils return. Will start on doxy for one month and told her keep her derm appt. Nausea 785304052 Likely viral gastroente ritis Serous otitis media 66003318 Iron defic iency anemia 41956624 Had an infusion one month ago. States that her iron was 14 last time checked. Being followed by oncology. Pain of hip region 75228444 Has already had an xray and CT of hip. Will order MRI of right hip Low back pain 162864221 Was seen in the ED for flank and hip pain one month ago. Already has had an xray and ct. Will order an MRI of her rt hip because that is where she is complainin g of the most amount of pain. Lesion of liver 604750994 Received ED note after patient left. The note states that there is a 2.5cm hypoattenu ated lesion on her liver and advised further evaluation . Will order a MRI. 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 next week [id number] MD Tere Sylvester (Adult Med) [address] [place] [address] 03/09/2015 11:47:04 03/09/2015 13:40:34 Dyspnea on exertion 68058112 Diabetes mellitus 24711049 [id number] MD Tere Sylvester (Adult Med) [address] [place] [address] 04/15/2015 10:35:04 04/15/2015 14:11:48 Hypertensive disorder 05932596 Diabetes mellitus 67439342 Increase Lantus to 85mg BID - goal is to have BS in the AM around 150 Hyperlipidemia 99947070 Nausea 661533318 Likely viral gastroente ritis Allergic rhinitis 33000359 Irritable bowel syndrome 04050037 Multiple boils 132955977 Contacted U and they will take care of the abx for the boil Candidiasis of skin 11181802 [id number] MD Tere Sylvester (Adult Med) [address] [place] [phone] 06/09/2015 10:25:14 06/09/2015 12:05:38 Diabetes mellitus 26046772 Will d/c glipizide and switch to sliding scale BS 150-200: 4 units 200-250: 8 250-300: 12 >300: 16 RTC 1 week with blood sugar log She is going to try weight watchers through [place] Hyperlipidemia 34973991 Hypertensive disorder 58408151 Allergic rhinitis 13292106 Irritable bowel syndrome 57074908 Needs infl uenza immunization 122841916 [id number] MD Tere Sylvester (Adult Med) [address] [place] [address] 06/25/2015 09:14:24 06/25/2015 09:51:52 Diabetes mellitus 87358589 E11.8 Will d/c glipizide and switch to sliding scale BS 150-200: 4 units 200-250: 8 250-300: 12 >300: 16 Sugars improving RTC 2 weeks Encouraged no fried food or juice senior health educator referral placed Brought in paperwork for Weight Watcher [id number] MD Tere Sylvester (Adult Med) [address] [place] [address] 07/09/2015 09:36:19 07/09/2015 10:15:59 Diabetes mellitus 78554480 E11.8 Will d/c glipizide and switch to [...] weeks Encouraged no fried food or juice senior health educator referral placed Brought in paperwork for Weight Watcher [id number] MD Tere Sylvester (Adult Med) [address] [place] [address] 08/13/2015 09:38:53 08/13/2015 10:22:58 Diabetes mellitus 00148633 E11.9 Appointmen t with endocrinol ogist 10/05 [...] RTC in one month Hypertensive disorder 38 409209 I10 Hyperlipidemia 00473596 E78.5 [id number] MD Tere Sylvester (Adult Med) [address] [place] [id number] 09/21/2015 13:58:37 09/21/2015 14:38:27 Diabetes mellitus 73591129 E11.9 Appointmen t with endocrinol ogist 10/05 [...] Monday Screening for malignant neoplasm of colon 630871843 Z12.11 [id number] [facility] [address] [place] [address] 11/13/2015 09:32:46 11/13/2015 12:04:53 Diabetes mellitus 36578988 E11.9 Lantus 80 units BID Apidra sliding [...] improved Screening for malignant neoplasm of colon 976917246 Z12.11 Colonoscop y schedule for 12/07 Foot pain 01236307 M79.6 71 Will send for foot xray - likely bone spur Will determine next steps once I have xray results Hyperlipidemia 47288341 E78.5 Hypertensive disorder 38 723515 I10 Will increase lisinopril from 10mg to 20mg and put it into one pill Allergic rhinitis 775710 04 J30.9 [id number] MD Tere Sidhu (Adult Med) [address] [place] [address] 12/15/2015 10:03:37 12/15/2015 10:44:58 Diabetes mellitus 23485097 E11.9 Lantus 80 units BID Apidra sliding scale: BS 150-200: 26 units >200: 30 units metformin 1000mg BID - prescribed by endocrinol ogy Patient encouraged to eat 3 meals/day Patient encouraged to not drink juice or eat fried foods Working out 2 days/week - joined [employer] Lost 7lbs - encouraged her to keep [...] her endocrinol ogist Neal olson with treatment 2755893 Z91.19 Patient ate two donuts and juice [...] choices are going to shorten her life [id number] MD Tere Sidhu (Adult Med) [address] [place] [address] 02/17/2016 12:14:16 02/17/2016 12:48:25 Diabetes mellitus 21699155 E11.9 Lantus 80 units BID Apidra sliding scale: BS 150-200: 26 units >200: 30 units - discussed with patient that she cannot be taking 80 units of Apidra before every meal - that is what is causing her sugars to drop so low and making her feel shaky metformin 1000mg BID - prescribed by endocrinjordan morel Encouraged to make an eye doctor appointmen t Patient encouraged to eat 3 meals/day Patient encouraged to not drink juice or eat fried foods Working out 2 days/week - joined [employer] Patient ate taco curry right before [...] to make that appointmen t today Hyperlipidemia 04412414 E78.5 Noncomplia nce with treatment 1920976 Z91.19 Ate taco curry just before coming [...] choices are going to shorten her life [id number] Martine Sullivan MD [facility] (Adult Med) [address] [place] [phone] 05/19/2016 16:10:41 05/19/2016 17:29:14 Diabetes mellitus 63310338 E11.9 Lantus 80 units BID Apidra sliding scale: BS 150-200: 26 units >200: 30 units - discussed with patient that she cannot be taking 80 units of Apidra before every meal - that is what is causing her sugars to drop so low and making her feel shaky metformin 1000mg BID - prescribed by endocrinjordan morel She has not been back to endo since October - advised patient that she must see them - she works until 2:30 daily, so she will make an appointmen t PATRIA Encouraged to make an eye doctor appointlayo baumann at [facility] for her annual visit Patient encouraged to eat 3 meals/day Patient encouraged to not drink juice or eat fried foods Working out 2 days/week - joined [employer] We had another long discussion that her eating all of this sugar and her a1c increasing is going to shorten her life if she does not get her BS under control 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 States that her iron was 14 last time checked. Being followed by oncology. Gastroesop hageal reflux disease 540803167 K21.9 Spasm of back muscles 20 5942417 M62.830 Noncomplia nce with treatment 6640600 Z91.19 We had a long discussion that [...] with endocrinol adriel and her eye doctor [id number] Martine [facility] [address] [place] [phone] 07/04/2016 16:12:06 07/05/2016 11:31:51 Active or passive immunization 521610114 Z23 [id number] [facility] [address] [place] [phone] 08/15/2016 16:06:06 08/15/2016 17:09:28 Hyperlipidemia 08288711 E78.5 c/w current medication Hypertensive disorder 38 632924 I10 144/88 at second check - will increase lisinopril to 30mg and HCTZ 5o 12.5Will RTC 1-2 weeks for BP check for nurse only appointmen t Allergic rhinitis 834095 04 J30.9 Gastroesop hageal reflux disease 188974380 K21.9 Iron defic iency anemia 53254948 D50.9 Being followed by oncology. [id number] MD Tere Sidhu (Adult Med) [address] [place] [address] 01/10/2017 16:22:33 01/11/2017 09:54:57 Obesity 367534692 E66.9 Advised 30 minutes of exercise 5 days/week Advised to not drink her calories Advised 3 balanced meals/day with plenty of fruits and vegtablesA gain discussed that the majority of this goes back to her diet Diabetes mellitus 198405 09 E11.9 Will check lab work for surgical clearanceP atient to RTC once labs are completedA dvised that she needs to contact her surgeon's office to see what her a1c needs to be prior to surgery Pre-surgery testing 1104 30390 Z01.89 Will check lab work for surgical clearance Patient to RTC once labs are completed Advised that she needs to contact her surgeon's office to see what her a1c needs to be prior to surgery Active or passive immunization 396968000 Z23 Hyperlipidemia 60102574 E78.5 will recheck FLPcurrent ly taking atorvastat in 40mg Gastroesop hageal reflux disease 236582045 K21.9 c/w famotidine Iron defic iency anemia 75643713 D50.9 Will recheck Hypertensive disorder 38 984184 I10 160/100 - did not take BP mediciaton todayNADWI ll readdress [facility] needs to always take her BP medication Osteoarthritis 226914458 M19.90 Advised that she needs to f/u with ortho concerning this [id number] MD Tere Sidhu (Adult Med) [address] [place] [address] 03/01/2017 16:02:23 03/02/2017 11:38:10 Diabetes mellitus 90849828 E11.9 last a1c: 10.8Patien t advised to continue to follow with endo - staes that she has an appointmen t coming up in the next few weeks Neuropathy due to diabetes mellitus 809632003 E11.40 WIll initiate gabapentin qPM and then can increase to BID - advised that it may make her feel a bit off, so to begin by taking it at nightPatie nt to RTC next month to begin the weight look surgery process again and will check on medication at this timeCirilo lima, like she knows, that keep her blood sugars under control are what is going to help with the neuropathy . Obesity 424542042 E66.9 Patient is down 13lbs in the [...] go back to diet and portion control [id number] MD Tere Sidhu (Adult Med) [address] [place] [address] 04/05/2017 16:01:24 04/05/2017 18:02:03 Pre-surgery testing 263318102 Z01.89 first month completed - advised that she really needs to evaluate why she is doing this surgery and focus on changing her eating habits at this time as well - also needs to control her DM Diabetes mellitus 394993 09 E11.9 last a1c: 10.8Patien t advised to continue to follow with endoWill recheck a1c today Screening for disorder 086873153 Z13.9 Neuropathy due to diabetes mellitus 277626563 E11.40 c/w gabapentin 300mg BIDAdvised , like she knows, that keep her blood sugars under control are what is going to help with the neuropathy . Muscle spa sm of cervical muscle of neck [id number] 04 M62.838 Morbid obesity 227320171 E66.01 Patient not interested in making the [...] diabetes will need to be under control [id number] Martine Sullivan MD [facility] (Adult Med) [facility] [place] [address] 05/10/2017 16:07:04 05/10/2017 17:57:19 Neuropathy due to diabetes mellitus 088354083 E11.40 Per patient, gabapentin not working as well anymore - discuss this is likely 2/2 her uncontroll ed DMWIll try samples of Lyrica - advised patient she will need to get this prescripti on from endo since they are following DM Pre-surgery testing 1104 38242 Z01.89 second month completed - advised that she really needs to evaluate why she is doing this surgery and focus on changing her eating habits at this time as well - also needs to control her DM Diabetes mellitus 913376 09 E11.9 last a1c: 12.2 (03/2017)P atient advised to continue to follow with endoWill recheck a1c today Morbid obesity 511754529 E66.01 Patient not interested in making the [...] to be under control Hypertensive disorder 38 754812 I10 140/82 - basically WNL, NAD Advised that needs to always take her BP medication Advised DASH diet [id number] MD Tere Sidhu (Adult Med) [address] [place] [address] 06/07/2017 16:07:34 06/08/2017 14:25:33 Neuropathy due to diabetes mellitus 491947561 E11.40 Pre-surgery testing 1104 97338 Z01.89 third month completed - advised that she really needs to evaluate why she is doing this surgery and focus on changing her eating habits at this time as well - also needs to control her DM Diabetes mellitus 914572 09 E11.9 last a1c: 12.2 (03/2017) - per patient, endo told her her a1c was 7.6 and [facility] the [facility] to follow with [facility]o Morbid obesity 664160143 E66.01 Patient not interested in making the [...] to be under control Hypertensive disorder 38 764936 I10 148/86 - not WNL, NADAdvised that needs to always take her BP medication Advised DASH dietWill readdress at next visit Active or passive immunization 026211362 Z23 Plantar fasciitis 437348 003 M72.2 Followed by podatiry [id number] MD [facility] (Adult Med) [address] [place] [address] 07/05/2017 16:04:56 07/06/2017 09:54:19 Neuropathy due to diabetes mellitus 896246763 E11.40 Pre-surgery testing 1104 94374 Z01.89 fourth month completed - again advised that she really needs to evaluate why she is doing this surgery and focus on changing her eating habits at this time as well - also needs to control her DM Diabetes mellitus 947812 09 E11.9 last a1c: 7.6 at endoPatien t advised to continue to follow with endo Morbid obesity 024841210 E66.01 Gained 3lbsPatien t not interested in [...] to get gastic bypass Hypertensive disorder 38 803956 I10 130/84 WNL, NADDiscuss ed DASH diet Advised 30 minutes of exercise minimum dailyAdvis ed tobacco, alcohol, caffeine all increase BPAdvised goal for BP is <140/90 Plantar fasciitis 273620 003 M72.2 Followed by podatiry [id number] MD Tere Johnson (Adult Med) [address] [place] [address] 08/01/2017 16:05:18 08/01/2017 17:53:17 Disorder of vitamin D 097977763 E56.9 Morbid obesity 495876894 E66.01 Gained 7lbsPatien t not interested in [...] to get gastic bypass Pre-surgery testing 1104 14205 Z01.89 fifth month completed - again advised [...] completed at office visit Hypertensive disorder 38 303151 I10 136/84 at second check - WNL, NADDiscuss ed DASH diet Advised 30 minutes of exercise minimum dailyAdvis ed tobacco, alcohol, caffeine all increase BPAdvised goal for BP is <140/90 Diabetes mellitus 978898 09 E13.42 last a1c: 7.6 at endoPatien t advised to continue to follow with endo [id number] MD Tere Johnson (Adult Med) [address] [place] [address] 08/30/2017 16:03:22 08/30/2017 17:27:26 Pre-surgery testing 589296122 Z01.89 sixth month completed - again advised [...] because her a1c was >8 Morbid obesity 731067808 E66.01 Gained 2lbsPatien t blames the holidays for her weight gamin Hypertensive disorder 38 535232 I10 146/82 - not WNL, [facility] her a1c and the pre-surgic al clearance paperwork Discussed DASH diet Advised 30 minutes of exercise minimum dailyAdvis ed tobacco, alcohol, caffeine all increase BPAdvised goal for BP is <140/90 [id number] YEMI LUJAN [facility] [address] [place] [address] 05/30/2019 13:48:14 05/31/2019 08:21:07 Spasm of back muscles 814929256 M62.830 refill Diabetes mellitus 699062 09 E11.9 refill. Checking A1C as last one on file is from 2017. She says she does not remember what it was but that she is well controlled . Disorder of vitamin D 38 4460578 E56.9 Lipoma of thigh 56005465 4 D17.20 noticed two lumps on leg 2 weeks ago. on exam lumps are soft moile and non tender. measure about 3x3 inches. - check US Hypertensive disorder 38 707741 I10 142/76 , she did not take BP meds today Discussed DASH diet Advised 30 minutes of exercise minimum daily Advised tobacco, alcohol, caffeine all increase BP Advised goal for BP is <140/90 Neuropathy due to diabetes mellitus 117945294 E11.40 c/w gabapentin 300mg BID Advised, like she knows, that keep her blood sugars under control are what is going to help with the neuropathy . Hyperlipidemia 35133152 E78.5 continue medication . rechecking labs today. Gastroesop hageal reflux disease 199661542 K21.9 patient has been having worsening gerd and vomiting frequently after meals. [id number] YEMI EATON (WAREHOUSE CLERK) [address] [place] [address] 06/20/2019 09:07:43 06/24/2019 12:46:25 Gynecologic examination 66503720 Z01.419 Venereal d isease screening 893157596 Z11.3 Screening mammography 24 731236 Z12.31 Administra tion of influenza vaccine 45417175 Z23 Bacterial vaginosis 4197 16728 N76.0 Upper resp iratory infection 77244043 J06.9 Body mass index 30+ - obesity 958087046 Z68.31 Pt requesting medication for appetite suppressio [...] GI provider or PCP about her options. [id number] CARLY DUMONT MD [facility] [address] [place] [address] 07/10/2019 11:54:21 07/10/2019 16:10:11 Lipoma of skin 097086695 D17.30 53F with two lipomas of the left lateral thigh: 4cm proximal to the knee and 1cm at the lateral thigh. I explained the pathogenes is and options for lipoma management . She has decided to forego surgical interventi on until she has been employed for 90 days. She will call when she is ready for surgery. [id number] YEMI LUJAN [facility] [address] [place] [address] 08/23/2019 14:57:35 08/26/2019 09:55:39 Spasm of back muscles 656217409 M62.830 refill Diabetes mellitus 372393 09 E11.9 Patient says she is compliant. [...] needs eye exam Dry skin dermatitis 2600 32638 L85.3 [id number] YEMI LUJAN [facility] [address] [place] [address] 01/31/2020 09:31:38 02/04/2020 12:03:57 Exposure to SARS-CoV-2 707488213 Z20.828 Patient daughter is positive for COVID. Patient only has slightly runny nose but feels good otherwise. Her work requires test to be sure she does not have the virus. - stay away from daughter- control htn and DM- ER if develops sob, chest pain, intractabl e fever [id number] YEMI LUJAN [facility] [address] [place] [address] 11/09/2020 09:00:12 11/11/2020 09:40:58 Diabetes mellitus 33099704 E11.9 Patient says she is compliant. states sugar are in low hundreds but A1C at last check was 11.1. She has not seen her endocrinol ogist in on year.- F/U with endo -inject 40 units in morning and 40 in evening- discussed cutting back on bread. tortillas, chips, soda- needs eye exam Hypertensive disorder 38 275973 I10 Patient not checking BP at home. last checked here was 120/80. states she taked medication s as prescribed . Denies side effects. denies cp, sob, swelling in legs. Discussed DASH diet Advised 30 minutes of exercise minimum daily Advised tobacco, alcohol, caffeine all increase BP Advised goal for BP is <140/90 Hyperlipidemia 21776781 E78.5 continue medication .. need labs Menopausal flushing 1984 06172 N95.1 Patient was taking hormone therapy for hot flashes but has ran out. We disucssed and will try venlafaxin e for hot flashes. She is also hvaing some anxiety as her mom is in hospital and not doing well. [id number] YEMI LUJAN [facility] [address] [place] [address] 01/14/2021 16:05:23 01/18/2021 18:23:41 Muscle spasm of cervical muscle of neck 6331912968 04 M62.838 Patient presents for ER f/u [...] surface and avoid lying on the sofa. [id number] YEMI LUJAN [facility] [address] [place] [address] 09/02/2021 13:23:25 09/06/2021 10:15:47 Hypocalcemia 6491272 E83.51 8.6 04/2021 Muscle spa sm of cervical muscle of neck 9114002906 04 M62.838 - avoid looking down at [...] avoid lying on the sofa. Diabetes mellitus 119585 09 E11.9 last A1C 04/28/21 8.7.not checking glucose dailytakin g aspirin-in ject 40 units in morning and 40 in evening- discussed cutting back on bread. tortillas, chips, soda- needs eye exam Thrombocyt openic disorder 007318495 D69.6 platelets 124 04/2021 [id number] YEMI LUJAN [facility] [address] [place] [address] 11/16/2022 09:23:38 11/16/2022 10:33:55 [id number] YEMI LUJAN [facility] [address] [place] [address] 12/19/2022 09:42:34 12/19/2022 10:48:02 Hypertensive urgency 530028467 I16.0 off amlodipine 10 and lisinopril 30-hcz12.5 for months denies cp, sob, vision changes - ER due to BG chronicall y >400 and elevated BP Uncontroll ed type 2 diabetes mellitus 053601497 E11.65 A1C 11/2022 (12.2%), 12.1% (08/2021) 8.7% (04/2021) 11.1 (08/2019)kiko winters did not take her insulin again. BG >400 todayHas not been since since 1ER Contact dermatitis 25944 004 L25.9 Hypertensive disorder 38 665958 I10 Patient not checking BP at home. last checked here was 120/80. states she taked medication s as prescribed . Denies side effects. denies cp, sob, swelling in legs. Discussed DASH diet Advised 30 minutes of exercise minimum daily Advised tobacco, alcohol, caffeine all increase BP Advised goal for BP is <140/90 [id number] YEMI LUJAN [facility] [address] [place] [address] 12/27/2022 15:54:56 12/27/2022 16:28:58 Hypertensive disorder 66215138 I10 improved form last visit but not at goal. will follow with close f/ucheck BP at home and call if elevated Diabetes mellitus 079677 09 E11.9 Non-compla int with f/u visits, [...] vaccine: ppv23 2017, needs prevnar 20 Hyperlipidemia 34254215 E78.5 advised taking daily [id number] YEMI LUJAN [facility] [address] [place] [address] 03/30/2023 11:58:31 03/30/2023 13:39:28 Diabetes mellitus 71722080 E11.9 Non-compla int with f/u visits, diet, [...] vaccine: ppv23 2016, needs prevnar 20 Diarrhea 81278146 R19.7 one month of non-solid stools that have now been black since starting pepto daily. Also takes immodium daily. helps some and allows her to get through work day. states diarrhea not a/w GLP1 Neck pain 55532920 M54.2 ER visit for acute on chronic neck pain. was given muscle relaxers and needs refillobta in xray Intermitte nt claudication 24333074 I73.9 aching pain in calf with walking. improved with rest.decre ased Posterior tibial pulses Screening mammography 24 605831 Z12.31 agrees to screen Administra tion of pneumococcal vaccine 93843987 Z23 next visit. out of prevnar today 03/30/23 Essential hypertension 30346823 I10 did not take medication this morning [id number] YEMI LUJAN [facility] [address] [place] [address] 06/06/2023 15:50:20 06/06/2023 17:00:43 Hypertensive disorder 45801856 I10 improved form last visit but not at goal. will follow with close f/ucheck BP at home and call if elevated Type 2 scooby betes mellitus 26532936 E11.9 uncontroll ed diabetic. non-compla int with f/u visits, medication , glucose monitoring . She is aware of kidney damage, strokes, heart attack and . 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 She has had a few hospital visits for neck pain. Has not scheduled PT but plans to do so. denies saddle anesthesia or loss of bladder/jl wel control. [id number] YEMI LUJAN [facility] [address] [place] [address] 09/06/2023 11:37:06 09/06/2023 13:02:26 Hypertensive disorder 55261117 I10 controlled today Uncontroll ed type 2 diabetes mellitus 296621020 E11.65 Radha states she was missing multiple [...] 20 (08/2023) Administra tion of pneumococcal vaccine 11788792 Z23 Obesity 934318500 E66.9 10 lb weight losscontin ue ozempic [id number] Richard Keller MD [facility] [address] [place] [address] 05/07/2024 14:35:45 05/07/2024 16:00:03 Obesity 515069349 E66.8 continue ozempic Hypertensive disorder 38 790366 I10 not controlled todayincre asing medication hcz to help with edema LEadding on jardiance for glucose but may also improve BP mildly Uncontroll ed type 2 diabetes mellitus 449364549 E11.65 advised taking same dose daily as [...] a vaccine: prevnar 20 (08/2023) Chronic diarrhea 7096345 09 K52.9 2 months of chronic diarrhea w/o help from any of the below home txwhole bottle pepto bismolpant oprazoleim 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 from 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 advised stopping due to risk of c diffGI referral 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 6935969346 71870 G56.01 only at nightno weakness- phalens Hyperlipidemia 21817869 E78.5 advised taking daily [id number] Richard Keller MD [facility] [address] [place] [address] 06/12/2024 16:45:04 06/14/2024 15:12:05 Hyperglycemia 14685770 R73.9 patient had high BG readings due to skipping doseswhen she takes medication her BG are in good rangeadvis ed not skipping dosesB today, not fasting (did not take her DM medication s [id number] Richard Keller MD [facility] [address] [place] [address] 10/07/2024 15:32:19 10/11/2024 07:48:17 Diabetes mellitus 66019220 E11.9 Radha has had better compliance with [...] monia vaccine: prevnar 20 08/2023 Essential hypertension 98471979 I10 retsart lisinopril advised ER if cp, sob, palpitatio ns, wrost NIELSEN Vitamin D deficiency 347 70385 E55.9 refill [id number] Richard Keller MD [facility] [address] [place] [address] 11/14/2024 08:39:38 11/14/2024 09:11:17 Diabetes mellitus 44627555 E11.9 Radha has had better compliance with [...] monia vaccine: prevnar 20 08/2023 Essential hypertension 28061367 I10 better controlled . continue lisinopril and amlodipine .advised ER if cp, sob, palpitatio ns, wrost NIELSEN Neuropathy due to diabetes mellitus 102595596 E11.40 c/w gabapentin 300mg BID Advised, like she knows, that keep her blood sugars under control are what is going to help with the neuropathy . Anxiety 79593100 F41.9 trouble sleeping causing anxiety and flare of her IBShaving anxiety requesting mental health daysdenies si/hishe will f/u in 2 weeks for f/u [id number] Richard Keller MD [facility] [address] [place] [address] 03/26/2025 14:47:36 03/26/2025 15:32:27 Diabetes mellitus 33147089 E11.9 Radha has had better compliance with [...] monia vaccine: prevnar 20 08/2023 Essential hypertension 45403421 I10 Not taking medication as prescribed . Blood pressure is elevated today. Advised to go grape picker all medication and monitor blood pressure at home. She states she does have a very nice cuff and will let us know if her blood pressure continues to be elevated.a dvised ER if cp, sob, palpitatio ns, wrost NIELSEN Neuropathy due to diabetes mellitus 346518228 E11.40 c/w gabapentin 300mg BID She had multiple skipped beats. Irregular heart beat 361 700699 I49.9 Obtain EKG and sent to Cardiology . Irregular heartbeat auscultate d during exam. Health Concerns Section Related Observation LastModified by Organization Detai ls LastModified Time None Recorded Concern Status LastModified by Organization Details LastModified Time None Recorded Advance Directives Directive N: Payers Insurance Date Sequence Insurance Name Policy Number Policy Reyna Covered Member ID Reyna Member ID Guarantor Name 06/12/2024 1 [facility] (MEDICAID REPLACEMENT - HMO) [id number] Radha Miller [id number] Radha Miller 06/12/2024 1 [place] [employer] Radha Miller [id number] Radha Miller 03/25/2025 1 [facility] (POS) [id number] Radha Miller [id number] Radha Miller 06/12/2024 1 [facility] - DOS PRIOR TO 2021 (MEDICAID REPLACEMENT - HMO) Radha Hernandezy [id number] Radha Miller 06/12/2024 1 [facility] PRIOR TO 03/11/2021 (MEDICAID REPLACEMENT - HMO) Radha Miller [id number] Radha Miller 06/12/2024 1 [place] [facility] Radha Paul [id number] Radha Miller 06/12/2024 1 [id number] Radha Miller [id number] Radha Miller 06/12/2024 1 [facility] PRIOR TO 03/11/2021 (MEDICAID REPLACEMENT - HMO) Radha Hernandezy [id number] Radha Miller 06/12/2024 1 [employer] ([place]) [id number] Radha Romero Paul [id number] Radha Clancy Paul 03/25/2025 2 [place] [facility] Radha Hernandezy [id number] Radha Miller 06/12/2024 1 [facility] [id number] Radha J Paul [id number] Radha Hernandezy 06/12/2024 1 [facility] (MEDICARE REPLACEMENT/A DVANTAGE - HMO) Radha Romero Paul [id number] Radha Hernandezy 06/12/2024 1 [employer] [id number] Radha Romero Paul [id number] Radha Hernandezy 06/12/2024 3 [employer] (POS) [id number] Radha Hernandezy [id number] Radha Miller Notes Date Note Type Note [...] advised stopping. YEMI LUJAN Attn: Accounting,[address] [facility] [facility], [place], [address], [facility] 05/08/2024 10:08:41 06/12/2024 text/html Radha is here fo r my sugars ahve been all over She states they have been high due to not taking her medications. Once I take it they are great. She denies cp, sob, palpitations. YEMI LUJAN Attn: Accounting,[address] [facility], [place], [address], [facility] 06/13/2024 10:24:44 10/07/2024 text/html Radha [...] swelling today. YEMI LUJAN Attn: Accounting,[address] [facility] [facility], [place], [address], [place] [facility] 10/09/2024 10:37:39 11/14/2024 text/html Radha is here [...] her BP. YEMI LUJAN Attn: Accounting,[address] [facility] [facility], [place], [address], [facility] 11/14/2024 09:09:09 03/26/2025 text/html Radha [...] note today. YEMI LUJAN Attn: Accounting,[address] [facility], [place], [address], [facility] 03/26/2025 15:34:59 OBGyn Episode Ob Episode Information Episode Created Date Number of Fetuses Patient Bloodtype Patient rh Status Prepregnancy Weight lbs Domestic Partner Domestic Partner Phone Father Name Cattle Sorter Status 06/20/20 19 1 CLOSED Fetus Data First Name Last Name Admitted to NICU Weight (g) Sex Living Outcome Pediatric Complications Fetus ID Race Codes Race Delivery Type 4082.32 8 F Full Term [id number] Only Regan Calculation Initial Regan Date Initial [...]
--- OUTSIDE RECORDS SUMMARY | 2025-03-29 09:03 | XMS_ITS | Clinical Summary ---
Author Organization [facility] Address [address] [place] [address] Care Team Providers Care Coupler Name Role Phone Unavailable Primary Care Provider [...]
[2025-03-29 09:05] VITALS: BP 152/72; PULSE 86; RESP 20; TEMP 36.7; O2SAT 99
--- OUTSIDE RECORDS SUMMARY | 2025-03-29 09:27 | XMS_ITS | Clinical Summary ---
Author Organization [facility] Address [address] [place] [address] Care Team Providers Care Communication Manager Name Role Phone Rianna Rodrigez PA-C Primary Care Provider [phone] Source Comments [facility],non-owned Affiliates and Associated Physician Practices is amultiple site organization consisting of ambulatory clinics and hospital sitesin [place], [place], [place] and [place]. This disclosure is being madepursuant to the Care Everywhere program and may not contain all information available regarding this patient. 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 Gender Identity Not on file Sexual [...] URINE RANDOM PANEL Routine 11/11/2017 10:34 AM DISTRIBUTION DISTRICT SUPERVISOR COMPREHENSIVE METABOLIC PANEL Routine 11/11/2017 10:34 AM DISTRIBUTION DISTRICT SUPERVISOR from Last 3 Months or Most Recently Relevant to Health Maintenance Results * HEMOGLOBIN A1C - POINT OF CARE (AMB) [facility] (03/22/2018) Hemoglobin A1c POCT 10.7 BLOOD SPECIMEN / Unknown 03/22/2018 [facility]ilia [facility] - POINT OF CARE O RDERABLES Final Result * MICROALB/CREAT RATIO URINE RANDOM PANEL (11/11/2017 10:34 AM DISTRIBUTION DISTRICT SUPERVISOR) Creatinine Urine 177 20 - 320 mg/dL [...] within a diagnostic category. Test Performed at: [facility] [address] [place] [address] SARA CHANEL DO,MPH Urine specimen (specimen) URINE / Unknown 11/11/2017 10:34 AM DISTRIBUTION DISTRICT SUPERVISOR 11/11/2017 10:35 AM DISTRIBUTION DISTRICT SUPERVISOR Ana Lilia Goldman [facility] - URINE CHEMISTRY ORDERABLES Final Result [facility] ([place]) [address] * (ABNORMAL) COMPREHENSIVE METABOLIC PANEL (11/11/2017 10:34 AM DISTRIBUTION DISTRICT SUPERVISOR) Glucose 61(L) 65 - 99 mg/dL [facility] ([facility]) Comment: Fasting reference interval BUN 9 7 - 25 mg/dL [facility] ([facility]) Creatinine 0.58 0.50 - 1.05 mg/dL [facility] ([facility]) Comment: For patients >49 years of age, the reference limit for Creatinine is approximately 13% higher for people identified as -Israeli. eGFR non- 106 > OR = 60 [...] U/L [facility] ([facility]) Comment: Test Performed at: [facility] [address] [address] SARA CHANEL DO,MPH Blood specimen (specimen) BLOOD SPECIMEN / Unknown 11/11/2017 10:34 AM DISTRIBUTION DISTRICT SUPERVISOR 11/11/2017 10:35 AM DISTRIBUTION DISTRICT SUPERVISOR Ana Lilia Goldman RN [facility] - CHEMISTRY ORDER TITUS Final Result [facility] ([facility] [place]) [address] from Last 3 Months or Most Recently Relevant to Health Maintenance Insurance [facility] MEDICA[facility] - [facility] [place] [facility] [place] [place] Member Subscriber Plan / Payer (Ef fective for All Dates) Name:Radha Mcguire Member ID:Not on file Relation to Subscriber:Self Name:Radha Mcguire Payer ID:Not on file Group ID:Not on file Type:Medicaid [place] Address: [place] [address] [facility] MEDICAID - [place] Member Subscriber Plan / Payer (Ef fective for All Dates) Name:Radha Mcguire Member ID:Not on file Relation to Subscriber:Self Name:Radha Mcguire Payer ID:Not on file Group ID:Not on file Type:Medicaid [place] Address: [place] [address] * Guarantor: RADHA MCGUIRE Account Type Relation to Patient Date of Phone Billing Address Personal/Family [address] [place] [address] [facility] MEDICAID - [place] Member Subscriber Plan / Payer (Ef fective for All Dates) Name:Radha Mcguire Member ID:Not on file Relation to Subscriber:Self Name:Radha Mcguire Payer ID:Not on file Group ID:Not on file Type:Medicaid [place] Address: [place] [address] * Guarantor: SHAYLARADHA Account Type Relation to Patient Date of Phone Billing Address Personal/Family [address] [facility] [address] [place] [id number] [facility] MED[facility] - [place] Member Subscriber Plan / Payer (Ef fective for All Dates) Name:Radha Mcguire Member ID:Not on file Relation to Subscriber:Self Name:Radha Mcguire Heather Payer ID:Not on file Group ID:Not on file Type:Medicaid [place] Address: [place] [address] * Guarantor: RADHA MCGUIRE Account Type Relation to Patient Date of Phone Billing Address Personal/Family [address] [facility] [address] [place] [id number] [facility] MEDICA[facility] [place] Member Subscriber Plan / Payer (Ef fective for All Dates) Name:Radha Mcguire Member ID:Not on file Relation to Subscriber:Self Name:ShaylaRadha Heather Payer ID:Not on file Group ID:Not on file Type:Medicaid [place] Address: [place] [phone] Care Teams Communication Manager Relationship Specialty Start Date End Date Rianna Rodrigez PA-C PCP - General 03/12/18
--- OUTSIDE RECORDS SUMMARY | 2025-03-29 09:27 | XMS_ITS | Referral Summary ---
Author Organization [facility] Address [address] [place] [address] Care Team Providers Care Human Resources Records Clerk Name Role Phone Elsy Cuadra Primary Care [...] mg tablet Take 10 mg by mouth dairy nutrition specialist before breakfast. 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 Testing performed by: [facility], [address] [place] [address]., [address] Blood 05/10/2024 3:06 PM CDT 05/10/2024 3:16 PM CDT Xavier Lemon DO LAB BLOOD ORDERABLES Final Result [facility] [address] [facility] [place] [address] * Screening Mammogram Bilateral W [...] imaging studies performed on 01/26/2017, and at [facility] on 03/13/2017. There are scattered areas of [...] imaging studies performed on 01/26/2017, and at [facility] on 03/13/2017. There are scattered areas of [...] % TI QUINONES Comment:Testing performed by : [facility], [address] [place] [address], [place]., [address] Estimated Average Glucose 232 mg/dL TI QUINONES Comment: The ADA recommends reporting an estimated Average Glucose (eAG) with all Hemoglobin A1c results using the equation derived from a study of 507 normal and diabetic adults. Minority populations were underrepresented and children were not included. (Diabetes Care 31:2834-1891, 2008). The eAG is not equivalent to a fasting glucose. Testing performed by: [facility], [address] [place] [address], [place]., [address] Blood specimen (specimen) 05/11/2018 2:42 PM CDT 05/11/2018 5:53 PM CDT Narrative [facility] - 05/11/2018 6:09 PM CDT Rakel Martinez NP LAB BLOOD ORDERABL ES Final Result [facility] [address] [facility]. Department [place] [address] from Last 3 Months or Most Recently Relevant to Health Maintenance Insurance [address] [place] [address] CHOICE PLUS Advance Directives For more information, please contact: [phone] * Full Code (Latest Code Status on File) Date Activated Date Inactivated Comments 05/30/2018 7:00 PM 06/01/2018 5:28 PM Care Teams Human Resources Records Clerk Relationship Specialty Start Date End Date Elsy Cuadra PA PCP - General Physician Machinist Linotype 05/10/24
--- OUTSIDE RECORDS SUMMARY | 2025-03-29 09:27 | XMS_ITS | Clinical Summary ---
Author Organization [facility] Address [address] [place] [address] Care Team Providers Care Stitch Welder Name Role Phone Elsy Cuadra Primary Care [...] mg tablet Take 10 mg by mouth quill skinner before breakfast. 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 Testing performed by: [facility], [address] [place] [address]., [address] Blood 05/10/2024 3:06 PM CDT 05/10/2024 3:16 PM CDT Xavier Lemon DO LAB BLOOD ORDERABLES Final Result [facility] [address] [facility] Department [place] [address] * Screening Mammogram Bilateral W [...] imaging studies performed on 01/26/2017, and at [facility] on 03/13/2017. There are scattered areas of [...] imaging studies performed on 01/26/2017, and at [facility] on 03/13/2017. There are scattered areas of [...] % TI QUINONES Comment:Testing performed by : [facility], [address] [place] [address], [place]., [address] Estimated Average Glucose 232 mg/dL TI QUINONES Comment: The ADA recommends reporting an estimated Average Glucose (eAG) with all Hemoglobin A1c results using the equation derived from a study of 507 normal and diabetic adults. Minority populations were underrepresented and children were not included. (Diabetes Care 31:9704-1503, 2008). The eAG is not equivalent to a fasting glucose. Testing performed by: [facility], [address] [place] [address], [place]., [address] Blood specimen (specimen) 05/11/2018 2:42 PM CDT 05/11/2018 5:53 PM CDT Narrative TI [facility] - 05/11/2018 6:09 PM CDT us Rakel Martinez NP LAB BLOOD ORDERABL ES Final Result [facility] [address] [facility]. Department [place] [address] from Last 3 Months or Most Recently Relevant to Health Maintenance Insurance [employer] CHOICE PLUS Advance Directives For more information, please contact: [phone] * Full Code (Latest Code Status on File) Date Activated Date Inactivated Comments 05/30/2018 7:00 PM 06/01/2018 5:28 PM Care Teams Stitch Welder Relationship Specialty Start Date End Date Elsy Cuadra PA PCP - General Physician Acid Dumper 05/10/24
--- OUTSIDE RECORDS SUMMARY | 2025-03-29 09:27 | XMS_ITS | Continuity of Care Document ---
Author Organization [facility] Address [id number] [place] [address] [place] [address] Phone Care Team Providers Care Dental Hygiene Teacher Name Role Phone Gil Buckley DO Unavailable Unavailable Advance Directives Directive Yes / No Effective Date File Name No Information Encounters Encounter Description Practice Location Reason(s) For Visit Diagnoses Date Provider Providers Copied on Encounter [facility] [address], [place], [place], [id number], [place] tel:[phone] [facility] Information Ina Oneal. [address] [facility], [place], [address], [place]. tel:[phone] Family History Family Member Type Diagnosis Age [...]
--- OUTSIDE RECORDS SUMMARY | 2025-03-29 09:27 | XMS_ITS | Clinical Summary ---
Author Organization [facility] Address [address] [place] [address] Care Team Providers Care Dehydrogenation Converter Helper Name Role Phone Unavailable Primary Care Provider [...]
--- NOTE | 2025-03-29 09:29 | ED.GENADULT ---
HPI - General Adult General Chief complaint: Extremity Injury, Upper Stated complaint: Right side pain Time Seen by Provider: 03/29/25 09:09 History of Present Illness HPI narrative: This is a 59-year-old female presenting with 2 complaints. Patient rolled her ankle while trying to block out at work. She has pain in her ankle. She has been able to bear weight. She also has pain in her right trapezius which is a chronic issue for her. She says this pain was worsened when she rolled her ankle. No other injuries. Related Data Home Medications ?Medication ?Instructions ?Recorded ?Confirmed ?Last Taken ?Type lisinopril 30 mg tablet 30 mg PO DAILY 04/21/20 12/26/24 Unknown History amlodipine 10 mg tablet 10 mg PO DAILY 10/08/20 12/26/24 Unknown History atorvastatin 40 mg tablet 40 mg PO DAILY 10/08/20 12/26/24 Unknown History doxycycline hyclate 100 mg tablet 100 mg PO DAILY 10/08/20 12/26/24 Unknown History hydrochlorothiazide 12.5 mg capsule 12.5 mg PO DAILY 10/08/20 12/26/24 Unknown History baclofen 10 mg tablet 10 mg PO BID PRN muscle spasms 08/14/23 12/26/24 Unknown History insulin glargine-yfgn 100 unit/mL 20 unit subcut QPM 12/21/24 12/26/24 Unknown History (3 mL) subcutaneous pen (Semglee (insulin glargine-yfgn) Pen) semaglutide 2 mg/dose (8 mg/3 mL) 2 mg subcut WEEKLY 12/21/24 12/26/24 Unknown History subcutaneous pen injector (Ozempic) Allergies Allergy/AdvReac Type Severity Reaction Status Date / Time hydrocodone AdvReac Unknown Dizziness Verified 03/29/25 09:08 Penicillins AdvReac Unknown Dizziness Verified 03/29/25 09:08 [facility] Past Medical History Medical History Exocrine pancreatic insufficiency Liver mass Irritable bowel syndrome with diarrhea Encounter for screening colonoscopy Abdominal pain Diarrhea Nausea & vomiting Type 2 diabetes mellitus Hyperlipidemia Hypertension Migraines Surgical History Surgical History History of section H/O gastric bypass H/O inguinal hernia repair Family History Family History Grandparent Hypertension Family history of heart disease in male family member before age 55 Diabetes mellitus Father Diabetes mellitus Patient's father is in good health Family history of arthritis Mother Asthma Patient's mother is in good health Family history of Alzheimer's disease Sibling Patient's sister is in good health Patient's brother is in good health Other Cerebrovascular accident Social History Social History Smoking status: Never smoker Alcohol intake: current Substance use type: does not use Living arrangements: alone Gender identity (if verbalized by the patient): Female Exam Narrative: APPEARANCE: No apparent distress. Head: atraumatic. EYES: EOMI, NOSE: Atraumatic NECK: Trachea midline RESPIRATORY: No increased rate of breathing clear to auscultation CARDIOVASCULAR: RRR, ABDOMINAL: Non-distended MUSCULOSKELETAl: Tenderness to palpation over the right trapezius Focal exam of the right ankle revealed no obvious deformity or swelling. No tenderness along posterior malleoli. No tenderness base 5th metatarsal NEURO: Alert. Cranial nerves 2-12 grossly intact. Sensation light touch, motor function cerebellar function intact for 4 extremities. Gait exam was normal. SKIN:: Warm, dry. Normal color PSYCHIATRIC: Normal affect Course Vital Signs Vital signs: Vital Signs Temperature 98.0 F 03/29/25 09:05 Pulse Rate 86 03/29/25 09:05 Respiratory Rate 20 03/29/25 09:05 Blood Pressure 152/72 H 03/29/25 09:05 Pulse Oximetry 99 03/29/25 09:05 Oxygen Delivery Room Air 03/29/25 09:05 Temperature 98.0 F 03/29/25 09:05 Pulse Rate 86 03/29/25 09:05 Respiratory Rate 20 03/29/25 09:05 Blood Pressure 152/72 H 03/29/25 09:05 Pulse Oximetry 99 03/29/25 09:05 Oxygen Delivery Room Air 03/29/25 09:05 Medical Decision Making [facility] Narrative Medical decision making narrative: -Course: 59-year-old female presenting ankle pain and chronic neck shoulder pain. X-ray of the ankle showed a avulsion fracture of the calcaneus. Patient has no tenderness in the area so this is likely old. Her tenderness is more on the distal medial lower leg. Patient received Motrin Tylenol Robaxin with improvement. Patient be discharged follow-up primary care physician. -DDX includes but is not limited to: Fracture ankle, rolled ankle -Co-morbidities complicating care:Chronic Vital Signs Vital Signs: Vital Signs Temperature 98.0 F 03/29/25 09:05 Pulse Rate 86 03/29/25 09:05 Respiratory Rate 20 03/29/25 09:05 Blood Pressure 152/72 H 03/29/25 09:05 Pulse Oximetry 99 03/29/25 09:05 Oxygen Delivery Room Air 03/29/25 09:05 Temperature 98.0 F 03/29/25 09:05 Pulse Rate 86 03/29/25 09:05 Respiratory Rate 20 03/29/25 09:05 Blood Pressure 152/72 H 03/29/25 09:05 Pulse Oximetry 99 03/29/25 09:05 Oxygen Delivery Room Air 03/29/25 09:05 Discharge Plan Discharge Clinical Impression: Ankle sprain, Neck pain Patient Disposition: Home Condition: Stable Instructions: Antibiotic Form, Ankle Sprain (ED) Additional Instructions: Please use Tylenol and Robaxin for your pain. Please follow-up your primary care physician for further management. Return if you develop any new or worsening symptoms. Patient Language: Chinese Prescriptions: No Action atorvastatin 40 mg tablet 40 mg PO DAILY amlodipine 10 mg tablet 10 mg PO DAILY hydrochlorothiazide 12.5 mg capsule 12.5 mg PO DAILY doxycycline hyclate 100 mg tablet 100 mg PO DAILY dicyclomine 10 mg capsule 10 mg PO QID PRN (Reason: abdominal pain) Qty: 120 5RF baclofen 10 mg tablet 10 mg PO BID PRN (Reason: muscle spasms) cyclobenzaprine 10 mg tablet 10 mg PO TID PRN (Reason: muscle spasm) Qty: 20 0RF lisinopril 30 mg tablet 30 mg PO DAILY gabapentin 300 mg capsule 300 mg PO TID Qty: 21 0RF lidocaine 5 % adhesive patch,medicated 1 patch topical DAILY Qty: 15 0RF Rx Instructions: leave on most painful area for up to 12 hrs cyclobenzaprine 5 mg tablet 5 mg PO TID PRN (Reason: muscle spasm) Qty: 15 0RF Ozempic 2 mg/dose (8 mg/3 mL) pen injector 2 mg SUBCUT WEEKLY insulin glargine-yfgn [Semglee(insulin glarg-yfgn)Pen] 100 unit/mL (3 mL) insulin pen 20 unit SUBCUT QPM sulfamethoxazole-trimethoprim 800-160 mg tablet 1 tablet PO Q12H Qty: 10 0RF baclofen 10 mg tablet 10 mg PO TID Qty: 30 0RF lidocaine 5 % adhesive patch,medicated 1 patch topical DAILY Qty: 15 0RF Rx Instructions: leave on most painful area for up to 12 hrs pantoprazole 20 mg tablet,delayed release (DR/EC) 20 mg PO QAM Qty: 90 3RF Creon 36,000-114,000- 180,000 unit capsule,delayed release(DR/EC) 2 cap PO .COMPLEX 30 Days Qty: 300 11RF Rx Instructions: 2 caps orally; Take 2 pills with meals and one pill with snacks. Xifaxan 550 mg tablet See Rx Instructions .ROUTE .COMPLEX Qty: 42 0RF Dose Instruction: TAKE 1 TABLET BY MOUTH THREE TIMES DAILY FOR 2 WEEKS Rx Instructions: TAKE 1 TABLET BY MOUTH THREE TIMES DAILY FOR 2 WEEKS cholestyramine (with sugar) [Questran] 4 gram powder in packet 4 g PO BID 30 Days Qty: 60 5RF Rx Instructions: administer w/meal; avoid other meds within 1hr before or 4-6hr after dose Follow-up/Referrals: Venecia,YEMI Castro [Primary Care Provider] -
[2025-03-29] MEDS: LIDOCAINE 5% PATCH 1 PATCH TRANSDERM (09:32)
[2025-03-29] MEDS: ACETAMINOPHEN 500 MG TABLET 1000 MG PO (09:32)
[2025-03-29 10:53] VITALS: BP 136/88; PULSE 79; RESP 19; O2SAT 100
== END 2025-03-29 10:55 | disposition home or self-care (01) ==
PROVIDERS: Emergency Provider Emergency Medicine; PCP Physician Assistant
DX: S93.401A Sprain of unspecified ligament of right ankle, initial encounter (principal); M54.2 Cervicalgia; E11.9 Type 2 diabetes mellitus without complications; E78.5 Hyperlipidemia, unspecified; I10 Essential (primary) hypertension; K86.81 Exocrine pancreatic insufficiency; K58.0 Irritable bowel syndrome with diarrhea; Z98.84 Bariatric surgery status; Z79.899 Other long term (current) drug therapy; Z79.4 Long term (current) use of insulin; X50.9XXA Other and unspecified overexertion or strenuous movements or postures, initial encounter
CPT/HCPCS: 73610; 99283; A9270

== ENCOUNTER 2025-04-19 21:13 | Emergency (ER) | payer OTHER, MEDICAID, SELFPAY ==
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
--- OUTSIDE RECORDS SUMMARY | 2025-04-19 21:15 | XMS_ITS | Clinical Summary ---
Author Organization [facility] Address [address] [place] [address] Care Team Providers Care Foam Gun Operator Name Role Phone Rianna Rodrigez PA-C Primary Care Provider [phone] Source Comments [facility],non-owned Affiliates and Associated Physician Practices is amultiple site organization consisting of ambulatory clinics and hospital sitesin [place], [place], [place] and [place]. This disclosure is being madepursuant to the Care Everywhere program and may not contain all information available regarding this patient. 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] within a diagnostic category. Test Performed at: [facility] [address] [place] [address] SARA CHANEL DO,MPH Urine specimen (specimen) URINE / Unknown 11/11/2017 10:34 AM TAKE OUT WAITER 11/11/2017 10:35 AM TAKE OUT WAITER Ana Lilia Goldman [facility] - URINE CHEMISTRY ORDERABLES Final Result [facility] ([facility]) [address] * (ABNORMAL) COMPREHENSIVE METABOLIC PANEL (11/11/2017 10:34 AM TAKE OUT WAITER) Glucose 61(L) 65 - 99 mg/dL [facility] ([facility]) Comment: Fasting reference interval BUN 9 7 - 25 mg/dL [facility] ([facility]) Creatinine 0.58 0.50 - 1.05 mg/dL [facility] ([facility]) Comment: For patients >49 years of age, the reference limit for Creatinine is approximately 13% higher for people identified as -Macanese. eGFR non- 106 > OR = 60 [...] U/L [facility] ([facility]) Comment: Test Performed at: [facility] [address] [address] SARA CHANEL DO,MPH Blood specimen (specimen) BLOOD SPECIMEN / Unknown 11/11/2017 10:34 AM TAKE OUT WAITER 11/11/2017 10:35 AM TAKE OUT WAITER Ana Lilia Godlman LABORER RAGS-METAL FURNITURE PANEL COVERER LAB - CHEMISTRY ORDER TITUS Final Result [facility] ([facility]) [address] from Last 3 Months or Most Recently Relevant to Health Maintenance Insurance [facility] MEDICAID - [employer] [facility] [place] [facility] [place] Member Subscriber Plan / Payer (Ef fective for All Dates) Name:Radha Mcguire Member ID:Not on file Relation to Subscriber:Self Name:Radha Mcguire Payer ID:Not on file Group ID:Not on file Type:Medicaid [place] Address: [place] [phone] [facility] [place]ICAID [place] Member Subscriber Plan / Payer (Ef fective for All Dates) Name:Radha Mcguire Member ID:Not on file Relation to Subscriber:Self Name:Radha Mcguire Payer ID:Not on file Group ID:Not on file Type:Medicaid [place] Address: [place] [phone] * Guarantor: RADHA MCGUIRE Account Type Relation to Patient Date of Phone Billing Address Personal/Family [email or web address] [employer] [place] [address] [place] [address] [facility] C[facility] MEDICAID - [place] Member Subscriber Plan / Payer (Ef fective for All Dates) Name:Radha Mcguire Member ID:Not on file Relation to Subscriber:Self Name:Radha Mcguire Payer ID:Not on file Group ID:Not on file Type:Medicaid [place] Address: [place] [phone] * Guarantor: SHAYLARADHA Account Type Relation to Patient Date of Phone Billing Address Personal/Family [address] [facility] [address] [place] [id number] [facility] MED[facility]ID - [place] Member Subscriber Plan / Payer (Ef fective for All Dates) Name:Radha Mcguire Member ID:Not on file Relation to Subscriber:Self Name:Radha Mcguire Heather Payer ID:Not on file Group ID:Not on file Type:Medicaid [place] Address: [place] [phone] * Guarantor: RADHA MCGUIRE Account Type Relation to Patient Date of Phone Billing Address Personal/Family [address] [facility] [place] [id number] [facility] [place]ICAID [place] Member Subscriber Plan / Payer (Ef fective for All Dates) Name:Radha Mcguire Member ID:Not on file Relation to Subscriber:Self Name:ShaylaRadha Heather Payer ID:Not on file Group ID:Not on file Type:Medicaid [place] Address: [place] [phone] Care Teams Foam Gun Operator Relationship Specialty Start Date End Date Rianna Rodrigez PA-C PCP - General 03/12/18
--- OUTSIDE RECORDS SUMMARY | 2025-04-19 21:15 | XMS_ITS | Clinical Summary ---
Author Organization [facility] Address [address] [place] [address] Care Team Providers Care Install And Repair Technician Name Role Phone Unavailable Primary Care [...]
--- OUTSIDE RECORDS SUMMARY | 2025-04-19 21:15 | XMS_ITS | Continuity of Care Document ---
Author Organization [facility] Address [address] [place] [address] [place] [address] Phone Care Team Providers Care Corporate Executive Chef Name Role Phone Gil Buckley DO Unavailable Unavailable Advance Directives Directive Yes / No Effective Date File Name No Information Encounters Encounter Description Practice Location Reason(s) For Visit Diagnoses Date Provider Providers Copied on Encounter [facility], [address], [place], [place], [id number], [place] tel:[phone] [facility] No Information Ina Oneal. [address] [facility], [place], [address], [place]. tel:[phone] Family History Family Member Type Diagnosis Age [...]
--- OUTSIDE RECORDS SUMMARY | 2025-04-19 21:15 | XMS_ITS | Clinical Summary ---
Author Organization [facility] Address [address] [place] [address] Care Team Providers Care Elementary School Teacher Name Role Phone Elsy Cuadra Primary Care [...] mg tablet Take 10 mg by mouth cloud automation tester before breakfast. Active atorvastatin (LIPITOR) 40 mg [...] (06/08/2018): Added automatically from request for surgery [id number] Diabetic neuropathy 05/10/2017 Abnormal mammogram 03/07/2017 Bipolar [...] 2001 GERD (gastroesophageal reflux disease) Bipolar disorder Hiatal hernia Obesity History of heart murmur in childhood Type 2 diabetes mellitus Family History Medical History Relation Name Comments [...] on file Legal Sex Female 6:13 PM SURGERY CONSULTANT Gender Identity Not on file Sexual [...] (2 of 2) 04/30/2024 03/05/2024 Covid-19 Vaccine (2023-2 5 season) 2024 06/11/2023, 07/19/2022, 08/13/2021, Additional history exists Breast Cancer Screening-Mammogram 10/23/2024 10/23/2023, 08/30/2023, 05/25/2018, Additional history exists eGFR 05/10/2025 05/10/2024, 05/13, 05/11/2018 Influenza Vaccine (#1) 2025 3, 07/19/2022, 08/13/2021, Additional history exists DTaP/Tdap/Td Vaccine [...] was last reviewed 2021. Testing performed by: [facility], [address] [place] [address], [place]., [address] Blood 05/10/2024 3:06 PM CDT 05/10/2024 3:16 PM CDT us Xavier Lemon DO LAB BLOOD ORDERABLES Final Result [facility] [address] [facility] Department [place] [address] * Screening Mammogram Bilateral W [...] imaging studies performed on 01/26/2017, and at [facility] on 03/13/2017. There are scattered areas of [...] imaging studies performed on 01/26/2017, and at [facility] on 03/13/2017. There are scattered areas of [...] % TI QU[facility]ONES Comment:Testing performed by : [facility], [address] [place] [address], [place]., [address] Estimated Average Glucose 232 mg/dL [facility] Comment: The ADA recommends reporting an estimated Average Glucose (eAG) with all Hemoglobin A1c results using the equation derived from a study of 507 normal and diabetic adults. Minority populations were underrepresented and children were not included. (Diabetes Care 31:1267-5510, 2008). The eAG is not equivalent to a fasting glucose. Testing performed by: [facility], [address] [place] [address], [place]., [address] Blood specimen (specimen) 05/11/2018 2:42 PM CDT 05/11/2018 5:53 PM CDT Narrative TI QUINONES - 05/11/2018 6:09 PM CDT us Rakel Martinez NP LAB BLOOD ORDERABL ES Final Result [facility] [address] [facility]. [place] [address] from Last 3 Months or Most Recently Relevant to Health Maintenance Insurance ANTH PREFERRED CHOICE [facility] HMO/PPO Address: [address] [address] [place] [address] Advance Directives For more information, please contact: [phone] * Full Code (Latest Code Status on File) Date Activated Date Inactivated Comments 05/30/2018 7:00 PM 06/01/2018 5:28 PM Care Teams Elementary School Teacher Relationship Specialty Start Date End Date Elsy Cuadra PA PCP - General Physician Ruffling Hemmer Automatic 05/10/24
[2025-04-19 21:21] VITALS: BP 162/88; PULSE 80; RESP 20; TEMP 36.7; O2SAT 100
--- OUTSIDE RECORDS SUMMARY | 2025-04-19 22:00 | XMS_ITS | Continuity of Care Document ---
Author Organization [facility] Address [address] [place] [address] [place] [address] Phone Care Team Providers Care Director School Of Nursing Name Role Phone Gil Buckley DO Unavailable Unavailable Advance Directives Directive Yes / No Effective Date File Name No Information Encounters Encounter Description Practice Location Reason(s) For Visit Diagnoses Date Provider Providers Copied on Encounter [facility], [address], [place], [place], [id number], [place] tel:[phone] [facility] No Information Ina Oneal. [address] [facility], [place], [address], [place]. tel:[phone] Family History Family Member Type Diagnosis Age [...]
--- OUTSIDE RECORDS SUMMARY | 2025-04-19 22:00 | XMS_ITS | Clinical Summary ---
Author Organization [facility] Address [address] [place] [address] Care Team Providers Care Metabolic Specialist Name Role Phone Unavailable Primary Care Provider [...]
--- OUTSIDE RECORDS SUMMARY | 2025-04-19 22:00 | XMS_ITS | Clinical Summary ---
Author Organization [facility] Address [address] [place] [address] Care Team Providers Care Employee Relations Director Name Role Phone Rianna Rodrigez PA-C Primary Care Provider [phone] Source Comments [facility],non-owned Affiliates and Associated Physician Practices is amultiple site organization consisting of ambulatory clinics and hospital sitesin [place], [place], [place] and [place]. This disclosure is being madepursuant to the Care Everywhere program and may not contain all information available regarding this patient. Last updated 18.[facility] Allergies Active Allergy Reactions Criticality Noted Date [...] fluticasone propionate (FLONASE) 50 MCG/ACT nasal spray [place] 2 sprays into the nose as needed [...] 01/22/20 17 Active Blood Glucose Monitoring Suppl ([employer]) W/DEVICE KIT Use 1 strip 2 times [...] joint disease (DJD) of hip 10/11/19 16 LOTFON (dyspnea on exertion) 10/11/2015 Overview (05/23/2018): Overview: [...] on file Legal Sex Female 6:14 AM HELMET HAT BRIM CUTTER Gender Identity Not on file Sexual Orientation [...] URINE RANDOM PANEL Routine 11/11/2017 10:34 AM HELMET HAT BRIM CUTTER COMPREHENSIVE METABOLIC PANEL Routine 11/11/2017 10:34 AM HELMET HAT BRIM CUTTER from Last 3 Months or Most Recently Relevant to Health Maintenance Results * HEMOGLOBIN A1C - POINT OF CARE (AMB) [facility] (03/22/2018) Hemoglobin A1c POCT 10.7 BLOOD SPECIMEN / Unknown 03/22/2018 [facility] Lilia [facility] - POINT OF CARE O RDERABLES Final Result * MICROALB/CREAT RATIO URINE RANDOM PANEL (11/11/2017 10:34 AM HELMET HAT BRIM CUTTER) Creatinine Urine 177 20 - 320 mg/dL [...] within a diagnostic category. Test Performed at: [facility] [address] [place] [address] SARA CHANEL DO,MPH Urine specimen (specimen) URINE / Unknown 11/11/2017 10:34 AM HELMET HAT BRIM CUTTER 11/11/2017 10:35 AM HELMET HAT BRIM CUTTER Ana Lilia Goldman [facility] - URINE CHEMISTRY ORDERABLES Final Result [facility] ([facility]) [address] * (ABNORMAL) COMPREHENSIVE METABOLIC PANEL (11/11/2017 10:34 AM HELMET HAT BRIM CUTTER) Glucose 61(L) 65 - 99 mg/dL [facility] ([facility]) Comment: Fasting reference interval BUN 9 7 - 25 mg/dL [facility] ([facility]) Creatinine 0.58 0.50 - 1.05 mg/dL [facility] ([facility]) Comment: For patients >49 years of age, the reference limit for Creatinine is approximately 13% higher for people identified as -Nicaraguan. eGFR non- 106 > OR = 60 [...] U/L [facility] ([facility]) Comment: Test Performed at: [facility] [address] [address] SARA CHANEL DO,MPH Blood specimen (specimen) BLOOD SPECIMEN / Unknown 11/11/2017 10:34 AM HELMET HAT BRIM CUTTER 11/11/2017 10:35 AM HELMET HAT BRIM CUTTER Ana Lilia Goldman MIXING OPERATOR-PNEUMATIC TUBE FITTER LAB - CHEMISTRY ORDER TITUS Final Result [facility] ([facility]) [address] from Last 3 Months or Most Recently Relevant to Health Maintenance Insurance [facility] MEDICA[facility] - [facility] [place] [facility] [place] [place] Member Subscriber Plan / Payer (Ef fective for All Dates) Name:Radha Mcguire Member ID:Not on file Relation to Subscriber:Self Name:Radha Mcguire Payer ID:Not on file Group ID:Not on file Type:Medicaid [place] Address: [place] [phone] [facility] MEDICAID [place] Member Subscriber Plan / Payer (Ef fective for All Dates) Name:Radha Mcguire Member ID:Not on file Relation to Subscriber:Self Name:Radha Mcguire Payer ID:Not on file Group ID:Not on file Type:Medicaid [place] Address: [place] [phone] * Guarantor: RADHA MCGUIRE Account Type Relation to Patient Date of Phone Billing Address Personal/Family [email or web address] [place] [address] ON LICENSE OF [facility] C[facility] MEDICAID - [place] Member Subscriber Plan / Payer (Ef fective for All Dates) Name:Radha Mcguire Member ID:Not on file Relation to Subscriber:Self Name:Radha Mcguire Payer ID:Not on file Group ID:Not on file Type:Medicaid [place] Address: [place] [phone] * Guarantor: SHAYLARADHA Account Type Relation to Patient Date of Phone Billing Address Personal/Family [address] [facility] [address] [place] [id number] [facility] MED[facility]ID - [place] Member Subscriber Plan / Payer (Ef fective for All Dates) Name:Radha Mcguire Member ID:Not on file Relation to Subscriber:Self Name:Radha Mcguire Heather Payer ID:Not on file Group ID:Not on file Type:Medicaid [place] Address: [place] [phone] * Guarantor: RADHA MCGUIRE Account Type Relation to Patient Date of Phone Billing Address Personal/Family [address] [facility] [address] [place] [id number] [facility] MEDICAID [place] Member Subscriber Plan / Payer (Ef fective for All Dates) Name:Radha Mcguire Member ID:Not on file Relation to Subscriber:Self Name:ShaylaRadha Heather Payer ID:Not on file Group ID:Not on file Type:Medicaid [place] Address: [place] [phone] Care Teams Employee Relations Director Relationship Specialty Start Date End Date Rianna Rodrigez PA-C PCP - General 03/12/18
--- OUTSIDE RECORDS SUMMARY | 2025-04-19 22:00 | XMS_ITS | Clinical Summary ---
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 Testing performed by: [facility], [address] [place] [address], [place]., [address] Blood 05/10/2024 3:06 PM CDT 05/10/2024 3:16 PM CDT us Xavier Lemon DO LAB BLOOD ORDERABLES Final Result [facility] [address] [facility] [place] [address] * Screening Mammogram Bilateral W [...] on 01/26/2017, and at [facility] on 03/13/2017. There are scattered areas of [...] on 01/26/2017, and at [facility] on 03/13/2017. There are scattered areas of [...] % TI QUINONES Comment:Testing performed by : [facility], [address] [place] [address], [place]., [address] Estimated Average Glucose 232 mg/dL TI QU[facility]ONES Comment: The ADA recommends reporting an estimated Average Glucose (eAG) with all Hemoglobin A1c results using the equation derived from a study of 507 normal and diabetic adults. Minority populations were underrepresented and children were not included. (Diabetes Care 31:7031-0775, 2008). The eAG is not equivalent to a fasting glucose. Testing performed by: [facility], [address] [place] [address], [place]., [address] Blood specimen (specimen) 05/11/2018 2:42 PM CDT 05/11/2018 5:53 PM CDT Narrative TI QUINONES - 05/11/2018 6:09 PM CDT us Rakel Martinez NP LAB BLOOD ORDERABL ES Final Result [facility] [id number] [facility]. 

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
[2025-04-19] MEDS: KETOROLAC 30 MG/ML VIAL (*BKC) IM (22:14)
== END 2025-04-20 01:01 | disposition home or self-care (01) ==
PROVIDERS: Emergency Provider Student in an Organized Health Care Education/Training Program; PCP Physician Assistant
DX: S39.012A Strain of muscle, fascia and tendon of lower back, initial encounter (principal); S46.919A Strain of unspecified muscle, fascia and tendon at shoulder and upper arm level, unspecified arm, initial encounter; E11.9 Type 2 diabetes mellitus without complications; I10 Essential (primary) hypertension; E78.5 Hyperlipidemia, unspecified; V47.0XXA Car driver injured in collision with fixed or stationary object in nontraffic accident, initial encounter
CPT/HCPCS: 71046; 72100; 73030; 96372; 99284; A9270; J1885